=== PATIENT | male | born 1990 | race Caucasian/White ===

== ENCOUNTER 2019-06-26 17:03 | Emergency (ER) | payer OTHER, SELFPAY ==
[2019-06-26 17:07] VITALS: BP 162/98; PULSE 89; RESP 18; TEMP 37.2; O2SAT 99
--- NOTE | 2019-06-26 17:43 | ED.UPPEXIN ---
HPI - Extremity Injury (Upper) General Chief Complaint: Extremity Injury, Upper Stated Complaint: R arm injury Time Seen by Provider: 06/26/19 17:25 Source: patient and RN notes reviewed Mode of arrival: ambulatory Limitations: no limitations History of Present Illness HPI narrative: Pt is a 28 y/o male presenting to the ED c/o RUE pain. Pt reports he was lifting a 5 lb box with his RUE when he heard a pop and suddenly developed RUE pain earlier today. Pt states he has not been able to extend his RUE since and has difficulty moving his fingers. Onset (ago): unknown (Earlier today) Other Extremity Injury: Right: arm Place: work Associated symptoms: heard/felt popping sensation Related Data Home Medications Medication Instructions Recorded Confirmed famotidine 20 mg PO DAILY 04/13/19 04/13/19 sertraline 50 mg PO DAILY 04/13/19 04/13/19 Allergies Allergy/AdvReac Type Severity Reaction Status Date / Time cranberry Allergy Itching Verified 06/26/19 18:03 COCONUT Allergy Unknown Anaphylactic Uncoded 06/26/19 18:03 Shock INK Allergy Unknown swelling Uncoded 06/26/19 18:03 and itching MARKERS Allergy Unknown swelling, Uncoded 06/26/19 18:03 itching PRUNE JUICE Allergy Unknown stomach Uncoded 06/26/19 18:03 pain, diarrhea TUNA Allergy Unknown Anaphylactic Uncoded 06/26/19 18:03 Shock Review of Systems Review of Systems: All systems reviewed & are unremarkable except as noted in HPI and below Musculoskeletal: Musculoskeletal: Reports other (RUE pain after hearing a pop ) PMFSH Past Medical History Medical History (Updated 06/26/19 @ 20:23 by Kunal Lay MD) Asthma Depression GERD (gastroesophageal reflux disease) Hand fracture, right Herniated disc History of bipolar disorder Kidney stone Neck fracture Pseudoseizure PTSD (post-traumatic stress disorder) Schizophrenia Type II diabetes mellitus Surgical History Surgical History No significant past surgical history Social History Social History Smoking status: Unknown if ever smoked Gender identity (if verbalized by the patient): Male Exam Narrative: Exam Narrative: Pt is unable to cooperate with RUE exam Const: General: healthy appearing, no acute distress and well developed Nutritional Appearance: well nourished Orientation/consciousness: patient oriented x3 (alert) and Other orientation findings (Alert) Limitations: no limitations HENMT: Head: normocephalic and atraumatic General nose exam: No nasal discharge present and no epistaxis Face and sinus: face symmetric Mouth: Yes lip normal and Yes tongue normal Throat: other (No exudate, no erythema) Eyes: Conjunctivae: conjunctivae normal Sclera: sclerae normal EOM: EOMs intact bilaterally Neck: Neck: full ROM and supple Thyroid: thyroid normal Resp: Effort & Inspection: normal respiratory effort Auscultation: other (breath sounds equal) Cardio: Heart sounds: no gallops GI: GI Palp: No abdominal tenderness Auscultation: other (bowel sounds present) Back/Spine/Pelvis: Thoracic/Lumbar Spine: thoracic and lumbar spine normal to inspection Skin: General skin exam: normal color and no rashes or lesions noted Neuro: General: patient oriented x3 (alert) and no focal motor deficits Cranial nerves: Yes facial symmetry Speech: normal speech Motor exam (neuro): Motor abnormalities not present Extrem: General: full ROM Other: Pt is resistant to passive ROM of arm, shoulder, and hand. Pt refuses to extend ROM. Psych: Affect: normal affect Course Course Emergency Course: On initial exam he guarded everything, couldn't range the shoulder, extend the elbow, or extend the wrist or fingers versus his active resistance After meds and he was moderately more relaxed the shoulder appeared fine, clearly no deformity and FPROM Biceps tendons appear to be intact and not e
[2019-06-26] MEDS: HALOPERIDOL LACTATE 5 MG/ML VIAL IV PUSH (18:04)
[2019-06-26 18:16] VITALS: BP 149/96; PULSE 94; RESP 14; O2SAT 99
[2019-06-26] MEDS: KETOROLAC 30 MG/ML VIAL (*BKC) IV PUSH (18:48)
[2019-06-26 20:47] VITALS: BP 141/89; PULSE 89; RESP 16; O2SAT 100
== END 2019-06-26 20:48 | disposition home or self-care (01) ==
PROVIDERS: Emergency Provider Emergency Medicine; PCP Internal Medicine
DX: S49.91XA Unspecified injury of right shoulder and upper arm, initial encounter (principal); S59.911A Unspecified injury of right forearm, initial encounter; J45.909 Unspecified asthma, uncomplicated; K21.9 Gastro-esophageal reflux disease without esophagitis; Z87.442 Personal history of urinary calculi; F43.10 Post-traumatic stress disorder, unspecified; F20.9 Schizophrenia, unspecified; E11.9 Type 2 diabetes mellitus without complications; F31.9 Bipolar disorder, unspecified; X50.0XXA Overexertion from strenuous movement or load, initial encounter
CPT/HCPCS: 96374; 96375; 99284; A4565; J1200; J1630; J1885

== ENCOUNTER 2019-07-10 20:45 | Emergency (ER) | payer OTHER, SELFPAY ==
[2019-07-10 21:03] VITALS: BP 149/91; PULSE 86; RESP 16; TEMP 36.6; O2SAT 95
--- NOTE | 2019-07-10 21:11 | PC.NURSE ---
During assessment, RN asked patient about his past medical history and past surgical history. Pts response Thats a list in a half and refused to elaborate.
--- NOTE | 2019-07-10 21:16 | ED.UPPEXIN ---
HPI - Extremity Injury (Upper) General Chief Complaint: Extremity Injury, Upper Stated Complaint: arm pain History of Present Illness HPI narrative: Dav is a 28M with a complex PMH that presented to the ED with pain and swelling in the right wrist pain. he recently had an injury to the cartilage of his right elbow for which he is seeing an orthopedist. He had an injection today in that elbow. While feeding his BK echo he noticed some swelling, pain and discoloration in his right wrist. He was concerned about this or came to the emergency department. He denies any falls or any trauma to the area. He has not done any heavy lifting. Related Data Home Medications Medication Instructions Recorded Confirmed famotidine 20 mg PO DAILY 04/13/19 07/10/19 sertraline 50 mg PO DAILY 04/13/19 07/10/19 Allergies Allergy/AdvReac Type Severity Reaction Status Date / Time cranberry Allergy Itching Verified 06/29/19 09:27 COCONUT Allergy Unknown Anaphylactic Uncoded 06/29/19 09:27 Shock INK Allergy Unknown swelling Uncoded 06/29/19 09:27 and itching MARKERS Allergy Unknown swelling, Uncoded 06/29/19 09:27 itching PRUNE JUICE Allergy Unknown stomach Uncoded 06/29/19 09:27 pain, diarrhea TUNA Allergy Unknown Anaphylactic Uncoded 06/29/19 09:27 Shock Review of Systems Constitutional: Constitutional: Reports no additional constitutional complaints Eyes: Eyes: Reports as per HPI ENT: Reports system reviewed and no additional complaints, except as documented Cardiovascular: Cardiovascular: Reports as per HPI Respiratory: Respiratory: Reports as per HPI Gastrointestinal: Gastrointestinal: Reports as per HPI Genitourinary: Genitourinary: Reports no additional male genitourinary complaints Integumentary/Breasts: Comments: Has continued pain in the right elbow Neurologic: Reports system reviewed and no additional complaints, except as documented Psychiatric: Psychiatric: Reports no additional psychiatric complaints [facility] Past Medical History Medical History Asthma Depression GERD (gastroesophageal reflux disease) Hand fracture, right Herniated disc History of bipolar disorder Kidney stone Neck fracture Pseudoseizure PTSD (post-traumatic stress disorder) Schizophrenia Type II diabetes mellitus Surgical History Surgical History No significant past surgical history Social History Social History Smoking status: Unknown if ever smoked Gender identity (if verbalized by the patient): Male Exam Const: General: cooperative, healthy appearing, comfortable and no acute distress Orientation/consciousness: oriented to person, oriented to place, oriented to time and patient oriented x3 Limitations: no limitations HENMT: Head: normal to inspection Other: normocephalic, atraumatic Eyes: General: appearance normal, both eyes and all related structures Neck: Neck: normal visual inspection Chest: Chest palpation & inspection: normal inspection of the chest Resp: Effort & Inspection: normal respiratory effort, able to speak in complete sentences and abnormal respiratory pattern Cardio: Jugular venous distension: no JVD Rate: regular rate Skin: General skin exam: normal color and no rashes or lesions noted Neuro: General: oriented to person, oriented to place and oriented to time Other: sensation intact in all dermatomes of the right hand Extrem: Other: Right wrist had mild swelling throughout the dorsal side. There was no erythema, discoloration or tenderness palpation. when testing strength he did hesitate because of pain. 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 he had sensation throughout the entire hand and no signs of trauma. Cou
[2019-07-10] MEDS: KETOROLAC (*BKC) 60 MG/2 ML VIAL 30 MG IM (21:20)
[2019-07-10 21:41] VITALS: RESP 15
== END 2019-07-10 21:44 | disposition home or self-care (01) ==
PROVIDERS: Emergency Provider Family Medicine; PCP Internal Medicine
DX: M25.531 Pain in right wrist (principal); M25.431 Effusion, right wrist
CPT/HCPCS: 96372; 99282; 99283; J1885

== ENCOUNTER 2019-07-17 14:39 | Emergency (ER) | payer OTHER, SELFPAY ==
[2019-07-17] VITALS (8 sets, daily range): BP systolic 135–154; BP diastolic 92–108; PULSE 61–74; RESP 14–21; TEMP 36.4; O2SAT 98–100
--- NOTE | ~2019-07-17 | CT_ITS ---
EXAMINATION: CTA brain carotid DATE: 07/17/2019 16:04 INDICATION: Diplopia. TECHNIQUE: Computed tomographic angiography (CTA) of the head was performed without and with 100 mL O mnipaque-350 intravenous contrast. CTA of the neck was performed with intravenous contrast. Automated exposure control and iterative reconstruction technique were employed. The dose-length product was 1 875.57 mGy-cm. Maximum intensity projection and volume rendered 3D-reconstructions were created by valeria roy technologist on a separate workstation. COMPARISON: Head CT 04/13/2019 FINDINGS: HEAD CTA: There is no intracranial hemorrhage, acute infarction, or abnormal intracranial mass lesion . The ventricles are normal in size. The orbits are normal. The paranasal sinuses are clear. The mast oid air cells are normal. Right vertebral artery is dominant. There is no significant stenosis of bas ilar artery or the posterior cerebral arteries. There is no significant stenosis of the intracranial internal carotid arteries or anterior or middle cerebral arteries. Anterior communicating artery is n ormal. The posterior communicating arteries are normal. There is no aneurysm. NECK CTA: There are no pathologically enlarged lymph nodes. There is no significant stenosis of the vertebral arteries. There is mild plaque in proximal right internal carotid artery. There is 0% sten osis of the proximal right internal carotid artery relative to normal distal artery lumen diameter (N ASCET criteria). There is 0% stenosis of the proximal left internal carotid artery relative to normal distal artery lumen diameter. There is mild cervical spondylosis. IMPRESSION: 1. Normal brain. No aneurysm or significant intracranial arterial stenosis. 2. 0% stenosis of the proximal internal carotid arteries relative to normal distal artery lumen diame ters (NASCET criteria). Reviewed, dictated and finalized at location A. IMPRESSION: 1. Normal brain. No aneurysm or significant intracranial arterial stenosis. 2. 0% stenosis of the proximal internal carotid arteries relative to normal dis tiffani artery lumen diameters (NASCET criteria).
--- NOTE | 2019-07-17 14:52 | ECG_ITS ---
Measurements Intervals [place] Rate: 69 P: 40 IN: 198 QRS: -5 QRSD: 99 T: 30 QT: 349 QTc: 374 Interpretive Statements SINUS RHYTHM WITH SINUS ARRHYTHMIA INCOMPLETE RIGHT BUNDLE BRANCH BLOCK VOLTAGE CRITERIA FOR LVH BORDERLINE ECG Electronically Signed On 07-17-2019 15:16:09 CDT by Jose Maria Edmond D.O.
--- NOTE | 2019-07-17 14:57 | ED.SOB ---
HPI - SOB/Dyspnea General Chief Complaint: Shortness of Breath/Dyspnea Stated Complaint: DOUBLE VISION/SOB Time Seen by Provider: 07/17/19 14:55 Source: patient and RN notes reviewed Mode of arrival: EMS Limitations: no limitations History of Present Illness HPI Narrative: A 28 y/o male presents to the ED via EMS from work with SOB beginning roughly 40 minutes ago. He states that he was at work doing normal work stuff when he acutely developed SOB with double vision. He reports associated LLE numbness, ABD pain, eye pain, intermittent ROBLEDO, spinning dizziness, and tingling to the lt side of his body. He also reports normal /chronic rhinorrhea and a normal /chronic cough because he is a former smoker. He notes that his SOB has improved. He denies any N/V/D, sore throat, or fever. MD elicited complaint: shortness of breath Pertinent past history: asthma Onset (ago): minute(s) (40) Timing: improved Known history of: asthma Associated symptoms: cough ( normal /chronic), abdominal pain, dizziness (spinning) and other (double vision, LLE numbness, eye pain, intermittent ROBLEDO, tingling to lt side of body, and normal /chronic rhinorrhea) Treatment prior to arrival: none Related Data Home Medications Medication Instructions Recorded Confirmed sertraline 50 mg PO DAILY 04/13/19 07/10/19 dextroamphetamine-amphetamine PO 07/17/19 [Adderall XR] Allergies Allergy/AdvReac Type Severity Reaction Status Date / Time cranberry Allergy Itching Verified 07/17/19 14:49 COCONUT Allergy Unknown Anaphylactic Uncoded 07/17/19 14:49 Shock INK Allergy Unknown swelling Uncoded 07/17/19 14:49 and itching MARKERS Allergy Unknown swelling, Uncoded 07/17/19 14:49 itching PRUNE JUICE Allergy Unknown stomach Uncoded 07/17/19 14:49 pain, diarrhea TUNA Allergy Unknown Anaphylactic Uncoded 07/17/19 14:49 Shock Review of Systems Review of Systems: All systems reviewed & are unremarkable except as noted in HPI and below Constitutional: Constitutional: Denies fever(s) Eyes: Eyes: Reports diplopia and Reports eye pain ENT: Reports nasal discharge ( normal /chronic) and Denies sore throat Respiratory: Respiratory: Reports cough ( normal /chronic) and Reports dyspnea (improved) Gastrointestinal: Gastrointestinal: Reports abdominal pain, Denies diarrhea, Denies nausea and Denies vomiting Neurologic: Reports dizziness (spinning), Reports headache(s) (intermittent), Reports numbness (LLE) and Reports tingling (lt side of body) PMFSH Past Medical History Medical History Asthma Depression GERD (gastroesophageal reflux disease) Hand fracture, right Herniated disc History of bipolar disorder Hx of seizure disorder Hx of transient ischemic attack (TIA) Kidney stone Neck fracture Pseudoseizure PTSD (post-traumatic stress disorder) Schizophrenia Type II diabetes mellitus Surgical History Surgical History (Updated 07/17/19 @ 15:34 by Raza Arevalo) Hx of cardiac cath Social History Social History (Updated 07/17/19 @ 15:34 by Raza Arevalo) Smoking status: Former smoker Gender identity (if verbalized by the patient): Male Exam Const: General: cooperative, no acute distress and alert Nutritional Appearance: well nourished Orientation/consciousness: patient oriented x3 Limitations: no limitations HENMT: Mouth: Yes lip normal and Yes moist mucous membranes Resp: Effort & Inspection: normal respiratory effort Auscultation: clear to auscultation bilaterally Cardio: Rate: regular rate Rhythm: regular rhythm GI: GI Palp: Yes Soft to palpation, Yes Tenderness to palpation present (GI) (LLQ), No Guarding due to palpation present (GI) and No Rebound tenderness present Auscultation: normal bowel sounds Skin: General skin exam: normal color Neuro: General: patient oriented x3 Cognition (Neuro): normal cognition Speech: normal speech Extrem: General: normal to insp
[2019-07-17 15:07] LABS: Basophils Absolute Auto 0.1 K/mm3 (0.0-0.1); Basophils Percent Auto 0.8 % (0.2-1.2); Eosinophils Absolute Auto 0.1 K/mm3 (0-0.3); Eosinophils Percent Auto 1.4 % (0-4.4); Hematocrit 42.5 % (42.0-52.0); Hemoglobin 14.3 g/dL (14.0-18.0); Immature Granulocyte Absolute 0.03 K/mm3 (0.00-0.031); Immature Granulocyte Percent A 0.5 % (0-0.5); Lymphocytes Absolute Auto 1.19 K/mm3 (0.9-3.2); Lymphocytes Percent Auto 19.1 % (18.3-44.2); Mean Corpuscular HGB Conc 33.6 g/dl (32-36); Mean Corpuscular Hemoglobin 28.5 pg (26-34); Mean Corpuscular Volume 84.8 fl (80-100); Mean Platelet Volume 11.3 fl (7.4-10.4); Monocytes Absolute Auto 0.5 K/mm3 (0.1-0.6); Monocytes Percent Auto 7.2 % (2.6-8.5); Neutrophils Absolute Auto 4.4 K/mm3 (1.3-6.7); Platelet Count Result 232 k/mm3 (150-375); Red Blood Count 5.01 M/mm3 (4.6-6.20); Red Cell Distribution Width 12.4 % (11.5-14.5); White Blood Count 6.2 K/mm3 (4.5-10.0)
[2019-07-17 15:10] LABS: Add Urine Microscopic? NO; Appearance Urine Clear (Clear); Bilirubin Urine Negative (Negative); Blood Urine Negative (Negative); Color Urine Yellow (Yellow); Glucose Urine UA Negative (Negative); Ketones Urine Negative (Negative); Leukocyte Esterase Ur Negative LEU/UL (Negative); Nitrate Urine Negative (Negative); Protein Urine Negative (Negative); Urobilinogen Urine Negative mg/dL (<2.0)
[2019-07-17 15:20] LABS: Alanine Aminotransferase 23 U/L (4-50); Albumin Level 4.4 g/dL (3.5-5.1); Alkaline Phosphatase 114 U/L (38-126); Aspartate Amino Transferase 21 U/L (17-59); Bilirubin,Total 0.3 mg/dL (0.2-1.3); Blood Urea Nitrogen 19 mg/dL (9-20); Carbon Dioxide 25 mmol/L (22-30); Chloride 105 mmol/L (98-107); Estimated CRCL calculation 124 ml/min; Estimated Glomerular Filt Rate > 60; Glucose 91 mg/dL (75-110); Sodium 139 mmol/L (137-145)
--- NOTE | 2019-07-17 15:27 | PC.NURSE ---
Patient to radiology at this time.
[2019-07-17 15:46] LABS: Ethanol < 10 mg/dL (<10)
[2019-07-17 15:48] LABS: INR 0.9; Prothrombin Time 11.8 Seconds (11.1-14.7)
[2019-07-17 15:49] LABS: Partial Thromboplastin Time 29.3 SECONDS (22.3-36.8)
[2019-07-17] MEDS: ONDANSETRON INJ 4 MG/2 ML VIAL IV PUSH (15:56)
[2019-07-17] MEDS: MECLIZINE HCL 25 MG TABLET PO (15:56)
[2019-07-17 15:59] LABS: Troponin I < 0.012 ng/mL (0.000-0.034)
[2019-07-17 16:26] LABS: Amphetamine Screen Urine Negative (Negative); Barbiturate Screen Urine Negative (Negative); Benzodiazepines Screen Urine Negative (Negative); Cannabinoid Screen Urine Negative (Negative); Cocaine Screen Urine Negative (Negative); Methadone Screen Urine Negative (Negative); Opiate Screen Urine Negative (Negative); Phencyclidine Screen Urine Negative (Negative)
--- NOTE | 2019-07-17 17:17 | PC.NURSE ---
asked to ambulate the pt pt unable to walk more than three steps, even with assistance. had to be held up from falling, still c/o of dizzyness
[2019-07-17] MEDS: LACTATED RINGERS 1,000 ML 999 ML IV CONT (18:11)
--- NOTE | 2019-07-17 19:00 | PC.NURSE ---
Per order of Dr. Lilly, attempted to get patient up to ambulate. Patient was assisted to sitting position from semi-fowlers position and he began to complain of feeing severe dizziness. He also began to waiver while sitting and laid back into semi-fowlers position. EDP aware
--- NOTE | 2019-07-17 20:52 | PC.NURSE ---
pt ambulates slowly but steadily out of door of room ED#2 to nurses station aboug 15 feet and back. pt c/o dizziness, knee buckling, during ambulation assessment. This RN did not have to assist pt in any way to ambulate.
== END 2019-07-17 21:07 | disposition home or self-care (01) ==
PROVIDERS: Emergency Medicine; Emergency Provider Emergency Medicine; PCP Internal Medicine
DX: R06.00 Dyspnea, unspecified (principal); R42 Dizziness and giddiness; H61.23 Impacted cerumen, bilateral; E11.9 Type 2 diabetes mellitus without complications; K21.9 Gastro-esophageal reflux disease without esophagitis; J45.909 Unspecified asthma, uncomplicated; F31.9 Bipolar disorder, unspecified; F43.10 Post-traumatic stress disorder, unspecified; F20.9 Schizophrenia, unspecified; G40.909 Epilepsy, unspecified, not intractable, without status epilepticus; Z86.73 Personal history of transient ischemic attack (TIA), and cerebral infarction without residual deficits; Z87.442 Personal history of urinary calculi; Z87.891 Personal history of nicotine dependence; I45.10 Unspecified right bundle-branch block; R94.31 Abnormal electrocardiogram [ECG] [EKG]
CPT/HCPCS: 36415; 69210; 70496; 70498; 80053; 80307; 81003; 84484; 85025; 85610; 85730; 93005; 96374; 96375; 99284; A9270; J2405; J3360; J7120; Q9967

== ENCOUNTER 2019-08-25 09:26 | Observation (INO) | payer OTHER, SELFPAY ==
[2019-08-25] VITALS (8 sets, daily range): BP systolic 133–164; BP diastolic 91–112; PULSE 64–82; RESP 14–20; TEMP 36.1–37; O2SAT 94–100; BMI 36.3
--- NOTE | ~2019-08-25 | MR_ITS ---
EXAMINATION: MR brain/brain stem wo/w con DATE: 08/25/2019 16:06 CDT INDICATION: Right-sided weakness TECHNIQUE: Magnetic resonance imaging (MRI) of the brain and brainstem was performed without and with 20 cc MultiHance intravenous contrast. Sequences included sagittal and axial T1-weighted SE, axial d iffusion-weighted FS SE, axial T2*-weighted GRE, axial T2-weighted FLAIR Propeller, and axial T2-weig hted Propeller. Apparent diffusion coefficient (ADC) maps were created. COMPARISON: CT dated 08/25/2019 FINDINGS: The brain volume and ventricular system are within normal limits. The brain parenchymal si gnal intensity pattern and lozada/white matter is normal and there is no evidence of hemorrhage, space occupying masses or infarctions. The flow signal voids of the major arterial structures about the [place] and within the shonda r dural venous sinuses appear grossly unremarkable and patent. The seventh and eighth cranial nerve complexes are normal. The mid sagittal image demonstrates a normal craniovertebral junction and k[place] us callosum. The paranasal sinuses are grossly unremarkable. No abnormal contrast enhancement was appreciated. IMPRESSION: 1: NORMAL MRI OF THE BRAIN WITH AND WITHOUT CONTRAST. Reviewed, dictated and finalized at location A.
--- NOTE | ~2019-08-25 | XR_ITS ---
XR chest 1V DATE: 08/25/2019 10:46 INDICATION: Chest pain TECHNIQUE: AP chest on 08/25/2019 at 1034 hours COMPARISON: 03/22/2014 2 view chest FINDINGS: No pulmonary infiltrate or consolidation, pleural effusion or pulmonary vascular congestion or pneumothorax is detected. Heart size is within normal range. No hilar or mediastinal enlargement. IMPRESSION: No active cardiopulmonary disease Reviewed, dictated and finalized at location A.
--- NOTE | ~2019-08-25 | MR_ITS ---
EXAMINATION: MR cervical spine wo/w con DATE: 08/25/2019 15:43 INDICATION: Right hemiparesis. TECHNIQUE: Magnetic resonance imaging (MRI) of the cervical spine was performed without and with 20 m L MultiHance intravenous contrast. Sequences included sagittal and axial T2-weighted FSE, sagittal T2 -weighted FS FSE, and sagittal and axial T1-weighted FSE. Postcontrast sequences included sagittal an d axial T1-weighted FS FSE. COMPARISON: CTA neck 08/25/2019 FINDINGS: Motion artifact is noted. Vertebral body heights are normal. Vertebral body heights and int ervertebral disc heights are normal. The spinal cord signal intensity is normal. The following disc l evels are specifically discussed: C2-C3: The disc does not extend beyond the endplate margin. There is mild bilateral uncovertebral alvarado nt osteoarthritis. There is no facet joint osteoarthritis. There is no neural foraminal stenosis. The re is no central canal stenosis. C3-C4: The disc does not extend beyond the endplate margin. There is mild right uncovertebral joint o steoarthritis. There is no facet joint osteoarthritis. There is no neural foraminal stenosis. There i s no central canal stenosis. C4-C5 through C6-C7: The disc does not extend beyond the endplate margin. There is no uncovertebral j oint osteoarthritis. There is no facet joint osteoarthritis. There is no neural foraminal stenosis. T here is no central canal stenosis. C7-T1: The disc does not extend beyond the endplate margin. There is no uncovertebral joint osteoarth ritis. There is mild bilateral facet joint osteoarthritis. There is no neural foraminal stenosis. The re is no central canal stenosis. IMPRESSION: 1. Normal spinal cord. Sensitivity and specificity are mildly decreased by motion artifact. Reviewed, dictated and finalized at location A. IMPRESSION: 1. Normal spinal cord. Sensitivity and specificity are mildly decreased by marissa on artifact.
--- NOTE | ~2019-08-25 | CT_ITS ---
EXAMINATION: CTA BRAIN/CAROTID DATE: 08/25/2019 10:38 INDICATION: Right-sided hemiparesis TECHNIQUE: Computed tomographic angiography (CTA) of the head and neck was performed with 100 mL Omni paque-350 intravenous contrast. Multiplanar reconstructions and maximum intensity projection 3D-recon structions of the carotid arteries and of the intracranial arteries were created by the technologist on a separate workstation. Precontrast CT of the head was also obtained. Automated exposure control and iterative reconstruction technique were employed.The dose-length product was 1814.19 mGy-cm. COMPARISON: None. FINDINGS: Carotid arteries: Visualized aortic arch and great vessels arising from the arch are normal in caliber with no evident atherosclerotic plaque or dissection. There is 0% stenosis of the right carotid bulb relative to norm al distal artery lumen diameter (NASCET criteria). There is 0% stenosis of the left carotid bulb rela tive to normal distal artery lumen diameter. Right vertebral artery is dominant. Cervical soft tissue s are unremarkable. Straightening of the normal cervical lordosis. Minimal disc height loss at C4-C5. Visualized apices of lungs are clear. Head: No acute intracranial hemorrhage, acute infarction or abnormal extra axial fluid collection. Ventricl es are normal and symmetric. No mass/mass effect. The orbits, paranasal sinuses and mastoid air cells are normal. No abnormally enhancing lesions identified. Intracranial arteries: There is no hemodynamically significant stenosis in the vertebral, basilar and internal carotid arter ies. There are no aneurysms identified. Both A1 and P1 segments are patent. Cerebral arterial arbor ization appears symmetric. IMPRESSION: 1. No acute intracranial process. 2. 0% stenosis of the right carotid bulb relative to normal distal artery lumen diameter (NASCET crit eria). 3. 0% stenosis of the left carotid bulb relative to normal distal artery lumen diameter. 4. Normal cerebral angiogram. Reviewed, dictated and finalized at location A. IMPRESSION: 1. No acute intracranial process. 2. 0% stenosis of the right carotid bulb relative to normal distal artery lumen diameter (NASCET criteria). 3. 0% stenosis of the left carotid bulb relative to normal distal artery lumen diameter. 4. Normal cerebral angiogram.
--- NOTE | ~2019-08-25 | XR_ITS ---
XR shoulder RT min 2V DATE: 08/25/2019 10:46 INDICATION: Right shoulder pain following a fall TECHNIQUE: 4 views COMPARISON: None FINDINGS: No fracture, dislocation, periosteal reaction or bone destruction or abnormal soft tissue c alcification at the right shoulder. IMPRESSION: Negative right shoulder Reviewed, dictated and finalized at location A. IMPRESSION: Negative right shoulder
--- NOTE | 2019-08-25 09:45 | ECG_ITS ---
Measurements Intervals [place] Rate: 70 P: 31 IA: 172 QRS: 0 QRSD: 104 T: 32 QT: 360 QTc: 390 Interpretive Statements SINUS RHYTHM WITH SINUS ARRHYTHMIA INCOMPLETE RIGHT BUNDLE BRANCH BLOCK LOW QRS VOLTAGE IN PRECORDIAL LEADS BORDERLINE ECG Electronically Signed On 08-25-2019 12:29:07 CDT by Jose Maria Edmond D.O.
--- NOTE | 2019-08-25 09:50 | ED.GENADULT ---
HPI - General Adult General Chief complaint: Unspecified Stated complaint: limping, elbow injury, pain in neck for a month Time Seen by Provider: 08/25/19 09:37 Source: RN notes reviewed History of Present Illness HPI narrative: Patient presents emergency department from home for right-sided weakness. Patient states that starting approximately 1 month ago he began noticing weakness in his right arm. Patient states that he had had some pain in his elbow at that time and is felt that he had possibly had tennis elbow and has been seen Dr. Henning for this. He states he went to the office today Dr. Henning noticed the patient also had a limp. Patient states he has been feeling mildly weaker in his right leg as well as his right arm over the past month. He denies any known trauma or injury. He denies any vision changes chest pain shortness of breath or abdominal pain. Patient states he has had some numbness and tingling in his right hand. Patient states he has had some pain in the right side of his neck during this time Related Data Home Medications Medication Instructions Recorded Confirmed citalopram 20 mg PO DAILY 08/25/19 levetiracetam 500 mg PO DAILY 08/25/19 quetiapine 100 mg PO HS 08/25/19 Allergies Allergy/AdvReac Type Severity Reaction Status Date / Time cranberry Allergy Itching Verified 08/25/19 09:36 COCONUT Allergy Unknown Anaphylactic Uncoded 08/25/19 09:36 Shock INK Allergy Unknown swelling Uncoded 08/25/19 09:36 and itching MARKERS Allergy Unknown swelling, Uncoded 08/25/19 09:36 itching PRUNE JUICE Allergy Unknown stomach Uncoded 08/25/19 09:36 pain, diarrhea TUNA Allergy Unknown Anaphylactic Uncoded 08/25/19 09:36 Shock Review of Systems Review of Systems: Narrative: Gen.: Denies fevers or chills Eyes: Denies eye pain or visual change ENT: Denies congestion Respiratory: Denies shortness of breath or cough CV: Denies chest pain or palpitations GI: Denies abdominal pain nausea, emesis or diarrhea Musculoskeletal: Denies back pain or muscle pain Neuro: See HPI Skin: Denies rash Except as documented, all other systems reviewed and negative PMFSH Past Medical History Medical History Asthma Depression GERD (gastroesophageal reflux disease) Hand fracture, right Herniated disc History of bipolar disorder Hx of seizure disorder Hx of transient ischemic attack (TIA) Kidney stone Neck fracture Pseudoseizure PTSD (post-traumatic stress disorder) Schizophrenia Type II diabetes mellitus Surgical History Surgical History (Updated 07/17/19 @ 15:34 by Raza Arevalo) Hx of cardiac cath Social History Social History Smoking status: Former smoker Gender identity (if verbalized by the patient): Male Exam Narrative: Exam Narrative: APPEARANCE: No acute distress, nontoxic, resting in bed HEENT: Normocephalic, atraumatic, OMM, TMs clear bilaterally EYES: PERRL, EOMI NECK: Supple, nontender, full range of motion without pain, no meningismus RESPIRATORY: No respiratory distress, clear to auscultation bilaterally with no rhonchi wheezing or rales CARDIOVASCULAR: RRR s murmur ABDOMINAL: Soft, nontender, nondistended MUSCULOSKELETAL: Moves all extremities. No clubbing, cyanosis or edema. Bilateral radial pulse 2+ NEURO: A and O ?3, following commands, speech normal, cranial nerves II through XII grossly intact,muscle strength 5 out of 5 left upper and lower extremities muscle strength 3 out of 5 in the right upper extremity and 4 out of 5 notable right lower extremity SKIN:: Warm, dry. Normal Color PSYCHIATRIC: Normal affect/mood Course Course Emergency Course: Discussed Dr. Figueroa presentation work-up. Recommends MRI cervical spine with and without contrast Discussed with Dr. Jon's office. Dr. Jon is out till mid next week Discussed with Dr. Streeter
[2019-08-25 10:06] LABS: Basophils Absolute Auto 0.1 K/mm3 (0.0-0.1); Eosinophils Absolute Auto 0.2 K/mm3 (0-0.3); Eosinophils Percent Auto 3.3 % (0-4.4); Hematocrit 44.6 % (42.0-52.0); Hemoglobin 15.3 g/dL (14.0-18.0); Immature Granulocyte Absolute 0.02 K/mm3 (0.00-0.031); Immature Granulocyte Percent A 0.3 % (0-0.5); Lymphocytes Absolute Auto 1.19 K/mm3 (0.9-3.2); Lymphocytes Percent Auto 19.5 % (18.3-44.2); Mean Corpuscular HGB Conc 34.3 g/dl (32-36); Mean Corpuscular Hemoglobin 28.8 pg (26-34); Mean Corpuscular Volume 83.8 fl (80-100); Mean Platelet Volume 10.6 fl (7.4-10.4); Monocytes Absolute Auto 0.4 K/mm3 (0.1-0.6); Monocytes Percent Auto 6.1 % (2.6-8.5); Neutrophils Absolute Auto 4.3 K/mm3 (1.3-6.7); Neutrophils Percent Auto 69.8 % (45.5-73.1); Platelet Count Result 234 k/mm3 (150-375); Red Blood Count 5.32 M/mm3 (4.6-6.20); Red Cell Distribution Width 12.5 % (11.5-14.5); White Blood Count 6.1 K/mm3 (4.5-10.0)
[2019-08-25 10:15] LABS: INR 0.9; Prothrombin Time 11.8 Seconds (11.1-14.7)
[2019-08-25 10:16] LABS: Partial Thromboplastin Time 29.7 SECONDS (22.3-36.8)
[2019-08-25 10:20] LABS: Alanine Aminotransferase 26 U/L (4-50); Albumin Level 4.8 g/dL (3.5-5.1); Alkaline Phosphatase 117 U/L (38-126); Aspartate Amino Transferase 22 U/L (17-59); Bilirubin,Total 0.5 mg/dL (0.2-1.3); Blood Urea Nitrogen 17 mg/dL (9-20); Calcium 9.6 mg/dL (8.4-10.2); Carbon Dioxide 29 mmol/L (22-30); Chloride 104 mmol/L (98-107); Estimated CRCL calculation 108 ml/min; Estimated Glomerular Filt Rate > 60; Glucose 94 mg/dL (75-110); Potassium 4.1 mmol/L (3.4-5.0); Sodium 138 mmol/L (137-145)
[2019-08-25 10:22] LABS: Estimated CRCL calculation 108 ml/min; Estimated Glomerular Filt Rate > 60
[2019-08-25 10:31] LABS: Troponin I < 0.012 ng/mL (0.000-0.034)
--- NOTE | 2019-08-25 13:34 | PM.IMHP ---
H&P: HPI History of Present Illness Chief complaint: R sided weakness Narrative: Mario Zamora III is a 28 year old male who had an incident about 1 month ago when he felt and heard a pop in his right elbow. He stated it felt and sound as if ?2 m-80s? exploded in his elbow. He was being treated for ?tennis elbow ?. Physical therapy. Not improving. About 5-6 days ago he began to feel tingling in the right arm and right leg. About 4-5 days ago he began having a generalized occipital to frontal headache. He noted the turning his head seem to elicit some neck pain there radiated to the right shoulder. He noted increasing weakness in his right arm over the past 2 days. Today he he noted that he was walking with a slight limp. He denied right leg pain. During the past 2 days he has also noted spontaneous flexion and abduction of his right arm with clenching of the fist. About several weeks ago he had a spell during which she hyperventilated and fell at work. He does not recall falling although when the ground. Stated someone caught him before he fell all the way. He did not snap is neck back and forth hurt his shoulder or hit his head. He denied any change in bowel movements or urination. Specifically denied numbness in the perineal region, fecal incontinence, urinary incontinence, urinary retention. He denied chest pain, shortness of breath, indigestion, dysuria, hematochezia, hematuria, rash, itching. Review of Systems Review of Systems: All systems reviewed & are unremarkable except as noted in HPI and below PMFSH Past Medical History Medical History Asthma Depression GERD (gastroesophageal reflux disease) Hand fracture, right Herniated disc History of bipolar disorder Hx of seizure disorder Hx of transient ischemic attack (TIA) Kidney stone Neck fracture Pseudoseizure PTSD (post-traumatic stress disorder) Schizophrenia Type II diabetes mellitus Surgical History Surgical History Hx of cardiac cath Family History Family History (Updated 08/25/19 @ 13:38 by Ascencion Streeter MD) Father No problems noted. Social History Social History (Updated 08/25/19 @ 13:39 by Ascencion Streeter MD) Smoking status: Former smoker Alcohol use details: Denied current alcohol abuse Other substance usage details: Denied current substance abuse Gender identity (if verbalized by the patient): Male Meds Home Medications and Allergies Home Medications Medication Instructions Recorded Confirmed Type citalopram 20 mg PO DAILY 08/25/19 History levetiracetam 500 mg PO DAILY 08/25/19 History quetiapine 100 mg PO HS 08/25/19 History Allergies Allergy/AdvReac Type Severity Reaction Status Date / Time cranberry Allergy Itching Verified 08/25/19 09:36 COCONUT Allergy Unknown Anaphylactic Uncoded 08/25/19 09:36 Shock INK Allergy Unknown swelling Uncoded 08/25/19 09:36 and itching MARKERS Allergy Unknown swelling, Uncoded 08/25/19 09:36 itching PRUNE JUICE Allergy Unknown stomach Uncoded 08/25/19 09:36 pain, diarrhea TUNA Allergy Unknown Anaphylactic Uncoded 08/25/19 09:36 Shock Vital Signs Vital Signs - 24 hr 08/25/19 09:31 08/25/19 10:05 08/25/19 11:29 Temperature 97.0 F L Pulse Rate 73 70 72 Respiratory Rate 20 14 Blood Pressure 164/105 H 142/101 H Pulse Oximetry 94 98 08/25/19 12:59 08/25/19 13:18 Temperature Pulse Rate 64 76 Respiratory Rate 18 14 Blood Pressure 157/112 H 144/102 H Pulse Oximetry 100 98 Exam Narrative: Exam Narrative: HEENT: EOMI, PERRL, sclerae nonicteric, pharyngeal mucosa pink and intact NECK: No JVD, adenopathy, or thyromegaly CHEST: Clear to auscultation. Normal effort. HEART: NL S1/S2, regular, no murmur ABDOMEN: BS+, soft, nontender, no mass, no bruits EXTREMITIES: No cyanosis, edema, or clubbing NEUROLOGIC: C
--- NOTE | 2019-08-25 13:51 | ED.GENADULT ---
HPI - General Adult General Source: RN notes reviewed Related Data Home Medications Medication Instructions Recorded Confirmed citalopram 20 mg PO DAILY 08/25/19 levetiracetam 500 mg PO DAILY 08/25/19 quetiapine 100 mg PO HS 08/25/19 Allergies Allergy/AdvReac Type Severity Reaction Status Date / Time cranberry Allergy Itching Verified 08/25/19 09:36 latex Allergy Rash Verified 08/25/19 15:46 COCONUT Allergy Unknown Anaphylactic Uncoded 08/25/19 09:36 Shock INK Allergy Unknown swelling Uncoded 08/25/19 09:36 and itching MARKERS Allergy Unknown swelling, Uncoded 08/25/19 09:36 itching PRUNE JUICE Allergy Unknown stomach Uncoded 08/25/19 09:36 pain, diarrhea TUNA Allergy Unknown Anaphylactic Uncoded 08/25/19 09:36 Shock PMFSH Past Medical History Medical History Asthma Depression GERD (gastroesophageal reflux disease) Hand fracture, right Herniated disc History of bipolar disorder Hx of seizure disorder Hx of transient ischemic attack (TIA) Kidney stone Neck fracture Pseudoseizure PTSD (post-traumatic stress disorder) Schizophrenia Type II diabetes mellitus Surgical History Surgical History Hx of cardiac cath Family History Family History (Updated 08/25/19 @ 15:52 by Laurel Houston RN) Father History of blood clots Diabetes mellitus Hypertension Mother History of blood clots Diabetes mellitus Hypertension Sibling Hypertension Social History Social History (Updated 08/25/19 @ 13:39 by Ascencion Streeter MD) Smoking packs per day: 3 Smoking cigarettes per day: 60.0 Years smoked: 20 Smoking pack-years: 60.00 Smoking status: Current every day smoker Tobacco type: cigarettes Alcohol intake: former Alcohol use details: Denied current alcohol abuse Substance use: never Other substance usage details: Denied current substance abuse Gender identity (if verbalized by the patient): Male Spiritual care concerns: No Agree to blood products: Yes Course Vital Signs Vital signs: Vital Signs Temperature 97.0 F L 08/25/19 09:31 Pulse Rate 73 08/25/19 09:31 Respiratory Rate 20 08/25/19 09:31 Blood Pressure 164/105 H 08/25/19 09:31 Pulse Oximetry 94 08/25/19 09:31 Temperature 98.6 F 08/25/19 15:00 Pulse Rate 78 08/25/19 15:00 Respiratory Rate 16 08/25/19 15:00 Blood Pressure 133/98 H 08/25/19 15:00 Pulse Oximetry 98 08/25/19 15:00 Medical Decision Making Vital Signs Vital Signs: Vital Signs Temperature 97.0 F L 08/25/19 09:31 Pulse Rate 73 08/25/19 09:31 Respiratory Rate 20 08/25/19 09:31 Blood Pressure 164/105 H 08/25/19 09:31 Pulse Oximetry 94 08/25/19 09:31 Temperature 98.6 F 08/25/19 15:00 Pulse Rate 78 08/25/19 15:00 Respiratory Rate 16 08/25/19 15:00 Blood Pressure 133/98 H 08/25/19 15:00 Pulse Oximetry 98 08/25/19 15:00 Lab Data Result diagrams: 08/25/19 09:59 08/25/19 10:21 Labs: Lab Results 08/25/19 08/25/19 08/25/19 Range/Units 09:59 09:59 09:59 WBC 6.1 (4.5-10.0) K/mm3 RBC 5.32 (4.6-6.20) M/mm3 Hgb 15.3 (14.0-18.0) g/dL Hct 44.6 (42.0-52.0) % MCV 83.8 (80-100) fl MCH 28.8 (26-34) pg MCHC 34.3 (32-36) g/dl RDW 12.5 (11.5-14.5) % Plt Count 234 (150-375) k/mm3 MPV 10.6 H (7.4-10.4) fl Immature Gran % (Auto) 0.3 (0-0.5) % Neut % (Auto) 69.8 (45.5-73.1) % Lymph % (Auto) 19.5 (18.3-44.2) % [place] % (Auto) 6.1 (2.6-8.5) % Eos % (Auto) 3.3 (0-4.4) % Baso % (Auto) 1.0 (0.2-1.2) % Lymph # (Auto) 1.19 (0.9-3.2) K/mm3 [place] # (Auto) 0.4 (0.1-0.6) K/mm3 Eos # (Auto) 0.2 (0-0.3) K/mm3 Baso # (Auto) 0.1 (0.0-0.1) K/mm3 Abs Immat Gran (auto) 0.02 (0.00-0.031) K/mm3 Absolute Neuts (auto) 4.3 (1.3-6.7)
--- NOTE | 2019-08-25 14:00 | PC.NURSE ---
This patient, Mario Zamora III, was admitted to 2 Medical Room 241-01. Patient/family oriented to hospital policies and general routines including ID bracelet, bed and alarms, visiting hours, pain management, procedures, bathroom and other care routines, personal items, smoking policy, room service/diet, and visiting hours. Valuables list has been completed. Information on how to activate the Rapid Response Team has been discussed. Patient/Family are encouraged to report perceived risks to care and to ask questions if they do not understand what they are told or what they should do.
[2019-08-25 16:22] LABS: Glucose Point of Care 71 (65-105)
[2019-08-25] MEDS: QUEtiapine FUMARATE 100 MG TABLET PO (20:35)
[2019-08-25 21:15] LABS: Glucose Point of Care 78 (65-105)
[2019-08-25] MEDS: ACETAMINOPHEN 325 MG TABLET 650 MG PO (21:42)
[2019-08-26 06:00] VITALS: BP 147/84; PULSE 87; RESP 16; TEMP 36.2; O2SAT 97
[2019-08-26 07:41] LABS: Glucose Point of Care 91 (65-105)
[2019-08-26] MEDS: levETIRAcetam 500 MG TABLET PO (08:48)
[2019-08-26] MEDS: CITALOPRAM HYDROBROMIDE 20 MG TABLET PO (08:49)
[2019-08-26 11:38] LABS: Glucose Point of Care 88 (65-105)
--- NOTE | 2019-08-26 12:18 | PM.DS ---
DS: Diagnosis Admitting Diagnosis Admitting Diagnosis: Weakness Discharge Diagnosis (1) Right sided weakness: Code(s): R53.1 - Weakness Status: Acute Assessment and Plan: Patient was admitted for progressive numbness and weakness on the right side of the body. Abnormal into the right upper extremity. He was able to be up and around and tolerate activity. On the morning of discharge she had a recurrence of his chronic intermittent vertigo. This was helpful IV Phenergan 12.5 mg. His MRI of the brain and MRI of the C-spine both with contrast were unremarkable. Presumptive diagnosis is conversion reaction related to his longstanding psychiatric condition (2) Peripheral vertigo: Code(s): H81.399 - Other peripheral vertigo, unspecified ear Status: Acute Assessment and Plan: This is chronic and intermittent Utilized p.r.n. meclizine Avoid rapid movements (3) Schizophrenia: Qualifiers: Schizophrenia type: unspecified Qualified Code(s): F20.9 - Schizophrenia, unspecified Code(s): F20.9 - Schizophrenia, unspecified Status: Acute Assessment and Plan: Continue home regimen (4) Type II diabetes mellitus: Qualifiers: Diabetes mellitus chcf insulin use: without terminal computer operator use Diabetes mellitus complication status: without complication Qualified Code(s): E11.9 - Type 2 diabetes mellitus without complications Code(s): E11.9 - Type 2 diabetes mellitus without complications Status: Acute Assessment and Plan: Although the patient has a history of diet-controlled diabetes his glucometer is were all normal during hospitalization (5) Depression: Qualifiers: Depression Type: unspecified Qualified Code(s): F32.9 - Major depressive disorder, single episode, unspecified Code(s): F32.9 - Major depressive disorder, single episode, unspecified Status: Acute Assessment and Plan: Continue home regimen (6) Pseudoseizure: Code(s): 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 Time Spent with Patient Time attestation: Total time spent providing and/or coordinating discharge services:37 min Exam Narrative: Exam Narrative: Alert oriented person place and time. 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 upper extremity 5/5 left upper extremity Now has full range of motion in the right elbow and right shoulder although he winces and resists with pain Positive drop-arm sign As right upper extremity fix but no drift Cranial nerves intact to inspection Deep tender reflexes intact in both upper extremities biceps and triceps and in both knees and ankles with negative Babinski's Dorsiflexion and plantar flexion strength are intact and symmetric bilaterally DS: Data Data Completed and Pending Labs on day of discharge: Labs from last 24 hours 08/26/19 08/26/19 08/25/19 11:23 07:28 20:22 POC Capillary Glucose 88 91 78 08/25/19 16:16 POC Capillary Glucose 71 Discharge Plan Discharge Consulting providers: Jalen Figueroa Discharging Clinician: Ascencion Streeter Patient Disposition: Home, Self-Care Activity: no driving Diet: regular Discharge Instructions: Resume outpatient PT under the direction of Dr. Curiel. Avoid rapid changes in position. Patient Instructions: How to Stop Smoking (GEN), Cigarette Smoking and Your Health (GEN) Stand Al
[2019-08-26] MEDS: PROMETHAZINE HCL 25 MG/ML AMPUL 12.5 MG IV PUSH (12:51)
[2019-08-26 14:00] VITALS: BP 106/50; PULSE 69; RESP 14; TEMP 36.6; O2SAT 99
--- NOTE | 2019-09-26 11:31 | P.CONNEU_ITS ---
Consult date: 09/26/19 Time Seen: 11:35 HPI: Mario Zamora III is a 29 year old male pt not seen [facility] Past Medical History Medical History Asthma Depression GERD (gastroesophageal reflux disease) Hand fracture, right Herniated disc History of bipolar disorder Hx of seizure disorder Hx of transient ischemic attack (TIA) Kidney stone Neck fracture Pseudoseizure PTSD (post-traumatic stress disorder) Schizophrenia Type II diabetes mellitus Surgical History Surgical History Hx of cardiac cath Family History Family History (Updated 08/25/19 @ 15:52 by Laurel Houston RN) Father History of blood clots Diabetes mellitus Hypertension Mother History of blood clots Diabetes mellitus Hypertension Sibling Hypertension Social History Social History (Updated 08/25/19 @ 13:39 by Ascencion Streeter MD) Smoking packs per day: 3 Smoking cigarettes per day: 60.0 Years smoked: 20 Smoking pack-years: 60.00 Smoking status: Current every day smoker Tobacco type: cigarettes Alcohol intake: former Alcohol use details: Denied current alcohol abuse Substance use: never Other substance usage details: Denied current substance abuse Gender identity (if verbalized by the patient): Male Spiritual care concerns: No Agree to blood products: Yes Meds Home Medications and Allergies Home Medications Medication Instructions Recorded Confirmed Type citalopram 20 mg PO DAILY 08/25/19 History levetiracetam 500 mg PO DAILY 08/25/19 History quetiapine 100 mg PO HS 08/25/19 History acetaminophen [Mapap 650 mg PO Q4H PRN #60 tablet 08/26/19 Rx (acetaminophen)] meclizine 25 mg PO Q4H PRN #30 tablet 08/26/19 Rx Allergies Allergy/AdvReac Type Severity Reaction Status Date / Time cranberry Allergy Itching Verified 08/25/19 09:36 latex Allergy Rash Verified 08/25/19 15:46 COCONUT Allergy Unknown Anaphylactic Uncoded 08/25/19 09:36 Shock INK Allergy Unknown swelling Uncoded 08/25/19 09:36 and itching MARKERS Allergy Unknown swelling, Uncoded 08/25/19 09:36 itching PRUNE JUICE Allergy Unknown stomach Uncoded 05/01/20 09:36 pain, diarrhea TUNA Allergy Unknown Anaphylactic Uncoded 08/25/19 09:36 Shock Results Labs CBC & Chem 7: 08/25/19 09:59 08/25/19 10:21 Quality VTE Prophylaxis VTE prophylaxis: mechanical ordered
== END 2019-08-26 17:25 | disposition home or self-care (01) ==
LOC: ANHED 13:29 → ANH2MED 13:36
PROVIDERS: Admitting Provider Internal Medicine; Emergency Provider Emergency Medicine; PCP Internal Medicine; Visit Provider Internal Medicine
DX: R53.1 Weakness (principal); H81.399 Other peripheral vertigo, unspecified ear; F20.9 Schizophrenia, unspecified; E11.9 Type 2 diabetes mellitus without complications; F32.9 Major depressive disorder, single episode, unspecified; F44.5 Conversion disorder with seizures or convulsions; K21.9 Gastro-esophageal reflux disease without esophagitis; Z87.891 Personal history of nicotine dependence; Z86.73 Personal history of transient ischemic attack (TIA), and cerebral infarction without residual deficits
CPT/HCPCS: 36415; 70496; 70498; 70553; 71045; 72156; 73030; 80053; 84484; 85025; 85610; 85730; 93005; 96374; 99285; A9270; A9577; G0378; J2550; Q9967

== ENCOUNTER 2020-03-04 21:11 | Emergency (ER) | payer OTHER, SELFPAY ==
--- NOTE | 2020-03-04 21:15 | ED.DENTAL ---
HPI - Dental/Oral General Chief complaint: Dental/Oral Stated complaint: jaw pain, swelling Time Seen by Provider: 03/04/20 21:16 Source: patient and RN notes reviewed Mode of arrival: ambulatory Limitations: no limitations History of Present Illness HPI Narrative: Patient has never had dental pain before. He has started having pain today about 2 hours prior arrival. Been constant and severe. Complaint: tooth pain Location: Tooth # (32) Onset (ago): hour(s) (2) Duration: constant Severity: severe Relieving factors: nothing Exacerbating factors: chewing Associated symptoms: gum swelling Treatment prior to arrival: none Related Data Home Medications Medication Instructions Recorded Confirmed citalopram 20 mg PO DAILY 08/25/19 levetiracetam 500 mg PO DAILY 08/25/19 quetiapine 100 mg PO HS 08/25/19 Allergies Allergy/AdvReac Type Severity Reaction Status Date / Time cranberry Allergy Itching Verified 08/25/19 09:36 latex Allergy Rash Verified 08/25/19 15:46 COCONUT Allergy Unknown Anaphylactic Uncoded 08/25/19 09:36 Shock INK Allergy Unknown swelling Uncoded 08/25/19 09:36 and itching MARKERS Allergy Unknown swelling, Uncoded 08/25/19 09:36 itching PRUNE JUICE Allergy Unknown stomach Uncoded 08/25/19 09:36 pain, diarrhea TUNA Allergy Unknown Anaphylactic Uncoded 08/25/19 09:36 Shock Review of Systems Review of Systems: All systems reviewed & are unremarkable except as noted in HPI and below Constitutional: Constitutional: Denies chills and Denies fever(s) PMFSH Past Medical History Medical History Asthma Depression GERD (gastroesophageal reflux disease) Hand fracture, right Herniated disc History of bipolar disorder Hx of seizure disorder Hx of transient ischemic attack (TIA) Kidney stone Neck fracture Pseudoseizure PTSD (post-traumatic stress disorder) Schizophrenia Type II diabetes mellitus Surgical History Surgical History Hx of cardiac cath Family History Family History Father History of blood clots Diabetes mellitus Hypertension Mother History of blood clots Diabetes mellitus Hypertension Sibling Hypertension Social History Social History (Updated 03/04/20 @ 22:08 by Kunal Negrete MD) Smoking packs per day: 3 Smoking cigarettes per day: 60.0 Years smoked: 20 Smoking pack-years: 60.00 Smoking status: Former smoker Tobacco type: cigarettes Smoking end date: 06/25/19 Alcohol intake: former Substance use: never Other substance usage details: Denied current substance abuse Gender identity (if verbalized by the patient): Male Spiritual care concerns: No Agree to blood products: Yes Exam Const: General: healthy appearing and no acute distress Nutritional Appearance: well nourished and obese Orientation/consciousness: patient oriented x3 HENMT: Teeth and gingiva: gingiva abnormal edematous Teeth image: 1. Severe tenderness with surrounding edema and erythema. Throat: uvula midline Eyes: Conjunctivae: conjunctivae normal Pupils: Equal, round and reactive pupils present EOM: EOMs intact bilaterally Neck: Neck: normal visual inspection and no lymphadenopathy Resp: Effort & Inspection: normal respiratory effort Auscultation: clear to auscultation bilaterally Cardio: Rate: regular rate Rhythm: regular rhythm GI: Auscultation: normal bowel sounds Back/Spine/Pelvis: Cervical Spine: cervical ROM normal Thoracic/Lumbar Spine: thoraco-lumbar ROM normal Skin: General skin exam: normal color Rashes: no rashes Neuro: General: patient oriented x3, moves all extremities and no focal motor deficits Speech: normal speech Gait exam (Neuro): Normal gait present Extrem: General: normal to inspection and no clubbing, cyanosis or edema Psych:
[2020-03-04 21:29] VITALS: BP 180/115; PULSE 90; RESP 20; TEMP 36.8; O2SAT 98
[2020-03-04] MEDS: AMOXICILLIN 500 MG CAPSULE PO (22:10)
[2020-03-04] MEDS: IBUPROFEN 400 MG TABLET 800 MG PO (22:10)
[2020-03-04 22:23] VITALS: PULSE 95; RESP 20; O2SAT 98
== END 2020-03-04 22:25 | disposition home or self-care (01) ==
PROVIDERS: Emergency Provider Emergency Medicine; PCP Family Medicine
DX: K04.7 Periapical abscess without sinus (principal)
CPT/HCPCS: 99283; A9270

== ENCOUNTER 2020-09-05 18:59 | Emergency (ER) | payer OTHER, SELFPAY ==
[2020-09-05 19:35] VITALS: BP 154/100; PULSE 93; RESP 20; TEMP 36.6; O2SAT 100
[2020-09-05] MEDS: TETRACAINE HCL 0.5% OPHTH SOLN 4 ML BTL 1 DROP EACH EYE (19:50)
[2020-09-05] MEDS: FLUORESCEIN SOD 1 MG/STRIP EACH EYE (19:52)
[2020-09-05] MEDS: DACRIOSE EYE IRRIGATION 118 ML BOTTLE 10 ML LEFT EYE (19:55)
--- NOTE | 2020-09-05 20:00 | ED.EYEPROB ---
HPI - Eye Problem General Chief complaint: Eye Problems Stated complaint: eye swelling, feels like something is in eye Source: patient Mode of arrival: ambulatory Limitations: no limitations History of Present Illness HPI Narrative: this is 29-year-old gentleman that presents with some sensation of a foreign body in his left eye that occurred earlier today while he was mowing lawn causing foreign body sensation pain with tearing and redness in the left eye. chief complaint: eye pain, eye redness and eye injury Onset (ago): hour(s) Onset description: sudden Duration: constant Location: left eye Eye Symptoms: burning, redness, pain and foreign body sensation Place: street/outdoors Related Data Home Medications Medication Instructions Recorded Confirmed citalopram 20 mg PO DAILY 08/25/19 09/05/20 levetiracetam 500 mg PO DAILY 08/25/19 09/05/20 quetiapine 100 mg PO HS 08/25/19 09/05/20 bupropion HCl 150 mg PO DAILY 09/05/20 09/05/20 divalproex 250 mg PO HS 09/05/20 09/05/20 divalproex 500 mg PO DAILY 09/05/20 09/05/20 ergocalciferol (vitamin D2) 1,250 mcg PO WEEKLY 09/05/20 09/05/20 sertraline 100 mg PO DAILY 09/05/20 09/05/20 Allergies Allergy/AdvReac Type Severity Reaction Status Date / Time cranberry Allergy Itching Verified 08/25/19 09:36 latex Allergy Rash Verified 08/25/19 15:46 COCONUT Allergy Unknown Anaphylactic Uncoded 08/25/19 09:36 Shock INK Allergy Unknown swelling Uncoded 08/25/19 09:36 and itching MARKERS Allergy Unknown swelling, Uncoded 08/25/19 09:36 itching PRUNE JUICE Allergy Unknown stomach Uncoded 08/25/19 09:36 pain, diarrhea TUNA Allergy Unknown Anaphylactic Uncoded 08/25/19 09:36 Shock Review of Systems Review of Systems: All systems reviewed & are unremarkable except as noted in HPI and below PMFSH Past Medical History Medical History (Updated 09/05/20 @ 20:06 by Uday Rojas MD) Asthma Depression GERD (gastroesophageal reflux disease) Hand fracture, right Herniated disc History of bipolar disorder Hx of seizure disorder Hx of transient ischemic attack (TIA) Kidney stone Neck fracture Pseudoseizure PTSD (post-traumatic stress disorder) Schizophrenia Type II diabetes mellitus Surgical History Surgical History Hx of cardiac cath Family History Family History Father History of blood clots Diabetes mellitus Hypertension Mother History of blood clots Diabetes mellitus Hypertension Sibling Hypertension Social History Social History Smoking packs per day: 3 Smoking cigarettes per day: 60.0 Years smoked: 20 Smoking pack-years: 60.00 Smoking status: Former smoker Tobacco type: cigarettes Smoking end date: 06/25/19 Alcohol intake: former Substance use: never Other substance usage details: Denied current substance abuse Gender identity (if verbalized by the patient): Male Spiritual care concerns: No Agree to blood products: Yes Exam Const: General: no acute distress and alert Orientation/consciousness: patient oriented x3 HENMT: Head: normal to inspection Eyes: Conjunctivae: conjunctival abnormality Direct Ophthalmoscopy: photophobia Other: Tearing with some conjunctival injection Neck: Neck: no lymphadenopathy and no meningeal signs Chest: Chest palpation & inspection: normal inspection of the chest Resp: Effort & Inspection: normal respiratory effort GI: Auscultation: normal bowel sounds Skin: General skin exam: normal color Rashes: no rashes Neuro: General: patient oriented x3, moves all extremities, no meningeal signs and no focal motor deficits Extrem: General: normal to inspection Psych: Mental Status: mental status grossly normal Course Course Emergency Course: I was irrigated, fluorescein stain and sh
[2020-09-05] MEDS: NEOMYCIN/POLYMYXIN/DEXAMETH OP SUSP 5 ML BTL 1 DROP LEFT EYE (20:09)
[2020-09-05] MEDS: traMADol HCL (*CRX) 50 MG TABLET PO (20:27)
[2020-09-05 20:30] VITALS: BP 140/98; PULSE 100; RESP 20; O2SAT 98
== END 2020-09-05 20:32 | disposition home or self-care (01) ==
PROVIDERS: Emergency Provider Emergency Medicine; PCP Family Medicine
DX: S05.02XA Injury of conjunctiva and corneal abrasion without foreign body, left eye, initial encounter (principal)
CPT/HCPCS: 99283; A9270

== ENCOUNTER 2020-10-13 20:13 | Emergency (ER) | payer OTHER, SELFPAY ==
[2020-10-13 20:20] VITALS: BP 157/113; PULSE 83; RESP 18; TEMP 36.7; O2SAT 97
--- NOTE | 2020-10-13 22:58 | ED.EAR ---
HPI - Ear Problem General Chief complaint: Ear Stated complaint: bilateral ear pain Time Seen by Provider: 10/13/20 22:26 Source: patient Mode of arrival: ambulatory Limitations: no limitations History of Present Illness HPI Narrative: 30-year-old male Complains of ears being plugged up He usually tries to clean with Q-tips A week or 2 ago he went to [place] [facility] and they irrigated them with saline but did not solve the problem Has been using various OTC things without results since then Related Data Home Medications Medication Instructions Recorded Confirmed citalopram 20 mg PO DAILY 08/25/19 09/05/20 levetiracetam 500 mg PO DAILY 08/25/19 09/05/20 quetiapine 100 mg PO HS 08/25/19 09/05/20 bupropion HCl 150 mg PO DAILY 09/05/20 09/05/20 divalproex 250 mg PO HS 09/05/20 09/05/20 divalproex 500 mg PO DAILY 09/05/20 09/05/20 ergocalciferol (vitamin D2) 1,250 mcg PO WEEKLY 09/05/20 09/05/20 sertraline 100 mg PO DAILY 09/05/20 09/05/20 Allergies Allergy/AdvReac Type Severity Reaction Status Date / Time cranberry Allergy Itching Verified 10/13/20 22:48 latex Allergy Rash Verified 10/13/20 22:48 COCONUT Allergy Unknown Anaphylactic Uncoded 10/13/20 22:48 Shock INK Allergy Unknown swelling Uncoded 10/13/20 22:48 and itching MARKERS Allergy Unknown swelling, Uncoded 10/13/20 22:48 itching PRUNE JUICE Allergy Unknown stomach Uncoded 10/13/20 22:48 pain, diarrhea TUNA Allergy Unknown Anaphylactic Uncoded 10/13/20 22:48 Shock Review of Systems ENT: Comments: Decreased hearing acuity PMFSH Past Medical History Medical History (Updated 10/13/20 @ 23:09 by Kunal Lay MD) Asthma Depression GERD (gastroesophageal reflux disease) Hand fracture, right Herniated disc History of bipolar disorder Hx of seizure disorder Hx of transient ischemic attack (TIA) Kidney stone Neck fracture Pseudoseizure PTSD (post-traumatic stress disorder) Schizophrenia Type II diabetes mellitus Surgical History Surgical History Hx of cardiac cath Family History Family History Father History of blood clots Diabetes mellitus Hypertension Mother History of blood clots Diabetes mellitus Hypertension Sibling Hypertension Social History Social History Smoking packs per day: 3 Smoking cigarettes per day: 60.0 Years smoked: 20 Smoking pack-years: 60.00 Smoking status: Former smoker Tobacco type: cigarettes Smoking end date: 06/25/19 Alcohol intake: former Substance use: never Other substance usage details: Denied current substance abuse Gender identity (if verbalized by the patient): Male Spiritual care concerns: No Agree to blood products: Yes Exam Const: General: no acute distress and alert Orientation/consciousness: patient oriented x3 HENMT: Other: Bilateral cerumen impaction and bilateral decreased hearing acuity Resp: Effort & Inspection: normal respiratory effort and not labored Neuro: General: patient oriented x3 Course Vital Signs Vital signs: Vital Signs Temperature 36.7 C 10/13/20 20:20 Pulse Rate 83 10/13/20 20:20 Respiratory Rate 18 10/13/20 20:20 Blood Pressure 157/113 H 10/13/20 20:20 Pulse Oximetry 97 10/13/20 20:20 Temperature 36.7 C 10/13/20 20:20 Pulse Rate 83 10/13/20 20:20 Respiratory Rate 18 10/13/20 20:20 Blood Pressure 157/113 H 10/13/20 20:20 Pulse Oximetry 97 10/13/20 20:20 Procedures Ear Wax Removal Both Ears: Ear Wax Removal Date: 10/13/20 Ear Wax Removal Time: 22:50 Cerumenolytic Used: other Results: Re-examined: cerumen removed completely and some cerumen remains (On left side) TM Examination: TM(s) erythematous (On the right) Ear Canal Exam: bleeding Noted (Small amount
[2020-10-13 23:33] VITALS: BP 148/94; PULSE 84; RESP 16; TEMP 36.9; O2SAT 97
== END 2020-10-13 23:33 | disposition home or self-care (01) ==
PROVIDERS: Emergency Provider Emergency Medicine; PCP Family Medicine
DX: H61.23 Impacted cerumen, bilateral (principal); J45.909 Unspecified asthma, uncomplicated; K21.9 Gastro-esophageal reflux disease without esophagitis; F31.9 Bipolar disorder, unspecified; G40.909 Epilepsy, unspecified, not intractable, without status epilepticus; Z86.73 Personal history of transient ischemic attack (TIA), and cerebral infarction without residual deficits; Z87.442 Personal history of urinary calculi; F43.10 Post-traumatic stress disorder, unspecified; F20.9 Schizophrenia, unspecified; E11.9 Type 2 diabetes mellitus without complications; Z87.891 Personal history of nicotine dependence
CPT/HCPCS: 69209; 99282

== ENCOUNTER 2020-12-01 15:58 | Emergency (ER) | payer OTHER, SELFPAY ==
--- NOTE | ~2020-12-01 | XR_ITS ---
EXAMINATION: XR pelvis 1-2V DATE: 12/01/2020 17:19 INDICATION: Pain at the pubic symphysis. TECHNIQUE: An anteroposterior view of the pelvis was obtained. COMPARISON: Right hip radiographs 01/29/2015 FINDINGS: Bone alignment is normal. No fracture. There is mild left hip osteoarthritis. The pubic sym physis is normal. IMPRESSION: 1. Mild left hip osteoarthritis. Reviewed, dictated and finalized at location A.
[2020-12-01 16:05] VITALS: BP 153/109; PULSE 89; RESP 18; TEMP 37.6; O2SAT 98
--- NOTE | 2020-12-01 17:14 | ED.GENADULT ---
HPI - General Adult General Chief complaint: Unspecified Stated complaint: groin pain Time Seen by Provider: 12/01/20 16:29 History of Present Illness HPI narrative: Patient is a 30-year-old male who presents ER with pain to his penis and suprapubic region. Patient was lifting a semi-tire when he felt a ripping sensation and developed sudden pain. He reports he had blood come out of his penis and stain his pants. No pain to testicles or enlargement of scrotum. No bruising to the testicles that he is reported. Related Data Home Medications Medication Instructions Recorded Confirmed citalopram 20 mg PO DAILY 08/25/19 09/05/20 levetiracetam 500 mg PO DAILY 08/25/19 09/05/20 quetiapine 100 mg PO HS 08/25/19 09/05/20 bupropion HCl 150 mg PO DAILY 09/05/20 09/05/20 divalproex 250 mg PO HS 09/05/20 09/05/20 divalproex 500 mg PO DAILY 09/05/20 09/05/20 ergocalciferol (vitamin D2) 1,250 mcg PO WEEKLY 09/05/20 09/05/20 sertraline 100 mg PO DAILY 09/05/20 09/05/20 Allergies Allergy/AdvReac Type Severity Reaction Status Date / Time cranberry Allergy Itching Verified 12/01/20 16:11 latex Allergy Rash Verified 12/01/20 16:11 COCONUT Allergy Unknown Anaphylactic Uncoded 10/13/20 22:48 Shock INK Allergy Unknown swelling Uncoded 10/13/20 22:48 and itching MARKERS Allergy Unknown swelling, Uncoded 10/13/20 22:48 itching PRUNE JUICE Allergy Unknown stomach Uncoded 10/13/20 22:48 pain, diarrhea TUNA Allergy Unknown Anaphylactic Uncoded 10/13/20 22:48 Shock Review of Systems Review of Systems: All systems reviewed & are unremarkable except as noted in HPI and below Constitutional: Constitutional: Denies chills, Denies fatigue and Denies fever(s) Gastrointestinal: Gastrointestinal: Denies abdominal pain, Denies nausea and Denies vomiting Genitourinary: Genitourinary: Reports dysuria, Denies scrotal swelling and Denies testicular pain Comments: Blood from penis, tenderness along the bottom of the penis along the shaft Musculoskeletal: Musculoskeletal: Denies back pain, Denies arthralgias and Denies joint swelling Neurologic: Denies focal weakness, Denies numbness, Denies tingling and Denies weakness PMFSH Past Medical History Medical History (Updated 12/01/20 @ 18:48 by Viet Auguste MD) Asthma Depression GERD (gastroesophageal reflux disease) Hand fracture, right Herniated disc History of bipolar disorder Hx of seizure disorder Hx of transient ischemic attack (TIA) Kidney stone Neck fracture Pseudoseizure PTSD (post-traumatic stress disorder) Schizophrenia Type II diabetes mellitus Surgical History Surgical History Hx of cardiac cath Family History Family History Father History of blood clots Diabetes mellitus Hypertension Mother History of blood clots Diabetes mellitus Hypertension Sibling Hypertension Social History Social History Smoking packs per day: 3 Smoking cigarettes per day: 60.0 Years smoked: 20 Smoking pack-years: 60.00 Smoking status: Former smoker Tobacco type: cigarettes Smoking end date: 06/25/19 Alcohol intake: former Alcohol use details: Denied current alcohol abuse Substance use: never Other substance usage details: Denied current substance abuse Gender identity (if verbalized by the patient): Male Spiritual care concerns: No Agree to blood products: Yes Exam Narrative: GENERAL: Well-appearing, well-nourished, and in no acute distress. HEAD: Normocephalic, atraumatic. ENT: Mucous membranes moist. CHEST: Clear to auscultation. No respiratory distress. HEART: Regular rate and rhythm. Normal peripheral pulses. ABDOMEN: Soft, nontender, nondistended, tender palpation over symphysis pubis. : Normal-appearing penis without bruising to the base of
[2020-12-01 18:32] LABS: Add Urine Microscopic? YES; Appearance Urine Clear (Clear); Bilirubin Urine Negative (Negative); Blood Urine Negative (Negative); Color Urine Yellow (Yellow); Glucose Urine UA Negative (Negative); Ketones Urine Negative (Negative); Leukocyte Esterase Ur Negative LEU/UL (Negative); Mucus Urine Moderate /lpf; Nitrate Urine Negative (Negative); Protein Urine 1+ mg/dL (Negative); RBC Urine 0-2 /hpf (0-2); Squamous Epithelial Cell Urine Few /hpf (Few); WBC Urine 0-3 /hpf
[2020-12-01 19:23] VITALS: BP 162/94; PULSE 75; RESP 18; O2SAT 97
== END 2020-12-01 19:01 | disposition home or self-care (01) ==
PROVIDERS: Physician Assistant; Emergency Provider Emergency Medicine; PCP Family Medicine
DX: S39.013A Strain of muscle, fascia and tendon of pelvis, initial encounter (principal); X50.0XXA Overexertion from strenuous movement or load, initial encounter; J45.909 Unspecified asthma, uncomplicated; F32.9 Major depressive disorder, single episode, unspecified; K21.9 Gastro-esophageal reflux disease without esophagitis; G40.909 Epilepsy, unspecified, not intractable, without status epilepticus; E11.9 Type 2 diabetes mellitus without complications; Z87.891 Personal history of nicotine dependence
CPT/HCPCS: 72170; 81001; 99283

== ENCOUNTER 2020-12-22 15:10 | Observation (INO) | payer OTHER, SELFPAY ==
[2020-12-22] VITALS (15 sets, daily range): BP systolic 125–189; BP diastolic 85–104; PULSE 63–98; RESP 16–34; TEMP 36.3; O2SAT 95–100; BMI 36.9
--- NOTE | ~2020-12-22 | XR_ITS ---
XR chest 2V DATE: 12/22/2020 15:46 INDICATION: Chest pain, shortness of breath. History of myocardial infarction. TECHNIQUE: Lateral view of the chest at 1529 hours. The patient reportedly had a seizure during the e xamination. A subsequent portable AP chest was performed at 1540 hours. COMPARISON: 08/25/2019 AP chest FINDINGS: No pulmonary infiltrate or consolidation, pleural effusion or pulmonary vascular congestion or pneumothorax is detected. Heart size appears within normal range. Included skeletal structures are unremarkable other than mild dextroscoliosis of the thoracic spine. IMPRESSION: No active cardiopulmonary disease Reviewed, dictated and finalized at location A.
--- NOTE | ~2020-12-22 | CT_ITS ---
EXAMINATION: CTA chest PE protocol DATE: 12/23/2020 11:23 INDICATION: Chest pain TECHNIQUE: Computed tomography angiography (CTA) of the chest was performed with 100 mL Omnipaque-350 intravenous contrast timed to evaluate the pulmonary arteries. Coronal maximum intensity projection 3D-reconstructions were created by the technologist. The dose-length product (DLP) was 770.01 mGy-cm. Automated exposure control and iterative reconstruction technique were employed. COMPARISON: None. FINDINGS: The pulmonary arteries are well-opacified. No pulmonary embolism is identified. There is mi ld dependent atelectasis. No pleural effusion or pneumothorax is identified. No pathologically enlarg ed thoracic lymph nodes are identified. The heart size is normal. There are multiple small lesions of the ribs with thin sclerotic margins. IMPRESSION: 1. No pulmonary embolism or acute cardiopulmonary abnormality. 2. 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 Metastatic disease would be considered less likely in the absence of known malignancy. Reviewed, dictated and finalized at location A. IMPRESSION: 1. No pulmonary embolism or acute cardiopulmonary abnormality. 2. 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 Metastatic disease would be considered less lik long in the absence of known malignancy.
--- NOTE | 2020-12-22 15:07 | ECG_ITS ---
Measurements Intervals [place] Rate: 75 P: 41 DE: 216 QRS: -19 QRSD: 102 T: 23 QT: 376 QTc: 421 Interpretive Statements SINUS RHYTHM WITH FIRST DEGREE AV BLOCK INCOMPLETE RIGHT BUNDLE BRANCH BLOCK NONSPECIFIC ST ELEVATION IN ANT/INF LEADS BASELINE ARTIFACT- I, II, III, AVR, AVF, V1, V3-V6 ABNORMAL ECG Electronically Signed On 12-22-2020 20:07:32 CDT by Jose Maria Edmond D.O.
[2020-12-22 15:28] LABS: Basophils Absolute Auto 0.1 K/mm3 (0.0-0.1); Eosinophils Absolute Auto 0.1 K/mm3 (0-0.3); Eosinophils Percent Auto 1.6 % (0-4.4); Hemoglobin 13.3 g/dL (14.0-18.0); Immature Granulocyte Absolute 0.01 K/mm3 (0.00-0.031); Immature Granulocyte Percent A 0.2 % (0-0.5); Lymphocytes Absolute Auto 0.95 K/mm3 (0.9-3.2); Lymphocytes Percent Auto 18.7 % (18.3-44.2); Mean Corpuscular HGB Conc 34.1 g/dl (32-36); Mean Platelet Volume 10.7 fl (7.4-10.4); Monocytes Absolute Auto 0.4 K/mm3 (0.1-0.6); Monocytes Percent Auto 7.9 % (2.6-8.5); Neutrophils Absolute Auto 3.6 K/mm3 (1.3-6.7); Neutrophils Percent Auto 70.6 % (45.5-73.1); Platelet Count Result 224 k/mm3 (150-375); Red Blood Count 4.59 M/mm3 (4.6-6.20); Red Cell Distribution Width 13.2 % (11.5-14.5); White Blood Count 5.1 K/mm3 (4.5-10.0)
--- NOTE | 2020-12-22 15:28 | ECG_ITS ---
Measurements Intervals [place] Rate: 66 P: 44 DC: 207 QRS: -7 QRSD: 104 T: 21 QT: 385 QTc: 406 Interpretive Statements SINUS RHYTHM INCOMPLETE RIGHT BUNDLE BRANCH BLOCK NONSPECIFIC ST ELEVATION IN ANT/INF LEADS BORDERLINE ECG Electronically Signed On 12-22-2020 20:07:59 CDT by Jose Maria Edmond D.O.
--- NOTE | 2020-12-22 15:36 | ECG_ITS ---
Measurements Intervals [place] Rate: 97 P: 52 SD: 207 QRS: -16 QRSD: 105 T: 22 QT: 346 QTc: 441 Interpretive Statements SINUS RHYTHM INCOMPLETE RIGHT BUNDLE BRANCH BLOCK BORDERLINE ST-T WAVE ABNORMALITY- ANTEROLATERAL LEADS BASELINE ARTIFACT- I, II, III, AVR, AVL, AVF, V1-V6 BORDERLINE ECG Electronically Signed On 12-23-2020 8:00:31 CDT by Jose Maria Edmond D.O.
[2020-12-22 15:38] LABS: Prothrombin Time 12.7 Seconds (11.1-14.7)
[2020-12-22 15:39] LABS: Partial Thromboplastin Time 28.1 SECONDS (22.3-36.8)
[2020-12-22 15:40] LABS: Glucose Point of Care 73 mg/dl (65-105)
[2020-12-22 15:40] LABS: Anion Gap 10 mmol/L (8-16); Blood Urea Nitrogen 16 mg/dL (9-20); Calcium 8.7 mg/dL (8.4-10.2); Carbon Dioxide 21 mmol/L (22-30); Chloride 103 mmol/L (98-107); Estimated CRCL calculation 105 ml/min; Estimated Glomerular Filt Rate > 60; Glucose 118 mg/dL (65-110); Potassium 3.8 mmol/L (3.4-5.0); Sodium 134 mmol/L (137-145)
[2020-12-22 15:49] LABS: Troponin I 0.015 ng/mL (0.000-0.034)
--- NOTE | 2020-12-22 17:01 | ED.CHESTPAIN ---
HPI - Chest Pain General Chief Complaint: Chest Pain Stated Complaint: CP/SOB x 1 hr Time Seen by Provider: 12/22/20 15:12 History of Present Illness HPI narrative: Patient resents with chest pain. Patient reports chest pain started a little bit prior to arrival pain is achy, constant, no clear aggravating or relieving factors. Ports associated with left arm weakness. He reports prior MIs but symptoms today feel different as when he had his IL he passed out. Reports mild shortness of breath, dizziness, fatigue. He also reports nausea but no vomiting denies any diarrhea or fevers Related Data Home Medications Medication Instructions Recorded Confirmed citalopram 20 mg PO DAILY 08/25/19 09/05/20 levetiracetam 500 mg PO DAILY 08/25/19 09/05/20 quetiapine 100 mg PO HS 08/25/19 09/05/20 bupropion HCl 150 mg PO DAILY 09/05/20 09/05/20 divalproex 250 mg PO HS 09/05/20 09/05/20 divalproex 500 mg PO DAILY 09/05/20 09/05/20 ergocalciferol (vitamin D2) 1,250 mcg PO WEEKLY 09/05/20 09/05/20 sertraline 100 mg PO DAILY 09/05/20 09/05/20 Allergies Allergy/AdvReac Type Severity Reaction Status Date / Time cranberry Allergy Itching Verified 12/01/20 16:11 latex Allergy Rash Verified 12/01/20 16:11 COCONUT Allergy Unknown Anaphylactic Uncoded 10/13/20 22:48 Shock INK Allergy Unknown swelling Uncoded 10/13/20 22:48 and itching MARKERS Allergy Unknown swelling, Uncoded 10/13/20 22:48 itching PRUNE JUICE Allergy Unknown stomach Uncoded 10/13/20 22:48 pain, diarrhea TUNA Allergy Unknown Anaphylactic Uncoded 10/13/20 22:48 Shock Review of Systems Review of Systems: CONSTITUTIONAL: Denies fever, chills, or sweats. EYES: Denies visual changes, redness, or discharge. ENT: Denies rhinorrhea, congestion, sore throat, or otalgia. CARDIOVASCULAR: Denies palpitations, or edema. RESPIRATORY: Denies cough GASTROINTESTINAL: Denies abdominal pain, nausea, vomiting, or diarrhea. GENITOURINARY: Denies dysuria or hematuria. SKIN: Denies rash or itching. MUSCULOSKELETAL: Denies back pain, joint pain, or myalgia. NEUROLOGIC: Denies headache, numbness, or weakness. PSYCHIATRIC: Denies anxiety or depression. All systems reviewed & are unremarkable except as noted in HPI and below PMFSH Past Medical History Medical History (Updated 12/22/20 @ 18:17 by Raza Lainez MD) Asthma Depression GERD (gastroesophageal reflux disease) Hand fracture, right Herniated disc History of bipolar disorder Hx of seizure disorder Hx of transient ischemic attack (TIA) Kidney stone Neck fracture Pseudoseizure PTSD (post-traumatic stress disorder) Schizophrenia Type II diabetes mellitus Surgical History Surgical History Hx of cardiac cath Family History Family History Father History of blood clots Diabetes mellitus Hypertension Mother History of blood clots Diabetes mellitus Hypertension Sibling Hypertension Social History Social History Smoking packs per day: 3 Smoking cigarettes per day: 60.0 Years smoked: 20 Smoking pack-years: 60.00 Smoking status: Former smoker Tobacco type: cigarettes Smoking end date: 06/25/19 Alcohol intake: former Alcohol use details: Denied current alcohol abuse Substance use: never Other substance usage details: Denied current substance abuse Gender identity (if verbalized by the patient): Male Spiritual care concerns: No Agree to blood products: Yes Exam Narrative: GENERAL: Well-appearing, well-nourished, and in no acute distress. HEAD: Normocephalic, atraumatic. EYES: PERRLA and EOMI. ENT: Nares clear, no rhinorrhea or epistaxis. Mucous membranes moist. NECK: Supple. No masses. No JVD CHEST: Clear to auscultation. No respiratory distress. No wheezes rales or rhonchi HEART: Regu
--- NOTE | 2020-12-22 17:07 | ECG_ITS ---
Measurements Intervals [place] Rate: 75 P: 41 [place]: 216 QRS: -19 QRSD: 102 T: 23 QT: 376 QTc: 421 Interpretive Statements SINUS RHYTHM WITH FIRST DEGREE AV BLOCK INCOMPLETE RIGHT BUNDLE BRANCH BLOCK NONSPECIFIC ST ELEVATION IN ANT/INF LEADS BASELINE ARTIFACT- I, II, III, AVR, AVF, V1, V3-V6 ABNORMAL ECG Electronically Signed On 12-22-2020 20:07:32 CDT by Jose Maria NOWAK
[2020-12-22] MEDS: SODIUM CHLORIDE 0.9% IV 1,000 ML 999 ML IV CONT (17:25)
[2020-12-22] MEDS: NITROGLYCERIN SL 0.4 MG TABLET SUBLINGUAL (17:25)
--- NOTE | 2020-12-22 17:52 | PC.NURSE ---
2nd nitro sl for continued cgestpain. md mosley
[2020-12-22] MEDS: MORPHINE SULFATE (*CRX) 4 MG/ML INJ IV PUSH (18:07)
[2020-12-22 18:28] LABS: Glucose Point of Care 89 mg/dl (65-105)
[2020-12-22 18:42] LABS: Troponin I < 0.012 ng/mL (0.000-0.034)
[2020-12-22 19:01] LABS: Amphetamine Screen Urine Negative (Negative); Barbiturate Screen Urine Negative (Negative); Benzodiazepines Screen Urine Negative (Negative); Cannabinoid Screen Urine Negative (Negative); Cocaine Screen Urine Negative (Negative); Methadone Screen Urine Negative (Negative); Opiate Screen Urine Negative (Negative); Phencyclidine Screen Urine Negative (Negative)
--- NOTE | 2020-12-22 19:27 | PC.NURSE ---
resting on stretcher using cell phone. no s/s of distress. vitals obtained. rates cp 7/10. a/o x 4.
--- NOTE | 2020-12-22 19:40 | PM.IMHP ---
H&P: HPI History of Present Illness Date/Time: 12/22/20 19:40 this is a 30-year-old male patient who has a past medical history of bipolar disorder, PTSD seizure disorder, pseudoseizures. The patient stated that he has had a myocardial infarction 8 years ago but he cannot recall who the doctor was that took care of him her [facility]. I am not able to obtain any records to verify this. The patient does not recall getting a cardiac catheterization but it is is in his history that he has had cardiac catheterization in the past. The patient stated that he did not get any cardiac stents. The patient denies being on any cardiac medications. 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 The patient stated that he did not take any of his nitro today. The patient stated that he was at work and that he started to have some pain to his left elbow and then his left side of his chest started to hurt. The patient stated that he was diaphoretic and noticed that his hat was covered with sweat. The pain is reproducible in the left upper quadrant as well as the left chest area. The patient has cardiac enzymes negative x2. His EKG was read by Cardiology as sinus rhythm possible right ventricular conduction delay nonspecific T-wave of 1 2. Cardiology has been consulted. Chest x-ray was read as no active cardiopulmonary disease. The patient also reported nausea and was given Zofran. The patient also stated that his father had a myocardial infarction in his 30s. The patient stated when he was in x-ray today he had another seizure. The patient stated that he had been diabetic but was recently taken off of metformin. The patient was given aspirin, Ativan, IV fluids, nitro and morphine. The patient is being admitted to observation status on the date of service of 12/22/2020. Chief Complaint: chest pain Review of Systems Review of Systems: All systems reviewed & are unremarkable except as noted in HPI and below Constitutional: Constitutional: Reports as per HPI and Reports no additional constitutional complaints Eyes: Eyes: Reports as per HPI and Reports no additional eye complaints ENT: Reports system reviewed and no additional complaints, except as documented and Reports Normal hearing present Cardiovascular: Cardiovascular: Reports no additional cardiovascular complaints Respiratory: Respiratory: Reports no additional respiratory complaints and Reports no additional respiratory complaints Gastrointestinal: Gastrointestinal: Reports as per HPI and Reports no additional gastrointestinal complaints Musculoskeletal: Musculoskeletal: Reports no additional musculoskeletal complaints Integumentary/Breasts: Skin/Breast: Reports system reviewed and no additional complaints, except as docu and Reports as per HPI Neurologic: Reports system reviewed and no additional complaints, except as documented, Reports as per HPI and Reports Normal hearing present Psychiatric: Psychiatric: Reports no additional psychiatric complaints and Reports as per HPI Endocrine: Endocrine: Reports no additional endocrine complaints Hematologic/Lymphatic: Hematologic/Lymphatic: Reports no additional hematologic/lymphatic complaints Allergic/Immunologic: Allergic/Immunologic: Reports no additional allergic/immunologic complaints PMFSH Past Medical History Medical History Asthma Depression GERD (gastroesophageal reflux disease) Hand fracture, right Herniated disc History of bipolar disorder Hx of seizure disorder Hx of transient ischemic attack (TIA) Kidney stone Neck fracture Pseudoseizure PTSD (post-traumatic stress disorder) Schizophrenia Type II diabetes mellitus Surgical History Surgical History Hx of cardiac cath Family History Family History (Updated 12/22/20 @ 19:52 by Jennifer
--- NOTE | 2020-12-22 20:18 | ADMGEN ---
This patient, Mario Zamora III, was admitted to IMU Room 206-02 at 2017. Patient/family oriented to hospital policies and general routines including ID bracelet, bed and alarms, visiting hours, pain management, procedures, bathroom and other care routines, personal items, smoking policy, room service/diet, and visiting hours. Information on how to activate the Rapid Response Team has been discussed. Patient/Family are encouraged to report perceived risks to care and to ask questions if they do not understand what they are told or what they should do.
[2020-12-22 21:26] LABS: Troponin I < 0.012 ng/mL (0.000-0.034)
[2020-12-22] MEDS: PANTOPRAZOLE SODIUM IV 40 MG VIAL IV PUSH (22:26)
[2020-12-22] MEDS: DIVALPROEX SODIUM ER 250 MG TAB.24H PO (22:26)
[2020-12-22] MEDS: SODIUM CHLORIDE 0.9% IV 1,000 ML 125 ML IV CONT (22:28)
[2020-12-22] MEDS: QUEtiapine FUMARATE 100 MG TABLET PO (22:52)
[2020-12-23] VITALS (13 sets, daily range): BP systolic 107–151; BP diastolic 55–100; PULSE 45–76; RESP 16–22; TEMP 36.1–36.7; O2SAT 98–100
--- NOTE | 2020-12-23 | ECHO_ITS ---
Patient Info Name: Mario Zamora Age: 30 years : 1990 Gender: Male Ht: 68 in Wt: 247 lbs BSA: 2.37 m2 HR: 52 bpm BP: 107 / 64 mmHg Heart Rhythm: Sinus Rhythm, Bradycardia Technical Quality: Fair Exam Date: 12/23/2020 8:36 AM Exam Location: [facility] Patient Status: Inpatient Admit Date: 12/22/2020 Staff Ordering Physician: Jennifer Zamudio NP Director Of Intercollegiate Athletics: Ashlie Jackson RDCS Attending Provider: Alexander Sutton MD Referring Physician: Robb HAYES; Exam Type: CA echo dop color flow w con Study Info Indications R07.9 - Chest pain, unspecified Complete two-dimensional, color flow and Doppler transthoracic echocardiogram is performed with contrast to opacify the left ventricle and to improve the deliniation of the left ventricle endocardial borders. Contrast/Agitated Saline Contrast/Ag. Saline: Definity Amount: 1.00 ml Administered By: Zoey Fitzgerald RN Existing IV Access: Yes IV Access Condition: patent with no signs of infiltration Summary 1. Technically difficult study with limited views. No regional wall motion abnormality noted with definity echo contrast enhancement. 2. Left ventricular chamber dimension is upper limits of normal. 3. Left ventricular systolic function is normal, estimated at 60-65%. 4. There is no increased left ventricular wall thickness. 5. The left ventricular diastolic function is normal. 6. There is mild mitral valve regurgitation. 7. There is trace tricuspid valve regurgitation. 8. No pulmonary hypertension, estimated pulmonary arterial systolic pressure is 25 mmHg. Left Ventricle Left ventricular chamber dimension is upper limits of normal. Left ventricular systolic function is normal, estimated at 60-65%. There is no increased left ventricular wall thickness. The left ventricular diastolic function is normal. Right Ventricle Right ventricular chamber dimension is normal. Right ventricular systolic function is normal. Left Atria Left atrial chamber dimension is normal. Right Atria Right atrial chamber dimension is normal. Aortic Valve The aortic valve is not well visualized. There is no aortic valve stenosis. There is no aortic valve regurgitation. Pulmonic Valve The pulmonic valve is normal. There is trace pulmonic regurgitation. Mitral Valve The mitral valve has normal leaflets. There is mild mitral valve regurgitation. Tricuspid Valve The tricuspid valve leaflets are normal. There is trace tricuspid valve regurgitation. No pulmonary hypertension, estimated pulmonary arterial systolic pressure is 25 mmHg. Pericardium/Pleural The pericardium appears normal. There is no pericardial effusion. Aorta The aortic root size at the sinus of Valsalva is normal. Left Ventricular Outflow Tract Name Value Normal LVOT 2D LVOT Diameter 1.97 cm LVOT Doppler LVOT Peak Gradient 4 mmHg LVOT Mean Gradient 2 mmHg LVOT VTI 20.22 cm LVOT VTI/AV VTI Ratio 1.06
[2020-12-23 05:45] LABS: Eosinophils Absolute Auto 0.1 K/mm3 (0-0.3); Eosinophils Percent Auto 2.2 % (0-4.4); Hematocrit 37.9 % (42.0-52.0); Hemoglobin 12.4 g/dL (14.0-18.0); Immature Granulocyte Absolute 0.01 K/mm3 (0.00-0.031); Immature Granulocyte Percent A 0.2 % (0-0.5); Lymphocytes Absolute Auto 1.45 K/mm3 (0.9-3.2); Lymphocytes Percent Auto 36.2 % (18.3-44.2); Mean Corpuscular HGB Conc 32.7 g/dl (32-36); Mean Corpuscular Hemoglobin 28.8 pg (26-34); Mean Corpuscular Volume 87.9 fl (80-100); Mean Platelet Volume 11.5 fl (7.4-10.4); Monocytes Absolute Auto 0.3 K/mm3 (0.1-0.6); Monocytes Percent Auto 8.2 % (2.6-8.5); Neutrophils Absolute Auto 2.1 K/mm3 (1.3-6.7); Neutrophils Percent Auto 52.2 % (45.5-73.1); Platelet Count Result 172 k/mm3 (150-375); Red Blood Count 4.31 M/mm3 (4.6-6.20)
[2020-12-23 05:49] LABS: Lactic Acid Reflex 0.7 mmol/L (0.7-2.1)
[2020-12-23 05:50] LABS: Alanine Aminotransferase 21 U/L (4-50); Albumin Level 3.4 g/dL (3.5-5.1); Alkaline Phosphatase 78 U/L (38-126); Anion Gap 6 mmol/L (8-16); Aspartate Amino Transferase 22 U/L (17-59); Bilirubin,Total 0.6 mg/dL (0.2-1.3); Blood Urea Nitrogen 13 mg/dL (9-20); Calcium 8.2 mg/dL (8.4-10.2); Carbon Dioxide 22 mmol/L (22-30); Chloride 112 mmol/L (98-107); Estimated CRCL calculation 104 ml/min; Estimated Glomerular Filt Rate > 60; Glucose 79 mg/dL (65-110); Lactate Dehydrogenase 406 U/L (313-618); Lipase 73 U/L (23-300); Magnesium 2.3 mg/dL (1.6-2.3); Sodium 140 mmol/L (137-145)
[2020-12-23] MEDS: SODIUM CHLORIDE 0.9% IV 1,000 ML 125 ML IV CONT ×2 (07:05→17:18)
[2020-12-23] MEDS: levETIRAcetam 500 MG TABLET PO (08:18)
[2020-12-23] MEDS: PANTOPRAZOLE SODIUM IV 40 MG VIAL IV PUSH ×2 (08:19→20:30)
[2020-12-23] MEDS: CITALOPRAM HYDROBROMIDE 20 MG TABLET PO (08:19)
[2020-12-23] MEDS: buPROPion HCL XL (24 HR) 150 MG TABCR PO (08:19)
[2020-12-23] MEDS: traMADol HCL (*CRX) 50 MG TABLET PO (08:19)
[2020-12-23] MEDS: SERTRALINE HCL 50 MG TABLET 100 MG PO (08:19)
[2020-12-23] MEDS: DIVALPROEX SODIUM ER 500 MG TAB.24H PO (08:19)
[2020-12-23] MEDS: ERGOCALCIFEROL 50,000 UNIT CAPSULE 50000 UNITS PO (08:19)
[2020-12-23] MEDS: PERFLUTREN LIPID MICROSPHERES 1.5 ML VIAL DILUTED TO 10 ML TOTAL VOLUME IV PUSH (09:00)
--- NOTE | 2020-12-23 11:50 | PM.CNCAR ---
Assessment and Plan Assessment and plan (1) Chest pain: Qualifiers: Chest pain type: unspecified Qualified Code(s): R07.9 - Chest pain, unspecified Code(s): R07.9 - Chest pain, unspecified Status: Acute Assessment and Plan: Atypical, initially reproducible to palpation reported, negative serial troponin ruled out for myocardial infarction. Symptoms constant without EKG or laboratory evidence of ischemia/infarction. Highly unusual reported history being on specific details regarding CAD yet with detailed remembrance of symptoms over 8 years ago. Furthermore, patient is not on any directed medical therapy for cardiovascular disease. Patient reports history of recurrent TIAs with negative CT brain, MRI, head neck CT angiogram. EKG is not consistent with ischemia or prior infarction. -Will review 2D echocardiogram unavailable. Recommendation to follow. As patient's symptoms are constant and reported seizure last night while in Radiology will hold off on ischemic evaluation as patient is clearly not experiencing and ischemic cardiovascular event. No significant tachyarrhythmias on telemetry. -DVT prophylaxis. Need to review prior cardiovascular records to confirm patient's history which is rather vague and statistically highly unlikely. Patient reports father having premature atherosclerosis as well. -Check lipid panel. If patient remains hospitalized apnea link overnight recommended to screen for obstructive sleep apnea as patient reports he snores loudly. Will avoid AV althea blocking agents given relative bradycardia. -no evidence of carotid arterial disease which does not exclude CAD with the lack of extensive atherosclerosis is favorable. (2) Hx of seizure disorder: Code(s): Z86.69 - Personal history of other diseases of the nervous system and sense organs Status: Acute Assessment and Plan: Per primary service. Remains on antiepileptic therapy. Notation of seizure versus pseudo seizure history. Patient with multiple emergency department visits over the past couple of years for various complaints. Will defer to primary service with regards to further workup, management, and observation. No evidence of prolonged pauses, high-grade AV blocks on telemetry. Asymptomatic resting bradycardia. (3) Schizophrenia: Qualifiers: Schizophrenia type: unspecified Qualified Code(s): F20.9 - Schizophrenia, unspecified Code(s): F20.9 - Schizophrenia, unspecified Status: Acute Assessment and Plan: Per primary service. (4) History of bipolar disorder: Code(s): Z86.59 - Personal history of other mental and behavioral disorders Status: Acute Assessment and Plan: Per primary service. History of Present Illness History of Present Illness Consult date/time: Date of service: 12/23/20 11:50 Cardiology consultation at the request of Jennifer Zamudio of the [facility] service for our opinion regarding complaints of chest pain. Requesting physician: Jennifer Zamudio NP Consult reason: chest pain Reason For Visit: chest pain Narrative: Patient is a 30-year-old male with a past medical history significant for bipolar disorder, seizure disorder, PTSD, schizophrenia, depression, self-reported history of TIA and heart attack at age 22 who was in his usual state of health at his place of work when he began in note pain in his left elbow than feeling lightheaded extending to the left side of his chest feel weak, lightheaded and notes his hat and head were covered in sweat. Chest pain was rather severe and due to the rest of his symptoms presented to the emergency department for evaluation. Chest pain has been constant since onset yesterday waxing and waning in intensity currently a 6/10. It was reported his chest pain was reproducible palpation. He denies trauma, fevers, chills recent illnesses or sick contacts. He has ruled out for myocardial infarction with neg
--- NOTE | 2020-12-23 13:22 | PM.IMPN ---
Progress Note: A&P Assessment and Plan (1) Chest pain: Qualifiers: Chest pain type: unspecified Qualified Code(s): R07.9 - Chest pain, unspecified Code(s): R07.9 - Chest pain, unspecified Status: Acute Assessment and Plan: Patient's cardiac enzymes are negative x3. The pain is reproducible to the left upper chest and left upper quadrant. PPI started. The patient states that he has had a cardiac event in the past. He does not recall a cardiac catheterization however was listed in his history. The patient denies having a cardiac stent. The patient denies being on any cardiac medicines except for nitroglycerin. The patient stated he was given the nitroglycerin 8 years ago and it is in his locker at work. The patient has not been on an aspirin but was given 1 in the emergency room. Cardiology consulted. patient was also given morphine and nitro in the emergency room. An echo has been ordered as the patient stated that he has had an NC in the past. Since his pain is reproducible most likely it is muscle skeletal. However the patient stated that he had not lifted anything heavy. (2) Depression: Qualifiers: Depression Type: unspecified Qualified Code(s): F32.9 - Major depressive disorder, single episode, unspecified Code(s): F32.9 - Major depressive disorder, single episode, unspecified Status: Acute Assessment and Plan: Continue with home medications. 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 (4) Type II diabetes mellitus: Qualifiers: Diabetes mellitus complication status: without complication Diabetes mellitus senior care insulin use: without senior care use Qualified Code(s): E11.9 - Type 2 diabetes mellitus without complications Code(s): E11.9 - Type 2 diabetes mellitus without complications Status: Acute Assessment and Plan: The patient stated that his A1c was normal and he was taken off a metformin a long time ago. Patient's blood sugars listed here been in the 80s and 90s. (5) Schizophrenia: Qualifiers: Schizophrenia type: unspecified Qualified Code(s): F20.9 - Schizophrenia, unspecified Code(s): F20.9 - Schizophrenia, unspecified Status: Acute Assessment and Plan: Continue with home medications. (6) History of suicide attempt: Code(s): Z91.5 - Personal history of self-harm Status: Acute Assessment and Plan: Patient denies any current or recent suicidal ideation (7) Snoring: Code(s): R06.83 - Snoring Status: Acute Assessment and Plan: Will obtain apnea link to assess for sleep apnea Additional Plan Code status: full code DVT proph: Lovenox Subjective Date/time seen: 12/23/20 13:22 Reports persistent chest pain this morning, 10/03. Hemodynamically stable. Afebrile. Breathing comfortably on room air. IV fluids at 125/hr. Review of Systems Review of Systems: All systems reviewed & are unremarkable except as noted in HPI and below Exam Narrative: Gen: Alert, NAD Abd: Soft, NT, ND Heart: RRR Lungs: CTAB Ext: No lower extremity edema Objective Data Vital Signs Vital Signs: Vital Signs - 24 hr 12/22/20 15:08 12/22/20 15:23 12/22/20 15:36 Temperature Pulse Rate 77 69 98 Respiratory Rate 26 H 34 H Blood Pressure 154/104 H 189/96 H Pulse Oximetry 98 98 12/22/20 15:47 12/22/20 16:16 12/22/20 16:17 Temperature Pulse Rate 86 88 90 Respiratory Rate 24 H 20 21 H Blood Pressure 148/98 H 134/97 H Pulse Oximetry 98 98 100 12/22/20 17:30 12/22/20 18:29 12/22/20 19:12 Temperature Pulse Rate 77 66 73 Respiratory Rate 25 H 18 20 Blood Pressure 148/97 H 158/85 H Pulse Oximetry 97 96 98 12/22/20 19:15 12/22/20 19:31 12/22/20 19:32 Temperature Pulse Rate 72 64 65 Respiratory
[2020-12-23] MEDS: NAPROXEN 375 MG TABLET PO (17:18)
[2020-12-23] MEDS: LIDOCAINE 5% PATCH 1 PATCH TRANSDERM (17:55)
[2020-12-23] MEDS: NICOTINE (*PBKC) 14 MG PATCH 1 PATCH TRANSDERM (17:56)
[2020-12-23] MEDS: QUEtiapine FUMARATE 100 MG TABLET PO (20:30)
[2020-12-23] MEDS: DIVALPROEX SODIUM ER 250 MG TAB.24H PO (20:30)
[2020-12-23] MEDS: hydrALAZINE HCL 20 MG/ML VIAL 10 MG IV PUSH (21:50)
[2020-12-24] VITALS: BP 146/87; PULSE 56; RESP 14; TEMP 36.6; O2SAT 100
[2020-12-24 04:00] VITALS: BP 138/92; PULSE 51; PULSE 75; RESP 17; TEMP 36.1; O2SAT 100
[2020-12-24] MEDS: SODIUM CHLORIDE 0.9% IV 1,000 ML 125 ML IV CONT (06:10)
[2020-12-24 08:00] VITALS: BP 144/90; PULSE 58; PULSE 66; RESP 18; TEMP 36.3; O2SAT 100
[2020-12-24] MEDS: LIDOCAINE 5% PATCH 1 PATCH TRANSDERM (08:24)
[2020-12-24] MEDS: NICOTINE (*PBKC) 14 MG PATCH 1 PATCH TRANSDERM (08:25)
[2020-12-24] MEDS: DIVALPROEX SODIUM ER 500 MG TAB.24H PO (08:25)
[2020-12-24] MEDS: levETIRAcetam 500 MG TABLET PO (08:26)
[2020-12-24] MEDS: buPROPion HCL XL (24 HR) 150 MG TABCR PO (08:26)
[2020-12-24] MEDS: SERTRALINE HCL 50 MG TABLET 100 MG PO (08:26)
[2020-12-24] MEDS: CITALOPRAM HYDROBROMIDE 20 MG TABLET PO (08:26)
[2020-12-24] MEDS: NAPROXEN 375 MG TABLET PO (08:26)
[2020-12-24] MEDS: PANTOPRAZOLE SODIUM IV 40 MG VIAL IV PUSH (08:27)
--- NOTE | 2020-12-24 08:52 | PM.PNCARD ---
Progress Note: A&P Assessment and Plan (1) Chest pain: Qualifiers: Chest pain type: unspecified Qualified Code(s): R07.9 - Chest pain, unspecified <СВЕТЛАНА Mccrary - Last Filed: 12/24/20 09:26> Code(s): R07.9 - Chest pain, unspecified <СВЕТЛАНА Mccrary - Last Filed: 12/24/20 09:26> Status: Acute <СВЕТЛАНА Mccrary - Last Filed: 12/24/20 09:26> Assessment and Plan: Atypical, initially reproducible to palpation reported, negative serial troponin ruled out for myocardial infarction. Symptoms constant without EKG or laboratory evidence of ischemia/infarction. Highly unusual reported history being on specific details regarding CAD yet with detailed remembrance of symptoms over 8 years ago. Furthermore, patient is not on any directed medical therapy for cardiovascular disease. Patient reports history of recurrent TIAs with negative CT brain, MRI, head neck CT angiogram. EKG is not consistent with ischemia or prior infarction. -Echocardiogram reviewed: No regional wall motion abnormalities, normal LV systolic function with EF 60-65%, normal diastolic function, no significant valve pathology. Ischemic evaluation not indicated at this time as EKG did not show any evidence of ischemia or prior infarction. Negative serial troponins. Continues to experience constant chest pain that is 6/10 at rest and reports pain of 8/10 with palpation. <СВЕТЛАНА Mccrary - Last Filed: 12/24/20 09:26> (2) Hx of seizure disorder: Code(s): Z86.69 - Personal history of other diseases of the nervous system and sense organs <СВЕТЛАНА Mccrary - Last Filed: 12/24/20 09:26> Status: Acute <СВЕТЛАНА Mccrary - Last Filed: 12/24/20 09:26> Assessment and Plan: Per primary service. Remains on antiepileptic therapy. Notation of seizure versus pseudo seizure history. Patient with multiple emergency department visits over the past couple of years for various complaints. Will defer to primary service with regards to further workup, management, and observation. No evidence of prolonged pauses, high-grade AV blocks on telemetry. Asymptomatic resting bradycardia. <СВЕТЛАНА Mccrary - Last Filed: 12/24/20 09:26> (3) Schizophrenia: Qualifiers: Schizophrenia type: unspecified Qualified Code(s): F20.9 - Schizophrenia, unspecified <СВЕТЛАНА Mccrary - Last Filed: 12/24/20 09:26> Code(s): F20.9 - Schizophrenia, unspecified <СВЕТЛАНА Mccrary - Last Filed: 12/24/20 09:26> Status: Acute <СВЕТЛАНА Mccrary - Last Filed: 12/24/20 09:26> Assessment and Plan: Per primary service. <СВЕТЛАНА Mccrary - Last Filed: 12/24/20 09:26> (4) History of bipolar disorder: Code(s): Z86.59 - Personal history of other mental and behavioral disorders <СВЕТЛАНА Mccrary - Last Filed: 12/24/20 09:26> Status: Acute <СВЕТЛАНА Mccrary - Last Filed: 12/24/20 09:26> Assessment and Plan: Per primary service. <СВЕТЛАНА Mccrary - Last Filed: 12/24/20 09:26> (5) Nicotine dependence: Code(s): F17.200 - Nicotine dependence, unspecified, uncomplicated <СВЕТЛАНА Mccarry - Last Filed: 12/24/20 09:26> Status: Acute <СВЕТЛАНА Mccrary - Last Filed: 12/24/20 09:26> Assessment and Plan: Pt. states he smokes 3-4 packs/day. Counseled him extensively on smoking cessation. <СВЕТЛАНА Mccrary - Last Filed: 12/24/20 09:26> Additional Plan Attending addendum: I agree with the above documentation and plan of care as outlined. Constant, atypical chest pain. We do not have documentation is prior report of cardiovascular issues and the details remain unclear. Aspirin daily advised. If coronary disease corroborated statin therapy strongly advised. LDL controlled at 69 however. <Jonnie Workman MD - Last Filed: 12/24/20 16:16> Anaya
--- NOTE | 2020-12-24 09:46 | PM.DS ---
DS: Admitting Diagnosis Admitting Diagnosis Chest pain DS: Discharge Diagnosis Discharge Diagnosis (1) Nicotine dependence: Code(s): F17.200 - Nicotine dependence, unspecified, uncomplicated Status: Acute (2) Hx of seizure disorder: Code(s): Z86.69 - Personal history of other diseases of the nervous system and sense organs Status: Acute (3) Chest pain: Qualifiers: Chest pain type: unspecified Qualified Code(s): R07.9 - Chest pain, unspecified Code(s): R07.9 - Chest pain, unspecified Status: Acute (4) Schizophrenia: Qualifiers: Schizophrenia type: unspecified Qualified Code(s): F20.9 - Schizophrenia, unspecified Code(s): F20.9 - Schizophrenia, unspecified Status: Acute (5) Type II diabetes mellitus: Qualifiers: Diabetes mellitus complication status: without complication Diabetes mellitus [facility] insulin use: without [facility] use Qualified Code(s): E11.9 - Type 2 diabetes mellitus without complications Code(s): E11.9 - Type 2 diabetes mellitus without complications Status: Acute (6) 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 This started when he was at work with some radiation to his left elbow and left arm. He felt diaphoretic at that time. On presentation, he was given nitroglycerin and morphine. His pain improved although did not resolve completely. EKG with sinus rhythm and incomplete right bundle branch block, and nonspecific ST changes in inferior and anterior leads. He was seen by Cardiology. His troponins were trended and they were all negative. An echocardiogram was done and showed no significant abnormalities. It was deemed per Cardiology that his chest pain was not ischemic in nature and not cardiac. It was reproducible with palpation of chest wall. He was provided with naproxen and a lidocaine patch. This improved symptoms although he continued to have some mild ache. He was noted to be hemodynamically stable throughout his hospitalization and his home medications were continued. Throughout his stay he was noted to have elevated blood pressure. Amlodipine 5 mg daily was initiated. He did have CTA of his chest that showed no pulmonary embolism or acute cardiopulmonary abnormality but did show multiple small sclerotic lesions of the ribs which most likely reflect small bone infarcts or enchondromas. Metastatic disease would be considered less likely in the absence of known malignancy. It is recommended that he follows with his primary provider closely over the next 1-2 weeks to ensure continued clinical improvement and follow up of CT results, I did discuss this with detail and emphasized it. Given noted snoring during his hospital stay, overnight oximetry was done, this showed some drops in O2 saturation and will need evaluation in outpatient setting for a sleep study, recommend close follow-up with his primary provider. He was counselled on smoking cessation in detail. Time Spent with Patient Time attestation: Total time spent providing and/or coordinating discharge services: 33 min Exam Narrative: Gen: Alert, NAD Abd: Soft, NT, ND Heart: RRR Lungs: CTAB Ext: No lower extremity edema DS: Data Data Completed and Pending Labs on day of discharge: Labs from last 24 hours 12/24/20 09:36 Triglycerides Pending Cholesterol Pending LDL Cholesterol Direct Pending HDL Direct Pending Discharge Plan Discharge Consulting providers: Uday Abernathy Discharging Clinician: Alexander Sutton
[2020-12-24 09:51] LABS: Cholesterol 138 mg/dL (0-200); HDL Direct 49 mg/dL; Triglycerides 64 mg/dL (<150)
[2020-12-24 10:01] LABS: LDL Cholesterol Direct 69 mg/dL
[2020-12-24] MEDS: ASPIRIN 81 MG ENTERIC TABLET PO (10:39)
[2020-12-24] MEDS: amLODIPine BESYLATE 5 MG TABLET PO (10:39)
[2020-12-24 12:00] VITALS: PULSE 64
== END 2020-12-24 14:13 | disposition home or self-care (01) ==
LOC: ANHED 18:17 → ANHIMU 19:21 → ANH2MED 12-23 13:38
PROVIDERS: Internal Medicine Cardiovascular Disease; Nurse Practitioner; Admitting Provider Internal Medicine Nephrology; Emergency Provider Emergency Medicine; PCP Family Medicine; Visit Provider Internal Medicine Nephrology
DX: R07.9 Chest pain, unspecified (principal); F31.9 Bipolar disorder, unspecified; E11.9 Type 2 diabetes mellitus without complications; F44.5 Conversion disorder with seizures or convulsions; F20.9 Schizophrenia, unspecified; F17.210 Nicotine dependence, cigarettes, uncomplicated; R06.83 Snoring
CPT/HCPCS: 36415; 71046; 71275; 80048; 80053; 80061; 80307; 82948; 83605; 83615; 83690; 83735; 84443; 84484; 85025; 85610; 85730; 93005; 94762; 96360; 96361; 96374; 96375; 99285; A9270; C8929; C9113; G0378; G0379; J0360; J1650; J2060; J2270; J7030; Q9957; Q9967

== ENCOUNTER 2021-03-29 19:47 | Observation (INO) | payer OTHER, SELFPAY ==
--- NOTE | ~2021-03-29 | CT_ITS ---
EXAMINATION: CT brain wo con DATE: 03/29/2021 20:29 INDICATION: Seizure. Syncope. TECHNIQUE: Computed tomography (CT) of the head was performed without intravenous contrast. The mA wa s adjusted according to patient size. Iterative reconstruction technique was employed. The dose-lengt h product was 681.00 mGy-cm. COMPARISON: Head CT 08/25/2019 FINDINGS: There is no intracranial hemorrhage, acute infarction, or abnormal intracranial mass lesion . The ventricles are normal in size. The paranasal sinuses are clear. The orbits are normal. The mast oid air cells are normal. IMPRESSION: 1. Normal brain. Reviewed, dictated and finalized at location A. TUTOR IMPRESSION: 1. Normal brain.
--- NOTE | ~2021-03-29 | XR_ITS ---
EXAMINATION: XR chest 1V portable DATE: 03/29/2021 20:29 INDICATION: Shortness of breath. Syncope. TECHNIQUE: A single frontal view of the chest was obtained. COMPARISON: Chest 2 views 12/22/2020, chest CT 12/23/2020 FINDINGS: The chest demonstrates clear lungs without pneumonia, pleural effusion, or pneumothorax. Th e heart size is normal. IMPRESSION: 1. No acute cardiopulmonary disease. Reviewed, dictated and finalized at location A. OFFICE
[2021-03-29 20:00] VITALS: BP 146/101; PULSE 88; RESP 18; TEMP 36.6; O2SAT 97
--- NOTE | 2021-03-29 20:15 | ECG_ITS ---
Measurements Intervals [place] Rate: 86 P: 38 MD: 176 QRS: -4 QRSD: 109 T: 52 QT: 353 QTc: 424 Interpretive Statements SINUS RHYTHM INCOMPLETE RIGHT BUNDLE BRANCH BLOCK LOW QRS VOLTAGE IN PRECORDIAL LEADS BORDERLINE ECG Electronically Signed On 03-30-2021 7:12:29 [employer]KL[employer] MECH[employer]IC by Jose Maria Edmond D.O.
[2021-03-29 21:22] LABS: Basophils Absolute Auto 0.05 K/mm3 (0.00-0.10); Basophils Percent Auto 0.7 % (0.0-1.0); Eosinophils Absolute Auto 0.11 K/mm3 (0.02-0.50); Eosinophils Percent Auto 1.6 % (1.0-6.0); Hematocrit 43.6 % (40.0-54.0); Hemoglobin 14.9 g/dL (14.0-18.0); Immature Granulocyte Absolute 0.03 K/mm3 (0.00-0.00); Immature Granulocyte Percent A 0.4 % (0.0-0.0); Lymphocytes Absolute Auto 1.24 K/mm3 (1.10-4.50); Lymphocytes Percent Auto 18.6 % (18.0-42.0); Mean Corpuscular HGB Conc 34.2 g/dL (32.0-36.0); Mean Corpuscular Hemoglobin 28.9 pg (27.0-31.0); Mean Corpuscular Volume 84.5 fL (78.0-102.0); Mean Platelet Volume 10.7 fl (8.7-11.0); Monocytes Percent Auto 7.5 % (2.0-11.0); Neutrophils Absolute Auto 4.7 K/mm3 (1.7-7.2); Neutrophils Percent Auto 71.2 % (50.0-70.0); Platelet Count Result 236 K/mm3 (150-420); Red Blood Count 5.16 M/mm3 (4.70-6.10); White Blood Count 6.7 K/mm3 (4.8-10.8)
[2021-03-29 21:31] LABS: Partial Thromboplastin Time 28.5 SEC (23.90-30.70); Prothrombin Time 10.7 Seconds (9.50-12.10)
[2021-03-29 21:39] LABS: Alanine Aminotransferase 37 U/L (16-63); Albumin Level 3.8 g/dL (3.4-5.0); Alkaline Phosphatase 133 U/L (46-116); Anion Gap 9 mmol/L (8-16); Aspartate Amino Transferase 10 U/L (15-37); Bilirubin,Total 0.3 mg/dL (0.00-1.00); Blood Urea Nitrogen 21 mg/dL (7-18); Calcium 8.7 mg/dL (8.5-10.1); Carbon Dioxide 28 mmol/L (21-32); Chloride 106 mmol/L (98-108); Estimated CRCL calculation 95 ml/min; Estimated Glomerular Filt Rate > 60; Glucose 132 mg/dL (70-99); Osmolality Calculated 301 mOsm/kg (285-295); Potassium 3.7 mmol/L (3.5-5.1); Sodium 143 mmol/L (136-145); Total Protein 6.8 g/dL (6.4-8.2)
[2021-03-29 21:40] LABS: Creatine Kinase 60 U/L (39-308)
--- NOTE | 2021-03-29 21:51 | ED.SEIZURE ---
HPI - Seizure General Chief Complaint: Seizure Stated Complaint: amb Source: patient Mode of arrival: EMS Limitations: no limitations History of Present Illness HPI Narrative: this is a 30-year-old male with a history seizure disorder apparently had a seizure earlier this evening witnessed by family currently no seizure activity here in the hospital patient sees a neurologist at [facility], patient states that he had some bladder dysfunction with no tongue biting currently his postictal with some mild confusion with no chest pain no shortness of breath no abdominal pain no bowel dysfunction no tongue biting no headache currently. Patient with no fever chills no nausea vomiting. MD complaint: seizure Onset (ago): hour(s) Description of Episode: tonic-clonic movement -: second(s) Witnessed: Yes - by Bystander Trauma: No Seizure History: Yes Place: home Possible Precipitating Event: none Associated symptoms: denies other symptoms Related Data Home Medications Medication Instructions Recorded Confirmed citalopram 20 mg PO DAILY 08/25/19 03/29/21 levetiracetam 1,000 mg PO BID 08/25/19 03/29/21 quetiapine 100 mg PO HS 08/25/19 03/29/21 bupropion HCl 150 mg PO DAILY 09/05/20 03/29/21 divalproex 250 mg PO HS 09/05/20 03/29/21 divalproex 500 mg PO DAILY 09/05/20 03/29/21 ergocalciferol (vitamin D2) 1,250 mcg PO WEEKLY 09/05/20 03/29/21 sertraline 100 mg PO DAILY 09/05/20 03/29/21 sildenafil 50 mg PO DAILY PRN 12/22/20 03/29/21 Allergies Allergy/AdvReac Type Severity Reaction Status Date / Time cranberry Allergy Itching Verified 12/22/20 20:50 latex Allergy Rash Verified 12/22/20 20:50 COCONUT Allergy Unknown Anaphylactic Uncoded 10/13/20 22:48 Shock INK Allergy Unknown swelling Uncoded 10/13/20 22:48 and itching MARKERS Allergy Unknown swelling, Uncoded 10/13/20 22:48 itching PRUNE JUICE Allergy Unknown stomach Uncoded 10/13/20 22:48 pain, diarrhea TUNA Allergy Unknown Anaphylactic Uncoded 10/13/20 22:48 Shock Review of Systems Review of Systems: All systems reviewed & are unremarkable except as noted in HPI and below PMFSH Past Medical History Medical History Asthma Depression GERD (gastroesophageal reflux disease) Hand fracture, right Herniated disc History of bipolar disorder Hx of seizure disorder Hx of transient ischemic attack (TIA) Kidney stone Neck fracture Pseudoseizure PTSD (post-traumatic stress disorder) Schizophrenia Type II diabetes mellitus Surgical History Surgical History Hx of cardiac cath Family History Family History Father History of blood clots Diabetes mellitus Hypertension Acute myocardial infarction Mother History of blood clots Diabetes mellitus Hypertension Sibling Hypertension Social History Social History Social History: The patient stated that he did quit smoking but started back up again and probably smokes about 3 packs of cigarettes a day. The patient is engaged she has been 2 prior times. He has 1 daughter. He stated that his fiancee is his durable power attorney lawyer for healthcare. The patient is a full code. The patient stated that he is a recovering alcoholic and has not had any alcohol in a long time. He denies any marijuana or illicit drugs. 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 Smoking packs per day: 3 Smoking cigarettes per day: 60.0 Years smoked: 21 Smoking pack-years: 63.00 Smoking status: Current every day smoker Tobacco type: cigarettes Smoking end date: 06/25/19 Additional smoking assessment comments: smokes off and on Alcohol intake: former Alcohol use details: Denied current alcohol abuse Substance use: former Substance use type: marijuana, crack/cocaine
--- NOTE | 2021-03-29 21:59 | PC.NURSE ---
ERP spoke to pt about tests and CT results. POC to admit for obs. Pt has been A&O x3 since arrival to ER and no seizure activity while here. Mon. shows NSR, VSS.
[2021-03-29 22:03] VITALS: BP 127/88; PULSE 72; RESP 18; TEMP 36.5; O2SAT 98
--- NOTE | 2021-03-29 22:05 | PC.NURSE ---
Call placed to 2nd floor for bed assignment, pt will go to Rm 204. Pt informed on POC.
[2021-03-29] MEDS: SODIUM CHLORIDE 0.9% IV 1,000 ML 30 ML IV CONT (22:52)
[2021-03-29 22:58] LABS: Add Urine Microscopic? NO; Appearance Urine Clear (Clear); Bilirubin Urine Negative (Negative); Blood Urine Negative (Negative); Color Urine Light Yellow (Yellow); Glucose Urine UA Negative (Negative); Ketones Urine Negative (Negative); Leukocyte Esterase Ur Negative (Negative); Nitrate Urine Negative (Negative); Protein Urine Negative (Negative); Urobilinogen Urine 0.2 mg/dL (0.2-1.0); pH Urine 6.5 (5.0-8.0)
--- NOTE | 2021-03-29 23:25 | PC.NURSE ---
Pt resting and watching TV, call giraldo at side, awaiting call back for report.
[2021-03-29 23:55] VITALS: BP 141/93; PULSE 63; RESP 18; TEMP 36.4; O2SAT 97; BMI 35.6
--- NOTE | 2021-03-30 00:08 | ADMGEN ---
This patient, Mario Zamora III, was admitted to 2nd Floor Room 204-2. Patient oriented to hospital policies and general routines including ID bracelet, bed and alarms, visiting hours, pain management, procedures, bathroom and other care routines, personal items, smoking policy, room service/diet, and visiting hours. Information on how to activate the Rapid Response Team has been discussed. Patient/Family are encouraged to report perceived risks to care and to ask questions if they do not understand what they are told or what they should do.
[2021-03-30] MEDS: DIVALPROEX SODIUM ER 250 MG TAB.24H PO (00:20)
[2021-03-30] MEDS: levETIRAcetam 500 MG TABLET 1000 MG PO ×2 (00:20→09:47)
[2021-03-30] MEDS: QUEtiapine FUMARATE 100 MG TABLET PO (00:21)
--- NOTE | 2021-03-30 00:37 | PC.NURSE ---
bedtime meds given, snack given, watching TV, no sz activity noted
--- NOTE | 2021-03-30 02:30 | PC.NURSE ---
No sz activity, resting quietly, fluids infusing
[2021-03-30 04:00] VITALS: BP 109/71; PULSE 55; RESP 16; TEMP 36.4; O2SAT 95
--- NOTE | 2021-03-30 04:05 | PC.NURSE ---
No sz activity noted,
--- NOTE | 2021-03-30 06:06 | PC.NURSE ---
No sz activity noted, fluids infusing, call light inr each for safety
[2021-03-30 06:23] LABS: Basophils Absolute Auto 0.05 K/mm3 (0.00-0.10); Basophils Percent Auto 0.8 % (0.0-1.0); Eosinophils Percent Auto 1.6 % (1.0-6.0); Hematocrit 42.1 % (40.0-54.0); Hemoglobin 14.1 g/dL (14.0-18.0); Immature Granulocyte Absolute 0.03 K/mm3 (0.00-0.00); Immature Granulocyte Percent A 0.5 % (0.0-0.0); Lymphocytes Absolute Auto 1.61 K/mm3 (1.10-4.50); Lymphocytes Percent Auto 25.1 % (18.0-42.0); Mean Corpuscular HGB Conc 33.5 g/dL (32.0-36.0); Mean Corpuscular Hemoglobin 28.6 pg (27.0-31.0); Mean Corpuscular Volume 85.4 fL (78.0-102.0); Mean Platelet Volume 11.2 fl (8.7-11.0); Monocytes Absolute Auto 0.49 K/mm3 (0.10-0.90); Monocytes Percent Auto 7.6 % (2.0-11.0); Neutrophils Absolute Auto 4.1 K/mm3 (1.7-7.2); Neutrophils Percent Auto 64.4 % (50.0-70.0); Platelet Count Result 224 K/mm3 (150-420); Red Blood Count 4.93 M/mm3 (4.70-6.10); Red Cell Distribution Width 12.1 % (11.6-14.4); White Blood Count 6.4 K/mm3 (4.8-10.8)
[2021-03-30 06:48] LABS: Alanine Aminotransferase 34 U/L (16-63); Albumin Level 3.5 g/dL (3.4-5.0); Anion Gap 10 mmol/L (8-16); Aspartate Amino Transferase 13 U/L (15-37); Bilirubin,Total 0.3 mg/dL (0.00-1.00); Blood Urea Nitrogen 19 mg/dL (7-18); Carbon Dioxide 26 mmol/L (21-32); Chloride 107 mmol/L (98-108); Estimated CRCL calculation 94 ml/min; Estimated Glomerular Filt Rate > 60; Glucose 83 mg/dL (70-99); Osmolality Calculated 297 mOsm/kg (285-295); Potassium 3.7 mmol/L (3.5-5.1); Sodium 143 mmol/L (136-145); Total Protein 6.6 g/dL (6.4-8.2)
[2021-03-30 06:49] LABS: Alkaline Phosphatase 120 U/L (46-116)
[2021-03-30 07:50] VITALS: BP 103/63; PULSE 68; RESP 18; TEMP 36.1; O2SAT 96
--- NOTE | 2021-03-30 09:23 | PM.SD2 ---
Same Day Admit/Disch: HPI History of Present Illness Chief complaint: amb <RENETTA Wells - Last Filed: 03/30/21 15:21> Narrative: Mario Zamora III is a 30 year old male who presented to our emergency department for seizure activity witnessed by family members. Patient has a past medical history of asthma, depression, GERD, herniated disc, bipolar disorder, seizure disorder, TIA, kidney stone, neck fracture, pseudoseizures, PTSD, schizophrenia, and type 2 diabetes. patient notes that the only thing that he remembers from yesterday is waking. Patient is a little groggy but he is alert and orientated x3 he was also able to tell me the name of his neurologist. I did call his neurologist office and spoke with the on-call neurologist who knows the patient is to take Keppra 1000 mg every 12 hours. She also notes the patient on his own we will only takes 500 mg every 12 hours. She also instructed patient not to drive a vehicle and noted that his medication Keppra is to increase next week and 1500 every 12 hours. Patient was informed of instructions provided to me by his neurology. Patient was informed to call neurologist office on Wednesday to get clarification of medication. Patient does not have any injuries he has not had any seizure activity this hospital stay. Vital signs 103/6368, 18, 96.9, 96% on room air, WBC 6.4, hemoglobin 14.1, hematocrit 42.1, platelets 224, sodium 143, potassium 3.7, BUN 14, creatinine 1.20, glucose 83, liver function test within normal limits, CT of the head unremarkable, chest x-ray unremarkable, EKG sinus rhythm with 86. Patient has not displayed any seizure activity he will discharge home today. He agrees with discharge. The patient denies SOB, CP, palpitation, extremity numbness, lightheadedness, dizziness, constipation, diarrhea, chills, or fever. Dr Ku Danilo [phone] called on-call neurologist Observation Time spent 60 minutes <RENETTA Wells - Last Filed: 03/30/21 15:21> [facility] Past Medical History Medical History: Medical History Asthma Depression GERD (gastroesophageal reflux disease) Hand fracture, right Herniated disc History of bipolar disorder Hx of seizure disorder Hx of transient ischemic attack (TIA) Kidney stone Neck fracture Pseudoseizure PTSD (post-traumatic stress disorder) Schizophrenia Type II diabetes mellitus <RENETTA Wells - Last Filed: 03/30/21 15:21> Surgical History Surgical History: Surgical History Hx of cardiac cath <RENETTA Wells - Last Filed: 03/30/21 15:21> Family History Family History: Family History Father History of blood clots Diabetes mellitus Hypertension Acute myocardial infarction Mother History of blood clots Diabetes mellitus Hypertension Sibling Hypertension <RENETTA Wells - Last Filed: 03/30/21 15:21> Social History Social History: Social History Social History: The patient stated that he did quit smoking but started back up again and probably smokes about 3 packs of cigarettes a day. The patient is engaged she has been 2 prior times. He has 1 daughter. He stated that his fiancee is his durable power divorce attorney for healthcare. The patient is a full code. The patient stated that he is a recovering alcoholic and has not had any alcohol in a long time. He denies any marijuana or illicit drugs. 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 Smoking packs per day: 2 Smoking cigarettes per day: 40.0 Years smoked: 20 Smoking pack-years: 40.00 Smoking status: Current every day smoker Tobacco type: cigarettes and e-cigarettes/vaping Smoking end date: 06/25/19 Additional smoking assessment comments: smokes off and on Alcohol intake
[2021-03-30] MEDS: DIVALPROEX SODIUM ER 500 MG TAB.24H PO (09:46)
[2021-03-30] MEDS: CITALOPRAM HYDROBROMIDE 20 MG TABLET PO (09:47)
[2021-03-30] MEDS: buPROPion HCL XL (24 HR) 150 MG TABCR PO (09:47)
[2021-03-30] MEDS: SERTRALINE HCL 50 MG TABLET 100 MG PO (09:47)
[2021-03-30] MEDS: amLODIPine BESYLATE 5 MG TABLET PO (09:47)
--- NOTE | 2021-03-30 16:15 | PC.NURSE ---
All discharge instructions and education reviewed with patient. Patient states understanding. All belongings sent home with patient. IV site removed, tip intact. Dressing applied to site. Patient denies any questions at this time. Accompanied to front door via wheelchair by this nurse, patient left via private vehicle with family.
--- NOTE | 2021-04-01 10:26 | PC.NURSE ---
Unable to contact for discharge call back.
== END 2021-03-30 16:15 | disposition home health service (06) ==
LOC: CHSED 21:55 → CHS2ND 22:14
PROVIDERS: Admitting Provider Emergency Medicine; Emergency Provider Emergency Medicine; PCP Family Medicine; Visit Provider Emergency Medicine
DX: G40.909 Epilepsy, unspecified, not intractable, without status epilepticus (principal); J45.909 Unspecified asthma, uncomplicated; K21.9 Gastro-esophageal reflux disease without esophagitis; E11.9 Type 2 diabetes mellitus without complications; F43.10 Post-traumatic stress disorder, unspecified; F31.9 Bipolar disorder, unspecified; F17.210 Nicotine dependence, cigarettes, uncomplicated; F10.21 Alcohol dependence, in remission; Z86.73 Personal history of transient ischemic attack (TIA), and cerebral infarction without residual deficits
CPT/HCPCS: 36415; 70450; 71045; 80053; 81003; 82550; 85025; 85610; 85730; 93005; 96360; 96361; 99285; A9270; G0378; G0379; J7030

== ENCOUNTER 2021-04-20 19:31 | Emergency (ER) | payer OTHER, SELFPAY ==
[2021-04-20 19:40] VITALS: BP 141/94; PULSE 83; RESP 20; TEMP 36.4; O2SAT 97
--- NOTE | 2021-04-20 20:11 | ED.SEIZURE ---
HPI - Seizure General Chief Complaint: Seizure Stated Complaint: amb Time Seen by Provider: 04/20/21 20:11 Source: patient Mode of arrival: ambulatory Limitations: no limitations History of Present Illness HPI Narrative: 30-year-old man who has had seizures for the last 4 years brought to the emergency department today for a 2 seizures that occurred 1 after another this evening. Patient's father who was there stated that at half past the hour he began having a seizure which lasted 15 minutes. He stopped seizing for about two minutes but did not regain consciousness and began seizing again for another 12-13 minutes. his seizures are sometimes preceded by an aura. He is currently taking 1500 mg of Keppra twice a day. He states he has had no recent illness, head injuries, nausea, vomiting, fever. He states that he drank wine last night. MD complaint: seizure Onset (ago): hour(s) (1) Description of Episode: loss of consciousness, tonic-clonic movement and other ( Foaming at the mouth) Duration of episode: 15 -: minutes(s) Witnessed: Yes - by Bystander Trauma: No Seizure History: Yes Place: home Possible Precipitating Event: none Treatments prior to arrival: none Related Data Home Medications Medication Instructions Recorded Confirmed levetiracetam [Keppra] 1,500 mg PO BID 08/25/19 04/20/21 albuterol sulfate 2 puff INHALATION PRN PRN 04/20/21 04/20/21 Allergies Allergy/AdvReac Type Severity Reaction Status Date / Time cranberry Allergy Itching Verified 12/22/20 20:50 latex Allergy Rash Verified 12/22/20 20:50 COCONUT Allergy Unknown Anaphylactic Uncoded 10/13/20 22:48 Shock INK Allergy Unknown swelling Uncoded 10/13/20 22:48 and itching MARKERS Allergy Unknown swelling, Uncoded 10/13/20 22:48 itching PRUNE JUICE Allergy Unknown stomach Uncoded 10/13/20 22:48 pain, diarrhea TUNA Allergy Unknown Anaphylactic Uncoded 10/13/20 22:48 Shock Review of Systems Review of Systems: All systems reviewed & are unremarkable except as noted in HPI and below Constitutional: Constitutional: Denies chills, Denies fever(s) and Denies weakness Eyes: Eyes: Denies change in vision and Denies photophobia ENT: Denies nasal congestion and Denies sore throat Cardiovascular: Cardiovascular: Denies chest pain and Denies radiating jaw, neck or arm pain Respiratory: Respiratory: Denies cough, Denies dyspnea and Denies wheezing Gastrointestinal: Gastrointestinal: Denies abdominal pain, Denies diarrhea, Denies nausea and Denies vomiting Genitourinary: Genitourinary: Denies dysuria, Denies urinary frequency and Denies urinary incontinence Musculoskeletal: Musculoskeletal: Denies back pain, Denies arthralgias and Denies joint swelling Integumentary/Breasts: Skin/Breast: Denies pruritus, Denies erythema and Denies rash Neurologic: Denies vertigo, Denies dizziness, Denies syncope, Denies headache(s), Denies numbness and Denies weakness Endocrine: Endocrine: Denies polydipsia and Denies polyuria Hematologic/Lymphatic: Hematologic/Lymphatic: Denies easy bleeding and Denies easy bruising Allergic/Immunologic: Allergic/Immunologic: Denies lip swelling and Denies throat swelling PMFSH Past Medical History Medical History Asthma Depression GERD (gastroesophageal reflux disease) Hand fracture, right Herniated disc History of bipolar disorder Hx of seizure disorder Hx of transient ischemic attack (TIA) Kidney stone Neck fracture Pseudoseizure PTSD (post-traumatic stress disorder) Schizophrenia Type II diabetes mellitus Surgical History Surgical History Hx of cardiac cath Family History Family History Father History of blood clots Diabetes mellitus Hypertension Acute myocardial infarction Mother History of blood clots Diabet
[2021-04-20 20:48] LABS: Basophils Absolute Auto 0.06 K/mm3 (0.00-0.10); Basophils Percent Auto 0.8 % (0.0-1.0); Eosinophils Absolute Auto 0.11 K/mm3 (0.02-0.50); Eosinophils Percent Auto 1.5 % (1.0-6.0); Hematocrit 45.2 % (40.0-54.0); Hemoglobin 15.2 g/dL (14.0-18.0); Immature Granulocyte Absolute 0.03 K/mm3 (0.00-0.00); Immature Granulocyte Percent A 0.4 % (0.0-0.0); Lymphocytes Absolute Auto 1.23 K/mm3 (1.10-4.50); Lymphocytes Percent Auto 17.1 % (18.0-42.0); Mean Corpuscular HGB Conc 33.6 g/dL (32.0-36.0); Mean Corpuscular Hemoglobin 28.8 pg (27.0-31.0); Mean Corpuscular Volume 85.8 fL (78.0-102.0); Mean Platelet Volume 10.5 fl (8.7-11.0); Monocytes Absolute Auto 0.57 K/mm3 (0.10-0.90); Monocytes Percent Auto 7.9 % (2.0-11.0); Neutrophils Absolute Auto 5.2 K/mm3 (1.7-7.2); Neutrophils Percent Auto 72.3 % (50.0-70.0); Platelet Count Result 236 K/mm3 (150-420); Red Blood Count 5.27 M/mm3 (4.70-6.10); Red Cell Distribution Width 12.1 % (11.6-14.4); White Blood Count 7.2 K/mm3 (4.8-10.8)
[2021-04-20 21:02] LABS: Alanine Aminotransferase 39 U/L (16-63); Albumin Level 3.9 g/dL (3.4-5.0); Alkaline Phosphatase 129 U/L (46-116); Anion Gap 9 mmol/L (8-16); Aspartate Amino Transferase 14 U/L (15-37); Bilirubin,Total 0.3 mg/dL (0.00-1.00); Blood Urea Nitrogen 19 mg/dL (7-18); Calcium 8.9 mg/dL (8.5-10.1); Carbon Dioxide 27 mmol/L (21-32); Chloride 107 mmol/L (98-108); Creatine Kinase 69 U/L (39-308); Estimated CRCL calculation 94 ml/min; Estimated Glomerular Filt Rate > 60; Glucose 117 mg/dL (70-99); Magnesium 2.3 mg/dL (1.8-2.4); Osmolality Calculated 299 mOsm/kg (285-295); Phosphorus 4.2 mg/dL (2.6-4.7); Potassium 4.1 mmol/L (3.5-5.1); Sodium 143 mmol/L (136-145)
[2021-04-20 21:07] LABS: Add Urine Microscopic? NO; Appearance Urine Clear (Clear); Bilirubin Urine Negative (Negative); Blood Urine Negative (Negative); Color Urine Light Yellow (Yellow); Glucose Urine UA Negative (Negative); Ketones Urine Negative (Negative); Leukocyte Esterase Ur Negative (Negative); Nitrate Urine Negative (Negative); Protein Urine Negative (Negative); Specific Grav Ur 1.025 (1.010-1.020)
[2021-04-20 21:07] LABS: Lactic Acid Reflex 1.5 mmol/L (0.4-2.0)
[2021-04-20 21:14] LABS: Amphetamine Screen Urine Negative (Negative); Barbiturate Screen Urine Negative (Negative); Benzodiazepines Screen Urine Negative (Negative); Cannabinoid Screen Urine Negative (Negative); Cocaine Screen Urine Negative (Negative); Methadone Screen Urine Negative (Negative); Opiate Screen Urine Negative (Negative); Phencyclidine Screen Urine Negative (Negative)
[2021-04-20] MEDS: SODIUM CHLORIDE 0.9% IV 1,000 ML 999 ML IV CONT (21:28)
[2021-04-20 22:00] VITALS: BP 130/89; PULSE 80; RESP 18; O2SAT 97
[2021-04-20 22:30] VITALS: BP 125/86; PULSE 80; RESP 18; O2SAT 96
[2021-04-20] MEDS: levETIRAcetam 500 MG TABLET 2000 MG PO (22:50)
[2021-04-20 23:00] VITALS: BP 150/94; PULSE 76; RESP 18; TEMP 36.2; O2SAT 96
== END 2021-04-20 23:10 | disposition home or self-care (01) ==
PROVIDERS: Emergency Provider Emergency Medicine; PCP Family Medicine
DX: G40.309 Generalized idiopathic epilepsy and epileptic syndromes, not intractable, without status epilepticus (principal)
CPT/HCPCS: 36415; 80053; 80307; 81003; 82550; 83605; 83735; 84100; 85025; 96360; 99283; A9270; J7030

== ENCOUNTER 2021-05-21 08:35 | Outpatient (CLI) | payer OTHER, SELFPAY ==
--- NOTE | ~2021-05-21 | US_ITS ---
EXAMINATION: US scrotum doppler EXAM DATE: 05/21/2021 09:06 INDICATION: Scrotal Swelling TECHNIQUE: Multiple grayscale and Doppler images of the testicles and scrotum were obtained bilateral ly. There is no prior study for comparison. FINDINGS: Right testicle measures 3.6 x 2.1 x 3.0 cm and is morphologically normal. Low resistance Doppler hafsa w confirmed. The epididymis is unremarkable. There is no hydrocele or varicocele. Left testicle measures 3.4 x 2.1 x 3.2 cm and is morphologically normal. Low resistance Doppler flow confirmed. The epididymis is unremarkable. There is no hydrocele or varicocele. IMPRESSION: 1. Unremarkable testicular/scrotal ultrasound exam. Reviewed, dictated and finalized at location A. ER HELPER
== END 2021-05-21 08:36 | disposition home or self-care (01) ==
LOC: CHSIMG 08:36
PROVIDERS: PCP Family Medicine
DX: N50.89 Other specified disorders of the male genital organs (principal)
CPT/HCPCS: 76870; 93976

== ENCOUNTER 2021-08-04 11:20 | Emergency (ER) | payer OTHER, SELFPAY ==
[2021-08-04] VITALS (25 sets, daily range): BP systolic 137–178; BP diastolic 89–126; PULSE 87–141; RESP 14–27; TEMP 37.4; O2SAT 96–99
--- NOTE | ~2021-08-04 | CT_ITS ---
EXAMINATION: CT brain wo con DATE: 08/04/2021 17:37 INDICATION: Seizure. TECHNIQUE: Computed tomography (CT) of the head was performed without intravenous contrast. Automated exposure control and iterative reconstruction technique were employed. The dose-length product was 6 05.33 mGy-cm. COMPARISON: 03/29/2021. FINDINGS: No acute intracranial hemorrhage or extra-axial fluid collection. No hydrocephalus, mass, or herniation. No acute ischemic infarct. Unremarkable dural venous sinus attenuation. No acute osseous abnormality. The aerated spaces are clear. IMPRESSION: No acute intracranial process. Reviewed, dictated and finalized at location K.
--- NOTE | 2021-08-04 11:55 | PC.NURSE ---
web content writer was called into room stating that patient was actively having a seizure. patient was shaking, unable to respond and eyes rolling back. seizure pads in place. Provider aware and new orders for ativan. seizure lasted approx 2 minutes
[2021-08-04] MEDS: LORazepam INJ (*CRX) 2 MG/ML VIAL (11:57)
--- NOTE | 2021-08-04 12:13 | ED.SEIZURE ---
HPI - Seizure General Chief Complaint: Seizure Stated Complaint: SZ Time Seen by Provider: 08/04/21 11:49 Source: family and EMS Mode of arrival: EMS Limitations: altered mental status History of Present Illness HPI Narrative: Pt has history of seizures on Keppra followed by neurology in [place]. 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 Per father has not missed doses of medicine. MD complaint: seizure Description of Episode: loss of consciousness and tonic-clonic movement Duration of episode: 4 -: minutes(s) Witnessed: Yes - by Bystander Trauma: No Seizure History: Yes Place: work Treatments prior to arrival: none Related Data Allergies Allergy/AdvReac Type Severity Reaction Status Date / Time cranberry Allergy Itching Verified 08/04/21 18:46 latex Allergy Rash Verified 08/04/21 18:46 COCONUT Allergy Unknown Anaphylactic Uncoded 08/04/21 18:46 Shock INK Allergy Unknown swelling Uncoded 08/04/21 18:46 and itching MARKERS Allergy Unknown swelling, Uncoded 08/04/21 18:46 itching PRUNE JUICE Allergy Unknown stomach Uncoded 08/04/21 18:46 pain, diarrhea TUNA Allergy Unknown Anaphylactic Uncoded 08/04/21 18:46 Shock Review of Systems Review of Systems: ROS unobtainable: Yes unobtainable due to mental status PMFSH Past Medical History Medical History Asthma Depression GERD (gastroesophageal reflux disease) Hand fracture, right Herniated disc History of bipolar disorder Hx of seizure disorder Hx of transient ischemic attack (TIA) Kidney stone Neck fracture Pseudoseizure PTSD (post-traumatic stress disorder) Schizophrenia Type II diabetes mellitus Surgical History Surgical History Hx of cardiac cath Family History Family History Father History of blood clots Diabetes mellitus Hypertension Acute myocardial infarction Mother History of blood clots Diabetes mellitus Hypertension Sibling Hypertension Social History Social History Social History: The patient stated that he did quit smoking but started back up again and probably smokes about 3 packs of cigarettes a day. The patient is engaged she has been 2 prior times. He has 1 daughter. He stated that his geeta is his durable power route sales associate for healthcare. The patient is a full code. The patient stated that he is a recovering alcoholic and has not had any alcohol in a long time. He denies any marijuana or illicit drugs. 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 Smoking packs per day: 2 Smoking cigarettes per day: 40.0 Years smoked: 20 Smoking pack-years: 40.00 Smoking status: Current every day smoker Tobacco type: cigarettes and e-cigarettes/vaping Smoking end date: 06/25/19 Additional smoking assessment comments: smokes off and on Alcohol intake: never Alcohol use details: Denied current alcohol abuse Substance use: never Substance use type: marijuana, crack/cocaine, heroin and hallucinogens Other substance usage details: Denied current substance abuse Last use: in recovery since 2014 both substance and alcohol Gender identity (if verbalized by the patient): Male Spiritual care concerns: No Agree to blood products: Yes Exam Const: General: no acute distress Other: pt having tonic clonic seizure HENMT: Head: normal to inspection Cardio: Rate: tachycardic GI: GI Palp: Yes Soft to palpation Auscultation: normal bowel sounds Skin: General skin exam: normal color Neuro: Other: seizing not responsive Extrem: General: normal to inspection and no clubbing, cyanosis or edema Course Course Emergency Course: d/w dr zuñiga said no need to admit, continue current meds and start dilantin 300 mg daily and c
[2021-08-04 12:17] LABS: Basophils Absolute Auto 0.1 K/mm3 (0.0-0.1); Basophils Percent Auto 0.8 % (0.2-1.2); Eosinophils Percent Auto 0.5 % (0-4.4); Hematocrit 43.1 % (42.0-52.0); Hemoglobin 14.9 g/dL (14.0-18.0); Immature Granulocyte Absolute 0.02 K/mm3 (0.00-0.031); Immature Granulocyte Percent A 0.3 % (0-0.5); Lymphocytes Absolute Auto 0.43 K/mm3 (0.9-3.2); Lymphocytes Percent Auto 6.8 % (18.3-44.2); Mean Corpuscular HGB Conc 34.6 g/dl (32-36); Mean Corpuscular Hemoglobin 29.1 pg (26-34); Mean Corpuscular Volume 84.2 fl (80-100); Mean Platelet Volume 10.6 fl (7.4-10.4); Monocytes Absolute Auto 0.6 K/mm3 (0.1-0.6); Monocytes Percent Auto 9.9 % (2.6-8.5); Neutrophils Absolute Auto 5.2 K/mm3 (1.3-6.7); Neutrophils Percent Auto 81.7 % (45.5-73.1); Platelet Count Result 226 k/mm3 (150-375); Red Blood Count 5.12 M/mm3 (4.6-6.20); Red Cell Distribution Width 12.4 % (11.5-14.5); White Blood Count 6.3 K/mm3 (4.5-10.0)
--- NOTE | 2021-08-04 12:22 | PC.NURSE ---
patient stating that he has no sensation from mid abdomen down to feet and also unable to move lower extremities. Provider aware
[2021-08-04 12:29] LABS: Alanine Aminotransferase 22 U/L (4-50); Albumin Level 4.7 g/dL (3.5-5.1); Alkaline Phosphatase 123 U/L (38-126); Anion Gap 11 mmol/L (8-16); Aspartate Amino Transferase 24 U/L (17-59); Bilirubin,Total 0.7 mg/dL (0.2-1.3); Blood Urea Nitrogen 14 mg/dL (9-20); Calcium 8.9 mg/dL (8.4-10.2); Carbon Dioxide 20 mmol/L (22-30); Chloride 107 mmol/L (98-107); Estimated CRCL calculation 102 ml/min; Estimated Glomerular Filt Rate > 60; Glucose 96 mg/dL (65-110); Potassium 3.7 mmol/L (3.4-5.0); Sodium 138 mmol/L (137-145)
[2021-08-04] MEDS: levETIRAcetam 500MG/NACL 100ML 500 MG/100 ML BAG 400 MG IVPB ×2 (12:41→13:14)
--- NOTE | 2021-08-04 13:30 | PC.NURSE ---
patient continues to have multiple seizures. 2 noted to have excessive shaking and multiple focal seizures.
--- NOTE | 2021-08-04 14:25 | PC.NURSE ---
no active seizures for approx 30mins. provider aware
--- NOTE | 2021-08-04 15:45 | PC.NURSE ---
Called into room by pt father, pt having active seizure at this time. VORB for [address] Plaza
[2021-08-04] MEDS: LORazepam INJ (*CRX) 2 MG/ML VIAL IV PUSH (15:52)
--- NOTE | 2021-08-04 15:54 | PC.NURSE ---
Pt vomiting at this time, asked for nausea medication by
[2021-08-04] MEDS: ONDANSETRON INJ 4 MG/2 ML VIAL IV PUSH (16:02)
--- NOTE | 2021-08-04 17:32 | PC.NURSE ---
no new seizures since receiving IV dilantin.
--- NOTE | 2021-08-04 18:01 | PC.NURSE ---
[facility]
[2021-08-04 19:25] LABS: SARS-CoV-2 RNA PCR Negative
--- NOTE | 2021-08-04 20:00 | PC.NURSE ---
attempted to return call to father, left message
--- NOTE | 2021-08-04 20:13 | PC.NURSE ---
tried to call report to [facility] RN unavailable at this time
== END 2021-08-04 20:47 | disposition short-term general hospital (02) ==
PROVIDERS: Emergency Provider Emergency Medicine; PCP Family Medicine
DX: G40.909 Epilepsy, unspecified, not intractable, without status epilepticus (principal); E11.9 Type 2 diabetes mellitus without complications; J45.909 Unspecified asthma, uncomplicated; K21.9 Gastro-esophageal reflux disease without esophagitis; Z86.73 Personal history of transient ischemic attack (TIA), and cerebral infarction without residual deficits; Z87.442 Personal history of urinary calculi; F17.210 Nicotine dependence, cigarettes, uncomplicated; F17.290 Nicotine dependence, other tobacco product, uncomplicated
CPT/HCPCS: 36415; 70450; 80053; 85025; 96365; 96366; 96367; 96375; 96376; 99285; C9803; J1165; J1953; J2060; J2405; U0003; U0005

== ENCOUNTER 2021-08-18 12:47 | Inpatient (IN) | payer OTHER, SELFPAY ==
[2021-08-18] VITALS (33 sets, daily range): BP systolic 94–141; BP diastolic 61–108; PULSE 59–101; RESP 13–24; TEMP 36.3–36.6; O2SAT 96–100; BMI 37.0
--- NOTE | ~2021-08-18 | XR_ITS ---
EXAMINATION: XR chest ET placement INDICATION: Endotracheal and nasogastric tube insertion TECHNIQUE: Portable AP chest at 1719 hours COMPARISON: 03/29/2021 FINDINGS: The endotracheal tube ends approximately 4 cm above the harshad. The nasogastric tube is in the stomach. Cardiomegaly is noted. The lungs are free of acute opacities. There is no pleural effusi on or pneumothorax. IMPRESSION: 1. Tubes in adequate position. 2. Cardiomegaly. Reviewed, dictated and finalized at location F.
--- NOTE | ~2021-08-18 | XR_ITS ---
EXAMINATION: XR chest 1V portable DATE: 08/20/2021 06:00 INDICATION: Intubated. TECHNIQUE: A single frontal view of the chest was obtained. COMPARISON: Chest single view 08/19/2021 FINDINGS: There is mild atelectasis in the lower lung zones. No pleural effusion or pneumothorax. The heart size is normal. The endotracheal tube tip is 4.5 cm above the harshad. The nasogastric tube tip is in the stomach. IMPRESSION: 1. Mild atelectasis in the lower lung zones. Reviewed, dictated and finalized at location A.
--- NOTE | ~2021-08-18 | XR_ITS ---
EXAMINATION: XR chest 1V portable DATE: 08/21/2021 05:55 INDICATION: Intubated. TECHNIQUE: A single frontal view of the chest was obtained. COMPARISON: Chest single view 08/20/2021, chest CT 12/23/2020 FINDINGS: The patient is rotated to his left. There is mild atelectasis in the lower lung zones. No p leural effusion or pneumothorax. The heart size is normal. The endotracheal tube tip is 3.2 cm above the harshad. The nasogastric tube tip is beyond the inferior margin of the radiograph, but at least to the stomach. IMPRESSION: 1. Mild atelectasis in the lower lung zones. Reviewed, dictated and finalized at location A.
--- NOTE | ~2021-08-18 | CT_ITS ---
EXAMINATION: CT brain wo con DATE: 08/19/2021 13:54 INDICATION: Seizures TECHNIQUE: Computed tomography (CT) of the head was performed without intravenous contrast. The mA wa s adjusted according to patient size. Iterative reconstruction technique was employed. Exam dose: 68 1.00 mGy-cm total exam DLP. COMPARISON: 08/04/2021 CT brain FINDINGS: No intracranial mass lesion or hemorrhage or cerebrovascular accident is detected. No midli ne shift or mass effect. Normal ventricular size. Normal lozada-white matter differentiation. No subdur al or epidural hematoma. The paranasal sinuses and mastoid air cells are normally developed and aerated. No fracture or bone destruction of the cranial vault. IMPRESSION: No significant abnormality Reviewed, dictated and finalized at Location A. Reviewed, dictated and finalized at location A. IMPRESSION: No significant abnormality
--- NOTE | 2021-08-18 13:00 | ECG_ITS ---
Measurements Intervals Lexa Rate: 83 P: 26 NH: 203 QRS: -9 QRSD: 122 T: 31 QT: 356 QTc: 418 Interpretive Statements SINUS RHYTHM POSSIBLE RIGHT VENTRICULAR CONDUCTION DELAY [RSR (QR) IN V1/V2] COMPARED TO ECG 03/29/2021 20:46:23 NO SIGNIFICANT CHANGES Electronically Signed On 08-18-2021 16:30:28 CDT by Uday Abernathy M.D.
--- NOTE | 2021-08-18 13:00 | ED.SEIZURE ---
HPI - Seizure General Chief Complaint: Seizure Stated Complaint: seizure Time Seen by Provider: 08/18/21 12:51 Source: patient and EMS Mode of arrival: ambulatory Limitations: no limitations History of Present Illness HPI Narrative: Patient is a 30-year-old male brought in by EMS after a seizure at work. Patient has a history of seizures and on multiple medications for it. According to EMS patient was about to have a seizure, alerted his coworkers, and they administered intranasal Versed, and they laid him down on the ground, hence, no injuries. Patient states that his intranasal Versed was prescribed to him by his neurologist. Seizure lasted for approximately 2 minutes accompanied by postictal confusion that lasted for approximately 10 to 15 minutes according to EMS. In route to the hospital patient had another seizure that lasted for approximately 1 minute. Patient states that his last seizure was 2 weeks ago. Patient denies any symptoms prior to the seizure. Seizure History: Yes Related Data Allergies Allergy/AdvReac Type Severity Reaction Status Date / Time cranberry Allergy Itching Verified 08/18/21 13:02 latex Allergy Rash Verified 08/18/21 13:02 COCONUT Allergy Unknown Anaphylactic Uncoded 08/04/21 18:46 Shock INK Allergy Unknown swelling Uncoded 08/04/21 18:46 and itching MARKERS Allergy Unknown swelling, Uncoded 08/04/21 18:46 itching PRUNE JUICE Allergy Unknown stomach Uncoded 08/04/21 18:46 pain, diarrhea TUNA Allergy Unknown Anaphylactic Uncoded 08/04/21 18:46 Shock Review of Systems Review of Systems: All systems reviewed & are unremarkable except as noted in HPI and below Constitutional: Constitutional: Denies body ache(s), Denies chills, Denies excessive sweating, Denies fatigue, Denies fever(s), Denies headache(s), Denies lethargy, Denies malaise, Denies weakness and Denies weight loss Eyes: Eyes: Denies blurry vision, Denies change in vision and Denies loss of vision ENT: Denies dizziness, Denies ear discharge, Denies headache(s), Denies lip swelling, Denies epistaxis, Denies nasal congestion, Denies neck pain, Denies throat swelling and Denies tongue swelling Cardiovascular: Cardiovascular: Denies chest pain, Denies chest pain at rest, Denies chest pain with activity, Denies diaphoresis, Denies rapid heart rate, Denies edema, Denies irregular heart rhythm, Denies lightheadedness, Denies palpitations, Denies dyspnea and Denies dyspnea on exertion Respiratory: Respiratory: Denies chest congestion, Denies cough, Denies hemoptysis, Denies dyspnea and Denies dyspnea on exertion Gastrointestinal: Gastrointestinal: Denies abdominal pain, Denies melena, Denies hematochezia, Denies diarrhea, Denies nausea, Denies vomiting and Denies hematemesis Musculoskeletal: Musculoskeletal: Denies abnormal gait, Denies deformity, Denies joint swelling, Denies limited range of motion, Denies neck pain and Denies numbness Neurologic: Denies Abnormal speech present, Denies abnormal gait, Denies confusion, Denies dizziness, Denies headache(s), Denies focal weakness, Denies loss of vision, Denies numbness, Denies Other visual disturbances, Denies Sensory deficit (Neuro) and Denies weakness Psychiatric: Psychiatric: Denies confusion, Denies depression, Denies auditory hallucinations, Denies homicidal ideation and Denies suicidal ideation Endocrine: Endocrine: Denies cold intolerance, Denies excessive sweating, Denies fatigue, Denies heat intolerance and Denies palpitations Hematologic/Lymphatic: Hematologic/Lymphatic: Denies easy bleeding and Denies easy bruising Allergic/Immunologic: Allergic/Immunologic: Denies lip swelling, Denies throat swelling and Denies tongue swelling PMFSH Past Medical History Medical History Asthma Depression GERD (gastroesophageal reflux disease) Hand fracture, right Herniated disc History of bipolar disorder Hx of [facility]
--- NOTE | 2021-08-18 13:14 | PC.NURSE ---
pt had 30 sec seizure, trying to cough up phlegm. airway protected.
[2021-08-18] MEDS: SODIUM CHLORIDE 0.9% IV 1,000 ML 999 ML IV CONT (13:18)
[2021-08-18] MEDS: LORazepam INJ (*CRX) 2 MG/ML VIAL 4 MG IV PUSH (13:18)
[2021-08-18 13:29] LABS: Basophils Absolute Auto 0.1 K/mm3 (0.0-0.1); Basophils Percent Auto 0.9 % (0.2-1.2); Eosinophils Absolute Auto 0.1 K/mm3 (0-0.3); Eosinophils Percent Auto 1.2 % (0-4.4); Hematocrit 43.6 % (42.0-52.0); Hemoglobin 14.5 g/dL (14.0-18.0); Immature Granulocyte Absolute 0.02 K/mm3 (0.00-0.031); Immature Granulocyte Percent A 0.3 % (0-0.5); Lymphocytes Absolute Auto 1.13 K/mm3 (0.9-3.2); Lymphocytes Percent Auto 16.8 % (18.3-44.2); Mean Corpuscular HGB Conc 33.3 g/dl (32-36); Mean Corpuscular Hemoglobin 28.7 pg (26-34); Mean Corpuscular Volume 86.2 fl (80-100); Mean Platelet Volume 9.9 fl (7.4-10.4); Monocytes Absolute Auto 0.5 K/mm3 (0.1-0.6); Monocytes Percent Auto 7.5 % (2.6-8.5); Neutrophils Absolute Auto 4.9 K/mm3 (1.3-6.7); Neutrophils Percent Auto 73.3 % (45.5-73.1); Platelet Count Result 236 k/mm3 (150-375); Red Blood Count 5.06 M/mm3 (4.6-6.20); Red Cell Distribution Width 12.2 % (11.5-14.5); White Blood Count 6.7 K/mm3 (4.5-10.0)
[2021-08-18 13:44] LABS: Alanine Aminotransferase 33 U/L (4-50); Albumin Level 4.3 g/dL (3.5-5.1); Alkaline Phosphatase 119 U/L (38-126); Anion Gap 7 mmol/L (8-16); Aspartate Amino Transferase 26 U/L (17-59); Bilirubin,Total 0.3 mg/dL (0.2-1.3); Blood Urea Nitrogen 20 mg/dL (9-20); Calcium 8.8 mg/dL (8.4-10.2); Carbon Dioxide 25 mmol/L (22-30); Chloride 107 mmol/L (98-107); Estimated CRCL calculation 105 ml/min; Estimated Glomerular Filt Rate > 60; Glucose 86 mg/dL (65-110); Potassium 3.8 mmol/L (3.4-5.0); Sodium 139 mmol/L (137-145)
[2021-08-18 13:46] LABS: Phenytoin Dilantin 6 ug/mL (10-20)
[2021-08-18 15:14] LABS: Add Urine Microscopic? NO; Appearance Urine Clear (Clear); Bilirubin Urine Negative (Negative); Blood Urine Negative (Negative); Color Urine Yellow (Yellow); Glucose Urine UA Negative (Negative); Ketones Urine Negative (Negative); Leukocyte Esterase Ur Negative LEU/UL (Negative); Nitrate Urine Negative (Negative); Protein Urine Negative (Negative); Specific Grav Ur 1.018 (1.001-1.035); Urobilinogen Urine Negative mg/dL (<2.0)
--- NOTE | 2021-08-18 18:21 | ADMGEN ---
This patient, Mario Zamora III, was admitted to IMU Room 205-02 at 1818. Patient/family oriented to hospital policies and general routines including ID bracelet, bed and alarms, visiting hours, pain management, procedures, bathroom and other care routines, personal items, smoking policy, room service/diet, and visiting hours. Information on how to activate the Rapid Response Team has been discussed. Patient/Family are encouraged to report perceived risks to care and to ask questions if they do not understand what they are told or what they should do.
[2021-08-18] MEDS: LACTATED RINGERS 1,000 ML 125 ML IV CONT (18:53)
--- NOTE | 2021-08-18 19:04 | ADMGEN ---
This patient, Mario Zamora III, was admitted to IMU Room 205-02 at 1813. Patient/family oriented to hospital policies and general routines including ID bracelet, bed and alarms, visiting hours, pain management, procedures, bathroom and other care routines, personal items, smoking policy, room service/diet, and visiting hours. Information on how to activate the Rapid Response Team has been discussed. Patient/Family are encouraged to report perceived risks to care and to ask questions if they do not understand what they are told or what they should do.
--- NOTE | 2021-08-18 21:57 | PM.IMHP ---
H&P: HPI History of Present Illness Date/Time: Patient was placed observation status for expected length of stay less than 23 hours for management, will plan to re-evaluate tomorrow for improvement. 08/18/21 21:57 Chief Complaint: Seizure Narrative: Mr. Zamora is a 30-year-old gentleman who presented to the emergency room via EMS for seizure disorder. Patient states he has a significant history of seizure disorder and is on multiple medications for this. Patient states that he does have intranasal Versed and he was at work today and began having a seizure and his coworkers gave him the intranasal Versed. Patient states that he was recently hospitalized for seizures and medications were adjusted. Patient does see a neurologist at [facility] in [facility]. Patient states that he sees Dr. Lerma routinely. Per emergency room records patient did have a seizure EN route to the emergency room while being transferred by EMS and then had another seizure in the emergency room. Patient was given Ativan for his seizures EN route to the hospital as well as in the emergency room. At this point time patient is alert oriented x3 and new seizure activity is being noted. Patient is does not appear to be postictal at all. Patient states he has been taking all medications without any difficulty. Patient denies any lightheadedness, dizziness, syncopal, or near syncopal episodes. Patient states that he does have a history of PTSD, hypertension, bipolar disorder with history of suicidal and homicidal ideations although he is denying either 1 of those at this point in time. Patient states he has done multiple illicit drugs in the past including acid, heroin, cocaine, as well as marijuana. Review of Systems Review of Systems: A 12 point review of systems was completed patient all pertinent positive and negative per HPI the remainder are unremarkable. [facility] Past Medical History Medical History Asthma Depression GERD (gastroesophageal reflux disease) Hand fracture, right Herniated disc History of bipolar disorder Hx of seizure disorder Hx of transient ischemic attack (TIA) Kidney stone Neck fracture Pseudoseizure PTSD (post-traumatic stress disorder) Schizophrenia Type II diabetes mellitus Surgical History Surgical History Hx of cardiac cath Family History Family History Father History of blood clots Diabetes mellitus Hypertension Acute myocardial infarction Mother History of blood clots Diabetes mellitus Hypertension Sibling Hypertension Social History Social History Social History: The patient stated that he did quit smoking but started back up again and probably smokes about 3 packs of cigarettes a day. The patient is engaged she has been 2 prior times. He has 1 daughter. He stated that his fiancee is his durable power claims attorney for healthcare. The patient is a full code. The patient stated that he is a recovering alcoholic and has not had any alcohol in a long time. He denies any marijuana or illicit drugs. 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 Smoking packs per day: 2 Smoking cigarettes per day: 40.0 Years smoked: 20 Smoking pack-years: 40.00 Smoking status: Current every day smoker Tobacco type: e-cigarettes/vaping Smoking end date: 06/25/19 Additional smoking assessment comments: smokes off and on Alcohol intake: never Alcohol use details: Denied current alcohol abuse Substance use: never Substance use type: does not use Other substance usage details: Denied current substance abuse Last use: in recovery since 2014 both substance and alcohol Gender identity (if verbalized by the patient): Male Spiritual care concerns: No Agree to blood products: Yes
[2021-08-18] MEDS: levETIRAcetam 500 MG TABLET 2000 MG PO (22:59)
[2021-08-18] MEDS: LACOSAMIDE (*CRX) 100 MG TABLET 200 MG PO (22:59)
[2021-08-19] VITALS (20 sets, daily range): BP systolic 119–142; BP diastolic 80–99; PULSE 56–95; RESP 14–20; TEMP 36–36.5; O2SAT 90–100
[2021-08-19] MEDS: LACTATED RINGERS 1,000 ML 125 ML IV CONT ×2 (02:36→09:47)
[2021-08-19 05:12] LABS: Basophils Absolute Auto 0.1 K/mm3 (0.0-0.1); Basophils Percent Auto 1.3 % (0.2-1.2); Eosinophils Absolute Auto 0.1 K/mm3 (0-0.3); Eosinophils Percent Auto 2.1 % (0-4.4); Hematocrit 39.7 % (42.0-52.0); Hemoglobin 13.5 g/dL (14.0-18.0); Immature Granulocyte Absolute 0.01 K/mm3 (0.00-0.031); Immature Granulocyte Percent A 0.2 % (0-0.5); Lymphocytes Absolute Auto 1.12 K/mm3 (0.9-3.2); Lymphocytes Percent Auto 23.5 % (18.3-44.2); Mean Corpuscular Hemoglobin 28.8 pg (26-34); Mean Corpuscular Volume 84.6 fl (80-100); Mean Platelet Volume 10.1 fl (7.4-10.4); Monocytes Absolute Auto 0.4 K/mm3 (0.1-0.6); Neutrophils Absolute Auto 3.1 K/mm3 (1.3-6.7); Neutrophils Percent Auto 64.9 % (45.5-73.1); Platelet Count Result 230 k/mm3 (150-375); Red Blood Count 4.69 M/mm3 (4.6-6.20); Red Cell Distribution Width 12.2 % (11.5-14.5); White Blood Count 4.8 K/mm3 (4.5-10.0)
[2021-08-19 05:41] LABS: Alanine Aminotransferase 27 U/L (4-50); Albumin Level 3.6 g/dL (3.5-5.1); Alkaline Phosphatase 103 U/L (38-126); Anion Gap 5 mmol/L (8-16); Aspartate Amino Transferase 23 U/L (17-59); Bilirubin,Total 0.3 mg/dL (0.2-1.3); Blood Urea Nitrogen 15 mg/dL (9-20); Calcium 8.3 mg/dL (8.4-10.2); Carbon Dioxide 26 mmol/L (22-30); Chloride 107 mmol/L (98-107); Estimated CRCL calculation 114 ml/min; Estimated Glomerular Filt Rate > 60; Glucose 87 mg/dL (65-110); Magnesium 2.1 mg/dL (1.6-2.3); Potassium 4.1 mmol/L (3.4-5.0); Sodium 138 mmol/L (137-145)
[2021-08-19] MEDS: LORazepam INJ (*CRX) 2 MG/ML VIAL IV PUSH (08:20)
[2021-08-19] MEDS: LACOSAMIDE (*CRX) 100 MG TABLET 200 MG PO (09:22)
[2021-08-19] MEDS: PHENYTOIN SODIUM 100 MG EXTENDED RELEASE CAP 300 MG PO (09:23)
[2021-08-19] MEDS: levETIRAcetam 500 MG TABLET 2000 MG PO (09:23)
--- NOTE | 2021-08-19 10:30 | PC.NURSE ---
08:19 - RN at bedside for morning assessment when patient stated his dark monique was worsening. Patient subsequently began having seizure activity. Patient placed on side. Eyelid myoclonia, generalized muscle twitching and emesis noted. PRN Ativan given at 08:20. Seizure activity ceased at 08:21. Patient noted to be post-ictal until 08:30. No concern for airway protection, oxygen saturations remained > 95%. Patient oriented and following commands following post-ictal state. Dr. Huertas made aware. Order placed for continuous pulse ox. 09:31- Patient taking morning medication when he stated, You may need to get assistance . Eyelid myoclonia noted followed by generalized muscle twitching and emesis. Seizure activity ceased at 09:32. Post-ictal state noted until 09:48. No concern for airway protection, oxygen saturations remained > 95%. Patient oriented and following commands following post-ictal state. Dr. Huertas made aware. 10:00 - Spoke with Dr. Figueroa via telephone. Orders given for additional 100 mg Vimpat PO, 500 mg Dilantin IV and EEG. Orders placed. RN will continue to monitor.
[2021-08-19] MEDS: LACOSAMIDE (*CRX) 100 MG TABLET PO (10:52)
[2021-08-19] MEDS: levETIRAcetam 1000MG/NACL100ML 1,000 MG/100 ML BAG 400 MG IVPB ×2 (14:06→21:37)
[2021-08-19] MEDS: PHENYTOIN SODIUM INJ 100 MG/2 ML VIAL (*BKC) IV PUSH ×2 (15:28→21:38)
--- NOTE | 2021-08-19 15:29 | PM.IMPN ---
Progress Note: A&P Assessment and Plan (1) Seizures: Code(s): R56.9 - Unspecified convulsions Status: Acute Assessment and Plan: Will continue with patient's home medications of Vimpat, Dilantin, and Keppra. Neurology has been consult and do appreciate further recommendations. Will attempt to obtain records from [facility] in [place] where patient sees his neurologist. 08/19/2021 interval history: patient 30-year-old male with a history of seizures while at work patient had a seizure and was brought to the emergency department further evaluation patient suppose to be taking Dilantin 300 mg b.i.d., Keppra 2000 mg b.i.d. and Vimpat 200 mg b.i.d. patient resume his oral medication, patient the Dilantin level are 6 suggesting patient is noncompliant with his medication, while in IMU patient continue to have seizure patient was given IV Ativan each time patient had a seizure also patient was vomiting not show a was able to hold his anti seizure medication, discussed with heart specialist, patient was seen by heart specialist and switch all his medications to IV and transferred patient to ICU for close monitoring, I also called [facility] for transfer the patient and spoke with neurologist Dr Mckeon, he has accepted the patient for intractable seizure, will continue to monitor and further recommendation to follow. Subjective Date/time seen: 08/19/21 15:29 Chief Complaint: Seizure Narrative: Mr. Zamora is a 30-year-old gentleman who presented to the emergency room via EMS for seizure disorder. Patient states he has a significant history of seizure disorder and is on multiple medications for this. Patient states that he does have intranasal Versed and he was at work today and began having a seizure and his coworkers gave him the intranasal Versed. Patient states that he was recently hospitalized for seizures and medications were adjusted. Patient does see a neurologist at [facility] in [facility]. Patient states that he sees Dr. Lerma routinely. Per emergency room records patient did have a seizure EN route to the emergency room while being transferred by EMS and then had another seizure in the emergency room. Patient was given Ativan for his seizures EN route to the hospital as well as in the emergency room. At this point time patient is alert oriented x3 and new seizure activity is being noted. Patient is does not appear to be postictal at all. Patient states he has been taking all medications without any difficulty. Patient denies any lightheadedness, dizziness, syncopal, or near syncopal episodes. Patient states that he does have a history of PTSD, hypertension, bipolar disorder with history of suicidal and homicidal ideations although he is denying either 1 of those at this point in time. Patient states he has done multiple illicit drugs in the past including acid, heroin, cocaine, as well as marijuana. 08/19/2021 interval history: patient 30-year-old male with a history of seizures while at work patient had a seizure and was brought to the emergency department further evaluation patient suppose to be taking Dilantin 300 mg b.i.d., Keppra 2000 mg b.i.d. and Vimpat 200 mg b.i.d. patient resume his oral medication, patient the Dilantin level are 6 suggesting patient is noncompliant with his medication, while in IMU patient continue to have seizure patient was given IV Ativan each time patient had a seizure also patient was vomiting not show a was able to hold his anti seizure medication, discussed with heart specialist, patient was seen by heart specialist and switch all his medications to IV and transferred patient to ICU for close monitoring, I also called [facility] for transfer the patient and spoke with neurologist Dr Mckeon, he has accepted the patient for intractable seizure, will continue to monitor and further recommendation to follow. Review of Systems Review of Systems: All systems reviewed & are unremarkable except as noted in HPI
[2021-08-19] MEDS: PROPOFOL IV EMULSION 100 ML 33.15 MG IV CONT ×2 (17:10→19:51)
[2021-08-19] MEDS: MIDAZOLAM 100MG/NS 100ML(*CRX) 100 MG/100 ML BAG 6 MG IV CONT (17:10)
--- NOTE | 2021-08-19 17:34 | WPDPROCEDUR ---
Procedures Intubation Intubation Date: 08/19/21 Intubation Time: 17:05 A pre-procedural Time-Out was completed immediately before starting the procedure and confirmed: Patient Identification, Site, Procedure, Patient Position and the Availability of Requisite Equipment: Yes Sedative: etomidate Mg given: 20 Paralytic: succinylcholine Mg given: 100 Laryngoscope: fiber optic video scope Assist device used: fiber optic device ET tube size: cuffed Tube secured depth (cm): 25 Tube secured location: teeth Tube placement confirmation: visualized tube passing through cords, equal breath sounds bilaterally and confirmation by capnometry Patient tolerated procedure: well Intubation complications: none
[2021-08-19 18:01] LABS: Alveolar/Arterial O2 Gradient 480.1 mmHg; Base Excess ABG -0.4 mEq/l (+/-2.0); Fractional Inspired Oxygen 100 %; HCO3 ABG 26.2 mEq/l (22.0-26.0); Oxygen Content ABG 20.4 %vol (16.0-22.0); Oxygen Saturation ABG 99.2 % (95.0-100.0); Oxyhemoglobin 97.6 % THb (90.0-100.0); PCO2 ABG 50.3 mmHg (35.0-45.0); PO2 ABG 182.6 mmHg (80.0-100.0); PO2 FiO2 Ratio Arterial Blood 1.83 %; Total Hemoglobin 14.6 g/dL (12.0-18.0); pH ABG 7.334 (7.350-7.450)
[2021-08-19 18:02] LABS: Arterial Blood Gas PEEP 5 cmH2O; Arterial Blood Gas Tidal Volume 400 ml; Arterial Blood Gas Vent Mode CMV; Arterial Blood Gas Ventilator rate 18 /MIN; Device VENTILATOR; Modified Allen's Test Pass; Site Drawn LEFT RADIAL
[2021-08-19] MEDS: MINERAL OIL/WHITE PETROLATUM OINTMENT 1 APPLIC EACH EYE (21:38)
[2021-08-19] MEDS: LACOSAMIDE (*CRX) 200 MG TABLET PO (22:00)
[2021-08-20] VITALS (32 sets, daily range): BP systolic 113–140; BP diastolic 74–96; PULSE 73–88; RESP 18–20; TEMP 36.3–37; O2SAT 98–100; BMI 37.3
[2021-08-20] MEDS: PROPOFOL IV EMULSION 100 ML 33.15 MG IV CONT ×7 (01:41→22:45)
[2021-08-20 04:43] LABS: Hematocrit 43.1 % (42.0-52.0); Hemoglobin 14.8 g/dL (14.0-18.0); Mean Corpuscular HGB Conc 34.3 g/dl (32-36); Mean Corpuscular Hemoglobin 29.1 pg (26-34); Mean Corpuscular Volume 84.8 fl (80-100); Mean Platelet Volume 10.3 fl (7.4-10.4); Platelet Count Result 246 k/mm3 (150-375); Red Blood Count 5.08 M/mm3 (4.6-6.20); Red Cell Distribution Width 12.1 % (11.5-14.5); White Blood Count 5.6 K/mm3 (4.5-10.0)
[2021-08-20 04:56] LABS: Magnesium 2.2 mg/dL (1.6-2.3); Phenytoin Dilantin 10 ug/mL (10-20)
[2021-08-20 05:50] LABS: Alveolar/Arterial O2 Gradient 258.5 mmHg; Base Excess ABG 1.5 mEq/l (+/-2.0); Carboxyhemoglobin 0.3 % THb (0-2.0); Fractional Inspired Oxygen 80 %; HCO3 ABG 25.2 mEq/l (22.0-26.0); Methemoglobin ABG 0.3 %THb (0-1.5); Oxygen Content ABG 21.2 %vol (16.0-22.0); Oxygen Saturation ABG 99.7 % (95.0-100.0); Oxyhemoglobin 98.2 % THb (90.0-100.0); PO2 ABG 273.1 mmHg (80.0-100.0); PO2 FiO2 Ratio Arterial Blood 3.41 %; Reduced Hemoglobin 1.2 %THb (0-5.0); Total Hemoglobin 14.9 g/dL (12.0-18.0); pH ABG 7.451 (7.350-7.450)
[2021-08-20 05:51] LABS: Device VENTILATOR; Modified Allen's Test Pass; Site Drawn RIGHT RADIAL
[2021-08-20 05:52] LABS: Arterial Blood Gas PEEP 5 cmH2O; Arterial Blood Gas Tidal Volume 450 ml; Arterial Blood Gas Vent Mode CMV; Arterial Blood Gas Ventilator rate 18 /MIN
[2021-08-20] MEDS: PHENYTOIN SODIUM INJ 100 MG/2 ML VIAL (*BKC) IV PUSH ×3 (06:23→22:26)
[2021-08-20 07:47] LABS: Alanine Aminotransferase 30 U/L (4-50); Albumin Level 4.3 g/dL (3.5-5.1); Alkaline Phosphatase 124 U/L (38-126); Anion Gap 9 mmol/L (8-16); Aspartate Amino Transferase 27 U/L (17-59); Bilirubin,Total 0.2 mg/dL (0.2-1.3); Blood Urea Nitrogen 17 mg/dL (9-20); Carbon Dioxide 23 mmol/L (22-30); Chloride 108 mmol/L (98-107); Estimated CRCL calculation 105 ml/min; Estimated Glomerular Filt Rate > 60; Glucose 94 mg/dL (65-110); Potassium 3.6 mmol/L (3.4-5.0); Sodium 140 mmol/L (137-145)
[2021-08-20] MEDS: MIDAZOLAM 100MG/NS 100ML(*CRX) 100 MG/100 ML BAG 6 MG IV CONT (07:54)
[2021-08-20] MEDS: ENOXAPARIN 40 MG/0.4 ML SYRINGE SUB-Q (09:18)
[2021-08-20] MEDS: PANTOPRAZOLE SODIUM IV 40 MG VIAL IV PUSH (09:18)
[2021-08-20] MEDS: levETIRAcetam 1000MG/NACL100ML 1,000 MG/100 ML BAG 400 MG IVPB ×2 (09:18→20:15)
[2021-08-20] MEDS: LACOSAMIDE (*CRX) 200 MG TABLET PO (09:19)
--- NOTE | 2021-08-20 10:33 | WPDCNINT ---
Assessment and Plan Assessment and plan (1) Acute respiratory failure: Code(s): J96.00 - Acute respiratory failure, unspecified whether with hypoxia or hypercapnia Status: Acute Assessment and Plan: Acute Respiratory failure secondary to status epilepticus Continue full mechanical ventilation support to prevent hypoxemia/hypercarbia and end organ damage. ABG and PCXR reviewed and will repeat in am. Decrease tidal volume to 420 (2) Status epilepticus: Code(s): G40.901 - Epilepsy, unspecified, not intractable, with status epilepticus Status: Acute Assessment and Plan: Continue Keppra phenytoin and Vimpat Currently sedated with propofol and Versed infusion EEG ordered Head CT was negative Patient is awaiting transfer to a [facility] Consult neurology (3) Type II diabetes mellitus: Qualifiers: Diabetes mellitus intermediate accountant insulin use: without intermediate accountant use Diabetes mellitus complication status: without complication Qualified Code(s): E11.9 - Type 2 diabetes mellitus without complications Code(s): E11.9 - Type 2 diabetes mellitus without complications Status: Acute Assessment and Plan: Patient has a mention of type 2 diabetes on his history but he is currently not on any medications as an outpatient. I will start tube feeds, Sliding scale insulin and check A1c Additional Plan DVT prophylaxis -Lovenox Stress ulcer prophylaxis -PPI Nutrition -start Tube Feeds Code Status - Full Code Total Critical Care Time - 30 minutes Due to a high probability of clinically significant, life threatening deterioration, the patient required my highest level of preparedness to intervene emergently and I personally spent this critical care time directly and personally managing the patient. This critical care time included obtaining a history; examining the patient; pulse oximetry; ordering and review of studies; arranging urgent treatment with development of a management plan; evaluation of patient's response to treatment; frequent reassessment; and discussions with other providers. It was exclusive of separately billable procedures and treating other patients and teaching time. Please see Assessment and Plan section and the rest of the note for further information on patient assessment and treatment [employer] Consult Note Consult date: 08/20/21 HPI: Mario Zamora III is a 30 year old male with past medical history of seizure, PTSD, hypertension, bipolar disorder with history of suicidal and homicidal ideations who presented to the emergency room yesterday via EMS for seizure disorder. Patient states he has a significant history of seizure disorder and is on multiple medications for this. Patient states that he does have intranasal Versed and he was at work today and began having a seizure and his coworkers gave him the intranasal Versed. Patient states that he was recently hospitalized for seizures and medications were adjusted. Patient does see a neurologist at [facility] in [facility]. Patient was given Ativan for his seizures EN route to the hospital as well as in the emergency room. Patient was admitted to the floor and then had multiple episodes on the floor. Patient was transferred to ICU and was intubated for airway protection. Patient reported on admission he has done multiple illicit drugs in the past including acid, heroin, cocaine, as well as marijuana. History obtained from chart and sign out. Pt intubated and sedated and unable to provide any other history. Review of Systems Review of Systems: ROS unobtainable: Yes unobtainable due to endotracheal tube, unobtainable due to medical condition and unobtainable due to mental status PMFSH Past Medical History Medical History Asthma Depression GERD (gastroesophageal reflux disease) Hand fracture, right Herniated disc History of bipo
[2021-08-20 11:45] LABS: Glucose Point of Care 91 mg/dl (65-105)
--- NOTE | 2021-08-20 12:33 | WPDNEUROPN ---
Progress Note: A&P Additional Plan patient has been excepted to be transferred to [facility] for the intractable epilepsy, in the meantime medications are being continued as such intravenously while he is sedated and the EEG is pending Time Spent With Patient Time with patient: 25 - 35 minutes Subjective Date/time seen: 08/20/21 12:33 30 years old right-handed male admitted to the hospital through the emergency room where he was brought by the EMS after a seizure at work in addition to ongoing history of intractable epilepsy for which patient has been followed by other physician and has been taking multiple medications. He himself alerted the co-worker that he is going to have seizures the receive the intranasal Versed was laid down this particular medication was prescribed to him by his neurologist his 1st seizure lasted for about 2 minutes followed by the postictal confusion lasting for about 10 to 15 minutes and route to the hospital as per the EMS he has another seizure which lasted for about 1 minutes otherwise the last seizure was 2 weeks ago initial examination in the emergency room also documented that he had history of seizure disorder, TIA, neck fracture posttraumatic stressed and GERD as well he has history of years smoked 20 his smoking pack years of 40 and smoking and date of June 25, 2019 but never drinking alcohol initial examination in the emergency room was documented as no focal deficit with normal vital normal routine lab particularly blood sugar of 96 UA negative toxicology screen negative, CT of the head negative for the bleed hydrocephalus or any space-occupying lesion, chest x-ray negative initially given the IV Keppra as well 1000 mg in addition to the midazolam and when he had the of recurrent seizures on the floor he was transferred to the intensive where he has been maintained on phenytoin intravenously levetiracetam intravenous and lacosamide per G-tube Review of Systems Review of Systems: All systems reviewed & are unremarkable except as noted in HPI and below Exam Narrative: in the intensive care he remains intubated, sedated, neck supple no spontaneous movements of the upper and lower extremities and reflexes are extremely sluggish plantar responses are for neutral Objective Data Vital Signs Vital Signs: Vital Signs - 24 hr 08/19/21 16:00 08/19/21 17:00 08/19/21 17:35 Temperature Pulse Rate 74 81 Respiratory Rate 19 Blood Pressure 137/89 Pulse Oximetry 94 91 96 08/19/21 18:00 08/19/21 18:30 08/19/21 20:00 Temperature 36.2 C L Pulse Rate 74 79 62 Respiratory Rate 18 Blood Pressure 129/84 Pulse Oximetry 90 92 08/19/21 20:03 08/19/21 22:00 08/19/21 22:55 Temperature 36.0 C L Pulse Rate 67 73 72 Respiratory Rate 18 18 Blood Pressure 119/84 Pulse Oximetry 93 92 08/19/21 23:19 08/20/21 00:00 08/20/21 01:39 Temperature 36.3 C L Pulse Rate 75 77 76 Respiratory Rate 18 18 Blood Pressure 122/89 Pulse Oximetry 98 100 08/20/21 01:41 08/20/21 01:54 08/20/21 02:00 Temperature 36.6 C Pulse Rate 76 76 77 Respiratory Rate 18 18 Blood Pressure 119/84 Pulse Oximetry 100 100 08/20/21 02:20 08/20/21 04:00 08/20/21 05:29 Temperature 36.8 C Pulse Rate 78 77 77 Respiratory Rate 18 Blood Pressure 119/84 Pulse Oximetry 100 100 100 08/20/21 06:00 08/20/21 08:00 08/20/21 08:08 Temperature 36.9 C 36.9 C Pulse Rate 78 79 80 Respiratory Rate 18 18 Blood Pressure 140/96 H 128/81 Pulse Oximetry 100 100 99 08/20/21 10:00 08/20/21 10:44 08/20/21 11:02 Temperature 37.0 C Pulse Rate 84 84 76 Respiratory Rate 18 18 Blood Pressure 121/82 Pulse Oximetry 99 98 08/20/21 12:00 Temperature 36.9 C Pulse Rate 79 Respiratory Rate 18 Blood Pressure 122/77 Pulse Oximetry 98 Intake/Output Intake/Output: Intake & Output 08/17/21 08/18/21 08/19/21 08/20/21 23:59 23:59 23:59 23:59 Intake Total 1000 3190 400 Ou
[2021-08-20] MEDS: MINERAL OIL/WHITE PETROLATUM OINTMENT 1 APPLIC EACH EYE ×2 (13:36→20:15)
--- NOTE | 2021-08-20 14:24 | PM.IMPN ---
Progress Note: A&P Assessment and Plan (1) Seizures: Code(s): R56.9 - Unspecified convulsions Status: Acute Assessment and Plan: Will continue with patient's home medications of Vimpat, Dilantin, and Keppra. Neurology has been consult and do appreciate further recommendations. Will attempt to obtain records from [facility] in [place] where patient sees his neurologist. 08/19/2021 interval history: patient 30-year-old male with a history of seizures while at work patient had a seizure and was brought to the emergency department further evaluation patient suppose to be taking Dilantin 300 mg b.i.d., Keppra 2000 mg b.i.d. and Vimpat 200 mg b.i.d. patient resume his oral medication, patient the Dilantin level are 6 suggesting patient is noncompliant with his medication, while in IMU patient continue to have seizure patient was given IV Ativan each time patient had a seizure also patient was vomiting not show a was able to hold his anti seizure medication, discussed with facility supervisor, patient was seen by facility supervisor and switch all his medications to IV and transferred patient to ICU for close monitoring, I also called [facility] for transfer the patient and spoke with neurologist Dr Mckeon, he has accepted the patient for intractable seizure, will continue to monitor and further recommendation to follow. 08/20/2021 interval history: patient 30-year-old male with a history of seizures on 08/19 while at work patient had a seizure and was brought to the emergency department further evaluation patient suppose to be taking Dilantin 300 mg b.i.d., Keppra 2000 mg b.i.d. and Vimpat 200 mg b.i.d. upon arrival patient Dilantin level was 6 suggesting patient is noncompliant with his medication, while in IMU patient continue to have seizure patient was given IV Ativan each time patient had a seizure also patient was vomiting not sure, patient was able to hold his anti seizure medications, discussed with facility supervisor, patient was seen by facility supervisor and switch all his medications to IV and transferred patient to ICU for close monitoring, I also called [facility] for transfer the patient and spoke with neurologist Dr Mckeon, he has accepted the patient for intractable seizure, however while in the ICU patient continue to have seizures patient was intubated by ER physician, currently patient is on ventilator being sedated with propofol and versed, no seizures since last night, discussed with neurologist recommended to continue present management, patient is still waiting for the transfer to [facility] will continue to monitor and further recommendation to follow. Subjective Date/time seen: 08/20/21 14:24 08/20/2021 interval history: patient 30-year-old male with a history of seizures on 08/19 while at work patient had a seizure and was brought to the emergency department further evaluation patient suppose to be taking Dilantin 300 mg b.i.d., Keppra 2000 mg b.i.d. and Vimpat 200 mg b.i.d. upon arrival patient Dilantin level was 6 suggesting patient is noncompliant with his medication, while in IMU patient continue to have seizure patient was given IV Ativan each time patient had a seizure also patient was vomiting not sure, patient was able to hold his anti seizure medications, discussed with facility supervisor, patient was seen by facility supervisor and switch all his medications to IV and transferred patient to ICU for close monitoring, I also called [facility] for transfer the patient and spoke with neurologist Dr Mckeon, he has accepted the patient for intractable seizure, however while in the ICU patient continue to have seizures patient was intubated by ER physician, currently patient is on ventilator being sedated with propofol and versed, no seizures since last night, discussed with neurologist recommended to continue present management, patient is still waiting for the transfer to [facility] will continue to monitor and further recommendation to follow. Review of Systems Review of Systems:
[2021-08-20 16:52] LABS: Glucose Point of Care 109 mg/dl (65-105)
[2021-08-20] MEDS: LACOSAMIDE (*CRX) 200 MG TABLET FEED TUBE (20:15)
[2021-08-21] VITALS (20 sets, daily range): BP systolic 115–152; BP diastolic 67–93; PULSE 82–114; RESP 17–24; TEMP 36.8–37.4; O2SAT 96–100
[2021-08-21] MEDS: PROPOFOL IV EMULSION 100 ML 33.15 MG IV CONT ×6 (02:00→16:37)
[2021-08-21] MEDS: MIDAZOLAM 100MG/NS 100ML(*CRX) 100 MG/100 ML BAG IV CONT (02:01)
[2021-08-21 02:07] LABS: Glucose Point of Care 92 mg/dl (65-105)
[2021-08-21 04:53] LABS: Hematocrit 41.8 % (42.0-52.0); Hemoglobin 14.6 g/dL (14.0-18.0); Mean Corpuscular HGB Conc 34.9 g/dl (32-36); Mean Corpuscular Hemoglobin 29.5 pg (26-34); Mean Corpuscular Volume 84.4 fl (80-100); Mean Platelet Volume 10.3 fl (7.4-10.4); Platelet Count Result 216 k/mm3 (150-375); Red Blood Count 4.95 M/mm3 (4.6-6.20); Red Cell Distribution Width 12.3 % (11.5-14.5); White Blood Count 7.6 K/mm3 (4.5-10.0)
[2021-08-21 04:59] LABS: Magnesium 2.2 mg/dL (1.6-2.3); Triglycerides 177 mg/dL (<150)
[2021-08-21 05:05] LABS: Alveolar/Arterial O2 Gradient 78.2 mmHg; Base Excess ABG 2.3 mEq/l (+/-2.0); Carboxyhemoglobin 0.4 % THb (0-2.0); Device VENTILATOR; Fractional Inspired Oxygen 30 %; HCO3 ABG 27.3 mEq/l (22.0-26.0); Methemoglobin ABG 0.2 %THb (0-1.5); Modified Allen's Test Pass; Oxygen Content ABG 20.2 %vol (16.0-22.0); Oxygen Saturation ABG 96.4 % (95.0-100.0); Oxyhemoglobin 95.2 % THb (90.0-100.0); PCO2 ABG 43.7 mmHg (35.0-45.0); PO2 ABG 84.4 mmHg (80.0-100.0); PO2 FiO2 Ratio Arterial Blood 2.81 %; Reduced Hemoglobin 4.2 %THb (0-5.0); Site Drawn LEFT RADIAL; Total Hemoglobin 15.1 g/dL (12.0-18.0); pH ABG 7.414 (7.350-7.450)
[2021-08-21 05:06] LABS: Arterial Blood Gas PEEP 5 cmH2O; Arterial Blood Gas Tidal Volume 420 ml; Arterial Blood Gas Vent Mode CMV; Arterial Blood Gas Ventilator rate 18 /MIN
[2021-08-21] MEDS: PHENYTOIN SODIUM INJ 100 MG/2 ML VIAL (*BKC) IV PUSH ×2 (06:32→14:12)
[2021-08-21 06:43] LABS: Glucose Point of Care 117 mg/dl (65-105)
[2021-08-21] MEDS: LACTATED RINGERS 1,000 ML 100 ML IV CONT (07:45)
[2021-08-21] MEDS: MINERAL OIL/WHITE PETROLATUM OINTMENT 1 APPLIC EACH EYE (08:09)
[2021-08-21] MEDS: ENOXAPARIN 40 MG/0.4 ML SYRINGE SUB-Q (08:09)
[2021-08-21] MEDS: PANTOPRAZOLE SODIUM IV 40 MG VIAL IV PUSH (08:09)
--- NOTE | 2021-08-21 08:35 | WPDINTPN ---
Progress Note: A&P Assessment and Plan (1) Acute respiratory failure: Code(s): J96.00 - Acute respiratory failure, unspecified whether with hypoxia or hypercapnia Status: Acute Assessment and Plan: Acute Respiratory failure secondary to status epilepticus Continue full mechanical ventilation support to prevent hypoxemia/hypercarbia and end organ damage. ABG and PCXR reviewed and will repeat in am. Decrease tidal volume to 420 Sedation holiday today (2) Status epilepticus: Code(s): G40.901 - Epilepsy, unspecified, not intractable, with status epilepticus Status: Acute Assessment and Plan: Continue Keppra phenytoin and Vimpat Currently sedated with propofol and Versed infusion. Will try to wean down Versed EEG ordered and scheduled for today Head CT was negative Patient is awaiting transfer to a [facility] Neurology following (3) Type II diabetes mellitus: Qualifiers: Diabetes mellitus terminal carman insulin use: without terminal carman use Diabetes mellitus complication status: without complication Qualified Code(s): E11.9 - Type 2 diabetes mellitus without complications Code(s): E11.9 - Type 2 diabetes mellitus without complications Status: Acute Assessment and Plan: Patient has a mention of type 2 diabetes on his history but he is currently not on any medications as an outpatient. His A1c was only 5.0 Continue tube feeds, Sliding scale insulin (4) Oliguria: Code(s): R34 - Anuria and oliguria Status: Acute Assessment and Plan: Start IV fluids Monitor urine output Electrolytes pending for today Additional Plan DVT prophylaxis -Lovenox Stress ulcer prophylaxis -PPI Nutrition -start Tube Feeds Code Status - Full Code Total Critical Care Time - 30 minutes Due to a high probability of clinically significant, life threatening deterioration, the patient required my highest level of preparedness to intervene emergently and I personally spent this critical care time directly and personally managing the patient. This critical care time included obtaining a history; examining the patient; pulse oximetry; ordering and review of studies; arranging urgent treatment with development of a management plan; evaluation of patient's response to treatment; frequent reassessment; and discussions with other providers. It was exclusive of separately billable procedures and treating other patients and teaching time. Please see Assessment and Plan section and the rest of the note for further information on patient assessment and treatment Subjective Date/time seen: 08/21/21 08:35 Overnight events reviewed. Afebrile Continues to be on mechanical ventilation Continues to be sedated with propofol and Versed Vitals acceptable Drop in urine output Review of Systems Review of Systems: ROS unobtainable: Yes unobtainable due to endotracheal tube, unobtainable due to medical condition and unobtainable due to mental status Exam Narrative: General: Pt is sedated, intubated and on mechanical ventilation Lungs/Chest: Trachea central Coarse BS B/L, No crackles or wheezing. Cardiac: RRR. Normal S1 S2. No murmurs Circulation: Pedal pulses are intact and symmetrical. Abdomen: Decreased bowel sounds. Obese. Soft. NT. ND. Extremities: No clubbing, cyanosis or edema. Warm : Arriaga in place Neurologic: Unable to assess due to sedation. Moves all 4 extremities to painful stimuli. PERRL Skin: Several tattoos all around his body Objective Data Vital Signs Vital Signs: Vital Signs - 24 hr 08/20/21 10:00 08/20/21 10:44 08/20/21 11:02 Temperature 37.0 C Pulse Rate 84 84 76 Respiratory Rate 18 18 Blood Pressure 121/82 Pulse Oximetry 99 98 08/20/21 12:00 08/20/21 13:05 08/20/21 14:00 Temperature 36.9 C 36.8 C Pulse Rate 79 78 78 Respiratory Rate 18 18 18 Blood Pressure 122/77 125/89 Pulse Oximetry 98 98 08/20/21 14:06 08/20/21
[2021-08-21] MEDS: levETIRAcetam 1000MG/NACL100ML 1,000 MG/100 ML BAG 400 MG IVPB (08:45)
[2021-08-21] MEDS: LACOSAMIDE (*CRX) 200 MG TABLET FEED TUBE (08:45)
[2021-08-21 08:56] LABS: Alanine Aminotransferase 24 U/L (4-50); Albumin Level 3.7 g/dL (3.5-5.1); Alkaline Phosphatase 128 U/L (38-126); Anion Gap 7 mmol/L (8-16); Aspartate Amino Transferase 22 U/L (17-59); Bilirubin,Total 0.2 mg/dL (0.2-1.3); Blood Urea Nitrogen 17 mg/dL (9-20); Calcium 8.5 mg/dL (8.4-10.2); Carbon Dioxide 25 mmol/L (22-30); Chloride 107 mmol/L (98-107); Estimated CRCL calculation 99 ml/min; Estimated Glomerular Filt Rate > 60; Glucose 100 mg/dL (65-110); Potassium 3.7 mmol/L (3.4-5.0); Sodium 139 mmol/L (137-145)
[2021-08-21 09:42] LABS: Levetiracetam Keppra 45.5 mcg/mL (12.0-46.0)
[2021-08-21 11:22] LABS: Glucose Point of Care 102 mg/dl (65-105)
--- NOTE | 2021-08-21 12:15 | PCFNICU ---
ICU Rounding Note: Pt current nutrition is Vital AF 1.2 at 40 ml/hr. Last recorded weight is 99.8 kg,down from 111.4 kg on admit. Bowel Motility: No BM to report. Labs Reviewed:TG 177 Meds Noted:Propofol 33.15 ml/yj=063 kcals, Versed, Lovenox, Ativan, LR ,Keppra, Vimpat, Dilantin. Skin: WNL Additional Notes: Patient remains on mechanical vent and tube feedings of Vital AF 1.2 at 40 ml/hr,goal rate at 45 ml/hr at this time due to propofol infusion. Free water flush 30 ml q 4 hours. EEG planned for today. Following daily in ICU rounds. Will reassess every Wednesday and Wednesday.
--- NOTE | 2021-08-21 12:31 | WPDNEUROPN ---
Subjective Date/time seen: 08/21/21 12:31 30 years old male with acute respiratory failure and status epilepticus sedate remains essentially unchanged clinically will benefit from the EEG while he is waiting because still has an been transferred to [facility] for intractable epilepsy Objective Data Vital Signs Vital Signs: Vital Signs - 24 hr 08/20/21 13:05 08/20/21 14:00 08/20/21 14:06 Temperature 36.8 C Pulse Rate 78 78 78 Respiratory Rate 18 18 Blood Pressure 125/89 Pulse Oximetry 98 99 08/20/21 14:38 08/20/21 16:00 08/20/21 16:35 Temperature 36.6 C Pulse Rate 77 74 76 Respiratory Rate 18 18 Blood Pressure 129/86 Pulse Oximetry 98 08/20/21 16:38 08/20/21 17:01 08/20/21 18:00 Temperature 36.4 C Pulse Rate 76 87 73 Respiratory Rate 18 18 Blood Pressure 113/75 Pulse Oximetry 98 98 08/20/21 19:42 08/20/21 19:55 08/20/21 20:00 Temperature 36.5 C Pulse Rate 75 76 75 Respiratory Rate 18 18 Blood Pressure 116/74 Pulse Oximetry 98 98 08/20/21 22:00 08/20/21 22:45 08/20/21 23:00 Temperature Pulse Rate 77 76 87 Respiratory Rate 18 20 Blood Pressure 115/75 Pulse Oximetry 98 99 08/21/21 00:00 08/21/21 02:00 08/21/21 02:01 Temperature 36.8 C Pulse Rate 82 89 86 Respiratory Rate 20 24 H 24 H Blood Pressure 115/72 132/86 Pulse Oximetry 98 98 08/21/21 02:18 08/21/21 04:00 08/21/21 05:11 Temperature 36.9 C Pulse Rate 85 91 87 Respiratory Rate 22 H Blood Pressure 119/74 Pulse Oximetry 97 96 98 08/21/21 06:00 08/21/21 08:00 08/21/21 08:08 Temperature 37.4 C Pulse Rate 89 97 104 H Respiratory Rate 22 H 23 H 20 Blood Pressure 124/77 139/91 H Pulse Oximetry 96 98 08/21/21 08:15 08/21/21 10:00 08/21/21 10:45 Temperature Pulse Rate 106 H 114 H 105 H Respiratory Rate 20 22 H Blood Pressure 152/67 H Pulse Oximetry 98 99 Intake/Output Intake/Output: Intake & Output 08/18/21 08/19/21 08/20/21 08/21/21 23:59 23:59 23:59 23:59 Intake Total 1000 3190 1203 899 Output Total 350 525 520 Balance 1000 2840 678 379 Meds/Results Medications: Active Medications Generic Name Dose Route Start Last Admin Trade Name Freq PRN Reason Stop Dose Admin Acetaminophen 650 mg 08/18/21 21:49 Acetaminophen 325 Mg Tablet PO Q6H PRN Mild Pain (1-3) or Fever Dextrose 12.5 gm 08/20/21 10:39 Dextrose 50% 25 Gm/50 Ml Syringe IV PUSH PRN PRN Hypoglycemia Protocol Enoxaparin Sodium 40 mg 08/20/21 09:00 08/21/21 08:09 Enoxaparin 40 Mg/0.4 Ml Syringe SUB-Q 40 mg DAILY ROC Administration Glucagon 1 mg 08/20/21 10:39 Glucagon For Inj 1 Mg Vial IM PRN PRN Hypoglycemia Protocol Glucose 15 gm 08/20/21 10:39 Glucose Oral Gel 15 Gm Of Glucse In 37.5 Gm Tube PO PRN PRN Hypoglycemia Protocol Hydralazine HCl 10 mg 08/19/21 15:34 Hydralazine Hcl 20 Mg/Ml Vial IV PUSH Q8H PRN Blood Pressure - High Levetiracetam 1,000 mg in 100 mls @ 400 mls/hr 08/19/21 21:00 08/21/21 09:00 Keppra Iv IVPB Infused Q12HR ROC Infusion Propofol 100 mls @ 33.15 mls/hr 08/20/21 07:55 08/21/21 10:45 Diprivan IV CONT 50 mcg/kg/min .Q3H1M ROC 33.15 mls/hr Administration Protocol 50 MCG/KG/MIN Midazolam HCl 100 mg in 100 mls @ 2 mls/hr 08/20/21 07:55 08/21/21 07:45 Versed 100 Mg/Ns 100 Ml IV CONT 2 mg/hr .Q50H ROC 2 mls/hr Titration Protocol 2 MG/HR Dextrose 1,000 mls @ 100 mls/hr 08/20/21 10:39 Dextrose 5% 1,000 Ml IVPB PRN PRN Hypoglycemia Protocol Lactated Ringer's 1,000 mls @ 100 mls/hr 08/21/21 07:25 08/21/21 07:45 Lr - Lactated Ringers Iv IV CONT 08/21/21 22:24 100 mls/hr .Q10H ROC Administration Insulin Aspart 2 - 5 units 08/21/21 00:00 08/21/21 11:40 Insulin Aspart (*Bkc) 100 Units/Ml SUB-Q Not Given Q6H ROC Protocol Lacosamide 200 mg 0
--- NOTE | 2021-08-21 12:44 | PM.IMPN ---
Progress Note: A&P Assessment and Plan (1) Seizures: Code(s): R56.9 - Unspecified convulsions Status: Acute Assessment and Plan: Will continue with patient's home medications of Vimpat, Dilantin, and Keppra. Neurology has been consult and do appreciate further recommendations. Will attempt to obtain records from [facility] in [place] where patient sees his neurologist. 08/19/2021 interval history: patient 30-year-old male with a history of seizures while at work patient had a seizure and was brought to the emergency department further evaluation patient suppose to be taking Dilantin 300 mg b.i.d., Keppra 2000 mg b.i.d. and Vimpat 200 mg b.i.d. patient resume his oral medication, patient the Dilantin level are 6 suggesting patient is noncompliant with his medication, while in IMU patient continue to have seizure patient was given IV Ativan each time patient had a seizure also patient was vomiting not show a was able to hold his anti seizure medication, discussed with apparel manager, patient was seen by apparel manager and switch all his medications to IV and transferred patient to ICU for close monitoring, I also called [facility] for transfer the patient and spoke with neurologist Dr Mckeon, he has accepted the patient for intractable seizure, will continue to monitor and further recommendation to follow. 08/20/2021 interval history: patient 30-year-old male with a history of seizures on 08/19 while at work patient had a seizure and was brought to the emergency department further evaluation patient suppose to be taking Dilantin 300 mg b.i.d., Keppra 2000 mg b.i.d. and Vimpat 200 mg b.i.d. upon arrival patient Dilantin level was 6 suggesting patient is noncompliant with his medication, while in IMU patient continue to have seizure patient was given IV Ativan each time patient had a seizure also patient was vomiting not sure, patient was able to hold his anti seizure medications, discussed with apparel manager, patient was seen by apparel manager and switch all his medications to IV and transferred patient to ICU for close monitoring, I also called [facility] for transfer the patient and spoke with neurologist Dr Mckeon, he has accepted the patient for intractable seizure, however while in the ICU patient continue to have seizures patient was intubated by ER physician, currently patient is on ventilator being sedated with propofol and versed, no seizures since last night, discussed with neurologist recommended to continue present management, patient is still waiting for the transfer to [facility] will continue to monitor and further recommendation to follow. 08/21/2021 interval history: patient 30-year-old male with a history of seizures on 08/19 while at work patient had a seizure and was brought to the emergency department further evaluation patient suppose to be taking Dilantin 300 mg b.i.d., Keppra 2000 mg b.i.d. and Vimpat 200 mg b.i.d. upon arrival patient Dilantin level was 6 suggesting patient is noncompliant with his medication, while in IMU patient continue to have seizure patient was given IV Ativan each time patient had a seizure also patient was vomiting not sure, patient was able to hold his anti seizure medications, discussed with apparel manager, patient was seen by apparel manager and switch all his medications to IV and transferred patient to ICU for close monitoring, I also called [facility] for transfer the patient and spoke with neurologist Dr Mckeon, he has accepted the patient for intractable seizure, however while in the ICU patient continue to have seizures patient was intubated by ER physician on 08/19, currently patient is on ventilator being sedated with propofol and versed, no seizures since last night, today patient is being weaned off versed in hope to wean patient off ventilator, on 08/20 discussed with neurologist recommended to continue present management, patient is still waiting for the transfer to [facility] will continue to monitor and further recommendation t
--- NOTE | 2021-08-21 15:04 | PM.TDS ---
Transfer Discharge Sum: Prov Provider Date of admission: 08/20/21 13:49 Primary care physician: Lucio Queen, Admitting clinician: Adriano Lucas MD Consults: 08/18/21 16:44 Consult to Physician Routine Comment: Consulting Provider: Jalen Figueroa Reason for consultation: Seizures Has provider been notified: Yes 08/19/21 Consult to Physician Routine Comment: Consulting Provider: Kalyani Post Reason for consultation: icu admission Has provider been notified: Yes DS: Admitting Diagnosis Discharge Date 08/21/2021 Admitting Diagnosis seizure DS: Discharge Diagnosis Discharge Diagnosis (1) Seizures: Code(s): R56.9 - Unspecified convulsions Status: Acute Assessment and Plan: Will continue with patient's home medications of Vimpat, Dilantin, and Keppra. Neurology has been consult and do appreciate further recommendations. Will attempt to obtain records from [facility] in [place] where patient sees his neurologist. 08/19/2021 interval history: patient 30-year-old male with a history of seizures while at work patient had a seizure and was brought to the emergency department further evaluation patient suppose to be taking Dilantin 300 mg b.i.d., Keppra 2000 mg b.i.d. and Vimpat 200 mg b.i.d. patient resume his oral medication, patient the Dilantin level are 6 suggesting patient is noncompliant with his medication, while in IMU patient continue to have seizure patient was given IV Ativan each time patient had a seizure also patient was vomiting not show a was able to hold his anti seizure medication, discussed with rate reviewer, patient was seen by rate reviewer and switch all his medications to IV and transferred patient to ICU for close monitoring, I also called [facility] for transfer the patient and spoke with neurologist Dr Mckeon, he has accepted the patient for intractable seizure, will continue to monitor and further recommendation to follow. 08/20/2021 interval history: patient 30-year-old male with a history of seizures on 08/19 while at work patient had a seizure and was brought to the emergency department further evaluation patient suppose to be taking Dilantin 300 mg b.i.d., Keppra 2000 mg b.i.d. and Vimpat 200 mg b.i.d. upon arrival patient Dilantin level was 6 suggesting patient is noncompliant with his medication, while in IMU patient continue to have seizure patient was given IV Ativan each time patient had a seizure also patient was vomiting not sure, patient was able to hold his anti seizure medications, discussed with rate reviewer, patient was seen by rate reviewer and switch all his medications to IV and transferred patient to ICU for close monitoring, I also called [facility] for transfer the patient and spoke with neurologist Dr Mckeon, he has accepted the patient for intractable seizure, however while in the ICU patient continue to have seizures patient was intubated by ER physician, currently patient is on ventilator being sedated with propofol and versed, no seizures since last night, discussed with neurologist recommended to continue present management, patient is still waiting for the transfer to [facility] will continue to monitor and further recommendation to follow. 08/21/2021 interval history: patient 30-year-old male with a history of seizures on 08/19 while at work patient had a seizure and was brought to the emergency department further evaluation patient suppose to be taking Dilantin 300 mg b.i.d., Keppra 2000 mg b.i.d. and Vimpat 200 mg b.i.d. upon arrival patient Dilantin level was 6 suggesting patient is noncompliant with his medication, while in IMU patient continue to have seizure patient was given IV Ativan each time patient had a seizure also patient was vomiting not sure, patient was able to hold his anti seizure medications, discussed with rate reviewer, patient was seen by rate reviewer and switch all his medications to IV and transferred patient to ICU for close monitorin
[2021-08-21 17:08] LABS: Glucose Point of Care 118 mg/dl (65-105)
[2021-08-21 17:08] LABS: Glucose Point of Care 57 mg/dl (65-105)
--- NOTE | 2021-08-22 09:53 | WPDNEUROLOGY ---
Neurology EEG Report General Information Date of Study: 08/21/21 TEST eeg DIAGNOSIS seizures CONDITION OF RECORDING sedated EEG NUMBER [id number] CLINICAL HISTORY patient has history of seizures, came in to hospital 2 days ago with multiple seizures. Now in ICU on vent and sedated EEG DESCRIPTION background rhythm consists of low to medium voltage 5 to 7 hertz per 2nd theta admixed with low to medium voltage 3 to 4 hertz per 2nd delta activity. Bihemispheric symmetrical sleep activity seen admixed with intermittent medium voltage delta activity. Hyperventilation obviously not done. Photic stimulation not done. Non paroxysmal. Nonfocal. Nonlateralizing. IMPRESSION Abnormal record due to the presence of bihemispheric theta and delta activity with no evidence of paroxysmal discharge throughout the tracing. Clinical correlation recommended these abnormalities could be suggestive of underlying organic a metabolic encephalopathy or postictal state but there is no active seizure in this tracing
== END 2021-08-21 17:20 | disposition home or self-care (01) | DRG 53 ==
LOC: ANHED 16:48 → ANHIMU 17:44 → ANHICU 08-19 13:52
PROVIDERS: Internal Medicine; Nurse Practitioner Adult Health; Admitting Provider Internal Medicine; Emergency Provider Emergency Medicine; PCP Family Medicine; Visit Provider Family Medicine
DX: G40.901 Epilepsy, unspecified, not intractable, with status epilepticus (principal); R34 Anuria and oliguria; J45.909 Unspecified asthma, uncomplicated; K21.9 Gastro-esophageal reflux disease without esophagitis; F31.9 Bipolar disorder, unspecified; E11.9 Type 2 diabetes mellitus without complications; Z86.73 Personal history of transient ischemic attack (TIA), and cerebral infarction without residual deficits; Z82.49 Family history of ischemic heart disease and other diseases of the circulatory system; Z83.3 Family history of diabetes mellitus; F43.10 Post-traumatic stress disorder, unspecified; F17.210 Nicotine dependence, cigarettes, uncomplicated; Z79.1 Long term (current) use of non-steroidal anti-inflammatories (NSAID); Z79.899 Other long term (current) drug therapy
CPT/HCPCS: 31500; 36415; 36600; 70450; 71045; 80053; 80177; 80185; 81003; 82375; 82805; 82948; 83036; 83050; 83735; 84478; 85025; 85027; 93005; 94002; 94003; 95816; 96361; 96365; 96366; 96367; 96368; 96372; 96374; 96375; 96376; 99285; A9270; C9113; G0378; G0379; J0330; J1165; J1650; J1953; J2060; J2250; J2704; J3010; J7030; J7120

== ENCOUNTER 2021-10-06 23:00 | Emergency (ER) | payer OTHER, SELFPAY ==
[2021-10-06 23:13] VITALS: BP 146/100; PULSE 100; RESP 18; TEMP 36.4; O2SAT 96
--- NOTE | 2021-10-06 23:16 | ED.EXTPRO ---
HPI - Extremity Problem General Chief complaint: Extremity Problem,Nontraumatic Stated complaint: leg pain Time Seen by Provider: 10/06/21 23:18 History of Present Illness HPI Narrative: 31-year-old male patient with known history of seizures and multiple medical problems is brought to the ER by EMS after he experienced sharp pain in the left thigh as he was trying to get up from the chair. There was no injury noted. The patient states that he felt shooting pain in the left thigh and was unable to straighten it. He denies any throbbing in the groin or the left knee area. He denies any injury sustained after feeling the cramp in the leg. Patient has a longstanding history of recurrent seizures and pseudoseizures as well as TIA. 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 He does go for physical therapy routinely and uses a wheelchair and walking aids. Related Data Home Medications Medication Instructions Recorded Confirmed lacosamide 200 mg tablet 200 mg PO BID 08/18/21 10/06/21 tadalafil 20 mg tablet 20 mg PO DAILY PRN Erectile 08/18/21 10/06/21 Dysfunction amlodipine 10 mg tablet 1 tablet PO DAILY 10/06/21 10/06/21 aripiprazole 15 mg tablet 1 tablet PO HS 10/06/21 10/06/21 divalproex 500 mg tablet,delayed See Rx Instructions .Route .COMPLEX 10/06/21 10/06/21 release sertraline 100 mg tablet 1 tablet PO DAILY 10/06/21 10/06/21 trazodone 50 mg tablet 1 tablet PO PRN PRN Insomnia 10/06/21 10/06/21 Allergies Allergy/AdvReac Type Severity Reaction Status Date / Time coconut Allergy Severe Anaphylactic Verified 08/18/21 22:23 Shock tuna oil Allergy Severe Anaphylactic Verified 08/18/21 22:23 Shock cranberry Allergy Unknown Itching Verified 08/18/21 22:22 latex Allergy Rash Verified 08/18/21 13:02 INK Allergy Unknown swelling Uncoded 08/04/21 18:46 and itching MARKERS Allergy Unknown swelling, Uncoded 08/04/21 18:46 itching PRUNE JUICE Allergy Unknown stomach Uncoded 08/04/21 18:46 pain, diarrhea TUNA Allergy Unknown Anaphylactic Uncoded 08/04/21 18:46 Shock Review of Systems Review of Systems: All systems reviewed & are unremarkable except as noted in HPI and below Constitutional: Constitutional: Reports no additional constitutional complaints Eyes: Eyes: Reports no additional eye complaints ENT: Reports system reviewed and no additional complaints, except as documented Cardiovascular: Cardiovascular: Reports no additional cardiovascular complaints Respiratory: Respiratory: Reports no additional respiratory complaints Gastrointestinal: Gastrointestinal: Reports no additional gastrointestinal complaints Genitourinary: Genitourinary: Reports no additional male genitourinary complaints Musculoskeletal: Musculoskeletal: Reports no additional musculoskeletal complaints Integumentary/Breasts: Skin/Breast: Reports system reviewed and no additional complaints, except as docu Neurologic: Reports system reviewed and no additional complaints, except as documented Psychiatric: Psychiatric: Reports no additional psychiatric complaints Endocrine: Endocrine: Reports no additional endocrine complaints Hematologic/Lymphatic: Hematologic/Lymphatic: Reports no additional hematologic/lymphatic complaints Allergic/Immunologic: Allergic/Immunologic: Reports no additional allergic/immunologic complaints PMFSH Past Medical History Medical History Asthma Depression GERD (gastroesophageal reflux disease) Hand fracture, right Herniated disc History of bipolar disorder Hx of seizure disorder Hx of transient ischemic attack (TIA) Kidney stone Neck fracture Pseudoseizure PTSD (post-traumatic stress disorder) Schizophrenia Type II diabetes mellitus Surgical History Surgical History Hx of cardiac cath Family Histo
[2021-10-06 23:37] LABS: Basophils Absolute Auto 0.08 K/mm3 (0.00-0.10); Eosinophils Absolute Auto 0.12 K/mm3 (0.02-0.50); Eosinophils Percent Auto 1.5 % (1.0-6.0); Hematocrit 42.8 % (40.0-54.0); Hemoglobin 14.4 g/dL (14.0-18.0); Immature Granulocyte Absolute 0.04 K/mm3 (0.00-0.00); Immature Granulocyte Percent A 0.5 % (0.0-0.0); Lymphocytes Absolute Auto 1.68 K/mm3 (1.10-4.50); Lymphocytes Percent Auto 21.2 % (18.0-42.0); Mean Corpuscular HGB Conc 33.6 g/dL (32.0-36.0); Mean Corpuscular Volume 86.1 fL (78.0-102.0); Mean Platelet Volume 10.1 fl (8.7-11.0); Monocytes Percent Auto 10.1 % (2.0-11.0); Neutrophils Absolute Auto 5.2 K/mm3 (1.7-7.2); Neutrophils Percent Auto 65.7 % (50.0-70.0); Platelet Count Result 249 K/mm3 (150-420); Red Blood Count 4.97 M/mm3 (4.70-6.10); Red Cell Distribution Width 13.1 % (11.6-14.4); White Blood Count 7.9 K/mm3 (4.8-10.8)
[2021-10-06] MEDS: methocarbamoL 500 MG TABLET PO (23:41)
[2021-10-06 23:52] LABS: Alanine Aminotransferase 31 U/L (16-63); Albumin Level 3.8 g/dL (3.4-5.0); Alkaline Phosphatase 123 U/L (46-116); Anion Gap 8 mmol/L (8-16); Aspartate Amino Transferase 12 U/L (15-37); Bilirubin,Total 0.2 mg/dL (0.00-1.00); Blood Urea Nitrogen 21 mg/dL (7-18); Calcium 8.5 mg/dL (8.5-10.1); Carbon Dioxide 25 mmol/L (21-32); Chloride 106 mmol/L (98-108); Estimated CRCL calculation 118 ml/min; Estimated Glomerular Filt Rate > 60; Glucose 91 mg/dL (70-99); Magnesium 2.3 mg/dL (1.8-2.4); Osmolality Calculated 291 mOsm/kg (285-295); Phenytoin Dilantin 4 ug/mL (10-20); Sodium 139 mmol/L (136-145); Total Protein 6.9 g/dL (6.4-8.2)
[2021-10-07 00:10] VITALS: BP 132/78; PULSE 87; RESP 18; O2SAT 97
== END 2021-10-07 00:15 | disposition home or self-care (01) ==
PROVIDERS: Emergency Provider Emergency Medicine; PCP Family Medicine
DX: S76.812A Strain of other specified muscles, fascia and tendons at thigh level, left thigh, initial encounter (principal)
CPT/HCPCS: 36415; 80053; 80185; 83735; 85025; 99283; A9270

== ENCOUNTER 2021-10-09 07:10 | Observation (INO) | payer OTHER, SELFPAY ==
[2021-10-09] VITALS (35 sets, daily range): BP systolic 100–180; BP diastolic 52–155; PULSE 117–155; RESP 4–36; TEMP 36.6–37.3; O2SAT 93–100
--- NOTE | ~2021-10-09 | CT_ITS ---
EXAMINATION: CT brain wo con DATE: 10/09/2021 08:12 INDICATION: Lethargy. Multiple seizures today. TECHNIQUE: Computed tomography (CT) of the head was performed without intravenous contrast. Sagittal and coronal reconstructions were performed. The mA was adjusted according to patient size. Iterative reconstruction technique was employed. The dose-length product was 605.33 mGy-cm. COMPARISON: head CT dated 08/19/2021 FINDINGS: No acute intracranial hemorrhage, acute infarction or abnormal extra axial fluid collection. Ventricl es are normal and symmetric. No mass/mass effect. The orbits and mastoid air cells are normal. Focal mucosal thickening versus mucous retention cyst in the left sphenoid sinus. IMPRESSION: 1. Normal brain. Reviewed, dictated and finalized at location A. IMPRESSION: 1. Normal brain.
--- NOTE | ~2021-10-09 | XR_ITS ---
EXAMINATION: XR chest 1V portable DATE: 10/09/2021 08:13 INDICATION: Seizures. TECHNIQUE: A single frontal view of the chest was obtained. COMPARISON: Chest single view 08/21/2021 FINDINGS: There is mild atelectasis in the lower lung zones. No pleural effusion or pneumothorax. The heart size is normal. IMPRESSION: 1. Mild atelectasis in the lower lung zones. Reviewed, dictated and finalized at location B.
--- NOTE | 2021-10-09 07:18 | ECG_ITS ---
Measurements Intervals Broad Top Rate: 150 P: OK: 0 QRS: 71 QRSD: 98 T: 60 QT: 324 QTc: 513 Interpretive Statements ATRIAL FLUTTER/TACHYCARDIA WITH RAPID VENTRICULAR RESPONSE INDETERMINATE AXIS LOW QRS VOLTAGE IN PRECORDIAL LEADS [QRS DEFLECTION < 1.0 mV IN CHEST LEADS] INCOMPLETE RIGHT BUNDLE BRANCH BLOCK [90+ ms QRS DURATION, TERMINAL R IN V1/V2, 40+ ms S IN I/aVL/V4/V5/V6] ABNORMAL ECG COMPARED TO ECG 08/18/2021 13:02:09 ATRIAL FLUTTER NOW PRESENT INCOMPLETE RIGHT BUNDLE-BRANCH BLOCK NOW PRESENT Electronically Signed On 10-09-2021 12:49:44 CDT by Julián Kwong M.D.
[2021-10-09] MEDS: LORazepam INJ (*CRX) 2 MG/ML VIAL IV PUSH (07:24)
[2021-10-09] MEDS: SODIUM CHLORIDE 0.9% IV 1,000 ML 999 ML IV CONT ×2 (07:37→09:03)
[2021-10-09] MEDS: ONDANSETRON INJ 4 MG/2 ML VIAL IV PUSH (07:37)
--- NOTE | 2021-10-09 07:40 | PC.NURSE ---
Labs and EKG at bedside
[2021-10-09 07:51] LABS: Glucose Point of Care 155 mg/dl (65-105)
[2021-10-09 08:02] LABS: Appearance Urine Slightly Cloudy (Clear); Bilirubin Urine Negative (Negative); Color Urine Light Yellow (Yellow); Glucose Urine UA Negative (Negative); Ketones Urine Negative (Negative); Leukocyte Esterase Ur Trace (Negative); Nitrate Urine Positive (Negative); Protein Urine Trace (Negative)
[2021-10-09 08:02] LABS: Basophils Absolute Auto 0.02 K/mm3 (0.00-0.10); Basophils Percent Auto 0.4 % (0.0-1.0); Hematocrit 47.2 % (40.0-54.0); Hemoglobin 14.6 g/dL (14.0-18.0); Immature Granulocyte Absolute 0.03 K/mm3 (0.00-0.00); Immature Granulocyte Percent A 0.5 % (0.0-0.0); Lymphocytes Percent Auto 3.6 % (18.0-42.0); Mean Corpuscular HGB Conc 30.9 g/dL (32.0-36.0); Mean Corpuscular Hemoglobin 29.3 pg (27.0-31.0); Mean Corpuscular Volume 94.6 fL (78.0-102.0); Mean Platelet Volume 9.9 fl (8.7-11.0); Monocytes Absolute Auto 0.05 K/mm3 (0.10-0.90); Monocytes Percent Auto 0.9 % (2.0-11.0); Neutrophils Absolute Auto 5.3 K/mm3 (1.7-7.2); Neutrophils Percent Auto 94.6 % (50.0-70.0); Platelet Count Result 147 K/mm3 (150-420); Red Blood Count 4.99 M/mm3 (4.70-6.10); Red Cell Distribution Width 12.9 % (11.6-14.4); White Blood Count 5.6 K/mm3 (4.8-10.8)
[2021-10-09 08:09] LABS: Amphetamine Screen Urine Negative (Negative); Barbiturate Screen Urine Negative (Negative); Benzodiazepines Screen Urine Positive (Negative); Cannabinoid Screen Urine Negative (Negative); Cocaine Screen Urine Negative (Negative); Methadone Screen Urine Negative (Negative); Opiate Screen Urine Negative (Negative); Phencyclidine Screen Urine Negative (Negative)
[2021-10-09 08:11] LABS: Add Urine Microscopic? YES; Blood Urine Trace-Intact (Negative); RBC Urine 0-2 /hpf (0-2)
[2021-10-09 08:12] LABS: Bacteria Urine 3+ /hpf; Squamous Epithelial Cell Urine None seen /hpf (Few); WBC Urine 16-20 /hpf (0-3)
[2021-10-09 08:14] LABS: Partial Thromboplastin Time 27.9 SEC (23.90-30.70); Prothrombin Time 10.9 Seconds (9.50-12.10)
--- NOTE | 2021-10-09 08:18 | ED.SEIZURE ---
HPI - Seizure General Chief Complaint: Seizure Stated Complaint: AMBULANCE Source: patient, family and EMS Mode of arrival: EMS Limitations: altered mental status History of Present Illness HPI Narrative: this is a 31-year-old gentleman presents via EMS with seizure activity lasting approximately 2 to 3 minutes with no loss of bowel or bladder function no injury to his tongue a no head trauma, the patient initially was confused with altered mental status patient received Versed via EMS. Patient responds to questions appropriately she has speech with us no headaches no chest pain no shortness of breath no abdominal pain. Patient has a history of seizures and is currently on phenytoin, with a history of bipolar disorder. Seizures were witnessed by family and EMS. Currently no fevers chills rule, patient did have some nausea with no headache. MD complaint: seizure Onset (ago): hour(s) Description of Episode: loss of consciousness and tonic-clonic movement Duration of episode: 3 Witnessed: Yes - by EMS Trauma: No Seizure History: Yes Place: home Possible Precipitating Event: other Associated symptoms: confusion Treatments prior to arrival: benzodiazepines Related Data Home Medications Medication Instructions Recorded Confirmed lacosamide 200 mg tablet 200 mg PO BID 08/18/21 10/06/21 tadalafil 20 mg tablet 20 mg PO DAILY PRN Erectile 08/18/21 10/06/21 Dysfunction amlodipine 10 mg tablet 1 tablet PO DAILY 10/06/21 10/06/21 aripiprazole 15 mg tablet 1 tablet PO HS 10/06/21 10/06/21 divalproex 500 mg tablet,delayed See Rx Instructions .Route .COMPLEX 10/06/21 10/06/21 release sertraline 100 mg tablet 1 tablet PO DAILY 10/06/21 10/06/21 trazodone 50 mg tablet 1 tablet PO PRN PRN Insomnia 10/06/21 10/06/21 Allergies Allergy/AdvReac Type Severity Reaction Status Date / Time coconut Allergy Severe Anaphylactic Verified 10/09/21 07:36 Shock tuna oil Allergy Severe Anaphylactic Verified 10/09/21 07:36 Shock cranberry Allergy Unknown Itching Verified 10/09/21 07:36 latex Allergy Rash Verified 10/09/21 07:36 INK Allergy Unknown swelling Uncoded 10/09/21 07:36 and itching MARKERS Allergy Unknown swelling, Uncoded 10/09/21 07:36 itching PRUNE JUICE Allergy Unknown stomach Uncoded 10/09/21 07:36 pain, diarrhea TUNA Allergy Unknown Anaphylactic Uncoded 10/09/21 07:36 Shock Review of Systems Review of Systems: All systems reviewed & are unremarkable except as noted in HPI and below PMFSH Past Medical History Medical History Asthma Depression GERD (gastroesophageal reflux disease) Hand fracture, right Herniated disc History of bipolar disorder Hx of seizure disorder Hx of transient ischemic attack (TIA) Kidney stone Neck fracture Pseudoseizure PTSD (post-traumatic stress disorder) Schizophrenia Type II diabetes mellitus Surgical History Surgical History Hx of cardiac cath Family History Family History Father History of blood clots Diabetes mellitus Hypertension Acute myocardial infarction Mother History of blood clots Diabetes mellitus Hypertension Sibling Hypertension Social History Social History Social History: The patient stated that he did quit smoking but started back up again and probably smokes about 3 packs of cigarettes a day. The patient is engaged she has been 2 prior times. He has 1 daughter. He stated that his fiancee is his durable power senior trial attorney for healthcare. The patient is a full code. The patient stated that he is a recovering alcoholic and has not had any alcohol in a long time. He denies any marijuana or illicit drugs. 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 Smoking packs per day: 2 Smoking cigarettes per day: 40.0 Ye
[2021-10-09 08:25] LABS: Acetaminophen < 2 ug/mL (10-30); Alanine Aminotransferase 32 U/L (16-63); Albumin Level 3.7 g/dL (3.4-5.0); Alkaline Phosphatase 115 U/L (46-116); Anion Gap 11 mmol/L (8-16); Aspartate Amino Transferase 21 U/L (15-37); Bilirubin,Total 0.7 mg/dL (0.00-1.00); Blood Urea Nitrogen 19 mg/dL (7-18); Calcium 8.6 mg/dL (8.5-10.1); Carbon Dioxide 20 mmol/L (21-32); Chloride 102 mmol/L (98-108); Creatine Kinase 59 U/L (39-308); Estimated CRCL calculation 102 ml/min; Estimated Glomerular Filt Rate > 60; Ethanol < 3 mg/dL (0-6); Glucose 137 mg/dL (70-99); Osmolality Calculated 280 mOsm/kg (285-295); Phenytoin Dilantin 5 ug/mL (10-20); Potassium 3.9 mmol/L (3.5-5.1); Sodium 133 mmol/L (136-145); Thyroid Stimulating Hormone 0.68 uIU/mL (0.36-3.74); Total Protein 6.8 g/dL (6.4-8.2); Troponin I 6.9 ng/L (0.00-60.4)
--- NOTE | 2021-10-09 08:31 | PC.NURSE ---
Lab at bedside to obtain blood cultures. Pt resting, snoring, positioned on left side propped with blankets. Father remains at bedside. Continues on monitoring coordinator, VSS.
--- NOTE | 2021-10-09 08:39 | PC.NURSE ---
Pharmacy called, will mix Dilantin
[2021-10-09] MEDS: PHENYTOIN SODIUM INJ (*BKC) 1,000 MG in SODIUM CHLORIDE 0.9% IV 100 ML 360 MG IVPB (09:03)
[2021-10-09] MEDS: dilTIAZem HCl INJ 25 MG/5 ML VIAL 10 MG IV PUSH (09:11)
--- NOTE | 2021-10-09 09:25 | PC.NURSE ---
Medications administered. Father remains at bedside, VSS
--- NOTE | 2021-10-09 10:04 | PC.NURSE ---
Pt to be admitted, room 207. finishing manager aware
--- NOTE | 2021-10-09 10:07 | PC.NURSE ---
Father to return home to obtain medication list
--- NOTE | 2021-10-09 10:54 | ADMGEN ---
This patient, Mario Zamora III, was admitted to 2nd Floor Room 207-2. Patient/family oriented to hospital policies and general routines including ID bracelet, bed and alarms, visiting hours, pain management, procedures, bathroom and other care routines, personal items, smoking policy, room service/diet, and visiting hours. Information on how to activate the Rapid Response Team has been discussed. Patient/Family are encouraged to report perceived risks to care and to ask questions if they do not understand what they are told or what they should do.
[2021-10-09 11:22] LABS: Glucose Point of Care 136 mg/dl (65-105)
[2021-10-09] MEDS: SODIUM CHLORIDE 0.9% IV 1,000 ML 100 ML IV CONT ×2 (12:09→22:05)
[2021-10-09] MEDS: PHENYTOIN SODIUM 100 MG EXTENDED RELEASE CAP 300 MG PO (13:05)
[2021-10-09] MEDS: DIVALPROEX SODIUM DR 250 MG TABEC 1000 MG PO ×2 (13:06→16:56)
[2021-10-09 16:44] LABS: Glucose Point of Care 92 mg/dl (65-105)
[2021-10-09] MEDS: ACETAMINOPHEN 325 MG TABLET 650 MG PO (17:27)
--- NOTE | 2021-10-09 17:36 | PC.NURSE ---
At 1727 patient noted to have convulsions for 25 seconds, at 1728 patient noted to have convulsions for 15 seconds. VS T 99.9, P 121, BP 122/70, R 20, SPO2 96% on room air. Patient able to respond to verbal stimuli after event, remains alert to self. No injuries occurred, no distress noted, patient resting comfortably in bed with call light in reach.
--- NOTE | 2021-10-09 18:15 | PC.NURSE ---
Blankets added to side rails as seizure precaution, patient given ensure due to refusal of lunch and supper tray, last accu check 96.
[2021-10-09] MEDS: ARIPiprazole 10 MG TABLET PO (21:14)
[2021-10-09] MEDS: ARIPiprazole 5 MG TABLET PO (21:14)
[2021-10-09 21:20] LABS: Glucose Point of Care 151 mg/dl (65-105)
[2021-10-10] VITALS (11 sets, daily range): BP systolic 122–140; BP diastolic 58–88; PULSE 89–118; RESP 16–20; TEMP 36.3–38.5; O2SAT 96–99
[2021-10-10] MEDS: ACETAMINOPHEN 325 MG TABLET 650 MG PO ×2 (00:15→19:50)
[2021-10-10] MEDS: ONDANSETRON INJ 4 MG/2 ML VIAL IV PUSH ×2 (01:05→17:12)
[2021-10-10] MEDS: LORazepam INJ (*CRX) 2 MG/ML VIAL 1 MG IV PUSH (01:07)
--- NOTE | 2021-10-10 01:20 | PC.NURSE ---
During 0100 patient rounding, patient was found in a seizure that was observed to last at least 20 seconds. Shortly after the first one, patient had a 13 second seizure , after which time patient stated what happened . Patient stated that he felt like my eyes are going to explode and that he was going to puke . Patient was given 1 mg of lorazepam, and 4 mg of ondansetron to help with these symptoms. Patient went back to sleep not long afterward.
--- NOTE | 2021-10-10 05:12 | PC.NURSE ---
[facility] was down from 1225 until 0400. As a result, medication given during that time was paper charted, and then entered into the MAR. Medication could not be scanned.
[2021-10-10 07:30] LABS: Glucose Point of Care 88 mg/dl (65-105)
[2021-10-10] MEDS: SODIUM CHLORIDE 0.9% IV 1,000 ML 100 ML IV CONT ×2 (08:07→16:59)
[2021-10-10] MEDS: SERTRALINE HCL 50 MG TABLET 100 MG PO (08:08)
[2021-10-10] MEDS: amLODIPine BESYLATE 5 MG TABLET 10 MG PO (08:08)
[2021-10-10] MEDS: HYDROcodone/acetaminophen (*CRX) 5-325 MG TABLET 1 TAB PO (08:09)
[2021-10-10] MEDS: ENOXAPARIN 40 MG/0.4 ML SYRINGE SUB-Q (08:09)
[2021-10-10] MEDS: DIVALPROEX SODIUM DR 250 MG TABEC 1000 MG PO ×2 (08:09→16:20)
--- NOTE | 2021-10-10 11:20 | PM.IMHP ---
H&P: HPI History of Present Illness Date/Time: 10/10/21 11:20 Chief Complaint: Seizure activity Narrative: This is a 31-year-old male who presented to our emergency department after having seizure activity. Patient has a past medical history of asthma, depression, seizures, TIA, kidney stone, neck fracture, PTSD, schizophrenia, type 2 diabetes and bipolar disorder. According to patient's father the patient has a alarm on his phone that alerts his father in since off an alarm when he is having seizures. His father notes that he heard the alarm go off and was notified by his phone went into his son's room and found him on the floor with seizure activity. Patient does see a neurologist he is currently seeking a new neurologist. Patient is alert during our assessment patient notes that overnight he had 3 episodes that were unwitnessed. He also notes that he has a headache that feels like pressure. His father does not believe that he injured his head during his fall and there are no noticeable injury sands on his head. Patient's WBCs 5.9, hemoglobin 14.6, hematocrit 47.2, platelets 147, PT 10.9, INR 1.0, sodium 133, potassium 3.9, BUN 19, creatinine 1.15, glucose 137, liver enzymes within normal limit, troponin 6.9, UA with a trace of protein and nitrate leukocyte Estrace,phenytoin low CT of the head and chest unremarkable. Patient received Cardizem for increased heart rate in the emergency department and phenytoin with Rocephin to treat his UTI. Patient will stay for an additional day for IV treatment in monitoring of his seizure activity Review of Systems Review of Systems: A 14 organ system Review of Systems was performed and pertinent positives included in the HPI, otherwise remaining ROS is negative. [facility] Past Medical History Medical History Asthma Depression GERD (gastroesophageal reflux disease) Hand fracture, right Herniated disc History of bipolar disorder Hx of seizure disorder Hx of transient ischemic attack (TIA) Kidney stone Neck fracture Pseudoseizure PTSD (post-traumatic stress disorder) Schizophrenia Type II diabetes mellitus Surgical History Surgical History Hx of cardiac cath Family History Family History Father History of blood clots Diabetes mellitus Hypertension Acute myocardial infarction Mother History of blood clots Diabetes mellitus Hypertension Sibling Hypertension Social History Social History Social History: The patient stated that he did quit smoking but started back up again and probably smokes about 3 packs of cigarettes a day. The patient is engaged she has been 2 prior times. He has 1 daughter. He stated that his fiancee is his durable power conveyor attendant for healthcare. The patient is a full code. The patient stated that he is a recovering alcoholic and has not had any alcohol in a long time. He denies any marijuana or illicit drugs. 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 Smoking packs per day: 2 Smoking cigarettes per day: 40.0 Years smoked: 20 Smoking pack-years: 40.00 Smoking status: Current every day smoker Additional smoking assessment comments: smokes off and on Alcohol intake: unknown Alcohol use details: Denied current alcohol abuse Substance use: unknown Substance use type: does not use Other substance usage details: Denied current substance abuse Last use: in recovery since 2014 both substance and alcohol Gender identity (if verbalized by the patient): Male Spiritual care concerns: No Agree to blood products: Yes Meds Home Medications and Allergies Home Medications Medication Instructions Recorded Confirmed Type phenytoin sodium extended 300 mg 300 mg PO DAILY #20 caps 08/04/21 10/09/21 Rx capsule lacosa
[2021-10-10 11:39] LABS: Glucose Point of Care 94 mg/dl (65-105)
[2021-10-10 16:06] LABS: Glucose Point of Care 94 mg/dl (65-105)
[2021-10-10] MEDS: ARIPiprazole 5 MG TABLET PO (20:58)
[2021-10-10] MEDS: ARIPiprazole 10 MG TABLET PO (20:58)
[2021-10-10 21:07] LABS: Glucose Point of Care 71 mg/dl (65-105)
[2021-10-10 22:12] LABS: Phenytoin Dilantin 7 ug/mL (10-20)
[2021-10-10] MEDS: PHENYTOIN SODIUM INJ (*BKC) 1,000 MG in SODIUM CHLORIDE 0.9% IV 100 ML 360 MG IVPB (22:55)
[2021-10-11 03:23] VITALS: PULSE 96
[2021-10-11] MEDS: SODIUM CHLORIDE 0.9% IV 1,000 ML 100 ML IV CONT (04:22)
[2021-10-11 05:26] LABS: Alanine Aminotransferase 77 U/L (16-63); Alkaline Phosphatase 89 U/L (46-116); Anion Gap 5 mmol/L (8-16); Aspartate Amino Transferase 38 U/L (15-37); Bilirubin,Total 0.4 mg/dL (0.00-1.00); Blood Urea Nitrogen 9 mg/dL (7-18); Calcium 7.9 mg/dL (8.5-10.1); Carbon Dioxide 27 mmol/L (21-32); Chloride 105 mmol/L (98-108); Estimated CRCL calculation 163 ml/min; Estimated Glomerular Filt Rate > 60; Glucose 102 mg/dL (70-99); Osmolality Calculated 282 mOsm/kg (285-295); Potassium 3.6 mmol/L (3.5-5.1); Sodium 137 mmol/L (136-145); Total Protein 5.8 g/dL (6.4-8.2)
[2021-10-11 08:00] VITALS: BP 135/97; PULSE 97; PULSE 98; RESP 18; TEMP 36.3; O2SAT 97
[2021-10-11] MEDS: SERTRALINE HCL 50 MG TABLET 100 MG PO (08:20)
[2021-10-11] MEDS: amLODIPine BESYLATE 5 MG TABLET 10 MG PO (08:20)
[2021-10-11] MEDS: DIVALPROEX SODIUM DR 250 MG TABEC 1000 MG PO (08:20)
[2021-10-11 08:45] LABS: Phenytoin Dilantin 15 ug/mL (10-20)
--- NOTE | 2021-10-11 09:28 | PM.DS ---
DS: Admitting Diagnosis Discharge Date 10/11/2021 Admitting Diagnosis Seizure DS: Discharge Diagnosis Discharge Diagnosis (1) Acute UTI: Code(s): N39.0 - Urinary tract infection, site not specified Status: Acute Assessment and Plan: UA positive for protein leukocytes and nitrate UA culture pending Patient will discharge home with Bactrim (2) Atrial tachycardia: Code(s): I47.1 - Supraventricular tachycardia Status: Acute Assessment and Plan: Resolved Patient received Cardizem in the ED Telemetry (3) Seizures: Code(s): R56.9 - Unspecified convulsions Status: Acute Assessment and Plan: Continue home medication Possibly triggered by UTI phenytoin low received additional phenytoin in ED and discharged level of 15 Follow-up with neurologist (4) Nicotine dependence: Code(s): F17.200 - Nicotine dependence, unspecified, uncomplicated Status: Acute Assessment and Plan: Started nicotine patch Educated on sensation (5) History of bipolar disorder: Code(s): Z86.59 - Personal history of other mental and behavioral disorders Status: Acute Assessment and Plan: Stable Continue home medication (6) Schizophrenia: Qualifiers: Schizophrenia type: unspecified Qualified Code(s): F20.9 - Schizophrenia, unspecified Code(s): F20.9 - Schizophrenia, unspecified Status: Acute Assessment and Plan: Stable Continue home medication (7) Type II diabetes mellitus: Qualifiers: Diabetes mellitus intermediate insulin use: without long term care pharmacist use Diabetes mellitus complication status: without complication Qualified Code(s): E11.9 - Type 2 diabetes mellitus without complications Code(s): E11.9 - Type 2 diabetes mellitus without complications Status: Acute Assessment and Plan: Under 300 Continue Accu-Chek with sliding scale hypoglycemic protocol Will adjust medication as needed Continue diabetic diet DS: Summary Hospital Course Reason for hospitalization: Seizure Hospital Course: This is a 31-year-old male who presented to our emergency department after having seizure activity.? Patient has a past medical history of asthma, depression, seizures, TIA, kidney stone, neck fracture, PTSD, schizophrenia, type 2 diabetes and bipolar disorder.? According to patient's father the patient has a alarm on his phone that alerts his father in since off an alarm when he is having seizures.? His father notes that he heard the alarm go off and was notified by his phone went into his son's room and found him on the floor with seizure activity.? Patient does see a neurologist he is currently seeking a new neurologist. Patient condition has much improved this day of discharge he is alert and orientated talkative and moving around with no troubles. Patient agrees that he is ready for discharge he will follow-up with his neurologist for additional treatment. The patient denies SOB, CP, palpitation, extremity numbness, lightheadedness, dizziness, constipation, diarrhea, chills, or fever. Time Spent with Patient Time attestation: Total time spent providing and/or coordinating discharge services: Exam Narrative: GENERAL: This is a well-nourished, well-developed patient, in no apparent distress. HEAD: normocephalic, atraumatic. EYES: PERRL. Sclera clear/white. Vision is grossly intact. EARS: External ears normal, auditory canals clear and without drainage, TMs normal without perforation. Hearing grossly intact. NOSE: External nose normal with no obvious nasal discharge, nares without redness, no rhinorrhea. THROAT: Mucous membranes moist, posterior pharynx clear. NECK: Neck supple, non-tender without lymphadenopathy, masses or thyromegaly. CARDIOVASCULAR: Regular rate and rhythm without murmurs, gallops, or rubs. RESPIRATORY: Clear to auscultation. Breath sounds equal bilaterally. No wheezes, rales, o
--- NOTE | 2021-10-11 10:16 | PC.NURSE ---
Discharge packet reviewed with patient. All questions answered. Pt transported via wheelchair and assisted to private vehicle.
--- NOTE | 2021-10-15 13:08 | PC.NURSE ---
Pt states he received and understood his discharge instructions. Has no other comments.
== END 2021-10-11 10:10 | disposition home or self-care (01) ==
LOC: CHSED 09:43 → CHS2ND 10:15
PROVIDERS: Nurse Practitioner; Admitting Provider Internal Medicine; Emergency Provider Emergency Medicine; PCP Family Medicine; Visit Provider Internal Medicine
DX: G40.909 Epilepsy, unspecified, not intractable, without status epilepticus (principal); N39.0 Urinary tract infection, site not specified; J45.909 Unspecified asthma, uncomplicated; K21.9 Gastro-esophageal reflux disease without esophagitis; E11.9 Type 2 diabetes mellitus without complications; F20.9 Schizophrenia, unspecified; F43.10 Post-traumatic stress disorder, unspecified; F31.9 Bipolar disorder, unspecified; F17.210 Nicotine dependence, cigarettes, uncomplicated; F17.290 Nicotine dependence, other tobacco product, uncomplicated; F10.21 Alcohol dependence, in remission; Z86.73 Personal history of transient ischemic attack (TIA), and cerebral infarction without residual deficits; B96.20 Unspecified Escherichia coli [E. coli] as the cause of diseases classified elsewhere
CPT/HCPCS: 36415; 70450; 71045; 80053; 80185; 80307; 81001; 82550; 82948; 84443; 84484; 85025; 85055; 85610; 85730; 87040; 87077; 87086; 87088; 87186; 93005; 96361; 96365; 96367; 96372; 96375; 96376; 99285; A9270; G0378; G0379; J0131; J0696; J1165; J1650; J2060; J2405; J7030

== ENCOUNTER 2021-10-22 23:18 | Emergency (ER) | payer OTHER, SELFPAY ==
[2021-10-22 23:20] VITALS: BP 139/103; PULSE 81; RESP 20; TEMP 36.6; O2SAT 99
--- NOTE | 2021-10-22 23:25 | ED.SEIZURE ---
HPI - Seizure General Chief Complaint: Seizure Stated Complaint: Seizure Activity Time Seen by Provider: 10/22/21 23:24 Source: patient, EMS and RN notes reviewed Mode of arrival: ambulatory Limitations: no limitations History of Present Illness HPI Narrative: EMS reports that during 1 of the seizures he was having in route they said we need to take a blood pressure and patient lifted his arm and held it up so they could take his blood pressure. They states that they have picked him up 3 times in the last 2 weeks. He states that his Dilantin level is recently reported in the last 2 days of 0.8. In his chart he had a normal Dilantin level just 10 days ago of 15. He says that he has been diagnosed with seizures through [facility]. Patient rapidly is interactive and alert following his seizure. he did not have any loss of urine or stool. No injuries. MD complaint: seizure Onset (ago): unknown ( Sometime earlier today) Description of Episode: tonic-clonic movement -: second(s) Witnessed: Yes - by Bystander Trauma: No Seizure History: Yes Place: home Possible Precipitating Event: none Associated symptoms: denies other symptoms Treatments prior to arrival: none Related Data Home Medications Medication Instructions Recorded Confirmed lacosamide 200 mg tablet 200 mg PO BID 08/18/21 10/23/21 amlodipine 10 mg tablet 1 tablet PO DAILY 10/06/21 10/23/21 aripiprazole 15 mg tablet 1 tablet PO HS 10/06/21 10/23/21 divalproex 500 mg tablet,delayed 1,000 mg BID 10/06/21 10/23/21 release sertraline 100 mg tablet 1 tablet PO DAILY 10/06/21 10/23/21 trazodone 50 mg tablet 1 tablet PO PRN PRN Insomnia 10/06/21 10/23/21 Allergies Allergy/AdvReac Type Severity Reaction Status Date / Time coconut Allergy Severe Anaphylactic Verified 10/23/21 00:34 Shock tuna oil Allergy Severe Anaphylactic Verified 10/23/21 00:34 Shock cranberry Allergy Unknown Itching Verified 10/23/21 00:34 latex Allergy Rash Verified 10/23/21 00:34 INK Allergy Unknown swelling Uncoded 10/09/21 07:36 and itching MARKERS Allergy Unknown swelling, Uncoded 10/09/21 07:36 itching PRUNE JUICE Allergy Unknown stomach Uncoded 10/09/21 07:36 pain, diarrhea TUNA Allergy Unknown Anaphylactic Uncoded 10/09/21 07:36 Shock Review of Systems Review of Systems: All systems reviewed & are unremarkable except as noted in HPI and below PMFSH Past Medical History Medical History Asthma Depression GERD (gastroesophageal reflux disease) Hand fracture, right Herniated disc History of bipolar disorder Hx of seizure disorder Hx of transient ischemic attack (TIA) Kidney stone Neck fracture Pseudoseizure PTSD (post-traumatic stress disorder) Schizophrenia Type II diabetes mellitus Surgical History Surgical History Hx of cardiac cath Family History Family History Father History of blood clots Diabetes mellitus Hypertension Acute myocardial infarction Mother History of blood clots Diabetes mellitus Hypertension Sibling Hypertension Social History Social History Social History: The patient stated that he did quit smoking but started back up again and probably smokes about 3 packs of cigarettes a day. The patient is engaged she has been 2 prior times. He has 1 daughter. He stated that his fiancee is his durable power civil rights attorney for healthcare. The patient is a full code. The patient stated that he is a recovering alcoholic and has not had any alcohol in a long time. He denies any marijuana or illicit drugs. 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 Smoking packs per day: 2 Smoking cigarettes per day: 40.0 Years smoked: 20 Smoking pack-years: 40.00 Smoking status: Current every day smoker Additional smoking as
[2021-10-22 23:49] VITALS: PULSE 91; O2SAT 98
[2021-10-22 23:50] LABS: Basophils Absolute Auto 0.09 K/mm3 (0.00-0.10); Basophils Percent Auto 1.3 % (0.0-1.0); Eosinophils Absolute Auto 0.07 K/mm3 (0.02-0.50); Hemoglobin 13.7 g/dL (14.0-18.0); Immature Granulocyte Absolute 0.03 K/mm3 (0.00-0.00); Immature Granulocyte Percent A 0.4 % (0.0-0.0); Lymphocytes Absolute Auto 1.48 K/mm3 (1.10-4.50); Lymphocytes Percent Auto 21.4 % (18.0-42.0); Mean Corpuscular HGB Conc 33.4 g/dL (32.0-36.0); Mean Corpuscular Hemoglobin 29.2 pg (27.0-31.0); Mean Corpuscular Volume 87.4 fL (78.0-102.0); Mean Platelet Volume 9.7 fl (8.7-11.0); Monocytes Absolute Auto 0.71 K/mm3 (0.10-0.90); Monocytes Percent Auto 10.3 % (2.0-11.0); Neutrophils Absolute Auto 4.5 K/mm3 (1.7-7.2); Neutrophils Percent Auto 65.6 % (50.0-70.0); Platelet Count Result 282 K/mm3 (150-420); Red Blood Count 4.69 M/mm3 (4.70-6.10); Red Cell Distribution Width 13.2 % (11.6-14.4); White Blood Count 6.9 K/mm3 (4.8-10.8)
[2021-10-23] VITALS (7 sets, daily range): BP systolic 117–136; BP diastolic 79–99; PULSE 67–96; RESP 15–20; TEMP 36.6; O2SAT 97–98
[2021-10-23 00:05] LABS: Alanine Aminotransferase 68 U/L (16-63); Alkaline Phosphatase 129 U/L (46-116); Ammonia 20 umol/L (11-32); Anion Gap 9 mmol/L (8-16); Aspartate Amino Transferase 22 U/L (15-37); Bilirubin,Total 0.2 mg/dL (0.00-1.00); Blood Urea Nitrogen 20 mg/dL (7-18); Calcium 8.8 mg/dL (8.5-10.1); Carbon Dioxide 26 mmol/L (21-32); Chloride 106 mmol/L (98-108); Estimated Glomerular Filt Rate > 60; Ethanol < 3 mg/dL (0-6); Glucose 91 mg/dL (70-99); Osmolality Calculated 294 mOsm/kg (285-295); Potassium 4.2 mmol/L (3.5-5.1); Sodium 141 mmol/L (136-145)
[2021-10-23 00:06] LABS: CRP < 0.2 mg/dL (0.0-0.9)
--- NOTE | 2021-10-23 00:18 | PC.NURSE ---
unsuccessful attempts to start three 22g IV, two in left AC and one in left hand
[2021-10-23 00:20] LABS: Phenytoin Dilantin < 1 ug/mL (10-20)
[2021-10-23 00:42] LABS: Amphetamine Screen Urine Negative (Negative); Barbiturate Screen Urine Negative (Negative); Benzodiazepines Screen Urine Negative (Negative); Cannabinoid Screen Urine Negative (Negative); Cocaine Screen Urine Negative (Negative); Methadone Screen Urine Negative (Negative); Opiate Screen Urine Negative (Negative); Phencyclidine Screen Urine Negative (Negative)
--- NOTE | 2021-10-23 01:10 | PC.NURSE ---
contacted [facility] charge nurse Kenny for pt transfer for neurology.
[2021-10-23] MEDS: FOSPHENYTOIN SODIUM 100 MG PE/2 ML VIAL 150 MG IV PUSH (01:43)
--- NOTE | 2021-10-23 02:05 | PC.NURSE ---
waiting for [facility] neurology to return our call for patient transfer.
[2021-10-23 03:08] LABS: SARS-CoV-2 Ag Negative (Negative)
--- NOTE | 2021-10-23 03:18 | PC.NURSE ---
contacted vat house laborer MARY LOU Fragoso at [facility] concerning pt transfer. she will repeat page to MD Huston.
--- NOTE | 2021-10-23 03:25 | PC.NURSE ---
Md Huston returned page for patient transfer.
--- NOTE | 2021-10-23 03:29 | PC.NURSE ---
pt to be transfer to [facility], accepting doctor MD Huston.
--- NOTE | 2021-10-23 04:09 | PC.NURSE ---
nurse to nurse report completed with MARY LOU Cormier at [facility]. pt to be admitted into room 307 bed 2.
--- NOTE | 2021-10-23 04:23 | PC.NURSE ---
contacted [facility] for pt transfer
--- NOTE | 2021-10-23 04:40 | PC.NURSE ---
second request for [facility] to transport patient.
--- NOTE | 2021-10-23 04:45 | PC.NURSE ---
[facility] unable to transport patient at this time.
--- NOTE | 2021-10-23 04:46 | PC.NURSE ---
requested BLS transfer from [facility]
--- NOTE | 2021-10-23 05:13 | PC.NURSE ---
[facility] agreed to transfer patient. [facility] contracted and cancelled request.
--- NOTE | 2021-10-23 05:32 | PC.NURSE ---
[facility] transporting patient to [facility] room 307 bed 2.
== END 2021-10-23 05:37 | disposition short-term general hospital (02) ==
PROVIDERS: Emergency Provider Emergency Medicine; PCP Family Medicine
DX: G40.909 Epilepsy, unspecified, not intractable, without status epilepticus (principal); Z20.822 Contact with and (suspected) exposure to COVID-19
CPT/HCPCS: 36415; 80053; 80185; 80307; 82140; 85025; 86140; 87426; 96374; 99285; C9803; Q2009

== ENCOUNTER 2021-10-23 06:22 | Observation (INO) | payer OTHER, SELFPAY ==
[2021-10-23 06:30] VITALS: BP 109/67; PULSE 70; RESP 20; TEMP 36.4; O2SAT 98
--- NOTE | 2021-10-23 07:00 | ADMGEN ---
This patient, Mario Zamora III, was admitted to 3 [facility] Surg Room 330-01. Patient/family oriented to hospital policies and general routines including ID bracelet, bed and alarms, visiting hours, pain management, procedures, bathroom and other care routines, personal items, smoking policy, room service/diet, and visiting hours. Information on how to activate the Rapid Response Team has been discussed. Patient/Family are encouraged to report perceived risks to care and to ask questions if they do not understand what they are told or what they should do.
[2021-10-23 08:19] VITALS: BMI 36.2
[2021-10-23 09:38] LABS: Basophils Absolute Auto 0.1 K/mm3 (0.0-0.1); Basophils Percent Auto 0.9 % (0.2-1.2); Eosinophils Absolute Auto 0.1 K/mm3 (0-0.3); Eosinophils Percent Auto 1.1 % (0-4.4); Hematocrit 39.1 % (42.0-52.0); Hemoglobin 12.8 g/dL (14.0-18.0); Immature Granulocyte Absolute 0.02 K/mm3 (0.00-0.031); Immature Granulocyte Percent A 0.4 % (0-0.5); Lymphocytes Absolute Auto 1.06 K/mm3 (0.9-3.2); Lymphocytes Percent Auto 19.6 % (18.3-44.2); Mean Corpuscular HGB Conc 32.7 g/dl (32-36); Mean Corpuscular Hemoglobin 29.1 pg (26-34); Mean Corpuscular Volume 88.9 fl (80-100); Mean Platelet Volume 10.3 fl (7.4-10.4); Monocytes Absolute Auto 0.6 K/mm3 (0.1-0.6); Monocytes Percent Auto 10.2 % (2.6-8.5); Neutrophils Absolute Auto 3.7 K/mm3 (1.3-6.7); Neutrophils Percent Auto 67.8 % (45.5-73.1); Platelet Count Result 244 k/mm3 (150-375); Red Cell Distribution Width 13.4 % (11.5-14.5); White Blood Count 5.4 K/mm3 (4.5-10.0)
[2021-10-23] MEDS: DIVALPROEX SODIUM DR 250 MG TABEC 1000 MG PO ×2 (09:38→18:38)
[2021-10-23] MEDS: amLODIPine BESYLATE 5 MG TABLET 10 MG PO (09:39)
[2021-10-23] MEDS: PHENYTOIN SODIUM 100 MG EXTENDED RELEASE CAP 300 MG PO (09:40)
[2021-10-23] MEDS: SERTRALINE HCL 50 MG TABLET 100 MG PO (09:41)
[2021-10-23] MEDS: LACOSAMIDE (*CRX) 100 MG TABLET 500 MG PO (09:45)
[2021-10-23 10:22] LABS: Alanine Aminotransferase 48 U/L (6-50); Albumin Level 3.9 g/dL (3.5-5.1); Alkaline Phosphatase 99 U/L (38-126); Anion Gap 6 mmol/L (8-16); Aspartate Amino Transferase 27 U/L (17-59); Bilirubin,Total 0.2 mg/dL (0.2-1.3); Blood Urea Nitrogen 19 mg/dL (9-20); Calcium 8.6 mg/dL (8.4-10.2); Carbon Dioxide 25 mmol/L (22-30); Chloride 108 mmol/L (98-107); Estimated CRCL calculation 138 ml/min; Estimated Glomerular Filt Rate > 60; Glucose 86 mg/dL (65-110); Potassium 4.5 mmol/L (3.4-5.0); Sodium 139 mmol/L (137-145)
--- NOTE | 2021-10-23 11:02 | PM.IMHP ---
H&P: HPI History of Present Illness Date/Time: 10/23/21 11:02 Chief Complaint: Breakthrough seizures Narrative: the patient presents from [facility] with multiple episode of seizure last line. He states that he went to watch a movie and came back around 10:00 a.m.. He then does not remember what happened but it is reported that he was having multiple episodes of [id number] seizures about 4-5 for his dad who he lives with. EMS was called and then was taken to the hospital. He also had an episode of seizure in route however reports that during the seizure they tried to take blood pressure and stated he needed to take a blood pressure then patient lifted his arm up for them to be able to take blood pressure. He was recently admitted for seizure multiple times in the past. Dilantin level was recently low. He has been on multiple seizure medication which she reports been taking regularly. He states he normally gets grand mal seizure. He feels groggy after the seizure episode. Denies any spontaneous leakage of urine or stool. He was then transferred here for Neurology evaluation and management. Review of Systems Review of Systems: - CONSTITUTIONAL: Denies weight loss, fever and chills. - HEENT: Denies changes in vision and hearing - RESPIRATORY: Denies SOB and cough. - CV: Denies palpitations and CP. - GI: Denies abdominal pain, nausea, vomiting and diarrhea. - : Denies dysuria and urinary frequency. - MSK: Denies myalgia and joint pain. - SKIN: Denies rash and pruritus. - NEUROLOGICAL: Denies headache and syncope. - PSYCHIATRIC: Denies recent changes in mood. Denies anxiety and depression. FOR[facility]LY [facility] Past Medical History Medical History Asthma Depression GERD (gastroesophageal reflux disease) Hand fracture, right Herniated disc History of bipolar disorder Hx of seizure disorder Hx of transient ischemic attack (TIA) Kidney stone Neck fracture Pseudoseizure PTSD (post-traumatic stress disorder) Schizophrenia Type II diabetes mellitus Surgical History Surgical History Hx of cardiac cath Family History Family History Father History of blood clots Diabetes mellitus Hypertension Acute myocardial infarction Mother History of blood clots Diabetes mellitus Hypertension Sibling Hypertension Social History Social History Social History: The patient stated that he did quit smoking but started back up again and probably smokes about 3 packs of cigarettes a day. The patient is engaged she has been 2 prior times. He has 1 daughter. He stated that his fiancee is his durable power corporate attorney for healthcare. The patient is a full code. The patient stated that he is a recovering alcoholic and has not had any alcohol in a long time. He denies any marijuana or illicit drugs. 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 Smoking packs per day: 2 Smoking cigarettes per day: 40.0 Years smoked: 20 Smoking pack-years: 40.00 Smoking status: Former smoker Tobacco type: cigarettes Second hand tobacco smoke exposure: Yes Additional smoking assessment comments: smokes off and on Alcohol intake: former Alcohol use details: Denied current alcohol abuse Substance use: former Substance use type: does not use Other substance usage details: Denied current substance abuse Last use: 2014 Gender identity (if verbalized by the patient): Male Spiritual care concerns: No Agree to blood products: Yes Meds Home Medications and Allergies Home Medications Medication Instructions Recorded Confirmed Type phenytoin sodium extended 300 mg 300 mg PO DAILY #20 caps 08/04/21 10/23/21 Rx capsule lacosamide 200 mg tablet 500 mg PO BID 08/18/21 10/23/21 History amlodipine 10 mg tabl
[2021-10-23 11:33] LABS: Add Urine Microscopic? NO; Appearance Urine Clear (Clear); Bilirubin Urine Negative (Negative); Blood Urine Negative (Negative); Color Urine Yellow (Yellow); Glucose Urine UA Negative (Negative); Ketones Urine Negative (Negative); Leukocyte Esterase Ur Negative LEU/UL (NEGATIVE); Nitrate Urine Negative (Negative); Protein Urine Negative (Negative); Specific Grav Ur 1.025 (1.001-1.035)
[2021-10-23 11:52] LABS: Amphetamine Screen Urine Negative (Negative); Barbiturate Screen Urine Negative (Negative); Benzodiazepines Screen Urine Negative (Negative); Cannabinoid Screen Urine Negative (Negative); Cocaine Screen Urine Negative (Negative); Methadone Screen Urine Negative (Negative); Opiate Screen Urine Negative (Negative); Phencyclidine Screen Urine Negative (Negative)
[2021-10-23 12:00] VITALS: BP 125/73; PULSE 76; RESP 18; TEMP 36.4; O2SAT 98
--- NOTE | 2021-10-23 12:56 | WPDNEURCNPN ---
Assessment and Plan Assessment and plan (1) Seizures: Code(s): R56.9 - Unspecified convulsions Status: Acute Plan Recurrent seizures question pseudo plan is to obtain the EEG Consult date: 10/23/21 Time Seen: 11:00 Reason for consult: seizures HPI: Mario Zamora III is a 31 year old male admitted to the hospital through the emergency room for the complaints of seizure it was reported in the emergency room that the EMS epic him up 3 times in the last 2 weeks and his recent Dilantin level less than 1 though he had normal Dilantin level of 15 about 10 days ago patient was diagnosed to have seizures through the [facility] Emergency room he was noted early interactive in the ER there were no signs of trauma bystander noted the tonic clonic seizure his initial lab was unremarkable his medications included lacosamide 200 mg twice a day divalproex 500 mg 2 of them twice a day in addition to sertraline 100 mg daily and trazodone 50 mg daily on p.r.n. basis also aripiprazole 15 mg at night, has multiple allergies, but has ongoing history of bipolar disorder, seizure disorder neck fracture, posttraumatic stress disorder, schizophrenia, and type 2 diabetes mellitus there is history of smoking pack-years 40 currently everyday smoker denied current alcohol abuse, initial vital signs stable routine lab negative drug screen negative alcohol level less than [address] scan of the brain negative for the bleed PMFSH Past Medical History Medical History Asthma Depression GERD (gastroesophageal reflux disease) Hand fracture, right Herniated disc History of bipolar disorder Hx of seizure disorder Hx of transient ischemic attack (TIA) Kidney stone Neck fracture Pseudoseizure PTSD (post-traumatic stress disorder) Schizophrenia Type II diabetes mellitus Surgical History Surgical History Hx of cardiac cath Family History Family History Father History of blood clots Diabetes mellitus Hypertension Acute myocardial infarction Mother History of blood clots Diabetes mellitus Hypertension Sibling Hypertension Social History Social History Social History: The patient stated that he did quit smoking but started back up again and probably smokes about 3 packs of cigarettes a day. The patient is engaged she has been 2 prior times. He has 1 daughter. He stated that his fiancee is his durable power erisa attorney for healthcare. The patient is a full code. The patient stated that he is a recovering alcoholic and has not had any alcohol in a long time. He denies any marijuana or illicit drugs. 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 Smoking packs per day: 2 Smoking cigarettes per day: 40.0 Years smoked: 20 Smoking pack-years: 40.00 Smoking status: Former smoker Tobacco type: cigarettes Second hand tobacco smoke exposure: Yes Additional smoking assessment comments: smokes off and on Alcohol intake: former Alcohol use details: Denied current alcohol abuse Substance use: former Substance use type: does not use Other substance usage details: Denied current substance abuse Last use: 2014 Gender identity (if verbalized by the patient): Male Spiritual care concerns: No Agree to blood products: Yes Meds Home Medications and Allergies Home Medications Medication Instructions Recorded Confirmed Type phenytoin sodium extended 300 mg 300 mg PO DAILY #20 caps 08/04/21 10/23/21 Rx capsule lacosamide 200 mg tablet 500 mg PO BID 08/18/21 10/23/21 History amlodipine 10 mg tablet 1 tablet PO DAILY 10/06/21 10/23/21 History aripiprazole 15 mg tablet 1 tablet PO HS 10/06/21 10/23/21 History divalproex 500 mg tablet,delayed 1,000 mg BID 10/06/21 10/23/21 History release sertraline 100 mg tablet 1 ta
[2021-10-23 13:35] LABS: Phenytoin Dilantin < 3 ug/mL (10-20)
[2021-10-23 16:00] VITALS: BP 123/88; PULSE 81; RESP 16; TEMP 36.4; O2SAT 10
[2021-10-23] MEDS: LACOSAMIDE (*CRX) 100 MG TABLET PO (18:41)
[2021-10-23] MEDS: LACOSAMIDE (*CRX) 200 MG TABLET 400 MG PO (18:41)
[2021-10-23 20:00] VITALS: BP 126/88; PULSE 105; RESP 18; TEMP 36.3; O2SAT 93
[2021-10-23] MEDS: ARIPiprazole 5 MG TABLET 15 MG PO (20:10)
[2021-10-23] MEDS: traZODone HCL 50 MG TABLET PO (20:11)
[2021-10-24] VITALS: BP 121/80; PULSE 86; RESP 18; TEMP 36.2; O2SAT 99
[2021-10-24 04:00] VITALS: BP 135/79; PULSE 81; RESP 18; TEMP 36.6; O2SAT 98
[2021-10-24] MEDS: ONDANSETRON INJ 4 MG/2 ML VIAL IV PUSH (06:14)
[2021-10-24 06:37] LABS: Basophils Absolute Auto 0.1 K/mm3 (0.0-0.1); Basophils Percent Auto 1.4 % (0.2-1.2); Eosinophils Absolute Auto 0.1 K/mm3 (0-0.3); Eosinophils Percent Auto 1.4 % (0-4.4); Hematocrit 41.3 % (42.0-52.0); Hemoglobin 13.9 g/dL (14.0-18.0); Immature Granulocyte Absolute 0.02 K/mm3 (0.00-0.031); Immature Granulocyte Percent A 0.4 % (0-0.5); Lymphocytes Absolute Auto 1.21 K/mm3 (0.9-3.2); Lymphocytes Percent Auto 21.4 % (18.3-44.2); Mean Corpuscular HGB Conc 33.7 g/dl (32-36); Mean Corpuscular Hemoglobin 29.4 pg (26-34); Mean Corpuscular Volume 87.3 fl (80-100); Mean Platelet Volume 10.5 fl (7.4-10.4); Monocytes Absolute Auto 0.4 K/mm3 (0.1-0.6); Monocytes Percent Auto 7.1 % (2.6-8.5); Neutrophils Absolute Auto 3.9 K/mm3 (1.3-6.7); Neutrophils Percent Auto 68.3 % (45.5-73.1); Platelet Count Result 260 k/mm3 (150-375); Red Blood Count 4.73 M/mm3 (4.6-6.20); Red Cell Distribution Width 13.2 % (11.5-14.5); White Blood Count 5.7 K/mm3 (4.5-10.0)
[2021-10-24 07:33] LABS: Alanine Aminotransferase 51 U/L (6-50); Albumin Level 4.3 g/dL (3.5-5.1); Alkaline Phosphatase 106 U/L (38-126); Anion Gap 9 mmol/L (8-16); Aspartate Amino Transferase 26 U/L (17-59); Bilirubin,Total 0.4 mg/dL (0.2-1.3); Blood Urea Nitrogen 18 mg/dL (9-20); Calcium 8.9 mg/dL (8.4-10.2); Carbon Dioxide 24 mmol/L (22-30); Chloride 106 mmol/L (98-107); Estimated CRCL calculation 123 ml/min; Estimated Glomerular Filt Rate > 60; Glucose 84 mg/dL (65-110); Magnesium 2.2 mg/dL (1.6-2.3); Potassium 4.2 mmol/L (3.4-5.0); Sodium 139 mmol/L (137-145)
[2021-10-24 08:00] VITALS: BP 126/81; PULSE 85; RESP 18; TEMP 36.1; O2SAT 100
[2021-10-24] MEDS: PHENYTOIN SODIUM 100 MG EXTENDED RELEASE CAP 300 MG PO (08:54)
[2021-10-24] MEDS: LACOSAMIDE (*CRX) 100 MG TABLET PO ×2 (08:54→17:27)
[2021-10-24] MEDS: amLODIPine BESYLATE 5 MG TABLET 10 MG PO (08:54)
[2021-10-24] MEDS: LACOSAMIDE (*CRX) 200 MG TABLET 400 MG PO ×2 (08:54→17:27)
[2021-10-24] MEDS: SERTRALINE HCL 50 MG TABLET 100 MG PO (08:55)
[2021-10-24] MEDS: DIVALPROEX SODIUM DR 250 MG TABEC 1000 MG PO (10:07)
--- NOTE | 2021-10-24 10:39 | WPDNEURCNPN ---
Consult date: 10/24/21 Time Seen: 09:30 HPI: Mario Zamora III is a 31 year old male FORMERLY [facility] Past Medical History Medical History Asthma Depression GERD (gastroesophageal reflux disease) Hand fracture, right Herniated disc History of bipolar disorder Hx of seizure disorder Hx of transient ischemic attack (TIA) Kidney stone Neck fracture Pseudoseizure PTSD (post-traumatic stress disorder) Schizophrenia Type II diabetes mellitus Surgical History Surgical History Hx of cardiac cath Family History Family History Father History of blood clots Diabetes mellitus Hypertension Acute myocardial infarction Mother History of blood clots Diabetes mellitus Hypertension Sibling Hypertension Social History Social History Social History: The patient stated that he did quit smoking but started back up again and probably smokes about 3 packs of cigarettes a day. The patient is engaged she has been 2 prior times. He has 1 daughter. He stated that his fiancee is his durable power estate attorney for healthcare. The patient is a full code. The patient stated that he is a recovering alcoholic and has not had any alcohol in a long time. He denies any marijuana or illicit drugs. 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 Smoking packs per day: 2 Smoking cigarettes per day: 40.0 Years smoked: 20 Smoking pack-years: 40.00 Smoking status: Former smoker Tobacco type: cigarettes Second hand tobacco smoke exposure: Yes Additional smoking assessment comments: smokes off and on Alcohol intake: former Alcohol use details: Denied current alcohol abuse Substance use: former Substance use type: does not use Other substance usage details: Denied current substance abuse Last use: 2014 Gender identity (if verbalized by the patient): Male Spiritual care concerns: No Agree to blood products: Yes Meds Home Medications and Allergies Home Medications Medication Instructions Recorded Confirmed Type phenytoin sodium extended 300 mg 300 mg PO DAILY #20 caps 08/04/21 10/23/21 Rx capsule lacosamide 200 mg tablet 500 mg PO BID 08/18/21 10/23/21 History amlodipine 10 mg tablet 1 tablet PO DAILY 10/06/21 10/23/21 History aripiprazole 15 mg tablet 1 tablet PO HS 10/06/21 10/23/21 History divalproex 500 mg tablet,delayed 1,000 mg BID 10/06/21 10/23/21 History release sertraline 100 mg tablet 1 tablet PO DAILY 10/06/21 10/23/21 History trazodone 50 mg tablet 1 tablet PO PRN PRN Insomnia 10/06/21 10/23/21 History sulfamethoxazole 800 1 tablet PO Q12H #7 tabs 10/11/21 10/23/21 Rx mg-trimethoprim 160 mg tablet (Bactrim DS) Allergies Allergy/AdvReac Type Severity Reaction Status Date / Time coconut Allergy Severe Anaphylactic Verified 10/23/21 09:34 Shock tuna oil Allergy Severe Anaphylactic Verified 10/23/21 09:34 Shock cranberry Allergy Unknown Itching,swe Verified 10/23/21 09:34 lling latex Allergy Rash Verified 10/23/21 09:34 INK Allergy Unknown swelling Uncoded 10/23/21 09:34 and itching MARKERS Allergy Unknown swelling, Uncoded 10/23/21 09:34 itching PRUNE JUICE Allergy Unknown stomach Uncoded 10/23/21 09:34 pain, diarrhea,swelling,itching TUNA Allergy Unknown Anaphylactic Uncoded 10/23/21 09:34 Shock Vital Signs Vital Signs - 24 hr 10/23/21 12:00 10/23/21 16:00 10/23/21 20:00 Temperature 36.4 C 36.4 C 36.3 C L Pulse Rate 76 81 105 H Respiratory Rate 18 16 18 Blood Pressure 125/73 123/88 126/88 Pulse Oximetry 98 10 L 93 Oxygen Delivery 10/23/21 20:00 10/24/21 00:00 10/24/21 04:00 Temperature 36.2 C L 36.6 C Pulse Rate 86 81 Respiratory Rate 18 18 Blood Pressure 121/80 135/79 Pulse Oximetry 99 98 Oxygen Delivery Room Air
--- NOTE | 2021-10-24 11:13 | PC.NURSE ---
PT refusing lovenox shots. RN educated PT on importance of lovenox shots and risks of not having them. Hospitalist notified
[2021-10-24 11:54] VITALS: BP 117/74; PULSE 89; RESP 18; TEMP 37.1; O2SAT 99
--- NOTE | 2021-10-24 12:47 | PM.IMPN ---
Progress Note: A&P Assessment and Plan (1) Breakthrough seizure: Code(s): G40.919 - Epilepsy, unspecified, intractable, without status epilepticus Status: Acute (2) Generalized seizure: Code(s): R56.9 - Unspecified convulsions Status: Acute (3) History of bipolar disorder: Code(s): Z86.59 - Personal history of other mental and behavioral disorders Status: Acute (4) History of suicide attempt: Code(s): Z91.5 - Personal history of self-harm Status: Acute (5) Schizophrenia: Qualifiers: Schizophrenia type: unspecified Qualified Code(s): F20.9 - Schizophrenia, unspecified Code(s): F20.9 - Schizophrenia, unspecified Status: Acute (6) Type II diabetes mellitus: Qualifiers: Diabetes mellitus district associate judge insulin use: without assisted use Diabetes mellitus complication status: without complication Qualified Code(s): E11.9 - Type 2 diabetes mellitus without complications Code(s): E11.9 - Type 2 diabetes mellitus without complications Status: Acute (7) Pseudoseizure: Code(s): 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 EEG. Air resume his home medication. Check Dilantin level. check urine drug screen neurology consultation. CT head was not done in the ER. He was awake alert and oriented with no focal deficits. I do not see why we need to repeated at this point. multiple previous Head CT have been negative. He is getting an EEG today weight further recommendation from neurology # history of bipolar disorder resume home medication # history of seizure disorder # posttraumatic stress disorder # schizophrenia # hypertension resume home medic # type 2 diabetes mellitus # history of sleep apnea not on CPAP # DVT prophylaxis Lovenox # code status full code Subjective Date/time seen: 10/24/21 12:47 Interval history: HPI:the patient presents from [facility] with multiple episode of seizure last line.? He states that he went to watch a movie and came back around 10:00 a.m..? He then does not remember what happened but it is reported that he was having multiple episodes of [id number] seizures about 4-5 for his dad who he lives with.? EMS was called and then was taken to the hospital.? He also had an episode of seizure in route however reports that? during the seizure they tried to take blood pressure and stated he needed to take a blood pressure then patient lifted his arm up for them to be able to take blood pressure.? He was recently admitted for seizure multiple times in the past.? Dilantin level was recently low.? He has been on multiple seizure medication which she reports been taking regularly.? He states he normally gets grand mal seizure.? He feels groggy after the seizure episode.? Denies any spontaneous leakage of urine or stool.? He was then? transferred here for Neurology evaluation and? management. 10/24/2021 no overnight events. No further seizures. A little groggy today. Has underlying history of sleep apnea Review of Systems Review of Systems: All systems reviewed & are unremarkable except as noted in HPI and below (HPI) Exam Narrative: GENERAL: The patient is well developed, not in acute distress HEENT: Nonicteric sclerae, PERRLA, EOMI. Oropharynx clear. Moist mucous membranes. Conjunctivae appear well perfused. CHEST: Chest wall is nontender. HEART: Regular rate and rhythm without murmur, rubs, or gallops LUNGS: Clear to auscultation bilaterally. no respiratory distress ABDOMEN: Soft, positive bowel sounds, non-tender, no organomegaly. SKIN: No rash, no excessive bruising, petechiae, or purpura. NEUROLOGIC: Cranial nerves II-XII intact, alert and oriented x 3, no gross motor deficits EXTREMITIES: no edema, cyanosis or clubbing Objective Data Vital Signs Vital Signs: Radha
--- NOTE | 2021-10-24 13:46 | WPDNEUROLOGY ---
Neurology EEG Report General Information Date of Study: 10/24/21 TEST eeg DIAGNOSIS seizures CONDITION OF RECORDING drowsy and sleep EEG NUMBER [id number] CLINICAL HISTORY patient reports he has had several seizures yesterday morning EEG DESCRIPTION basic resting occipital frequency consists of large amount of well-organized medium voltage 8 to 9 hertz per 2nd alpha. Low voltage activity seen diffusely admixed with waxing and waning posterior alpha rhythm during drowsiness. Bilateral symmetrical sleep activity seen during sleep. Hyperventilation not done. Photic stimulation not done. Non paroxysmal. Nonlateralizing. Nonfocal. IMPRESSION Normal record
--- NOTE | 2021-10-24 15:36 | PCCCNOTE ---
On 10/24/21, the student, [Elizabeth Badillo], provided care and completed [facility] documentation on this patient. I have reviewed the student's documentation and agree with the findings.
[2021-10-24 16:00] VITALS: BP 128/76; PULSE 87; RESP 20; TEMP 36.4; O2SAT 100
[2021-10-24] MEDS: DIVALPROEX SODIUM DR 250 MG TABEC 1500 MG PO (17:27)
[2021-10-24 20:00] VITALS: BP 124/71; PULSE 75; RESP 16; TEMP 36.1; O2SAT 97
[2021-10-24] MEDS: ARIPiprazole 5 MG TABLET 15 MG PO (20:51)
[2021-10-25] VITALS: BP 121/70; PULSE 80; RESP 16; TEMP 36.4; O2SAT 98
[2021-10-25 04:00] VITALS: BP 137/80; PULSE 92; RESP 16; TEMP 36.4; O2SAT 97
[2021-10-25 08:00] VITALS: BP 142/91; PULSE 87; RESP 18; TEMP 36.4; O2SAT 100
[2021-10-25] MEDS: DIVALPROEX SODIUM DR 250 MG TABEC 1500 MG PO (09:10)
[2021-10-25] MEDS: PHENYTOIN SODIUM 100 MG EXTENDED RELEASE CAP 300 MG PO (09:11)
[2021-10-25] MEDS: SERTRALINE HCL 50 MG TABLET 100 MG PO (09:12)
[2021-10-25] MEDS: LACOSAMIDE (*CRX) 200 MG TABLET 400 MG PO (09:13)
[2021-10-25] MEDS: amLODIPine BESYLATE 5 MG TABLET 10 MG PO (09:13)
--- NOTE | 2021-10-25 10:50 | PM.DS ---
DS: Admitting Diagnosis Discharge Date 10/25/2021 Admitting Diagnosis Breakthrough seizures DS: Discharge Diagnosis Discharge Diagnosis (1) Breakthrough seizure: Code(s): G40.919 - Epilepsy, unspecified, intractable, without status epilepticus Status: Acute (2) Generalized seizure: Code(s): R56.9 - Unspecified convulsions Status: Acute (3) History of bipolar disorder: Code(s): Z86.59 - Personal history of other mental and behavioral disorders Status: Acute (4) History of suicide attempt: Code(s): Z91.5 - Personal history of self-harm Status: Acute (5) Schizophrenia: Qualifiers: Schizophrenia type: unspecified Qualified Code(s): F20.9 - Schizophrenia, unspecified Code(s): F20.9 - Schizophrenia, unspecified Status: Acute (6) Type II diabetes mellitus: Qualifiers: Diabetes mellitus predatory 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 EEG was done which back normal resumed his home medication. Dilantin level came back low. Urine drug screen was negative. Neurology was consulted. He does not have an epileptologist that he follows up with as an outpatient basis. He was worked up at [facility] in July 2021 with grand mall seizures was transfer from this hospital at the time. He had status epilepticus needing intubation and mechanical ventilation at that time. He has been on various different anti seizure medications which he claims to be taking it on a regular basis. His phenytoin level did come back low this time again as it has been in several other times in the past. He was admitted for monitoring and further evaluation for his breakthrough seizures. He did not have any further seizures during the hospital stay. With further consultation with Neurology this is Depakote was increased to 1500 mg twice a day. He is suggested to follow up with epileptologist as an outpatient basis is sub with regard to his seizure disorder. He used to see Dr. Jose Raul El who has dropped him now and he is looking for another which is covered under his insurance. # history of bipolar disorder resume home medication # history of seizure disorder # posttraumatic stress disorder # schizophrenia # hypertension resume home medic # type 2 diabetes mellitus # history of sleep apnea not on CPAP # DVT prophylaxis Lovenox # code status full code DS: Summary Hospital Course Hospital Course: See above Time Spent with Patient Time attestation: Total time spent providing and/or coordinating discharge services: 45 minutes Exam Narrative: GENERAL: The patient is well developed, not in acute distress HEENT: Nonicteric sclerae, PERRLA, EOMI. Oropharynx clear. Moist mucous membranes. Conjunctivae appear well perfused. CHEST: Chest wall is nontender. HEART: Regular rate and rhythm without murmur, rubs, or gallops LUNGS: Clear to auscultation bilaterally. no respiratory distress ABDOMEN: Soft, positive bowel sounds, non-tender, no organomegaly. SKIN: No rash, no excessive bruising, petechiae, or purpura. NEUROLOGIC: Cranial nerves II-XII intact, alert and oriented x 3, no gross motor deficits EXTREMITIES: no edema, cyanosis or clubbing Discharge Plan Discharge Attending physician on discharge: Adriano Lucas Consulting providers: Jalen Figueroa Discharging Clinician: Adriano Lucas Anticipated Discharge Date/Time: 10/25/21 10:47 Patient Disposition: Home, Self-Care Activity: as tolerated D
[2021-10-25 11:52] VITALS: BP 116/75; PULSE 99; RESP 20; TEMP 36.8; O2SAT 97
== END 2021-10-25 13:45 | disposition home or self-care (01) ==
PROVIDERS: Admitting Provider Internal Medicine; PCP Family Medicine; Visit Provider Internal Medicine
DX: G40.919 Epilepsy, unspecified, intractable, without status epilepticus (principal); F20.9 Schizophrenia, unspecified; I10 Essential (primary) hypertension; F43.10 Post-traumatic stress disorder, unspecified; F10.21 Alcohol dependence, in remission; Z87.891 Personal history of nicotine dependence; E11.9 Type 2 diabetes mellitus without complications; F12.10 Cannabis abuse, uncomplicated; Z86.59 Personal history of other mental and behavioral disorders; Z91.51 Personal history of suicidal behavior
CPT/HCPCS: 36415; 80053; 80185; 80307; 81003; 83735; 85025; 95816; 96374; A9270; G0378; G0379; J1650; J2405

== ENCOUNTER 2022-02-03 10:18 | Outpatient (CLI) | payer OTHER, SELFPAY ==
--- NOTE | ~2022-02-03 | MR_ITS ---
EXAMINATION: MR brain/brain stem wo con DATE: 02/03/2022 11:00 INDICATION: Dizziness. Blurred vision. Vision loss. TECHNIQUE: Magnetic resonance imaging (MRI) of the brain and brainstem was performed without intraven ous contrast. Sequences included sagittal and axial T1-weighted SE, axial diffusion-weighted FS SE, a xial T2*-weighted GRE, axial 3D SWAN, axial T2-weighted FLAIR, and axial T2-weighted FSE. Apparent di ffusion coefficient (ADC) maps were created. COMPARISON: Head CT dated 10/09/2021 FINDINGS: There are no areas of restricted diffusion to suggest acute infarction. No intracranial hemorrhage or abnormal intracranial mass lesion. There are no intraparenchymal signal abnormalities seen on the ot her pulse sequences. The ventricles are symmetric and normal in size. There are no abnormal extra-axi al fluid collections. Flow voids are seen in the cerebral arteries on the T2-weighted sequences consi stent with their expected patency. Visualized orbits and soft tissues are unremarkable. IMPRESSION: 1. Normal brain MR. Reviewed, dictated and finalized at location B. IMPRESSION: 1. Normal brain MR.
== END 2022-02-03 10:19 | disposition home or self-care (01) ==
LOC: CHSIMG 10:20
PROVIDERS: PCP Family Medicine; Visit Provider Family Medicine
DX: R42 Dizziness and giddiness (principal)
CPT/HCPCS: 70551

== ENCOUNTER 2022-03-30 22:09 | Emergency (ER) | payer OTHER, SELFPAY ==
[2022-03-30] VITALS (13 sets, daily range): BP systolic 132–153; BP diastolic 92–107; PULSE 84–104; RESP 20; TEMP 36.6–36.8; O2SAT 95–100
--- NOTE | 2022-03-30 22:12 | ED.SEIZURE ---
HPI - Seizure General Chief Complaint: Seizure Stated Complaint: ambulance Time Seen by Provider: 03/30/22 22:10 Source: patient, EMS and RN notes reviewed Mode of arrival: EMS Limitations: no limitations History of Present Illness HPI Narrative: patient apparently had a 3 minute seizure witnessed by his father. Father eased him down onto the bed. EMS arrived and he was not postictal. He then had a 2 minute seizure for EMS and again was not postictal at that time. No loss of bowel or bladder function. EMS reports they have been out there for similar symptoms in the past. He states that he was taken off all of his seizure medications in January. He also has a history PTSD, schizophrenia, and bipolar disorder MD complaint: possible seizure Onset (ago): minute(s) (20) Duration of episode: 3 -: minutes(s) Witnessed: Yes - by EMS Trauma: No Seizure History: Yes Place: home Possible Precipitating Event: none Associated symptoms: denies other symptoms Treatments prior to arrival: none Related Data Home Medications Medication Instructions Recorded Confirmed amlodipine 10 mg tablet 1 tablet PO DAILY 10/06/21 03/30/22 lisinopril 10 mg tablet 10 mg PO DAILY 03/30/22 03/30/22 Allergies Allergy/AdvReac Type Severity Reaction Status Date / Time coconut Allergy Severe Anaphylactic Verified 10/23/21 09:34 Shock tuna oil Allergy Severe Anaphylactic Verified 10/23/21 09:34 Shock cranberry Allergy Unknown Itching,swe Verified 10/23/21 09:34 lling latex Allergy Rash Verified 10/23/21 09:34 INK Allergy Unknown swelling Uncoded 10/23/21 09:34 and itching MARKERS Allergy Unknown swelling, Uncoded 10/23/21 09:34 itching PRUNE JUICE Allergy Unknown stomach Uncoded 10/23/21 09:34 pain, diarrhea,swelling,itching TUNA Allergy Unknown Anaphylactic Uncoded 10/23/21 09:34 Shock Review of Systems Review of Systems: All systems reviewed & are unremarkable except as noted in HPI and below PMFSH Past Medical History Medical History Asthma Depression GERD (gastroesophageal reflux disease) Hand fracture, right Herniated disc History of bipolar disorder Hx of seizure disorder Hx of transient ischemic attack (TIA) Kidney stone Neck fracture Pseudoseizure PTSD (post-traumatic stress disorder) Schizophrenia Type II diabetes mellitus Surgical History Surgical History Hx of cardiac cath Family History Family History Father History of blood clots Diabetes mellitus Hypertension Acute myocardial infarction Mother History of blood clots Diabetes mellitus Hypertension Sibling Hypertension Social History Social History Social History: The patient stated that he did quit smoking but started back up again and probably smokes about 3 packs of cigarettes a day. The patient is engaged she has been 2 prior times. He has 1 daughter. He stated that his fiancee is his durable power employment attorney for healthcare. The patient is a full code. The patient stated that he is a recovering alcoholic and has not had any alcohol in a long time. He denies any marijuana or illicit drugs. 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 Smoking packs per day: 2 Smoking cigarettes per day: 40.0 Years smoked: 20 Smoking pack-years: 40.00 Smoking status: Former smoker Tobacco type: cigarettes Second hand tobacco smoke exposure: Yes Additional smoking assessment comments: smokes off and on Alcohol intake: former Alcohol use details: Denied current alcohol abuse Substance use: former Substance use type: does not use Other substance usage details: Denied current substance abuse Last use: 2014 Gender identity (if verbalized by the patient): Male Spiritual care concerns: No Agree to blood
--- NOTE | 2022-03-30 22:30 | ECG_ITS ---
Measurements Intervals Odd Rate: 88 P: 34 WY: 182 QRS: -21 QRSD: 106 T: 45 QT: 348 QTc: 423 Interpretive Statements SINUS RHYTHM BASELINE ARTIFACT LOW QRS VOLTAGE IN PRECORDIAL LEADS [QRS DEFLECTION < 1.0 mV IN CHEST LEADS] POSSIBLE RIGHT VENTRICULAR CONDUCTION DELAY [RSR (QR) IN V1/V2] BORDERLINE ECG COMPARED TO ECG 10/09/2021 07:59:21 SINUS RHYTHM HAS REPLACED ATRIAL FLUTTER Electronically Signed On 04-01-2022 15:28:22 MATERNITY FLOOR SUPERVISOR by Jonnie Workman M.D.
[2022-03-30 22:43] LABS: Basophils Absolute Auto 0.04 K/mm3 (0.00-0.10); Basophils Percent Auto 0.6 % (0.0-1.0); Eosinophils Absolute Auto 0.11 K/mm3 (0.02-0.50); Eosinophils Percent Auto 1.6 % (1.0-6.0); Hematocrit 44.7 % (40.0-54.0); Immature Granulocyte Absolute 0.01 K/mm3 (0.00-0.00); Immature Granulocyte Percent A 0.1 % (0.0-0.0); Lymphocytes Absolute Auto 1.47 K/mm3 (1.10-4.50); Lymphocytes Percent Auto 21.3 % (18.0-42.0); Mean Corpuscular HGB Conc 33.6 g/dL (32.0-36.0); Mean Corpuscular Hemoglobin 27.5 pg (27.0-31.0); Mean Platelet Volume 10.6 fl (8.7-11.0); Monocytes Absolute Auto 0.57 K/mm3 (0.10-0.90); Monocytes Percent Auto 8.3 % (2.0-11.0); Neutrophils Absolute Auto 4.7 K/mm3 (1.7-7.2); Neutrophils Percent Auto 68.1 % (50.0-70.0); Platelet Count Result 269 K/mm3 (150-420); Red Blood Count 5.45 M/mm3 (4.70-6.10); Red Cell Distribution Width 13.1 % (11.6-14.4); White Blood Count 6.9 K/mm3 (4.8-10.8)
[2022-03-30 22:53] LABS: Appearance Urine Clear (Clear); Bilirubin Urine Negative (Negative); Blood Urine Negative (Negative); Glucose Urine UA Negative (Negative); Ketones Urine Negative (Negative); Leukocyte Esterase Ur Negative LEU/UL (Negative); Nitrate Urine Negative (Negative); Protein Urine Negative (Negative); pH Urine 7.5 (5.0-8.0)
[2022-03-30 22:59] LABS: Add Urine Microscopic? YES; Amorphous Sediment Urine Few; Bacteria Urine 2+ /hpf; Color Urine Light Yellow (Yellow); RBC Urine 0-2 /hpf (0-2); Squamous Epithelial Cell Urine None seen /hpf (Few); WBC Urine 0-3 /hpf (0-3)
[2022-03-30 23:00] LABS: Amphetamine Screen Urine Negative (Negative); Barbiturate Screen Urine Negative (Negative); Benzodiazepines Screen Urine Negative (Negative); Cannabinoid Screen Urine Negative (Negative); Cocaine Screen Urine Negative (Negative); Methadone Screen Urine Negative (Negative); Opiate Screen Urine Negative (Negative); Phencyclidine Screen Urine Negative (Negative)
[2022-03-30 23:00] LABS: Alanine Aminotransferase 37 U/L (16-63); Albumin Level 4.1 g/dL (3.4-5.0); Alkaline Phosphatase 129 U/L (46-116); Anion Gap 10 mmol/L (8-16); Aspartate Amino Transferase 15 U/L (15-37); Bilirubin,Total 0.5 mg/dL (0.00-1.00); Blood Urea Nitrogen 23 mg/dL (7-18); Calcium 8.7 mg/dL (8.5-10.1); Carbon Dioxide 26 mmol/L (21-32); Chloride 107 mmol/L (98-108); Estimated CRCL calculation 102 ml/min; Estimated Glomerular Filt Rate > 60; Ethanol 4 mg/dL (0-6); Glucose 119 mg/dL (70-99); Magnesium 2.1 mg/dL (1.8-2.4); Osmolality Calculated 300 mOsm/kg (285-295); Potassium 3.8 mmol/L (3.5-5.1); Sodium 143 mmol/L (136-145); Total Protein 7.4 g/dL (6.4-8.2)
[2022-03-30 23:01] LABS: CRP < 0.5 mg/dL (0.0-0.9)
[2022-03-30] MEDS: levETIRAcetam 1000MG/NACL100ML 1,000 MG/100 ML BAG 400 MG IVPB (23:32)
== END 2022-03-31 00:04 | disposition home or self-care (01) ==
PROVIDERS: Emergency Provider Emergency Medicine
DX: R56.9 Unspecified convulsions (principal)
CPT/HCPCS: 36415; 80053; 80307; 81001; 83735; 85025; 86140; 93005; 96374; 99284; J1953

== ENCOUNTER 2022-04-16 09:44 | Outpatient (CLI) | payer OTHER, SELFPAY ==
--- NOTE | ~2022-04-16 | XR_ITS ---
Clinical Indication: Sternum pain PA and lateral views of the chest: Comparison: 10/09/2021 Findings: The lungs are clear, without evidence of focal consolidation or pleural effusion. Cardiome diastinal silhouette is within normal limits. Bones and soft tissues are unremarkable. Impression: Normal chest. Reviewed, dictated and finalized at [facility]. OPERATOR Impression: Normal chest.
== END 2022-04-16 09:45 | disposition home or self-care (01) ==
LOC: CHSIMG 09:46
PROVIDERS: PCP Family Medicine; Visit Provider Registered Nurse
DX: R07.89 Other chest pain (principal)
CPT/HCPCS: 71046

== ENCOUNTER 2022-04-23 08:58 | Outpatient (RCR) | payer OTHER, SELFPAY ==
--- NOTE | 2022-04-23 10:02 | PTOPEVAL1 ---
Assessment and note entered by JT File, PT Evaluation Information Assessment Status Evaluation Diagnosis sternum pain Onset 02/24/22 Subjective Information patient reports he has pain in his sternum. he reports he has increased pain when laying and sitting up. he reports he will feel a popping and sharp pain. he reports he was hit in the chest with a torque wrench back when he was working. he reports he has had xrays of the chest/sternum. he reports taking deep breaths and coughing will increase her pain. he reports he has not been given any meds. he reports no neck of back pain. no NTB in the arms. Reported Pain Level Pain Score 6: Self Report Assessment PT Clinical Summary mr. mares presents to skilled PT services for evaluation and treatment of sternal pain. he presents this date with signs and symptoms of radicular pain from his middle thoracic spine. he would do well to attend and participate in skilled PT to improve his objective/functional deficits and return to prior level functional activity performance/quality of life. Plan of Care Interventions Electrical Stimulation,Hot Pack/Cold Pack,Manual Therapy,Neuro Re-education,Therapeutic Activities, Therapeutic Exercise PT Services Indicated Yes Treatment Frequency and 2x weekly for 8 visits Duration These treatments will address the objective and functional deficits as defined above. The patient will be advanced safely and appropriately in order for the patient to progress towards his/her prior level of function. Additional exercises will be introduced and as well as a comprehensive home exercise program upon discharge, if needed, ?to ensure carryover of functional gains achieved in the clinic. This treatment plan has been reviewed and agreement upon by the patient.
== END 2022-05-22 23:59 | disposition home or self-care (01) ==
LOC: CHSPT 08:58
PROVIDERS: PCP Family Medicine; Visit Provider Family Medicine
DX: R07.89 Other chest pain (principal)
CPT/HCPCS: 97014; 97110; 97140; 97161; G0283

== ENCOUNTER 2023-01-20 16:24 | Emergency (ER) | payer OTHER, SELFPAY ==
--- NOTE | ~2023-01-20 | CT_ITS ---
EXAMINATION: CT brain wo con INDICATION: Seizure COMPARISON: 10/09/2021 TECHNIQUE: Standard unenhanced head CT. The dose-length product (DLP) was 756.67 mGy-cm. The mA was a djusted according to patient size. Iterative reconstruction technique was employed. FINDINGS: No intracranial hemorrhage, acute infarction, or abnormal mass lesion. The ventricles are n ormal. No abnormal mass effect or midline shift. The lozada-white matter differentiation is normal. The basal cisterns are patent. The orbits are normal. The paranasal sinuses, mastoids and calvarium are normal. IMPRESSION: 1. No acute intracranial abnormality. Reviewed, dictated and finalized at location F.
[2023-01-20 16:24] VITALS: BP 180/100; PULSE 69; RESP 18; TEMP 35.8; O2SAT 96
--- NOTE | 2023-01-20 16:41 | ED.SEIZURE ---
HPI - Seizure General Chief Complaint: Seizure Stated Complaint: seizure Time Seen by Provider: 01/20/23 16:29 Source: patient Mode of arrival: ambulatory Limitations: no limitations History of Present Illness HPI Narrative: 32-year-old male, legally blind, with hypertension, recurrent seizures since age 19 on Keppra, ADHD was brought in by EMS after it was alerted by an alarm company. The patient has a wrist alarm which was alerted by his service dog. His father went in and noted his son to be seizing/ clonic activity on fall 4 extremities lasting about 3 minutes. Postictal phase lasted 3 minutes. The patient had a seizure 3 weeks ago. no tongue bite. No urinary incontinence. The patient complains of -- Dizziness -- noted to be confused by his father. MD complaint: seizure Onset (ago): minute(s) ( Seizure lasted 3 minutes.) Description of Episode: tonic-clonic movement Duration of episode: 3 -: minutes(s) Witnessed: Yes - by Other ( By his father) Trauma: No Seizure History: Yes Place: home Associated symptoms: confusion Treatments prior to arrival: none Are you currently using a commercial credit specialist's license (CDL) as part of your employment, either self-employed or otherwise?: No Related Data Home Medications Medication Instructions Recorded Confirmed amlodipine 10 mg tablet 1 tablet PO DAILY 10/06/21 01/20/23 lisinopril 10 mg tablet 10 mg PO DAILY 03/30/22 01/20/23 Allergies Allergy/AdvReac Type Severity Reaction Status Date / Time coconut Allergy Severe Anaphylactic Verified 01/20/23 17:21 Shock tuna oil Allergy Severe Anaphylactic Verified 01/20/23 17:21 Shock cranberry Allergy Unknown Itching,swe Verified 01/20/23 17:21 lling latex Allergy Rash Verified 01/20/23 17:21 INK Allergy Unknown swelling Uncoded 10/23/21 09:34 and itching MARKERS Allergy Unknown swelling, Uncoded 10/23/21 09:34 itching PRUNE JUICE Allergy Unknown stomach Uncoded 10/23/21 09:34 pain, diarrhea,swelling,itching TUNA Allergy Unknown Anaphylactic Uncoded 10/23/21 09:34 Shock Review of Systems Review of Systems: All systems reviewed & are unremarkable except as noted in HPI and below Constitutional: Constitutional: Reports as per HPI and Reports no additional constitutional complaints Eyes: Eyes: Reports as per HPI Comments: legally blind ENT: Reports system reviewed and no additional complaints, except as documented Cardiovascular: Cardiovascular: Reports as per HPI and Reports no additional cardiovascular complaints Respiratory: Respiratory: Reports as per HPI and Reports no additional respiratory complaints Gastrointestinal: Gastrointestinal: Reports as per HPI and Reports no additional gastrointestinal complaints Genitourinary: Genitourinary: Reports no additional male genitourinary complaints and Reports as per HPI Musculoskeletal: Musculoskeletal: Reports no additional musculoskeletal complaints and Reports as per HPI Integumentary/Breasts: Skin/Breast: Reports system reviewed and no additional complaints, except as docu and Reports as per HPI Neurologic: Reports system reviewed and no additional complaints, except as documented and Reports as per HPI Comments: denies any headache, motor or sensory deficits Psychiatric: Psychiatric: Reports no additional psychiatric complaints and Reports as per HPI Endocrine: Endocrine: Reports no additional endocrine complaints and Reports as per HPI Hematologic/Lymphatic: Hematologic/Lymphatic: Reports no additional hematologic/lymphatic complaints and Reports as per HPI Allergic/Immunologic: Allergic/Immunologic: Reports no additional allergic/immunologic complaints and Reports as per HPI [facility] Past Medical History Medical History Asthma Depression GERD (gastroesophageal reflux disease) Hand fracture, right Herniated disc History of bipolar disorder Hx of seizu
[2023-01-20 16:47] LABS: Basophils Absolute Auto 0.05 K/mm3 (0.00-0.10); Basophils Percent Auto 0.8 % (0.0-1.0); Eosinophils Percent Auto 1.6 % (1.0-6.0); Hematocrit 45.5 % (40.0-54.0); Hemoglobin 15.3 g/dL (14.0-18.0); Immature Granulocyte Absolute 0.02 K/mm3 (0.00-0.00); Immature Granulocyte Percent A 0.3 % (0.0-0.0); Lymphocytes Absolute Auto 1.23 K/mm3 (1.10-4.50); Mean Corpuscular HGB Conc 33.6 g/dL (32.0-36.0); Mean Corpuscular Hemoglobin 27.6 pg (27.0-31.0); Mean Corpuscular Volume 82.1 fL (78.0-102.0); Mean Platelet Volume 10.4 fl (8.7-11.0); Monocytes Absolute Auto 0.47 K/mm3 (0.10-0.90); Monocytes Percent Auto 7.7 % (2.0-11.0); Neutrophils Absolute Auto 4.3 K/mm3 (1.7-7.2); Neutrophils Percent Auto 69.6 % (50.0-70.0); Platelet Count Result 266 K/mm3 (150-420); Red Blood Count 5.54 M/mm3 (4.70-6.10); Red Cell Distribution Width 12.5 % (11.6-14.4); White Blood Count 6.1 K/mm3 (4.8-10.8)
[2023-01-20 16:58] VITALS: BP 147/101; O2SAT 97
[2023-01-20 17:04] LABS: Alanine Aminotransferase 35 U/L (16-63); Alkaline Phosphatase 142 U/L (46-116); Anion Gap 12 mmol/L (8-16); Aspartate Amino Transferase 13 U/L (15-37); Bilirubin,Total 0.4 mg/dL (0.00-1.00); Blood Urea Nitrogen 17 mg/dL (7-18); Calcium 9.3 mg/dL (8.5-10.1); Carbon Dioxide 24 mmol/L (21-32); Chloride 106 mmol/L (98-108); Creatine Kinase 71 U/L (39-308); Estimated CRCL calculation 67 ml/min; Estimated Glomerular Filt Rate 48; Glucose 99 mg/dL (70-99); Magnesium 2.3 mg/dL (1.8-2.4); Osmolality Calculated 295 mOsm/kg (285-295); Potassium 4.1 mmol/L (3.5-5.1); Sodium 142 mmol/L (136-145); Total Protein 7.1 g/dL (6.4-8.2)
[2023-01-20 17:11] LABS: Lactic Acid Reflex 1.2 mmol/L (0.4-2.0)
[2023-01-20 17:18] LABS: Amphetamine Screen Urine Negative (Negative); Barbiturate Screen Urine Negative (Negative); Benzodiazepines Screen Urine Negative (Negative); Cannabinoid Screen Urine Negative (Negative); Cocaine Screen Urine Negative (Negative); Methadone Screen Urine Negative (Negative); Phencyclidine Screen Urine Negative (Negative)
[2023-01-20 17:20] LABS: Opiate Screen Urine Negative (Negative)
[2023-01-20 17:31] VITALS: BP 158/93; PULSE 90; RESP 16; TEMP 36.7; O2SAT 96
[2023-01-20] MEDS: LACTATED RINGERS 1,000 ML 999 ML IV CONT (17:39)
--- NOTE | 2023-01-20 18:12 | PC.NURSE ---
PT IS SITTING UP ON STRETCHER WITH SERVICE DOG AT SIDE. FATHER IN EXAM ROOM AT THIS TIME. NAD NOTED. IVF INFUSING ORDERED WITHOUT DIFFICULTY. PT DENIES ANY NEEDS OR COMPLAINTS. WILL CONTINUE TO MONITOR.
[2023-01-20 18:21] VITALS: BP 138/97; PULSE 65; RESP 18; O2SAT 99
[2023-01-23 08:29] LABS: Levetiracetam Keppra <2.0 mcg/mL (6.0-46.0)
== END 2023-01-20 18:35 | disposition home or self-care (01) ==
PROVIDERS: Emergency Provider Internal Medicine Critical Care Medicine; PCP Family Medicine
DX: G40.409 Other generalized epilepsy and epileptic syndromes, not intractable, without status epilepticus (principal); N28.9 Disorder of kidney and ureter, unspecified; I10 Essential (primary) hypertension; E11.9 Type 2 diabetes mellitus without complications; Z79.899 Other long term (current) drug therapy; Z86.73 Personal history of transient ischemic attack (TIA), and cerebral infarction without residual deficits; Z87.891 Personal history of nicotine dependence
CPT/HCPCS: 36415; 70450; 80053; 80177; 80307; 82550; 83605; 83735; 85025; 96360; 99284; J7120

== ENCOUNTER 2024-08-05 22:51 | Emergency (ER) | payer OTHER, SELFPAY ==
--- NOTE | ~2024-08-05 | XR_ITS ---
XR abdomen obstructive series Ordering provider: Julián Verdugo MD History: . nausea vomiting diarrhea 2 HRS AFTER EATING PIZZA. . Comparison: None. FINDINGS: BOWEL: Nonobstructive bowel gas pattern. ORGANOMEGALY: None. SIGNIFICANT PATHOLOGIC CALCIFICATIONS: Tiny stones seen in the right kidney lower pole. Tiny stone se en in the left kidney lower pole. OTHER: No free air is seen under the diaphragm. IMPRESSION: NO ACUTE ABDOMINAL FINDINGS. Bilateral renal tiny stones. Reviewed, dictated and finalized at location A.
--- OUTSIDE RECORDS SUMMARY | 2024-08-05 22:53 | XMS_ITS | Clinical Summary ---
Author Organization [facility] Address [address] [place] [address] Care Team Providers Care Auto Transmission Mechanic Name Role Phone Kenya Herzog RN Unavailable [phone] Lucio Queen MD Primary Care Provider [phone] Source Comments [facility],non-owned Affiliates and Associated Physician Practices is amultiple site organization consisting of ambulatory clinics and hospital sitesin [place], [place], [place] and [place]. This disclosure is being madepursuant to the Care Everywhere program and may not contain all information available regarding this patient. Last updated 18.[facility] Allergies Active Allergy Reactions Criticality Noted Date Comments Coconut Oil Swelling High 08/27/2014 Cranberry Itching 08/21/2021 Latex Rash Medium 04/25/2020 Prune 12/12/2015 Tuna Flavor Swelling High 08/27/2014 Medications * This document contains information received from the source organization and may not represent a complete record from that organization. * Be aware that medications may not be up to date on this document. Alwaysverify current medications with the patient. aspirin (ASPIRIN) 325 MG tabletIndication s:WA prophylaxis Take 325 mg by mouth once daily. Active albuterol HFA (PROVENTIL;JENY DAISY;PROAIR) 108 (90 BASE) MCG/ACT inhalerIndicatio ns:Chronic Obstructive Pulmonary Disease Inhale 2 Puffs by mouth every 6 hours as needed Active amLODIPine (NORVASC) 5 MG tabletIndication s:Hypertension Take 1 (one) tablet by mouth once daily 30 tablet 2 Active Additional Information Patient not taking.Reported on 03/30/2022 traZODone (Desyrel) 50 MG tablet Take 1 (one) tablet by mouth nightly as needed 2 Active ARIPiprazole (Abilify) 15 MG tablet Take 1 (one) tablet by mouth at bedtime 2 Active amLODIPine (Norvasc) 10 MG tablet Take 1 (one) tablet by mouth once daily 2 Active DULoxetine (Cymbalta) 30 MG capsule Take 1 (one) capsule by mouth once daily 2 Active lisinopril (Prinivil; Zestril) 10 MG tablet 2 Active meclizine (Antivert) 25 MG tablet 2 Active naltrexone (Revia) 50 MG tablet TAKE 1/2 (ONE-HALF) TABLET BY MOUTH ONCE DAILY 2 Active Active Problems Problem Noted Date Diagnosed Date Psychogenic nonepileptic seizure 01/05/2022 Chest pain 12/10/2021 Dyspnea 12/10/2021 Hypertension 12/10/2021 Bipolar affective disorder, mixed, severe, with psychotic behavior 08/27/2021 Hypokalemia 08/22/2021 Acute respiratory failure 08/21/2021 H/O medication noncompliance 08/21/2021 DM (diabetes mellitus) 08/21/2021 Bipolar 1 disorder 08/21/2021 Status epilepticus 08/19/2021 Family history of early CAD 12/26/2020 Dermatitis 08/29/2019 Postural dizziness with presyncope 07/24/2019 Closed anterior dislocation of right elbow 06/28 BMI 31.0-31.9,adult 11/04/2018 Insomnia 05/06/2016 Sleep disorder 11/29/2015 Tobacco dependency 05/16/2015 Major depression 02/15/2015 Arteriosclerotic coronary artery disease 015 PTSD (post-traumatic stress disorder) 01/02/2015 Resolved Problems Problem Noted Date Diagnosed Date Resolved Date Seizure 08/19/2021 01/05/2022 Immunizations Immunization Administration Dates Next Due DTP, HISTORIC VACCINE 09/02/1994, 991,03/24/1990,1989,1989 HEP B VACCINE 01/19/2001,2000,07/19/2000 HEP B VACCINE, PED/ADOL 01/19/2001,2000, HIB VACCINE 01/24/1991,10/06/1990 HIB-HAEMOPHILUS INFLUENZAE B CONJUGATE VACCINE 01/24/1991,10/06/1990 INFLUENZA VACCINE 02/02/2019,02/02/2018,02/04/20 16 INFLUENZA VACCINE, QUADR. (F LUZONE; FLULAVAL; FLUARIX; AFLURIA QUADRIVALENT; 6MO+), 0.5 ML (IIV4) 02/12/2021 INFLUENZA VACCINE, TRIV. (FL UZONE; FLULAVAL; FLUARIX; AFLURIA TRIVALENT; 6MO+), 0.5 ML (IIV3) 02/04/2016 POLIO OPV 09/02/1994, 1,01/19/1990,1989 TDAP, HISTORIC VACCINE 12/30/2014 Social History Tobacco Use Types Packs/Day Years Used Date Smoking Tobacco: Former Cigarettes 2 20 0 08/24/1999 - 08/24/2019 Smokeless Tobacco: Never Tobacco Cessation:Counseling Given: Yes Alcohol Use Standard Drinks/Week Comments Not Currently 0 (1 standard drink = 0.6 oz pur e alcohol) Sober x 5 years AUDIT-C Answer Date Recorded Q1: How often do you have a drink containing alcohol? Never 12/31/2021 Q2: How many drinks containi ng alcohol do you have on a typical day when you are drinking? Patient does not drink Q3: How often do you have si x or more drinks on one occasion? Never 12/31/2021 PHQ-2 Answer Date Recorded PHQ2 TOTAL SCORE 4 05/22/2022 Hunger Vital Sign Answer Date Recorded Within the past 12 months, y ou worried that your food would run out before you got the money to buy more. Never true 08/26/19 22 Within the past 12 months, t he food you bought just didn't last and you didn't have money to get more. Never true 08/25/2021 Sex and Gender Information Value Date Recorded Sex Assigned at Not on file Legal Sex Male 2:00 PM PERSONAL FINANCE INSTRUCTOR Gender Identity Not on file Sexual Orientation Not on file Last Filed Vital Signs Vital Sign Reading Time Taken Comments Blood Pressure 138/92 03/30/2022 12:52 PM PERSONAL FINANCE INSTRUCTOR Pulse 78 03/30/2022 12:52 PM PERSONAL FINANCE INSTRUCTOR Temperature 36.3 C (97.3 F) 03/30/2022 12:52 PM PERSONAL FINANCE INSTRUCTOR Respiratory Rate 18 01/05/2022 12:09 AM CDT Oxygen Saturation 93% 03/30/2022 12:52 PM PERSONAL FINANCE INSTRUCTOR Inhaled Oxygen Concentration 30% 08/22/2021 3 :22 PM CDT Weight 119.7 kg (264 lb) 03/30/2022 12:52 PM PERSONAL FINANCE INSTRUCTOR Height 175.3 cm (5' 9 ) 03/30/2022 12:52 PM PERSONAL FINANCE INSTRUCTOR Body Mass Index 38.99 03/30/2022 12:52 PM PERSONAL FINANCE INSTRUCTOR Plan of Treatment Health Maintenance Due Date Last Done Comments HIV SCREENING 2004 HEPATITIS C SCREENING 09/09/2007 PNEUMOCOCCAL VACCINE (1 of 2 - PCV) 2008 DIABETES RETINOPATHY SCREENING 08/21/2021 DIABETES-FOOT EXAM WITH MONOFILAMENT 08/21/2021 DIABETES-HGB A1C 02/21/2022 08/22/2021, 08/27/2014 DIABETES-SERUM CREATININE 12/31/20222021, 12/11/2021, 12/10/2021, Additional history exists COVID-19 VACCINE ( season) 2023 DIABETES - URINE PROTEIN SCREENING 04/26/2024 INFLUENZA VACCINE (Season Ended) 2024 02/12/2021, 02/02/2019, 02/02/2018, Additional history exists DTAP/TDAP/TD VACCINES (7 - Td or Tdap) 12/30/2024 12/30/2014, 09/02/1994, 01/24/1991, Additional history exists ZOSTER VACCINE (1 of 2) 09/14/2039 HIB VACCINE Completed 01/24/1991, 04/1990, 10/06/1990, Additional history exists HEPATITIS B VACCINE Completed 01/19/2001, 01/19/2001, 2000, Additional history exists HPV VACCINE Aged Out No longer eligi ble based on patient's age to complete this topic MENINGOCOCCAL (Group B) VACCINE SHARED DECISION-MAKING Aged Out No longer eligible based on patient's age to complete this topic MENINGOCOCCAL GROUPS A/C/Y/W VACCINE Aged Out No longer eligible based on patient's age to complete this topic Procedures Procedure Name Priority Date/Time Associated Diagnosis Comments COMPREHENSIVE METABOLIC PANEL Routine 12/31/2021 3:27 PM CDT HEMOGLOBIN A1C Routine 08/22/2021 3:36 AM CDT from Last 3 Months or Most Recently Relevant to Health Maintenance Results * (ABNORMAL) COMPREHENSIVE METABOLIC PANEL (12/31/2021 3:27 PM CDT) BUN 21 7 - 26 mg/dL 12/31/2021 4:06 PM [facility] Creatinine 1.08 0.71 - 1.16 mg/dL 12/31/2021 4:06 PM [facility] Sodium 141 136 - 145 mmol/L 12/31/2021 4:06 PM [facility] Potassium 4.2 3.5 - 4.5 mmol/L 12/31/2021 4:06 PM [facility] Chloride 106 98 - 107 mmol/L 12/31/2021 4:06 PM [facility] CO2 21(L) 22 - 29 mmol/L 12/31/2021 4:06 PM [facility] Glucose 84 70 - 115 mg/dL 12/31/2021 4:06 PM [facility] Calcium 9.3 8.4 - 10.2 mg/dL 12/31/2021 4:06 PM [facility] Protein Total 6.8 6.0 - 8.3 g/dL 12/31/2021 4:06 PM [facility] Albumin 4.2 3.4 - 5.0 g/dL 12/31/2021 4:06 PM [facility] Bilirubin Total 0.4 0.2 - 1.2 mg/dL 12/31/2021 4:06 PM [facility] Alkaline Phosphatase 138 40 - 150 U/L 12/31/2021 4:06 PM [facility] ALT 28 5 - 55 U/L 12/31/2021 4:06 PM [facility] AST 16 5 - 34 U/L 12/31/2021 4:06 PM [facility] Anion Gap 18 8 - 18 12/31/2021 4:06 PM [facility] BUN/Creatinine Ratio 19 7 - 23 12/31/2021 4:06 PM [facility] Osmolality Calculated 294 270 - 300 mOsm/kg 12/31/2021 4:06 PM [facility] Albumin/Globulin Ratio 1.6 1.1 - 2.3 12/31/2021 4:06 PM [facility] eGFR by CKD-EPI >90 >=90 mL/min/1.7 3 m2 12/31/2021 4:06 PM [facility] Blood BLOOD SPECIMEN / Unknown Lab Venipuncture / Unknown 12/31/2021 3:27 PM CDT 12/31/2021 3:38 PM CDT Lynn Valdez SOFTWARE ARCHITECT-SUPERVISOR [facility] - CHEMISTRY ORDERA BLES Final Result Performing Organization Address City/State/[facility] Co de Phone Number [facility] [address] [place] [address], [facility] [phone] * HEMOGLOBIN A1C (08/22/2021 3:36 AM CDT) Hemoglobin A1c 4.9 4.2 - 5.6 % 08/22/2021 4:40 AM CDT [facility] Estimated Average Glucose 94 mg/dL 08/22/2021 4:40 AM CDT [facility] Blood BLOOD SPECIMEN / Unknown Venipuncture / Unknown 08/22/2021 3:36 AM CDT 08/22/2021 3:58 AM CDT Narrative [facility] - 08/22/2021 4:40 AM CDT The following cutoff levels are recommended by [place] [employer]. A1c > 6.5% : considered as diabetes if two separate tests >6.5% or in an appropriate clinical setting. A1c 5.7% - 6.4% : considered as prediabetes (suggest increased risk for diabetes and cardiovascular disease) Control target level: Should be individualized. < 7 for general (non-) , < 8% less stringent goal, < 6.5 more stringent goal. Hemoglobin A1c measurements are used as an aid in the diagnosis of diabetic mellitus, as an aid to identify patients who may be at the risk for developing diabetic mellitus, and for the monitoring long-term blood glucose control in individuals with diabetes mellitus. This test should not replace glucose testing for patients with Type 1 diabetes, pediatric patients, or women. Falsely low HbA1c results may be observed in patients with clinical conditions that shorten erythrocyte life span or decrease mean erythrocyte age such as the presence of unstable hemoglobin variants, elevated hemoglobin F level or other causes of hemolytic anemia . HbA1c may not accurately reflect glycemic control when clinical conditions that affect erythrocyte survival are present. Severe Iron deficiency anemia may yield falsely high results. Hemoglobin A1c assay should not be used to diagnose or monitor diabetes in patients with malignancy, recent blood transfusion, chronic kidney or liver disease. This method may yield falsely low results when hemoglobin (HbF) exceeds 5% in the specimen. Aquiles Sorensen MD LAB - CHEMISTRY ORDERABLES Final Result [facility] [address] [place] [id number] from Last 3 Months or Most Recently Relevant to Health Maintenance Additional Health Concerns Infection Onset Date Last Indicated MRSA Hx Comment:Added from external infection. 12/02/2016 Insurance [employer] [facility] [place] [address] Advance Directives * DNR - IF PULSELESS NO CPR, NO SHOCK (Latest Code Status on File) Date Activated Date Inactivated Comments 12/31/2021 2:40 PM 01/05/2022 12:51 PM Question Answer Comments : DO NOT discontinue a ny active orders without asking attending physician. * Full Code Date Activated Date Inactivated Comments 12/10/2021 4:07 PM 12/11/2021 2:54 PM * Full Code Date Activated Date Inactivated Comments 09/01/2021 4:39 AM 09/01/2021 1:04 PM * Full Code Date Activated Date Inactivated Comments 08/29/2021 8:32 PM 08/31/2021 4:16 PM * Full Code Date Activated Date Inactivated Comments 08/21/2021 6:31 PM 08/29/2021 7:27 PM Care Teams Auto Transmission Mechanic Relationship Specialty Start Date End Date Lucio Queen MD [address] [place] [phone] PCP - General Family Medicine 08/27/21 Kenya Herzog, RN Pharmacy Teacher 08/27/14
[2024-08-05 23:00] VITALS: BP 167/110; PULSE 80; RESP 20; TEMP 36.6; O2SAT 97
--- NOTE | 2024-08-05 23:20 | ED_ITS ---
HPI - General Adult General Chief complaint: Nausea/Vomiting/Diarrhea Stated complaint: sudden vomiting and diarrhea Time Seen by Provider: 08/05/24 23:19 Source: patient Mode of arrival: EMS Limitations: no limitations History of Present Illness HPI narrative: 33-year-old white male brought in by EMS when he said he started having nausea vomiting and diarrhea while in the shower. He had eaten pizza that tasted funny 2 hours before. EMS stated his blood pressure was 175/103 repeat was 157/75 blood glucose was 69 pulse 96 O2 sat on room air was 98 respirations were 16 he is given 4 Zofran IV. He was clammy when they got there. Patient has a history of blindness and hypertension seizures. He was complaining of middle of his stomach pain 10 out 10 and butt pain like he had to have continued diarrhea. But he had hard firm solid stool shortly after being placed in the room. When patient started to have the nausea vomiting diarrhea just before he came to the emergency department he called his Alert button who then called his father who was in the other room. And then he called the ambulance. Denies any cough fever sore throat runny nose shortness of breath blood in his stool problems walking talking or hearing. Patient is legally blind. Denies any problems eating or drinking voiding. He vomited up the pizza that he had eaten earlier. Patient denies any other complaints. Patient history also was taken from his father. Related Data Home Medications ?Medication ?Instructions ?Recorded ?Confirmed ?Last Taken ?Type amlodipine 10 mg tablet 1 tablet PO DAILY 10/06/21 01/20/23 10/22/21 08:00 History lisinopril 10 mg tablet 10 mg PO DAILY 03/30/22 01/20/23 Unknown History fluoxetine 20 mg capsule 40 mg PO DAILY 08/05/24 Unknown History Allergies Allergy/AdvReac Type Severity Reaction Status Date / Time coconut Allergy Severe Anaphylactic Verified 01/20/23 17:21 Shock tuna oil Allergy Severe Anaphylactic Verified 01/20/23 17:21 Shock cranberry Allergy Unknown Itching,swe Verified 01/20/23 17:21 lling latex Allergy Rash Verified 01/20/23 17:21 INK Allergy Unknown swelling Uncoded 10/23/21 09:34 and itching MARKERS Allergy Unknown swelling, Uncoded 10/23/21 09:34 itching PRUNE JUICE Allergy Unknown stomach Uncoded 10/23/21 09:34 pain, diarrhea,swelling,itching TUNA Allergy Unknown Anaphylactic Uncoded 10/23/21 09:34 Shock Review of Systems 2 Review of Systems: All systems reviewed & are unremarkable except as noted in HPI and below PMFSH Past Medical History Medical History Hx of transient ischemic attack (TIA) Hx of seizure disorder Schizophrenia PTSD (post-traumatic stress disorder) History of bipolar disorder Type II diabetes mellitus Herniated disc Hand fracture, right Neck fracture Kidney stone GERD (gastroesophageal reflux disease) Asthma Depression Pseudoseizure Surgical History Surgical History Hx of cardiac cath Family History Family History Father History of blood clots Diabetes mellitus Hypertension Acute myocardial infarction Mother History of blood clots Diabetes mellitus Hypertension Sibling Hypertension Social History Social History Social History: The patient stated that he did quit smoking but started back up again and probably smokes about 3 packs of cigarettes a day. The patient is engaged she has been 2 prior times. He has 1 daughter. He stated that his fiancee is his durable power corporate associate attorney for healthcare. The patient is a full code. The patient stated that he is a recovering alcoholic and has not had any alcohol in a long time. He denies any marijuana or illicit drugs. 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 Smoking packs per day: 2 Smoking cigarettes per day: 40.0 Years smoked: 20 Smoking pack-years: 40.00 Smoking status: Former smoker Tobacco type: cigarettes Second hand tobacco smoke exposure: Yes Additional smoking assessment comments: smokes off and on Alcohol intake: former Alcohol use details: Denied current alcohol abuse Substance use: former Substance use type: does not use Other substance usage details: Denied current substance abuse Last use: 2014 Gender identity (if verbalized by the patient): Male Spiritual care concerns: No Agree to blood products: Yes Exam 2 Narrative: White male patient with Moderate distress until he had formed hard stool and then he felt much better and looked relieved and looked like he was in no apparent distress..? Patient is blind. Head normocephalic, atraumatic.? Eyes conjunctiva pink sclera nonicteric.? Extraocular movements are intact.? Ears externally normal.? Oropharynx is clear with moist mucous membranes without exudates.? Neck is supple nontender no lymphadenopathy.? Back is nontender.? Lungs are clear.? Heart is regular rate and rhythm without murmurs gallops or rubs.? Chest wall nontender. Abdomen is soft and Mild epigastric tenderness with no hepatosplenomegaly or masses no CVA tenderness no abdominal bruits.? Extremities no cyanosis clubbing or edema.? Skin is warm and dry without rashes or lesions.? Neurological patient is alert and oriented x 4. Motor and sensory grossly intact.? Gait is normal. Course Vital Signs Vital signs: Vital Signs Temperature 36.6 C 08/05/24 23:00 Pulse Rate 80 08/05/24 23:00 Respiratory Rate 20 08/05/24 23:00 Blood Pressure 167/110 H 08/05/24 23:00 Pulse Oximetry 97 08/05/24 23:00 Oxygen Delivery Room Air 08/05/24 23:00 Temperature 36.6 C 08/05/24 23:00 Pulse Rate 79 08/05/24 23:52 Respiratory Rate 18 08/05/24 23:52 Blood Pressure 160/98 H 08/05/24 23:52 Pulse Oximetry 95 08/05/24 23:52 Oxygen Delivery Room Air 08/05/24 23:52 Medical Decision Making MDM Narrative Medical decision making narrative: ?Patient placed in room: Room 1 with his father ? History and physical was performed. CBC was unremarkable. lipase and Occult blood of his stool was negative CMP: normal except alk-phos of 135. His last alk-phos was 145 so it is actually better now. X-ray obstructive series: Non obstructive series, no active disease . He does have a moderate amount of stool burden. Independent Historian: father External Source Review: Differential Dx includes but not limited to: bowel obstruction electrolyte imbalance GI bleed anemia Medications were Reviewed: home meds reviewed Medications given: Zofran given by EMS Independently Interpreted by me: labs independently interpreted by me as well as the x-ray obstructive series was interpreted by me. Shared decision Making: Evaluation was discussed all questions were asked and answered patient agreed with plan. Colace 100 mg twice a day [id number] follow up with primary care provider. Social Situation Impacting Patients Care: Patient is blind Patient is a 33-year-old white male who suddenly had nausea vomiting and diarrhea while in the shower just prior to admission he thought maybe it was related to some bad pizza today he had eaten about 6 hours prior. However when he came to the emergency room he had a fairly hard dry stool and that his symptoms all resolved while in the emergency department he has a nonobstructive bowel series his labs are unremarkable. Discharge blood pressure of 158/100 he is going to follow up with his primary care provider for his blood pressure and he will return if he gets worse or develops any new symptoms. DISCHARGE DIAGNOSIS: nausea vomiting diarrhea DISPOSITION : discharge home CONDITION AT DISCHARGE: stable Vital Signs Vital Signs: Vital Signs Temperature 36.6 C 08/05/24 23:00 Pulse Rate 80 08/05/24 23:00 Respiratory Rate 20 08/05/24 23:00 Blood Pressure 167/110 H 08/05/24 23:00 Pulse Oximetry 97 08/05/24 23:00 Oxygen Delivery Room Air 08/05/24 23:00 Temperature 36.6 C 08/05/24 23:00 Pulse Rate 79 08/05/24 23:52 Respiratory Rate 18 08/05/24 23:52 Blood Pressure 160/98 H 08/05/24 23:52 Pulse Oximetry 95 08/05/24 23:52 Oxygen Delivery Room Air 08/05/24 23:52 Lab Data 08/06/24 00:09 08/06/24 00:08 Labs: Lab Results 08/05/24 08/06/24 08/06/24 Range/Units 23:30 00:08 00:09 WBC 7.5 (4.8-10.8) K/mm3 RBC 5.39 (4.70-6.10) M/mm3 Hgb 13.1 L (14.0-18.0) g/dL Hct 41.4 (40.0-54.0) % MCV 76.8 L (78.0-102.0) fL MCH 24.3 L (27.0-31.0) pg MCHC 31.6 L (32-36) g/dL RDW 15.1 H (11.6-14.4) % Plt Count 267 (150-420) K/mm3 MPV 11.0 (8.7-11.0) fl Sodium 142 (136-145) mmol/L Potassium 4.1 (3.5-5.1) mmol/L Chloride 106 (98-108) mmol/L Carbon Dioxide 26 (21-32) mmol/L Anion Gap 10 (4-12) mmol/L BUN 17 (7-18) mg/dL Creatinine 1.25 (0.70-1.30) mg/dL Estim Creat Clear Calc 93 ml/min Estimated GFR > 60 (59 - ) Glucose 91 (70-99) mg/dL Calculated Osmolality 295 (285-295) mOsm/kg Calcium 8.9 (8.5-10.1) mg/dL Total Bilirubin 0.4 (0.00-1.00) mg/dL AST 17 (15-37) U/L ALT 41 (16-63) U/L Alkaline Phosphatase 135 H (46-116) U/L Total Protein 7.4 (6.4-8.2) g/dL Albumin 4.0 (3.4-5.0) g/dL Lipase 53 (16-77) U/L Stool Occult Blood Negative (Negative) Ethyl Alcohol < 3 (0-6) mg/dL Discharge Plan Discharge Clinical Impression: Nausea vomiting and diarrhea Patient Disposition: Home Condition: Stable Instructions: Acute Nausea and Vomiting (ED) Additional Instructions: Colace 100 mg twice a day [id number] the next couple weeks to see if that improved her bowel movements. Follow-up with your primary care provider this week return if you get worse or develops any new symptoms. Patient Language: Croatian Prescriptions: No Action amlodipine 10 mg tablet 1 tablet PO DAILY lisinopril 10 mg Tablet 10 mg PO DAILY fluoxetine 20 mg capsule 40 mg PO DAILY Follow-up/Referrals: Bernice,MD Lucio [Primary Care Provider] - Time of Disposition: 01:02
--- OUTSIDE RECORDS SUMMARY | 2024-08-05 23:27 | XMS_ITS | Encounter Summary ---
Author Organization [facility] Address [address] [place] [address] Care Team Providers Care Industrial Manufacturing Technician Name Role Phone Lanre Cunningham MD Unavailable Zahra Lucio Martin MD Primary Care Provider Telly Vergara PARTS CONSULTANT Unavailable [phone] Encounter Details Date Type Department Care Team (Late st Contact Info) Description 12/26/2020 [facility] [address] [place] [address] Telly Vergara, PARTS CONSULTANT [address] [place] [address] Social History Tobacco Use Types Packs/Day Years Used Date Smoking Tobacco: Every Day Cigarettes 1 20 Started: 08/25/1998; Last attempted to quit: 08/25/2018 Smokeless Tobacco: Never Alcohol Use Standard Drinks/Week Comments No 0 (1 standard drink = 0.6 oz pur e alcohol) Recovering alcholoic AUDIT-C Answer Date Recorded Frequency of Alcohol Consumption Never 08/10/2018 Average Number of Drinks Not on file 019 Frequency of Binge Drinking Not on file 07/25 PHQ-2 Answer Date Recorded PHQ-2 Score 0 06/29/2019 Education Answer Date Recorded What is the highest level of school you have completed or the highest degree you have received? High school graduate 08/10/2018 Sex and Gender Information Value Date Recorded Sex Assigned at Not on file Legal Sex Male 10:20 PM CDT Gender Identity Not on file Sexual Orientation Not on file COVID-19 Exposure Response Date Recorded In the last month, have you been in contact with someone who was confirmed or suspected to have Coronavirus / COVID-19? No / Unsure 12/26/2020 11:31 AM CDT documented as of this encounter Plan of Treatment Not on file documented as of this encounter Visit Diagnoses Not on filedocumented in this encounter Additional Health Concerns Infection Onset Date Last Indicated Resolved Time MRSA 12/02/2016 12/02/2016 Assessment Noted Time PHQ-9 Depression Total Score: 22 019 11:41 AM CDT documented as of this encounter Care Teams Industrial Manufacturing Technician Relationship Specialty Start Date End Date Lucio Queen MD [address] [place] [phone] PCP - General FAMILY PRACTICE 12/26/20 Lanre Cunningham MD [place] Wind Technician CARDIOVASCULAR DISEASE 05/31/17 Telly Vergara APRN [address] [place] [phone] Nurse Practitioner NURSE PRACTITIONER 12/26/20 documented as of this encounter
--- OUTSIDE RECORDS SUMMARY | 2024-08-05 23:27 | XMS_ITS | Clinical Summary ---
Author Organization [facility] Address [address] [place] [address] Care Team Providers Care Pocketed Spring Assembler Name Role Phone Lanre Cunningham MD Unavailable Zahra Lucio Martin MD Primary Care Provider Telly Vergara FINISH CLEANER Unavailable [phone] Allergies Active Allergy Reactions Criticality Noted Date Comments Coconut (Cocos Nucifera) Swelling High 08/27/2014 Latex Swelling 01/02/2015 Prune Unknown 12/12/2015 Tuna Flavoring Agent (Non-Screening) Swelling High 08/27/2014 Medications nitroglycerin (NITROSTAT) 0.4 MG SL tablet Nitrostat (nitroglycerin) tablet, sublingual 0.4 mg; take 1 tab subligual every 5 minutes x3 for chest pain if pain persists call 911; 25; 3; -Oct-2013; Active 4 Active famotidine 20 MG tablet Take 1 tablet (20 mg total) by mouth 2 (two) times daily. 60 tablet 9 Active ALBUTEROL SULFATE HFA 108 (90 Base) MCG/ACT inhalerIndicati ons:Tobacco dependency INHALE 2 PUFFS BY MOUTH FOUR TIMES DAILY NEEDED 25.5 g 9 Active meclizine 25 MG tablet TK 1 TO 2 TS PO TID PRF DIZZINESS 0 Active acetaminophen 325 MG tablet 0 Active nystatin creamIndication s:Dermatitis Apply topically 2 (two) times daily. 30 g 0 Active QUETIAPINE 100 MG tabletIndicatio ns:PTSD (post-traumatic stress disorder) TAKE 1 TABLET(100 MG) BY MOUTH EVERY NIGHT AT BEDTIME 30 tablet 0 Active divalproex EC 250 MG tablet Take 250 mg by mouth daily. Active sertraline 100 MG tablet Take 100 mg by mouth daily. Active Aspirin 81 MG Cap Take 81 mg by mouth daily. Active vitamin D2, ergocalciferol, (VITAMIN D, ERGOCALCIFEROL, ) 47359 UNITS capsule Take 50,000 Units by mouth weekly. Active buPROPion XL 150 MG 24 hr tablet Take 150 mg by mouth daily. Active traMADol 50 MG tablet Take 50 mg by mouth every 6 (six) hours as needed for Pain. Active naproxen 500 MG tablet Take 500 mg by mouth as needed. Active lidocaine 4 % patch Place 1 patch onto the skin daily. Remove & Discard patch within 12 hours or as directed by Active divalproex ER 500 MG 24 hr tablet Take 1 tablet (500 mg total) by mouth nightly. 30 tablet 1 Active amLODIPine 10 MG tablet Take 1 tablet (10 mg total) by mouth daily. 90 tablet 3 1 Active lacosamide 50 MG Tab Take by mouth 2 (two) times daily. Active LORazepam 1 MG tabletIndicatio ns:Seizure (CMS/HCC HHS/HCC) Take 1 tablet (1 mg total) by mouth every 6 (six) hours as needed (Seizure). 6 tablet 2 Active ibuprofen 600 MG tablet Take 1 tablet (600 mg total) by mouth every 8 (eight) hours as needed for Pain. 20 tablet 2 Active levETIRAcetam 1000 MG tablet Take 2,000 mg by mouth 2 (two) times daily. 2 Active ondansetron 4 MG tablet TAKE 1 TABLET BY MOUTH EVERY 8 HOURS NEEDED FOR NAUSEA AND FOR VOMITING 1 Active lidocaine 5 % 1 patch daily. 1 Active ASPIRIN LOW DOSE 81 MG tablet Take 81 mg by mouth every morning. 1 Active sildenafil 50 MG tablet Take 50 mg by mouth daily as needed for Erectile Dysfunction. 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 ([facility]) 06/06/2012 Chest pain Dyspnea Hypertension Resolved Problems Problem Noted Date Diagnosed Date Resolved Date Right ankle injury, sequela 09/28/2018 11/04/2018 Injury of right ankle, initial encounter 08/10/2018 06/29/2019 Rotator cuff tendinitis, left 07/27/2017 09/28/2018 Herniation of intervertebral disc 04/29/2015 09/28/2018 Immunizations Name Administration Dates Next Due Dtp 09/02/1994, 1,03/24/1990,01/19/1990,1989 Hepatitis B 01/19/2001,2000,07/19/2000 Hib 01/24/1991,10/06/1990 Influenza (Generic) 02/02/2018,02/04/2016 Influenza Adult (Generic) 02/02/2019,02/02/2018 MMR 09/02/1994,01/24/1991 Opv 09/02/1994,01/24/1991,01/19/1990 ,1989 Tdap (Adacel) 12/30/2014 Tdap (Generic) 12/30/2014 Family History Medical History Relation Comments Heart Father Hypertension Father Diabetes Mother Hypertension Mother Relation Status Comments Father Alive Mother Alive Social History Tobacco Use Types Packs/Day Years Used Date Smoking Tobacco: Former Cigarettes 1 20 0 08/25/1998 - 08/25/2018 Smokeless Tobacco: Never Tobacco Cessation:Ready to Q uit: No; Counseling Given: Yes Alcohol Use Standard Drinks/Week Comments No 0 [...] Sign Reading Time Taken Comments Blood Pressure 137/91 05/20/2021 6:00 PM CLOTHING AND TEXTILES TEACHER Pulse 76 05/20/2021 4:13 PM CLOTHING AND TEXTILES TEACHER Temperature 36.3 C (97.4 F) 05/20/2021 4:13 PM CLOTHING AND TEXTILES TEACHER Respiratory Rate 18 05/20/2021 4:13 PM CLOTHING AND TEXTILES TEACHER Oxygen Saturation 97% 05/20/2021 6:00 PM CLOTHING AND TEXTILES TEACHER Inhaled Oxygen Concentration - - Weight 108.9 kg (240 lb) 05/20/2021 4:13 PM CLOTHING AND TEXTILES TEACHER Height 172.7 cm (5' 8 ) 05/20/2021 4:13 PM CLOTHING AND TEXTILES TEACHER Body Mass Index 36.49 05/20/2021 4:13 PM CLOTHING AND TEXTILES TEACHER Plan of Treatment Health Maintenance Due Date Last Done Comments ASCVD Statin 1989 Annual Physical 1992 Pneumococcal Vaccine: Pediatrics (0 to 5 Years) and At-Risk Patients (6 to 64 Years) (1 of 2 - PCV) 09/14/1995 Hepatitis C 09/14/2007 ASCVD LDL 12/01/2016 12/02/2015 COVID-19 Vaccine ( - season) 2023 DTaP, Tdap and Td Vaccines (3 - Td or Tdap) 12/30/2024 12/30/2014, 12/30/2014, 09/02/1994, Additional history exists Hepatitis B Vaccines Completed 01/19/2001, 2000, 07/19/2000 HPV Vaccines Aged Out No longer eligi ble based on patient's age to complete this topic Meningococcal B Vaccine Aged Out No l onger eligible based on patient's age to complete this topic Meningococcal Vaccine Aged Out No nghia ron eligible based on patient's age to complete this topic RSV Immunizations Under 20 Months Aged Out No longer eligible based on patient's age to complete this topic Procedures Procedure Name Priority Date/Time Associated Diagnosis Comments LIPID W/CALC LDL Routine 12/02/2015 7:37 AM CDT from Last 3 Months or Most Recently Relevant to Health Maintenance Results * LIPID W/CALC LDL (12/02/2015 7:37 AM CDT) CHOLESTEROL 129 <200 MG/DL [facility] P TO EPIC CONVERSION TRIGLYCERIDES 31 <150 MG/DL [facility] OUP TO EPIC CONVERSION HDL 54 >45 MG/DL [facility] T O EPIC CONVERSION LDL (CALCULATED) 68.8 <130 MG/L [facility] TO EPIC CONVERSION CHOL/HDL RATIO 2.4 [facility] OUP TO EPIC CONVERSION Comment: Result Comment: INTERPRETATION OF RESULTS NHLBI RECOMMENDED RANGES CHOLESTEROL MG/DL LDL MG/DL DESIRABLE <200 <130 BORDERLINE 200-239 130-159 HIGH RISK >240 >160 REFERENCE VALUE FOR HDL CHOLESTEROL RISK LEVEL MALE MG/DL FEMALE MG/DL DECREASED >45 >55 AVERAGE 45 55 INCREASED <45 <55 12/02/2015 7:37 AM CDT 12/02/2015 7:37 AM CDT Narrative [facility] TO EPIC CONVERSION - 12/02/2015 8:32 AM CDT Result Communication: Call patient with results Álvaro Jon MD LABORATORY Final Re sult [facility] TO EPIC CONVERSION from Last 3 Months or Most Recently Relevant to Health Maintenance Additional Health Concerns Infection Onset Date Last Indicated MRSA 12/02/2016 12/02/2016 Insurance [employer] Care Teams Pocketed Spring Assembler Relationship Specialty Start Date End Date Lucio Queen MD [address] [place] [phone] PCP - General FAMILY PRACTICE 12/26/20 Lanre Cunningham MD [place] [facility] Teacher CARDIOVASCULAR DISEASE 05/31/17 Telly Vergara APRN [address] [place] [phone] Nurse Practitioner NURSE PRACTITIONER 12/26/20
--- OUTSIDE RECORDS SUMMARY | 2024-08-05 23:27 | XMS_ITS | Encounter Summary ---
Author Organization [facility] Address [address] [place] [address] Care Team Providers Care Gastroenterology Nurse Practitioner Name Role Phone Álvaro Wheat MD Primary Care Provider U Lanre Seo MD Unavailable Zahra Lucio Martin MD Primary Care Provider Telly Vergara APRN Unavailable [phone] Encounter Details Date Type Department Care Team (Late st Contact Info) Description 09/14/2018 EMBROIDERY WORKER ONLY [facility] Medical Group Priority Care - S. Anish [address] [place] [address] Scanned, Documents Social History Tobacco Use Types Packs/Day Years Used Date Smoking Tobacco: Former Cigarettes 2018 Smokeless Tobacco: Never Alcohol Use Standard Drinks/Week Comments No 0 (1 standard drink = 0.6 oz pur e alcohol) AUDIT-C Answer Date Recorded Frequency of Alcohol Consumption Never 08/10/2018 Average Number of Drinks Not on file 019 Frequency of Binge Drinking Not on file 07/25 Education Answer Date Recorded What is the highest level of school you have completed or the highest degree you have received? High school graduate 08/10/2018 Sex and Gender Information Value Date Recorded Sex Assigned at Not on file Legal Sex Male 10:20 PM CDT Gender Identity Not on file Sexual Orientation Not on file documented as of this encounter Progress Notes * Naomy Documents - 09/14/2018 12:00 AM CDT ZAK MENSAH III MD: ACCT: [id number] ADMIT/SERVICE DATE: 09/21/18 DISCHARGE DATE: : 1990 PT TYPE: REG RCR SEX: M ORD SITE: [facility] CHART DOCUMENT 09/14/2018 DR. ÁLVARO WHEAT RE: ZAK MENSAH III : [address] WHEAT: THIS PATIENT HAS ATTENDED THREE PHYSICAL THERAPY SESSIONS FROM 09/06 THROUGH 09/14/2018. THIS PATIENT DID NOT SHOW FOR HIS SCHEDULED APPOINTMENT ON 09/12/2018. HE PRESENTS TODAY WEARING A WALKING BOOT WITHOUT USE OF CRUTCHES. 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 FOR A SHORT TIME EARLIER THIS WEEK WHICH INCREASED HIS ANKLE DISCOMFORT. HIS BIG BOSS PUT HIM BACK ON SCANNING DUTY WHERE HE DOES NOT HAVE TO LIFT, WHICH HAS SUBSEQUENTLY HELPED REDUCE HIS ANKLE SORENESS. HE PRESENTS TODAY WITH ACTIVE RANGE OF MOTION 35 DEGREES INVERSION, 15 DEGREES EVERSION, 7 DEGREES DORSIFLEXION, AND 20 DEGREES PLANTAR FLEXION. THE PATIENT TOLERATED AMBULATION IN HIS WORK BOOT WITH THE USE OF TWO CRUTCHES X180 FEET TODAY FAIR. I FEEL THAT A LACE UP ANKLE SUPPORT WOULD BE BENEFICIAL, ASO OR COMPARABLE, TO HELP SUPPORT HIS ANKLE IN TRANSITION OUT OF HIS WALKING BOOT. I WOULD ADVISE THIS PATIENT TO CONTINUE TO WEAN OUT OF HIS WALKING BOOT WHEN AT HOME USING CRUTCHES BUT TO CONTINUE WEARING HIS BOOT WHEN OUTSIDE HIS HOME. THE PATIENT IS PROGRESSING WELL. PLEASE CONTACT [facility] DEPARTMENT OF OUTPATIENT PHYSICAL THERAPY WITH QUESTIONS OR CONCERNS REGARDING THE CARE OF THIS PATIENT. ELECTRONICALLY SIGNED BY ALEX SONG P.T. 09/22/2018 11:00 A MOHIT/DEVIKA 09/14/2018 09/15/2018 09:22 A JOB NO: [id number] DOC NO: [id number] CC: documented in this encounter Plan of Treatment Not on file documented as of this encounter Visit Diagnoses Not on filedocumented in this encounter Additional Health Concerns Infection Onset Date Last Indicated Resolved Time MRSA 12/02/2016 12/02/2016 documented as of this encounter Care Teams Gastroenterology Nurse Practitioner Relationship Specialty Start Date End Date Álvaro Wheat MD PCP - General 01/30/16 12/25/20 Lucio Queen MD [address] [place] [phone] PCP - General FAMILY PRACTICE 12/26/20 Lanre Cunningham MD [place] Punch Operator CARDIOVASCULAR DISEASE 05/31/17 Telly Vergara APRN [address] [place] [phone] Nurse Practitioner NURSE PRACTITIONER 12/26/20 documented as of this encounter
--- OUTSIDE RECORDS SUMMARY | 2024-08-05 23:27 | XMS_ITS | Encounter Summary ---
Author Organization [facility] Address [address] [place] [address] Care Team Providers Care Typist Name Role Phone Álvaro Wheat MD Primary Care Provider U Lanre Seo MD Unavailable Zahra Lucio Martin MD Primary Care Provider Telly Vergara APRN Unavailable [phone] Encounter Details Date Type Department Care Team (Late st Contact Info) Description 09/06/2018 INSTRUMENTATION TECHNICIAN ONLY [facility] Medical [facility] Priority Care - S. Anish [address] [place] [address] Scanned, Documents Social History Tobacco [...] as of this encounter Progress Notes * Zscanned, Documents - 09/06/2018 2:31 PM CDT ZAK MENSAH III MD: ACCT: [id number] ADMIT/SERVICE DATE: 09/08/18 DISCHARGE DATE: : 1990 PT TYPE: REG RCR SEX: M ORD SITE: [facility] CHART DOCUMENT PHYSICIAN CERTIFICATION AND PLAN OF CARE PHYSICAL THERAPY MEDICAL DIAGNOSIS: INJURY OF RIGHT ANKLE S99.911A. THERAPY TREATMENT DIAGNOSIS: ANTALGIC GAIT, RIGHT ANKLE PAIN WITH LIMITED RANGE OF MOTION AND STRENGTH. ONSET DATE: 08/09/2018. ASSESSMENT: THIS PATIENT PRESENTS TO PHYSICAL THERAPY AMBULATING IN A CAM STYLE WALKING BOOT WITHOUT USE OF OTHER ASSISTIVE DEVICES. HE REPORTS BEING STRUCK BY A FORKLIFT ON 08/09/2018 THAT RESULTED IN IMMEDIATE PAIN. X-RAYS AT THE TIME WERE UNREMARKABLE. THE PATIENT WAS PLACED IN A WALKING BOOT WITHIN THREE DAYS AFTER INJURY AND WAS INITIALLY UNABLE TO TOLERATE BEARING WEIGHT ON HIS RIGHT LOWER EXTREMITY. OF THIS PAST WEEK, HE HAS DISCONTINUED USE OF HIS CRUTCHES AND TOLERATES BEARING FULL WEIGHT WITHOUT REMARKABLE DISCOMFORT. HIS FOOT DOES SWELL SOMEWHAT BY THE END OF THE DAY IF HE IS ON HIS FEET TOO MUCH. MRI INDICATES SOFT TISSUE SWELLING AND MILD TENOSYNOVITIS. THIS PATIENT CONTINUES TO EXPERIENCE PAIN HIGH 9/10 AND RATES HIS CURRENT PAIN AT 10/10 ALTHOUGH HE IS IN NO APPARENT DISTRESS AT THIS TIME. THE PATIENT PRESENTS WITH A FIGURE EIGHT ANKLE CIRCUMFERENCE MEASURE OF 53 CM ON THE RIGHT AND 52.5 ON THE LEFT INDICATING NEGLIGIBLE EDEMA. THE PATIENT ACHIEVES ACTIVE ANKLE RANGE OF MOTION, 19 DEGREES OF PLANTAR FLEXION, 23 DEGREES INVERSION, 7 DEGREES EVERSION, 13 DEGREES TO NEUTRAL FOR DORSIFLEXION, FIRST MTP DORSIFLEXION 50 DEGREES. PAIN LIMITS ALL ACTIVE RANGE OF MOTION VALUES. MANUAL MUSCLE TESTING RESULTS IN PAIN FOR ALL FOUR ANKLE MOTIONS. THE PATIENT'S INITIAL SESSION FOCUSED ON EDUCATION OF SELF CARE REGARDING HOME EXERCISE PROGRAM WITH FOCUS ON ACTIVE ASSISTIVE RANGE OF MOTION, ACHILLES TENDON AND POSTERIOR CHAIN FLEXIBILITY EXERCISES WELL A RETURN TO PROGRESSIVE RESISTIVE LOAD BEARING TO HIS RIGHT LOWER EXTREMITY. THIS PATIENT WILL BENEFIT FROM CONTINUED PHYSICAL THERAPY WITH PROGRESSION TO STRENGTHENING EXERCISES APPROPRIATE, SOFT TISSUE MOBILIZATION AND JOINT MOBILIZATION TO HELP IMPROVE MOBILITY AND RANGE OF MOTION WELL MODALITIES FOR PAIN CONTROL NEEDED. PROBLEM/GOALS LIST: PROBLEM 1: SELF REPORT OF DISABILITY USING THE LOWER EXTREMITY FUNCTIONAL SCALE AT 13% FUNCTION. GOAL 1: THE PATIENT TO IMPROVE SELF REPORT OF DISABILITY TO AT LEAST 50% WITHIN SIX WEEKS. PROBLEM 2: DEPENDENCE WITH HOME EXERCISE PROGRAM. GOAL 2: THE PATIENT TO DEMONSTRATE INDEPENDENCE WITH AN INTRODUCTORY TO MODERATE LEVEL HOME EXERCISE PROGRAM THAT TRANSITIONS INTO NON-WEIGHT BEARING STRENGTHENING OF HIS FOOT AND ANKLE AND LOWER EXTREMITY TO PREPARE CLOSED CHAIN STRENGTHENING AND LOAD ACCEPTANCE. PROBLEM 3: LIMITED ANKLE RANGE OF MOTION. GOAL 3: THE PATIENT TO DEMONSTRATE AT LEAST 10 DEGREES OF ACTIVE ANKLE DORSIFLEXION, 50 DEGREES OF PLANTAR FLEXION, 30 DEGREES OF INVERSION AND 15 DEGREES OF EVERSION TO OFFER A SAFE RETURN TO AMBULATION AND PRIOR LEVEL OF FUNCTION. PROBLEM 4: GROSS ANKLE WEAKNESS. GOAL 4: THE PATIENT TO DEMONSTRATE 4/5 STRENGTH OR GREATER INTO DORSIFLEXION, PLANTAR FLEXION, INVERSION AND EVERSION WITH MANUAL MUSCLE TESTING TO IMPROVE STRENGTH AND ALLOW FOR THE POTENTIAL FOR NORMALIZED GAIT AND RETURN TO WORK. ALL GOALS TO BE MET WITHIN SIX WEEKS. TREATMENT PLAN TYPE: THERAPEUTIC EXERCISE, PROGRESSIVE RESISTIVE EXERCISE, GAIT TRAINING, BALANCE TRAINING, HOME EXERCISE PROGRAM, MODALITIES INDICATED, SOFT TISSUE MOBILIZATION. FREQUENCY AND DURATION: THREE TIMES PER WEEK FOR THREE TO SIX WEEKS WITH TAPERING PATIENT ACHIEVES GOALS. REHAB POTENTIAL: GOOD. APPRENTICE ELECTRICIAN GOAL: THE PATIENT TO IMPROVE FOOT AND ANKLE RANGE OF MOTION STRENGTH AND FUNCTION INDICATED BY A LOWER EXTREMITY FUNCTIONAL SCALE SCORE OF 75% OR GREATER TO OFFER A SAFE AND PRODUCTIVE RETURN TO AMBULATION AND WORK. TREATMENT PLAN, GOALS, AND PROCEDURES WERE DISCUSSED WITH THIS PATIENT WHO AGREES TO PROCEED AND COOPERATE. PLAN OF CARE PREPARED AND REVIEWED BY ALEX SONG PSharon. ELECTRONICALLY SIGNED BY ÁLVARO WHEAT MD 09/08/2018 11:15 A ALEX SONG P.T. 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
--- OUTSIDE RECORDS SUMMARY | 2024-08-05 23:28 | XMS_ITS | Clinical Summary ---
Author Organization [facility] Address [address] [place] [address] Care Team Providers Care Dsp Engineer Name Role Phone Kenya Herzog RN Unavailable [phone] Lucio Queen MD Primary Care Provider [phone] Source Comments [facility],non-owned Affiliates and Associated Physician Practices is amultiple site organization consisting of ambulatory clinics and hospital sitesin [place], [place]. This disclosure is being madepursuant to the Care Everywhere program and may not contain all information available regarding this patient. Last updated 18.[facility] Allergies Active Allergy Reactions Criticality Noted [...] the patient. aspirin (ASPIRIN) 325 MG tabletIndication s:RI prophylaxis Take 325 mg by mouth once [...] on file Legal Sex Male 2:00 PM RIDDLER OPERATOR Gender Identity Not on file Sexual Orientation Not on file Last Filed Vital Signs Vital Sign Reading Time Taken Comments Blood Pressure 138/92 03/30/2022 12:52 PM RIDDLER OPERATOR Pulse 78 03/30/2022 12:52 PM RIDDLER OPERATOR Temperature 36.3 C (97.3 F) 03/30/2022 12:52 PM RIDDLER OPERATOR Respiratory Rate 18 01/05/2022 12:09 AM CDT Oxygen Saturation 93% 03/30/2022 12:52 PM RIDDLER OPERATOR Inhaled Oxygen Concentration 30% 08/22/2021 3 :22 PM CDT Weight 119.7 kg (264 lb) 03/30/2022 12:52 PM RIDDLER OPERATOR Height 175.3 cm (5' 9 ) 03/30/2022 12:52 PM RIDDLER OPERATOR Body Mass Index 38.99 03/30/2022 12:52 PM RIDDLER OPERATOR Plan of Treatment Health Maintenance Due Date [...] 7 - 26 mg/dL 12/31/2021 4:06 PM [facility] Creatinine 1.08 0.71 - 1.16 mg/dL 12/31/2021 4:06 PM [facility] Sodium 141 136 - 145 mmol/L 12/31/2021 4:06 PM [facility] Potassium 4.2 3.5 - 4.5 mmol/L 12/31/2021 4:06 PM [facility] Chloride 106 98 - 107 mmol/L 12/31/2021 4:06 PM [facility] CO2 21(L) 22 - 29 mmol/L 12/31/2021 4:06 PM [facility] Glucose 84 70 - 115 mg/dL 12/31/2021 4:06 PM [facility] Calcium 9.3 8.4 - 10.2 mg/dL 12/31/2021 4:06 PM [facility] Protein Total 6.8 6.0 - 8.3 g/dL 12/31/2021 4:06 PM [facility] Albumin 4.2 3.4 - 5.0 g/dL 12/31/2021 4:06 PM [facility] Bilirubin Total 0.4 0.2 - 1.2 mg/dL 12/31/2021 4:06 PM [facility] Alkaline Phosphatase 138 40 - 150 U/L 12/31/2021 4:06 PM [facility] ALT 28 5 - 55 U/L 12/31/2021 4:06 PM [facility] AST 16 5 - 34 U/L 12/31/2021 4:06 PM [facility] Anion Gap 18 8 - 18 12/31/2021 4:06 PM [facility] BUN/Creatinine Ratio 19 7 - 23 12/31/2021 4:06 PM [facility] Osmolality Calculated 294 270 - 300 mOsm/kg 12/31/2021 4:06 PM [facility] Albumin/Globulin Ratio 1.6 1.1 - 2.3 12/31/2021 4:06 PM [facility] eGFR by CKD-EPI >90 >=90 mL/min/1.7 3 m2 12/31/2021 4:06 PM [facility] Blood BLOOD SPECIMEN / Unknown Lab Venipuncture / Unknown 12/31/2021 3:27 PM CDT 12/31/2021 3:38 PM CDT Lynn Valdez ASSISTANT SITE MANAGER-ICER MACHINE OPERATOR LAB - CHEMISTRY ORDERA BLES Final Result Performing Organization Address City/State/[facility] Co de Phone Number [facility] [address] [place] [address], [facility] [phone] * HEMOGLOBIN A1C (08/22/2021 3:36 AM CDT) Hemoglobin A1c 4.9 4.2 - 5.6 % 08/22/2021 4:40 AM CDT [facility] Estimated Average Glucose 94 mg/dL 08/22/2021 4:40 AM CDT [facility] Blood BLOOD SPECIMEN / Unknown Venipuncture / Unknown 08/22/2021 3:36 AM CDT 08/22/2021 3:58 AM CDT Narrative [facility] - 08/22/2021 4:40 AM CDT The following cutoff levels are recommended by [place] [employer]. A1c > 6.5% : considered [...] MD LAB - CHEMISTRY ORDERABLES Final Result [facility] [address] [place] [id number] from Last 3 Months or Most Recently Relevant to Health Maintenance Additional Health Concerns Infection Onset Date Last Indicated MRSA Hx Comment:Added from external infection. 12/02/2016 Insurance [employer] [facility] [place] [address] Advance Directives * DNR - IF PULSELESS [...] 6:31 PM 08/29/2021 7:27 PM Care Teams Dsp Engineer Relationship Specialty Start Date End Date Lucio Queen MD [address] [place] [phone] PCP - General Family Medicine 08/27/21 Kenya Herzog, RN Flanging Roll Operator 08/27/14
[2024-08-05 23:42] LABS: Occult Blood Negative (Negative)
[2024-08-05 23:52] VITALS: BP 160/98; PULSE 79; RESP 18; O2SAT 95
[2024-08-06 00:14] LABS: Hematocrit 41.4 % (40.0-54.0); Hemoglobin 13.1 g/dL (14.0-18.0); Mean Corpuscular HGB Conc 31.6 g/dL (32-36); Mean Corpuscular Hemoglobin 24.3 pg (27.0-31.0); Mean Corpuscular Volume 76.8 fL (78.0-102.0); Platelet Count Result 267 K/mm3 (150-420); Red Blood Count 5.39 M/mm3 (4.70-6.10); Red Cell Distribution Width 15.1 % (11.6-14.4); White Blood Count 7.5 K/mm3 (4.8-10.8)
[2024-08-06 00:31] LABS: Alanine Aminotransferase 41 U/L (16-63); Alkaline Phosphatase 135 U/L (46-116); Anion Gap 10 mmol/L (4-12); Aspartate Amino Transferase 17 U/L (15-37); Bilirubin,Total 0.4 mg/dL (0.00-1.00); Blood Urea Nitrogen 17 mg/dL (7-18); Calcium 8.9 mg/dL (8.5-10.1); Carbon Dioxide 26 mmol/L (21-32); Chloride 106 mmol/L (98-108); Estimated CRCL calculation 93 ml/min; Estimated Glomerular Filt Rate > 60; Glucose 91 mg/dL (70-99); Lipase 53 U/L (16-77); Osmolality Calculated 295 mOsm/kg (285-295); Potassium 4.1 mmol/L (3.5-5.1); Sodium 142 mmol/L (136-145); Total Protein 7.4 g/dL (6.4-8.2)
[2024-08-06 00:36] LABS: Ethanol < 3 mg/dL (0-6)
[2024-08-06 01:08] VITALS: BP 158/100; PULSE 78; RESP 20; TEMP 36.6; O2SAT 98
== END 2024-08-06 01:08 | disposition home or self-care (01) ==
PROVIDERS: Emergency Provider Emergency Medicine; PCP Family Medicine
DX: R11.2 Nausea with vomiting, unspecified (principal); R19.7 Diarrhea, unspecified; E11.9 Type 2 diabetes mellitus without complications; Z86.73 Personal history of transient ischemic attack (TIA), and cerebral infarction without residual deficits; Z79.899 Other long term (current) drug therapy; Z87.891 Personal history of nicotine dependence
CPT/HCPCS: 36415; 74019; 80053; 82077; 82272; 83690; 85027; 99283

== ENCOUNTER 2024-10-28 19:24 | Emergency (ER) | payer MEDICARE, MEDICAID, SELFPAY ==
--- NOTE | ~2024-10-28 | XR_ITS ---
EXAMINATION: [id number] Exam Date/Time: 10/28/2024 19:40 CDT HISTORY: FALL THIS AM. LATERAL RIGHT RIB PAIN. Comparison: None available. RESULT: Lines, tubes, and devices: None. Lungs and pleura: Clear. Cardiothymic silhouette: Stable. Other: No acute osseous or upper abdominal finding. IMPRESSION: No acute cardiopulmonary process. No acute osseous finding in the right ribs. Reviewed, dictated and finalized at location K.
[2024-10-28 19:25] VITALS: BP 159/108; PULSE 94; RESP 18; TEMP 36.1; O2SAT 99
--- NOTE | 2024-10-28 19:26 | ED_ITS ---
HPI - Fall General Chief Complaint: Fall Stated Complaint: fall Time Seen by Provider: 10/28/24 19:26 Source: patient and family Mode of arrival: ambulatory Limitations: no limitations History of Present Illness HPI Narrative: 34 year male, blind with a history of hypertension, seizures/pseudoseizures, asthma, bipolar, PTSD, diabetes mellitus fell this morning while taking a shower subsequently when he tried to get up he fell and hit his lower chest against a ledge. No head injury. No loss of consciousness. No neck or back pain. No ENT bleeding. The patient complains of -- right lower chest wall pain which is made worse by deep breathing. No shortness of breath. MD complaint: fall Onset (ago): hour(s) ( 12 hours ago) Fall from: standing Fall witnessed: no Place fall occurred: home Loss of consciousness: none Prolonged down time: no Symptoms prior to fall: none Location of injury: chest Severity: moderate Quality: aching Associated symptoms (after fall): denies Related Data Home Medications ?Medication ?Instructions ?Recorded ?Confirmed ?Last Taken ?Type amlodipine 10 mg tablet 1 tablet PO DAILY 10/06/21 01/20/23 10/22/21 08:00 History lisinopril 10 mg tablet 10 mg PO DAILY 03/30/22 01/20/23 Unknown History fluoxetine 20 mg capsule 40 mg PO DAILY 08/05/24 Unknown History Allergies Allergy/AdvReac Type Severity Reaction Status Date / Time coconut Allergy Severe Anaphylactic Verified 01/20/23 17:21 Shock tuna oil Allergy Severe Anaphylactic Verified 01/20/23 17:21 Shock cranberry Allergy Unknown Itching,swe Verified 01/20/23 17:21 lling latex Allergy Rash Verified 01/20/23 17:21 INK Allergy Unknown swelling Uncoded 10/23/21 09:34 and itching MARKERS Allergy Unknown swelling, Uncoded 10/23/21 09:34 itching PRUNE JUICE Allergy Unknown stomach Uncoded 10/23/21 09:34 pain, diarrhea,swelling,itching TUNA Allergy Unknown Anaphylactic Uncoded 10/23/21 09:34 Shock Review of Systems Review of Systems: All systems reviewed & are unremarkable except as noted in HPI and below Constitutional: Constitutional: Reports as per HPI and Reports no additional constitutional complaints Eyes: Comments: legally blind ENT: Reports system reviewed and no additional complaints, except as documented and Reports as per HPI Cardiovascular: Cardiovascular: Reports as per HPI and Reports no additional cardiovascular complaints Respiratory: Respiratory: Reports as per HPI and Reports no additional respiratory complaints Comments: right lower chest wall pain Gastrointestinal: Gastrointestinal: Reports as per HPI and Reports no additional gastrointestinal complaints Genitourinary: Genitourinary: Reports no additional male genitourinary complaints and Reports as per HPI Musculoskeletal: Musculoskeletal: Reports no additional musculoskeletal complaints and Reports as per HPI Comments: right lower chest wall pain. Pain is made worse by coughing or deep breathing. Integumentary/Breasts: Skin/Breast: Reports system reviewed and no additional complaints, except as docu and Reports as per HPI Comments: No bruising noted over the lower chest wall. Neurologic: Reports system reviewed and no additional complaints, except as documented and Reports as per HPI Psychiatric: Psychiatric: Reports no additional psychiatric complaints and Reports as per HPI Endocrine: Endocrine: Reports no additional endocrine complaints and Reports as per HPI Hematologic/Lymphatic: Hematologic/Lymphatic: Reports no additional hemat ologic/lymphatic complaints and Reports as per HPI Allergic/Immunologic: Allergic/Immunologic: Reports no additional allergic/immunologic complaints and Reports as per HPI [facility] Past Medical History Medical History Hx of transient ischemic attack (TIA) Hx of seizure disorder Schizophrenia PTSD (post-traumatic stress disorder) History of bipolar disorder Type II diabetes mellitus Herniated disc Hand fracture, right Neck fracture Kidney stone GERD (gastroesophageal reflux disease) Asthma Depression Pseudoseizure Surgical History Surgical History Hx of cardiac cath Family History Family History Father History of blood clots Diabetes mellitus Hypertension Acute myocardial infarction Mother History of blood clots Diabetes mellitus Hypertension Sibling Hypertension Social History Social History Social History: The patient stated that he did quit smoking but started back up again and probably smokes about 3 packs of cigarettes a day. The patient is engaged she has been 2 prior times. He has 1 daughter. He stated that his fiancee is his durable power commercial attorney for healthcare. The patient is a full code. The patient stated that he is a recovering alcoholic and has not had any alcohol in a long time. He denies any marijuana or illicit drugs. 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 Smoking packs per day: 2 Smoking cigarettes per day: 40.0 Years smoked: 20 Smoking pack-years: 40.00 Smoking status: Former smoker Tobacco type: cigarettes Second hand tobacco smoke exposure: Yes Additional smoking assessment comments: smokes off and on Alcohol intake: former Alcohol use details: Denied current alcohol abuse Substance use: former Substance use type: does not use Other substance usage details: Denied current substance abuse Last use: 2014 Gender identity (if verbalized by the patient): Male Spiritual care concerns: No Agree to blood products: Yes Exam Narrative: Blood pressure 159/108 Const: General: healthy appearing and no acute distress Nutritional Appearance: well nourished Orientation/consciousness: patient oriented x3 Limitations: no limitations HENMT: Head: normal to inspection Ears: external ears normal and TM's normal bilaterally Face/Nose/Sinus: Normal external nose present Face and sinus: normal facial exam Mouth: Yes Normal oral and palatal mucosa present Throat: posterior oropharynx normal Eyes: Conjunctivae: conjunctivae normal Pupils: Equal, round and reactive pupils present EOM: EOMs intact bilaterally Direct Ophthalmoscopy: no photophobia Neck: Neck: normal visual inspection, no lymphadenopathy and no meningeal signs Chest: Chest palpation & inspection: normal inspection of the chest Other: right lower chest wall Tenderness. Resp: Effort & Inspection: normal respiratory effort Auscultation: clear to auscultation bilaterally Cardio: Rate: regular rate Rhythm: regular rhythm GI: Auscultation: normal bowel sounds Other: No tenderness/ rigidity /rebound. : General: Yes no CVA tenderness Back/Spine/Pelvis: Back: no CVA tenderness Skin: General skin exam: normal color Rashes: no rashes Wounds: no wounds Neuro: General: patient oriented x3, moves all extremities, no meningeal signs, no focal motor deficits and CN's II-XI intact bilaterally Cranial nerves: Yes Nystagmus not present Speech: normal speech Gait exam (Neuro): Normal gait present Extrem: General: normal to inspection and no clubbing, cyanosis or edema Psych: Mental Status: mental status grossly normal Affect: normal affect Attitude: cooperative Course Course Emergency Course: Accidental fall right chest wall-- X-ray did not show any evidence of rib fracture. Blood sugar- 110 Vital Signs Vital signs: Vital Signs Temperature 36.1 C L 10/28/24 19:25 Pulse Rate 94 10/28/24 19:25 Respiratory Rate 18 10/28/24 19:25 Blood Pressure 159/108 H 10/28/24 19:25 Pulse Oximetry 99 10/28/24 19:25 Oxygen Delivery Room Air 10/28/24 19:25 Temperature 36.1 C L 10/28/24 19:25 Pulse Rate 94 10/28/24 19:25 Respiratory Rate 18 10/28/24 19:25 Blood Pressure 159/108 H 10/28/24 19:25 Pulse Oximetry 99 10/28/24 19:25 Oxygen Delivery Room Air 10/28/24 19:25 MDM - Fall MDM Narrative Medical decision making narrative: accidental fall chest wall pain Differential Diagnosis Differential diagnosis: Likely other ( pulmonary contusion) Medical Records Attestation: I reviewed the patient's medical records. Lab Data Labs: Lab Results 10/28/24 10/28/24 Range/Units 19:41 20:06 POC Capillary Glucose 37 L* 110 H (65-105) mg/dl Discharge Plan Discharge Clinical Impression: Chest wall pain Accidental fall Qualifiers: Encounter type: initial encounter Qualified Code(s): W19.XXXA - Unspecified fall, initial encounter Patient Disposition: Home Condition: Stable Instructions: Antibiotic Form, Fall Prevention (ED), Chest Wall Pain (ED) Patient Language: Paraguayan Prescriptions: No Action amlodipine 10 mg tablet 1 tablet PO DAILY lisinopril 10 mg Tablet 10 mg PO DAILY fluoxetine 20 mg capsule 40 mg PO DAILY Follow-up/Referrals: Bernice,MD Lucio [Primary Care Provider] - Time of Disposition: 20:25
--- OUTSIDE RECORDS SUMMARY | 2024-10-28 19:27 | XMS_ITS | Encounter Summary ---
Author Organization [facility] Address [address] [place] [address] Care Team Providers Care Mill Controller Name Role Phone Álvaro Wheat MD Primary Care Provider U Lanre Seo MD Unavailable Zahra Lucio Martin MD Primary Care Provider [phone] Telly Vergara APRN Unavailable [phone] Encounter Details Date Type Department Care Team (Late st Contact Info) Description 09/14/2018 PEDIATRIC CRITICAL CARE NURSE ONLY [facility] Medical Group Priority Care - S. Anish [address] [place] [address] Scanned, Documents Social History Tobacco [...] AM CDT ZAK MENSAH III MD: ACCT: [id number] ADMIT/SERVICE DATE: 09/21/18 DISCHARGE DATE: : 1990 PT TYPE: REG RCR SEX: M ORD SITE: [facility] CHART DOCUMENT 09/14/2018 DR. ÁLVARO WHEAT RE: [...] THE PATIENT IS PROGRESSING WELL. PLEASE CONTACT [facility] DEPARTMENT OF OUTPATIENT PHYSICAL THERAPY WITH QUESTIONS OR CONCERNS REGARDING THE CARE OF THIS PATIENT. ELECTRONICALLY SIGNED BY ALEX SONG P.T. 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
--- OUTSIDE RECORDS SUMMARY | 2024-10-28 19:27 | XMS_ITS | Encounter Summary ---
Author Organization [facility] Address [address] [place] [address] Care Team Providers Care Utility Manager Name Role Phone Lanre Cunningham MD Unavailable Zahra Lucio Martin MD Primary Care Provider Telly Vergara ELEMENTARY SCHOOL REGISTRAR Unavailable [phone] Encounter Details Date Type Department Care Team (Late st Contact Info) Description 12/26/2020 [facility] [address] [place] [address] Telly Vergara, ELEMENTARY SCHOOL REGISTRAR [address] [place] [address] Social History Tobacco Use Types [...] documented as of this encounter Care Teams Utility Manager Relationship Specialty Start Date End Date Lucio Queen MD [address] [place] [phone] PCP - General FAMILY PRACTICE 12/26/20 Lanre Cunningham MD [place] Senior Inspector CARDIOVASCULAR DISEASE 05/31/17 Telly Vergara APRN [address] [place] [phone] Nurse Practitioner NURSE PRACTITIONER 12/26/20 documented as of this encounter
--- OUTSIDE RECORDS SUMMARY | 2024-10-28 19:27 | XMS_ITS | Clinical Summary ---
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 ([facility]) 06/06/2012 Chest pain Dyspnea Hypertension Resolved Problems Problem Noted Date Diagnosed Date Resolved Date Right ankle injury, sequela 09/28/2018 11/04/2018 Injury of right ankle, initial encounter 08/10/2018 06/29/2019 Rotator cuff tendinitis, left 07/27/2017 09/28/2018 Herniation of intervertebral disc 04/29/2015 09/28/2018 Immunizations Immunization Administration Dates Next Due Dtp 09/02/1994, 1,03/24/1990,01/19/1990,1989 [...] Comments Blood Pressure 137/91 05/20/2021 6:00 PM CONCRETE MIXER OPERATOR Pulse 76 05/20/2021 4:13 PM CONCRETE MIXER OPERATOR Temperature 36.3 C (97.4 F) 05/20/2021 4:13 PM CONCRETE MIXER OPERATOR Respiratory Rate 18 05/20/2021 4:13 PM CONCRETE MIXER OPERATOR Oxygen Saturation 97% 05/20/2021 6:00 PM CONCRETE MIXER OPERATOR Inhaled Oxygen Concentration - - Weight 108.9 kg (240 lb) 05/20/2021 4:13 PM CONCRETE MIXER OPERATOR Height 172.7 cm (5' 8) 05/20/2021 4:13 PM CONCRETE MIXER OPERATOR Body Mass Index 36.49 05/20/2021 4:13 PM CONCRETE MIXER OPERATOR Plan of Treatment Health Maintenance Due Date Last Done Comments ASCVD Statin 1989 Annual Physical 1992 Hepatitis C 09/14/2007 Pneumococcal Vaccine: Pediatrics (0 to 5 Years) and At-Risk Patients (6 to 49 Years) (1 of 2 - PCV) 2008 ASCVD LDL 12/01/2016 12/02/2015 COVID-19 Vaccine ( [...] Date Last Indicated MRSA 12/02/2016 12/02/2016 Insurance [place] Care Teams Tooth Clerk Relationship Specialty Start Date End Date Lucio Queen MD [address] [place] [phone] PCP - General FAMILY PRACTICE 12/26/20 Lanre Cunningham MD [place] Emergency Vehicle Operator CARDIOVASCULAR DISEASE 05/31/17 Telly Vergara APRN [address] [place] [phone] Nurse Practitioner NURSE PRACTITIONER 12/26/20
--- OUTSIDE RECORDS SUMMARY | 2024-10-28 19:27 | XMS_ITS | Encounter Summary ---
Author Organization [facility] Address [address] [place] [address] Care Team Providers Care Room Service Manager Name Role Phone Álvaro Wheat MD Primary Care Provider U Lanre Seo MD Unavailable Zahra Lucio Martin MD Primary Care Provider [phone] Telly Vergara APRN Unavailable [phone] Encounter Details Date Type Department Care Team (Late st Contact Info) Description 09/06/2018 HEALTH EDUCATION TEACHER ONLY [facility] Priority Care - S. Anish [address] [place] [address] Scanned, Documents Social History Tobacco [...] PM CDT ZAK MENSAH III MD: ACCT: [id number] ADMIT/SERVICE DATE: 09/08/18 DISCHARGE DATE: : 1990 PT TYPE: REG RCR SEX: M ORD SITE: [facility] CHART DOCUMENT PHYSICIAN CERTIFICATION AND PLAN [...] TAPERING PATIENT ACHIEVES GOALS. REHAB POTENTIAL: GOOD. 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
--- OUTSIDE RECORDS SUMMARY | 2024-10-28 20:09 | XMS_ITS | Encounter Summary ---
Author Organization [facility] Address [address] [place] [address] Care Team Providers Care Chair Pad Maker Name Role Phone Álvaro Wheat MD Primary Care Provider U Lanre Seo MD Unavailable Zahra Lucio Martin MD Primary Care Provider Telly Vergara APRN Unavailable [phone] Encounter Details Date Type Department Care Team (Late st Contact Info) Description 09/06/2018 HAIR SPRING WINDER ONLY [facility] Medical Group Priority Care - S. Anish [address] [place] [address] Scanned, Documents Social History Tobacco [...] PM CDT ZAK MENSAH III MD: ACCT: [id number] ADMIT/SERVICE DATE: 09/08/18 DISCHARGE DATE: : 1990 PT TYPE: REG RCR SEX: M ORD SITE: [facility] CHART DOCUMENT PHYSICIAN CERTIFICATION AND [...] TAPERING PATIENT ACHIEVES GOALS. REHAB POTENTIAL: GOOD. 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
--- OUTSIDE RECORDS SUMMARY | 2024-10-28 20:09 | XMS_ITS | Encounter Summary ---
Author Organization [facility] Address [address] [place] [address] Care Team Providers Care Vocational Teacher Name Role Phone Álvaro Wheat MD Primary Care Provider U Lanre Seo MD Unavailable Zahra Lucio Martin MD Primary Care Provider Telly Vergara APRN Unavailable [phone] Encounter Details Date Type Department Care Team (Late st Contact Info) Description 09/14/2018 SENIOR SQL DATABASE DEVELOPER ONLY [facility] Medical Group Priority Care - S. Anish [address] [place] [address] Scanned, Documents Social History Tobacco [...] AM CDT ZAK MENSAH III MD: ACCT: [id number] ADMIT/SERVICE DATE: 09/21/18 DISCHARGE DATE: : 1990 PT TYPE: REG RCR SEX: M ORD SITE: [facility] CHART DOCUMENT 09/14/2018 DR. ÁLVARO WHEAT [...] THE PATIENT IS PROGRESSING WELL. PLEASE CONTACT [facility] DEPARTMENT OF OUTPATIENT PHYSICAL THERAPY WITH QUESTIONS OR CONCERNS REGARDING THE CARE OF THIS PATIENT. ELECTRONICALLY SIGNED BY ALEX SONG P.T. 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
--- OUTSIDE RECORDS SUMMARY | 2024-10-28 20:09 | XMS_ITS | Clinical Summary ---
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 ([facility]) 06/06/2012 Chest pain Dyspnea Hypertension [...] Comments Blood Pressure 137/91 05/20/2021 6:00 PM DEPOSITION REPORTER Pulse 76 05/20/2021 4:13 PM DEPOSITION REPORTER Temperature 36.3 C (97.4 F) 05/20/2021 4:13 PM DEPOSITION REPORTER Respiratory Rate 18 05/20/2021 4:13 PM DEPOSITION REPORTER Oxygen Saturation 97% 05/20/2021 6:00 PM DEPOSITION REPORTER Inhaled Oxygen Concentration - - Weight 108.9 kg (240 lb) 05/20/2021 4:13 PM DEPOSITION REPORTER Height 172.7 cm (5' 8) 05/20/2021 4:13 PM DEPOSITION REPORTER Body Mass Index 36.49 05/20/2021 4:13 PM DEPOSITION REPORTER Plan of Treatment Health Maintenance Due Date [...] Date Last Indicated MRSA 12/02/2016 12/02/2016 Insurance [place] Care Teams Dust Collector Operator Relationship Specialty Start Date End Date Lucio Queen MD [address] [place] [phone] PCP - General FAMILY PRACTICE 12/26/20 Lanre Cunningham MD [place] Home Economics Extension Worker CARDIOVASCULAR DISEASE 05/31/17 Telly Vergara APRN [address] [place] [phone] Nurse Practitioner NURSE PRACTITIONER 12/26/20
--- OUTSIDE RECORDS SUMMARY | 2024-10-28 20:09 | XMS_ITS | Encounter Summary ---
Author Organization [facility] Address [address] [place] [address] Care Team Providers Care Lumber Carrier Operator Name Role Phone Lanre Cunningham MD Unavailable Zahra Lucio Martin MD Primary Care Provider Telly Vergara HOUSING CASE MANAGER Unavailable [phone] Encounter Details Date Type Department Care Team (Late st Contact Info) Description 12/26/2020 [facility] [address] [place] [address] Telly Vergara, HOUSING CASE MANAGER [address] [place] [address] Social History Tobacco Use Types [...] documented as of this encounter Care Teams Lumber Carrier Operator Relationship Specialty Start Date End Date Lucio Queen MD [address] [place] [phone] PCP - General FAMILY PRACTICE 12/26/20 Lanre Cunningham MD [place] Credentialing Manager CARDIOVASCULAR DISEASE 05/31/17 Telly Vergara APRN [address] [place] [phone] Nurse Practitioner NURSE PRACTITIONER 12/26/20 documented as of this encounter
[2024-10-28 20:53] VITALS: BP 141/96; PULSE 78; RESP 20; O2SAT 99
== END 2024-10-28 20:53 | disposition home or self-care (01) ==
PROVIDERS: Emergency Provider Internal Medicine Critical Care Medicine; PCP Family Medicine
DX: R07.89 Other chest pain (principal); I10 Essential (primary) hypertension; E11.9 Type 2 diabetes mellitus without complications; Z86.73 Personal history of transient ischemic attack (TIA), and cerebral infarction without residual deficits; Z87.891 Personal history of nicotine dependence; W18.2XXA Fall in (into) shower or empty bathtub, initial encounter
CPT/HCPCS: 71101; 82948; 99283

== ENCOUNTER 2024-12-26 07:55 | Emergency (ER) | payer MEDICARE, MEDICAID, SELFPAY ==
--- NOTE | ~2024-12-26 | CT_ITS ---
EXAMINATION: CT abdomen pelvis wo con DATE: 12/26/2024 08:39 INDICATION: Right flank pain TECHNIQUE: Computed tomography (CT) of the abdomen and pelvis was performed without intravenous contrast. Automated exposure control and iterative reconstruction technique were employed. The dose-length product was 1268.52 mGy-cm. COMPARISON: None FINDINGS: Lung bases are clear. Heart size is normal. No pericardial or pleural effusion. Liver, gallbladder, spleen, pancreas, bilateral adrenal glands are normal. Bilateral nephrolithiasis with 3 stones measuring up to 3 mm in the right kidney and a 3 mm stone at a lower pole calyx of the left kidney. There is a 3 mm stone in the proximal right ureter with mild right hydronephrosis. Bowels including the appendix are normal. Bladder is normal. No free intraperitoneal gas or fluid. No pathologically enlarged abdominal or pelvic lymphadenopathy. Mild thoracolumbar levocurvature. T10 hemangioma. IMPRESSION: 1. Bilateral nephrolithiasis with obstructing 3 mm proximal right ureteral stone with mild right hydronephrosis. Reviewed, dictated and finalized at location A. IMPRESSION: 1. Bilateral nephrolithiasis with obstructing 3 mm proximal right ureteral ston e with mild right hydronephrosis.
--- OUTSIDE RECORDS SUMMARY | 2024-12-26 07:59 | XMS_ITS | Encounter Summary ---
Author Organization [facility] Address [address] [place] [address] Care Team Providers Care Soybean Grower Name Role Phone Lanre Cunningham MD Unavailable Zahra Lucio Martin MD Primary Care Provider Telly Vergara VOCAL MUSIC INSTRUCTOR Unavailable [phone] Encounter Details Date Type Department Care Team (Late st Contact Info) Description 12/26/2020 [facility] [address] [place] [address] Telly Vergara, VOCAL MUSIC INSTRUCTOR [address] [place] [address] Social History Tobacco Use Types [...] documented as of this encounter Care Teams Soybean Grower Relationship Specialty Start Date End Date Lucio Queen MD [address] [place] [phone] PCP - General FAMILY PRACTICE 12/26/20 Lanre Cunningham MD [place] Laundry Folder CARDIOVASCULAR DISEASE 05/31/17 Telly Vergara APRN [address] [place] [phone] Nurse Practitioner NURSE PRACTITIONER 12/26/20 documented as of this encounter
--- OUTSIDE RECORDS SUMMARY | 2024-12-26 07:59 | XMS_ITS | Clinical Summary ---
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 ([facility]) 06/06/2012 Chest pain Dyspnea Hypertension Resolved Problems [...] Comments Blood Pressure 137/91 05/20/2021 6:00 PM PROTECTIVE SERVICE SPECIALIST Pulse 76 05/20/2021 4:13 PM PROTECTIVE SERVICE SPECIALIST Temperature 36.3 C (97.4 F) 05/20/2021 4:13 PM PROTECTIVE SERVICE SPECIALIST Respiratory Rate 18 05/20/2021 4:13 PM PROTECTIVE SERVICE SPECIALIST Oxygen Saturation 97% 05/20/2021 6:00 PM PROTECTIVE SERVICE SPECIALIST Inhaled Oxygen Concentration - - Weight 108.9 kg (240 lb) 05/20/2021 4:13 PM PROTECTIVE SERVICE SPECIALIST Height 172.7 cm (5' 8) 05/20/2021 4:13 PM PROTECTIVE SERVICE SPECIALIST Body Mass Index 36.49 05/20/2021 4:13 PM PROTECTIVE SERVICE SPECIALIST Plan of Treatment Health Maintenance Due Date Last Done Comments ASCVD Statin 1989 Annual Physical 1992 Hepatitis C 09/14/2007 Pneumococcal Vaccine: Pediatrics (0 to 5 Years) and At-Risk Patients (6 to 49 Years) (1 of 2 - PCV) 2008 HPV Vaccines (1 - 3-dose SCDM series) 2016 ASCVD LDL 12/01/2016 12/02/2015 COVID-19 Vaccine ( - season) 2023 DTaP, Tdap and Td Vaccines (3 - Td or Tdap) 12/30/2024 12/30/2014, 12/30/2014, 09/02/1994, Additional history exists Hepatitis B Vaccines Completed 01/19/2001, 2000, 07/19/2000 Meningococcal B Vaccine Aged Out No l [...] Date Last Indicated MRSA 12/02/2016 12/02/2016 Insurance [place] Care Teams Automation Tech Relationship Specialty Start Date End Date Lucio Queen MD [address] [place] [phone] PCP - General FAMILY PRACTICE 12/26/20 Lanre Cunningham MD [place] Armhole Raiser Lockstitch CARDIOVASCULAR DISEASE 05/31/17 Telly Vergara APRN [address] [place] [phone] Nurse Practitioner NURSE PRACTITIONER 12/26/20
--- OUTSIDE RECORDS SUMMARY | 2024-12-26 07:59 | XMS_ITS | Encounter Summary ---
Author Organization [facility] Address [address] [place] [address] Care Team Providers Care Dust Box Worker Name Role Phone Álvaro Wheat MD Primary Care Provider U Lanre Seo MD Unavailable Zahra Lucio Martin MD Primary Care Provider Telly Vergara APRN Unavailable [phone] Encounter Details Date Type Department Care Team (Late st Contact Info) Description 09/14/2018 REPAIR MECHANIC ONLY [facility] Medical Group Priority Care - S. Anish [address] [place] [address] Scanned, Documents Social History Tobacco [...] AM CDT ZAK MENSAH III MD: ACCT: [id number] ADMIT/SERVICE DATE: 09/21/18 DISCHARGE DATE: : 1990 PT TYPE: REG RCR SEX: M ORD SITE: [facility] CHART DOCUMENT 09/14/2018 DR. ÁLVARO WHEAT [...] THE PATIENT IS PROGRESSING WELL. PLEASE CONTACT [facility] DEPARTMENT OF OUTPATIENT PHYSICAL THERAPY WITH QUESTIONS OR CONCERNS REGARDING THE CARE OF THIS PATIENT. ELECTRONICALLY SIGNED BY ALEX SONG P.T. 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
--- OUTSIDE RECORDS SUMMARY | 2024-12-26 07:59 | XMS_ITS | Encounter Summary ---
Author Organization [facility] Address [address] [place] [address] Care Team Providers Care [place] Pigeon Loader Name Role Phone Álvaro Wheat MD Primary Care Provider U Lanre Seo MD Unavailable Zahra Lucio Martin MD Primary Care Provider Telly Vergara APRN Unavailable [phone] Encounter Details Date Type Department Care Team (Late st Contact Info) Description 09/06/2018 JIG AND FIXTURE MAKER ONLY [facility] Medical Group Priority Care - S. Anish [address] [place] [address] Scanned, Documents Social History Tobacco [...] PM CDT ZAK MENSAH III MD: ACCT: [id number] ADMIT/SERVICE DATE: 09/08/18 DISCHARGE DATE: : 1990 PT TYPE: REG RCR SEX: M ORD SITE: [facility] CHART DOCUMENT PHYSICIAN CERTIFICATION AND [...] TAPERING PATIENT ACHIEVES GOALS. REHAB POTENTIAL: GOOD. 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
[2024-12-26 08:04] VITALS: BP 159/93; PULSE 79; RESP 20; TEMP 36.6; O2SAT 100
[2024-12-26] MEDS: ONDANSETRON INJ 4 MG/2 ML VIAL IV PUSH (08:20)
[2024-12-26] MEDS: SODIUM CHLORIDE 0.9% IV 1,000 ML 999 ML IV CONT (08:20)
[2024-12-26] MEDS: HYDROmorphone HCL INJ (*CRX) 2 MG/ML VIAL 0.5 MG IV PUSH (08:21)
[2024-12-26 08:26] LABS: Hematocrit 42.9 % (40.0-54.0); Hemoglobin 13.7 g/dL (14.0-18.0); Immature Granulocyte Percent A 0.5 % (0.0-0.0); Lymphocytes Absolute Auto 1.21 K/mm3 (1.10-4.50); Mean Corpuscular HGB Conc 31.9 g/dL (32-36); Mean Corpuscular Hemoglobin 24.6 pg (27.0-31.0); Mean Corpuscular Volume 77.2 fL (78.0-102.0); Nucleated Red Blood Cells Absolute Auto 0.00 K/mm3 (0.00-0.00); Nucleated Red Blood Cells Perc 0.0 % (0-0.0); Platelet Count Result 278 K/mm3 (150-420); Red Blood Count 5.56 M/mm3 (4.70-6.10); White Blood Count 6.2 K/mm3 (4.8-10.8)
[2024-12-26 08:27] LABS: Add Urine Microscopic? YES; Appearance Urine Clear (Clear); Glucose Urine UA Negative (Negative); Leukocyte Esterase Ur Negative LEU/UL (Negative); Nitrate Urine Negative (Negative); Specific Grav Ur 1.025 (1.010-1.020)
[2024-12-26 08:38] LABS: Alanine Aminotransferase 40 U/L (6-50); Albumin Level 4.9 g/dL (3.5-5.1); Alkaline Phosphatase 123 U/L (38-126); Anion Gap 15 mmol/L (4-12); Aspartate Amino Transferase 32 U/L (17-59); Bilirubin,Total 1.0 mg/dL (0.2-1.3); Blood Urea Nitrogen 18 mg/dL (9-20); Calcium 9.9 mg/dL (8.4-10.2); Carbon Dioxide 21 mmol/L (22-30); Chloride 107 mmol/L (98-107); Estimated CRCL calculation 92 ml/min; Estimated Glomerular Filt Rate > 60; Glucose 135 mg/dL (65-110); Osmolality Calculated 299 mOsm/kg (285-295); Potassium 4.2 mmol/L (3.4-5.0); Sodium 143 mmol/L (137-145); Total Protein 7.6 g/dL (6.3-8.2)
[2024-12-26 08:40] VITALS: BP 176/99; PULSE 66; RESP 18; O2SAT 94
--- OUTSIDE RECORDS SUMMARY | 2024-12-26 08:45 | XMS_ITS | Clinical Summary ---
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 ([facility]) 06/06/2012 Chest pain Dyspnea Hypertension [...] Comments Blood Pressure 137/91 05/20/2021 6:00 PM SPECIAL PROCEDURE TECHNOLOGIST Pulse 76 05/20/2021 4:13 PM SPECIAL PROCEDURE TECHNOLOGIST Temperature 36.3 C (97.4 F) 05/20/2021 4:13 PM SPECIAL PROCEDURE TECHNOLOGIST Respiratory Rate 18 05/20/2021 4:13 PM SPECIAL PROCEDURE TECHNOLOGIST Oxygen Saturation 97% 05/20/2021 6:00 PM SPECIAL PROCEDURE TECHNOLOGIST Inhaled Oxygen Concentration - - Weight 108.9 kg (240 lb) 05/20/2021 4:13 PM SPECIAL PROCEDURE TECHNOLOGIST Height 172.7 cm (5' 8) 05/20/2021 4:13 PM SPECIAL PROCEDURE TECHNOLOGIST Body Mass Index 36.49 05/20/2021 4:13 PM SPECIAL PROCEDURE TECHNOLOGIST Plan of Treatment Health Maintenance Due Date [...] Date Last Indicated MRSA 12/02/2016 12/02/2016 Insurance [place] Care Teams Head Of Marketing Analytics Relationship Specialty Start Date End Date uLcio Queen MD [address] [place] [phone] PCP - General FAMILY PRACTICE 12/26/20 Lanre Cunningham MD [place] [employer] CARDIOVASCULAR DISEASE 05/31/17 Telly Vergara APRN [address] [place] [phone] Nurse Practitioner NURSE PRACTITIONER 12/26/20
--- OUTSIDE RECORDS SUMMARY | 2024-12-26 08:45 | XMS_ITS | Encounter Summary ---
Author Organization [facility] Address [address] [place] [address] Care Team Providers Care Community Organizer Name Role Phone Álvaro Wheat MD Primary Care Provider U Lanre Seo MD Unavailable Zahra Lucio Martin MD Primary Care Provider Telly Vergara APRN Unavailable [phone] Encounter Details Date Type Department Care Team (Late st Contact Info) Description 09/06/2018 MANAGER PATIENT ONLY [facility] Medical Group Priority Care - S. Anish [address] [place] [address] Scanned, Documents Social History Tobacco [...] PM CDT ZAK MENSAH III MD: ACCT: [id number] ADMIT/SERVICE DATE: 09/08/18 DISCHARGE DATE: : 1990 PT TYPE: REG RCR SEX: M ORD SITE: [facility] CHART DOCUMENT PHYSICIAN CERTIFICATION AND PLAN OF [...] TAPERING PATIENT ACHIEVES GOALS. REHAB POTENTIAL: GOOD. 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
--- OUTSIDE RECORDS SUMMARY | 2024-12-26 08:45 | XMS_ITS | Encounter Summary ---
Author Organization [facility] Address [address] [place] [address] Care Team Providers Care Noc Engineer Name Role Phone Álvaro Wheat MD Primary Care Provider U Lanre eSo MD Unavailable Zahra Lucio Martin MD Primary Care Provider Telly Vergara APRN Unavailable [phone] Encounter Details Date Type Department Care Team (Late st Contact Info) Description 09/14/2018 PRODUCT CONSULTANT ONLY [facility] Priority Care - S. Anish [address] [place] [address] Scanned, Documents Social History Tobacco [...] AM CDT ZAK MENSAH III MD: ACCT: [id number] ADMIT/SERVICE DATE: 09/21/18 DISCHARGE DATE: : 1989 PT TYPE: REG RCR SEX: M ORD SITE: [facility] CHART DOCUMENT 09/14/2018 DR. ÁLVARO WHEAT [...] THE PATIENT IS PROGRESSING WELL. PLEASE CONTACT [facility] DEPARTMENT OF OUTPATIENT PHYSICAL THERAPY WITH QUESTIONS OR CONCERNS REGARDING THE CARE OF THIS PATIENT. ELECTRONICALLY SIGNED BY ALEX SONG P.T. 09/22/2018 11:00 A MOHIT/DEVIKA 09/14/2018 09/15/2018 09:22 A JOB NO: [id number] DOC NO: [id number] CC: documented in this encounter Plan of Treatment Not on file documented as of this encounter Visit Diagnoses Not on filedocumented in this encounter Additional Health Concerns Infection Onset Date Last Indicated Resolved Time MRSA 12/02/2016 12/02/2016 documented as of this encounter Care Teams Noc Engineer Relationship Specialty Start Date End Date Álvaro Wheat MD PCP - General 01/30/16 12/25/20 Lucio Queen MD [address] [place] [phone] PCP - General FAMILY PRACTICE 12/26/20 Lanre Cunningham MD [place] Excavator Backhoe Operator CARDIOVASCULAR DISEASE 05/31/17 Telly Vergara APRN [address] [place] [phone] Nurse Practitioner NURSE PRACTITIONER 12/26/20 documented as of this encounter
--- OUTSIDE RECORDS SUMMARY | 2024-12-26 08:45 | XMS_ITS | Encounter Summary ---
Author Organization [facility] Address [address] [place] [address] Care Team Providers Care Professor Of Astronomy Name Role Phone Lanre Cunningham MD Unavailable Zahra Lucio Martin MD Primary Care Provider Telly Vergara QUALITY SYSTEM MANAGER Unavailable [phone] Encounter Details Date Type Department Care Team (Late st Contact Info) Description 12/26/2020 [facility] [address] [place] [address] Telly Vergara, QUALITY SYSTEM MANAGER [address] [place] [address] Social History Tobacco Use Types [...] documented as of this encounter Care Teams Professor Of Astronomy Relationship Specialty Start Date End Date Lucio Queen MD [address] [place] [phone] PCP - General FAMILY PRACTICE 12/26/20 Lanre Cunningham MD [place] Tug Boat Engineer CARDIOVASCULAR DISEASE 05/31/17 Telly Vergara APRN [address] [place] [phone] Nurse Practitioner NURSE PRACTITIONER 12/26/20 documented as of this encounter
[2024-12-26 08:54] VITALS: BP 163/94; PULSE 71; RESP 18; O2SAT 96
[2024-12-26 09:10] VITALS: BP 159/80; PULSE 64; RESP 16; O2SAT 98
--- NOTE | 2024-12-26 09:16 | ED.GENADULT ---
HPI - General Adult General Chief complaint: Back Pain/Injury Stated complaint: right flank pain Time Seen by Provider: 12/26/24 08:08 Source: patient and EMS Limitations: no limitations History of Present Illness HPI narrative: 34 years old white mal came to the ED by ambulance from home complaining of sudden onset of severe pain at the right flank area wake him up from sleep radiating to the right lower quadrant and right lower extremity associated with nausea, vomiting and diaphoresis. History of kidney stone. Related Data Home Medications ?Medication ?Instructions ?Recorded ?Confirmed ?Last Taken ?Type amlodipine 10 mg tablet 1 tablet PO DAILY 10/06/21 01/20/23 10/22/21 08:00 History lisinopril 10 mg tablet 10 mg PO DAILY 03/30/22 01/20/23 Unknown History fluoxetine 20 mg capsule 40 mg PO DAILY 08/05/24 Unknown History Allergies Allergy/AdvReac Type Severity Reaction Status Date / Time coconut Allergy Severe Anaphylactic Verified 12/26/24 08:02 Shock tuna oil Allergy Severe Anaphylactic Verified 12/26/24 08:02 Shock cranberry Allergy Unknown Itching,swe Verified 12/26/24 08:02 lling latex Allergy Rash Verified 12/26/24 08:02 INK Allergy Unknown swelling Uncoded 12/26/24 08:02 and itching MARKERS Allergy Unknown swelling, Uncoded 12/26/24 08:02 itching PRUNE JUICE Allergy Unknown stomach Uncoded 12/26/24 08:02 pain, diarrhea,swelling,itching TUNA Allergy Unknown Anaphylactic Uncoded 12/26/24 08:02 Shock Review of Systems Review of Systems: All systems reviewed & are unremarkable except as noted in HPI and below PMFSH Past Medical History Medical History Hx of transient ischemic attack (TIA) Hx of seizure disorder Schizophrenia PTSD (post-traumatic stress disorder) History of bipolar disorder Type II diabetes mellitus Herniated disc Hand fracture, right Neck fracture Kidney stone GERD (gastroesophageal reflux disease) Asthma Depression Pseudoseizure Surgical History Surgical History Hx of cardiac cath Family History Family History Father History of blood clots Diabetes mellitus Hypertension Acute myocardial infarction Mother History of blood clots Diabetes mellitus Hypertension Sibling Hypertension Social History Social History Social History: The patient stated that he did quit smoking but started back up again and probably smokes about 3 packs of cigarettes a day. The patient is engaged she has been 2 prior times. He has 1 daughter. He stated that his fiilane is his durable power deputy prosecuting attorney for healthcare. The patient is a full code. The patient stated that he is a recovering alcoholic and has not had any alcohol in a long time. He denies any marijuana or illicit drugs. 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 Smoking packs per day: 2 Smoking cigarettes per day: 40.0 Years smoked: 20 Smoking pack-years: 40.00 Smoking status: Former smoker Tobacco type: cigarettes Second hand tobacco smoke exposure: Yes Additional smoking assessment comments: smokes off and on Alcohol intake: former Alcohol use details: Denied current alcohol abuse Substance use: former Substance use type: does not use Other substance usage details: Denied current substance abuse Last use: 2014 Gender identity (if verbalized by the patient): Male Spiritual care concerns: No Agree to blood products: Yes Exam Narrative: General appearance: Well-developed, well-nourished, screaming, in pain Skin: Normal color Head: Normocephalic, nontraumatic Eyes: Clear conjunctiva ENT: Oropharynx normal, ears normal, nose normal Neck: Supple, nontender Chest and respiratory: Airway patent, no respiratory distress, no accessory muscle use Heart: Regular rate/rhythm Abdomen: Soft, Severe tenderness right flank, no bruises, no swelling or rash Vascular: Normal peripheral pulses, normal capillary refill. Musculoskeletal: Normal range of motion, nontender back Neurologic: Alert and oriented ?3, ORDER EXPEDITER is normal as tested, no gross motor deficit Course Vital Signs Vital signs: Vital Signs Temperature 36.6 C 12/26/24 08:04 Pulse Rate 79 12/26/24 08:04 Respiratory Rate 20 12/26/24 08:04 Blood Pressure 159/93 H 12/26/24 08:04 Pulse Oximetry 100 12/26/24 08:04 Oxygen Delivery Room Air 12/26/24 08:04 Temperature 36.6 C 12/26/24 08:04 Pulse Rate 82 12/26/24 09:29 Respiratory Rate 16 12/26/24 09:29 Blood Pressure 153/98 H 12/26/24 09:29 Pulse Oximetry 98 12/26/24 09:29 Oxygen Delivery Room Air 12/26/24 09:29 Medical Decision Making [facility] Narrative Medical decision making narrative: patient came with right flank pain Vital signs : Blood pressure 159/93 otherwise within normal limit Physical examination showing restless patient, in pain, screaming, severe right flank tenderness with light palpation Differential diagnosis include kidney stone, urinary tract infection, cholecystitis Blood workup today includes CBC, CMP showed no acute abnormality Urinalysis showing 3+ blood CT abdomen and pelvis without contrast show 3 mm, proximal right ureter In the ED patient received normal saline, Dilaudid 0.5 mg once, Zofran with significant improvement, at the time of discharge patient although patient was pain free, Toradol 30 mg IV given Flomax 0.4 mg p.o. given. Diagnosis kidney stone The pt was discharged to home.the pt,s condition upon discharge was fair,education was provided to the pt in reference to the final impression,discharge study results,treatment,prognosis and need for follow up . Differential Diagnosis Differential Diagnosis: as above Vital Signs Vital Signs: Vital Signs Temperature 36.6 C 12/26/24 08:04 Pulse Rate 79 12/26/24 08:04 Respiratory Rate 20 12/26/24 08:04 Blood Pressure 159/93 H 12/26/24 08:04 Pulse Oximetry 100 12/26/24 08:04 Oxygen Delivery Room Air 12/26/24 08:04 Temperature 36.6 C 12/26/24 08:04 Pulse Rate 82 12/26/24 09:29 Respiratory Rate 16 12/26/24 09:29 Blood Pressure 153/98 H 12/26/24 09:29 Pulse Oximetry 98 12/26/24 09:29 Oxygen Delivery Room Air 12/26/24 09:29 Lab Data 12/26/24 08:21 12/26/24 08:21 Labs: Lab Results 12/26/24 12/26/24 Range/Units 08:00 08:21 WBC 6.2 (4.8-10.8) K/mm3 RBC 5.56 (4.70-6.10) M/mm3 Hgb 13.7 L (14.0-18.0) g/dL Hct 42.9 (40.0-54.0) % MCV 77.2 L (78.0-102.0) fL MCH 24.6 L (27.0-31.0) pg MCHC 31.9 L (32-36) g/dL RDW 14.7 H (11.6-14.4) % Plt Count 278 (150-420) K/mm3 MPV 10.8 (8.7-11.0) fl Immature Gran % (Auto) 0.5 H (0.0-0.0) % Neut % (Auto) 70.2 H (50.0-70.0) % Lymph % (Auto) 19.5 (18.0-42.0) % [place] % (Auto) 6.6 (2.0-11.0) % Eos % (Auto) 2.1 (1.0-6.0) % Baso % (Auto) 1.1 H (0.0-1.0) % Lymph # (Auto) 1.21 (1.10-4.50) K/mm3 [place] # (Auto) 0.41 (0.10-0.90) K/mm3 Eos # (Auto) 0.13 (0.02-0.50) K/mm3 Baso # (Auto) 0.07 (0.00-0.10) K/mm3 Abs Immat Gran (auto) 0.03 H (0.00-0.00) K/mm3 Absolute Neuts (auto) 4.37 (1.70-7.20) K/mm3 Absolute Nucleated RBC 0.00 (0.00-0.00) K/mm3 Nucleated RBC % 0.0 (0-0.0) % Sodium 143 (137-145) mmol/L Potassium 4.2 (3.4-5.0) mmol/L Chloride 107 (98-107) mmol/L Carbon Dioxide 21 L (22-30) mmol/L Anion Gap 15 H (4-12) mmol/L BUN 18 (9-20) mg/dL Creatinine 1.27 (0.7-1.3) mg/dL Estim Creat Clear Calc 92 ml/min Estimated GFR > 60 (59 - ) Glucose 135 H (65-110) mg/dL Calculated Osmolality 299 H (285-295) mOsm/kg Calcium 9.9 (8.4-10.2) mg/dL Total Bilirubin 1.0 (0.2-1.3) mg/dL AST 32 (17-59) U/L ALT 40 (6-50) U/L Alkaline Phosphatase 123 (38-126) U/L Total Protein 7.6 (6.3-8.2) g/dL Albumin 4.9 (3.5-5.1) g/dL Urine Color Yellow (Yellow) Urine Appearance Clear (Clear) Urine pH 6.0 (5.0-8.0) Ur Specific [place] 1.025 H (1.010-1.020) Urine Protein Trace H (Negative) Urine Glucose (UA) Negative (Negative) Urine Ketones Negative (Negative) Ur Blood (Man) 3+ H (Negative) Urine Nitrate Negative (Negative) Urine Bilirubin Negative (Negative) Urine Urobilinogen 0.2 (0.2-1.0) mg/dL Leukocyte Esterase Rfl Negative (Negative) NAINA/UL Urine RBC >75 H (0-2) /hpf Urine WBC None seen (0-3) /hpf Urine Bacteria Trace (None) /hpf Imaging Data Radiologist's impression: Impressions Abdomen/Pelvis CT 12/26/24 09:06 IMPRESSION: 1. Bilateral nephrolithiasis with obstructing 3 mm proximal right ureteral stone with mild right hydronephrosis. Critical Care Time Critical Care Time Critical Care Time: No Discharge Plan Discharge Clinical Impression: Kidney stone on right side Patient Disposition: Home Condition: Improved Instructions: Kidney Stones (ED), How to Strain Your Urine (ED) Additional Instructions: Return if symptoms are worsening , call Dr. aguiar for appointment, continue home medications. Patient Language: Belarusian Prescriptions: New hydrocodone-acetaminophen 5-325 mg tablet 1 tablet PO Q4H Qty: 20 0RF ketorolac 10 mg tablet 10 mg PO Q6H 5 Days Qty: 20 0RF tamsulosin [Flomax] 0.4 mg capsule 0.4 mg PO DAILY Qty: 10 0RF No Action amlodipine 10 mg tablet 1 tablet PO DAILY lisinopril 10 mg Tablet 10 mg PO DAILY fluoxetine 20 mg capsule 40 mg PO DAILY Follow-up/Referrals: Bernice,MD Lucio [Primary Care Provider, Family Practice] Umer Aguiar MD [Physician, Urology] - 12/29/24
[2024-12-26 09:29] VITALS: BP 153/98; PULSE 82; RESP 16; O2SAT 98
[2024-12-26 09:46] VITALS: BP 172/95; PULSE 87; RESP 16; TEMP 36.8; O2SAT 97
[2024-12-26] MEDS: TAMSULOSIN HCL 0.4 MG CAPSULE PO (09:53)
[2024-12-26] MEDS: KETOROLAC 30 MG/ML VIAL (*BKC) IV PUSH (09:53)
== END 2024-12-26 10:06 | disposition home or self-care (01) ==
PROVIDERS: Emergency Provider Emergency Medicine; PCP Family Medicine
DX: N20.0 Calculus of kidney (principal); E11.9 Type 2 diabetes mellitus without complications; Z86.73 Personal history of transient ischemic attack (TIA), and cerebral infarction without residual deficits; Z87.891 Personal history of nicotine dependence
CPT/HCPCS: 36415; 74176; 80053; 81001; 85025; 96361; 96374; 96375; 99284; A9270; J1171; J1885; J2405; J7030

== ENCOUNTER 2024-12-27 17:08 | Emergency (ER) | payer MEDICARE, MEDICAID, SELFPAY ==
[2024-12-27 17:10] VITALS: BP 154/100; PULSE 68; RESP 20; TEMP 36.7; O2SAT 98
--- NOTE | 2024-12-27 17:11 | ED_ITS ---
HPI - Abdominal Pain General Chief Complaint: Urogenital-Male Stated Complaint: kidney stone pain Source: patient Mode of arrival: ambulatory Limitations: no limitations History of Present Illness HPI narrative: 34-year-old male history of schizophrenia, bipolar, PTSD, grand-mal seizures, TIA, hypertension, diabetes mellitus, herniated disc, kidney stones presented to the ED yesterday with flank pain. He had a CT which revealed a 3 mm stone in the right proximal ureter with mild hydronephrosis. He was also noted to have bilateral nephrolithiasis. The patient received Toradol. He was discharged home on Flomax and hydrocodone. He presents to the ED with -- Worsening right flank pain which radiates to his right testicle. Pain is colicky. No dysuria or hematuria -- unable to pass urine -- Nausea with 2 episodes of vomiting today. no fever or chills. MD elicited complaint: flank pain Pertinent past history: kidney stones Onset (ago): day(s) ( 2 days) Pain Consistency: intermittent Location: R flank Severity: severe Quality: aching Radiation: other ( right testicle) Exacerbating factors: nothing Relieving factors: nothing Associated symptoms: nausea and vomiting Treatments prior to arrival: other ( [place], Flomax) Related Data Home Medications ?Medication ?Instructions ?Recorded ?Confirmed ?Last Taken ?Type amlodipine 10 mg tablet 1 tablet PO DAILY 10/06/21 0 01/20/23 10/22/21 08:00 History lisinopril 10 mg tablet 10 mg PO DAILY 03/30/2212/26 Unknown History fluoxetine 20 mg capsule 40 mg PO DAILY 08/05/24 Unk nown History Allergies Allergy/AdvReac Type Severity Reaction Status Date / Time coconut Allergy Severe Anaphylactic Verified 12/27/24 17:15 Shock tuna oil Allergy Severe Anaphylactic Verified 12/27/24 17:15 Shock cranberry Allergy Unknown Itching,swe Verified 12/27/24 17:15 lling latex Allergy Rash Verified 12/27/24 17:15 INK Allergy Unknown swelling Uncoded 12/27/24 17:15 and itching MARKERS Allergy Unknown swelling, Uncoded 12/27/24 17:15 itching PRUNE JUICE Allergy Unknown stomach Uncoded 12/27/24 17:15 pain, diarrhea,swelling,itching TUNA Allergy Unknown Anaphylactic Uncoded 12/27/24 17:15 Shock Review of Systems 2 Review of Systems: All systems reviewed & are unremarkable except as noted in HPI and below Constitutional: Constitutional: Reports as per HPI and Reports no additional constitutional complaints Eyes: Eyes: Reports as per HPI and Reports no additional eye complaints ENT: Reports system reviewed and no additional complaints, except as documented and Reports as per HPI Cardiovascular: Cardiovascular: Reports as per HPI and Reports no additional cardiovascular complaints Respiratory: Respiratory: Reports as per HPI and Reports no additional respiratory complaints Gastrointestinal: Gastrointestinal: Reports as per HPI, Reports no additional gastrointestinal complaints and Reports abdominal pain Comments: right flank pain radiating to his right testicle. Pain is colicky. Musculoskeletal: Musculoskeletal: Reports no additional musculoskeletal complaints and Reports as per HPI Integumentary/Breasts: Skin/Breast: Reports system reviewed and no additional complaints, except as docu and Reports as per HPI Neurologic: Reports system reviewed and no additional complaints, except as documented and Reports as per HPI Psychiatric: Psychiatric: Reports no additional psychiatric complaints and Reports as per HPI Endocrine: Endocrine: Reports no additional endocrine complaints and Reports as per HPI Hematologic/Lymphatic: Hematologic/Lymphatic: Reports no additional hematologic/lymphatic complaints and Reports as per HPI Allergic/Immunologic: Allergic/Immunologic: Reports no additional allergic/immunologic complaints and Reports as per HPI PMFSH Past Medical History Medical History Hx of transient ischemic attack (TIA) Hx of seizure disorder Schizophrenia PTSD (post-traumatic stress disorder) History of bipolar disorder Type II diabetes mellitus Herniated disc Hand fracture, right Neck fracture Kidney stone GERD (gastroesophageal reflux disease) Asthma Depression Pseudoseizure Surgical History Surgical History Hx of cardiac cath Family History Family History Father History of blood clots Diabetes mellitus Hypertension Acute myocardial infarction Mother History of blood clots Diabetes mellitus Hypertension Sibling Hypertension Social History Social History Social History: The patient stated that he did quit smoking but started back up again and probably smokes about 3 packs of cigarettes a day. The patient is engaged she has been 2 prior times. He has 1 daughter. He stated that his fiancee is his durable power patent prosecution attorney for healthcare. The patient is a full code. The patient stated that he is a recovering alcoholic and has not had any alcohol in a long time. He denies any marijuana or illicit drugs. 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 Smoking packs per day: 2 Smoking cigarettes per day: 40.0 Years smoked: 20 Smoking pack-years: 40.00 Smoking status: Former smoker Tobacco type: cigarettes Second hand tobacco smoke exposure: Yes Additional smoking assessment comments: smokes off and on Alcohol intake: former Alcohol use details: Denied current alcohol abuse Substance use: former Substance use type: does not use Other substance usage details: Denied current substance abuse Last use: 2014 Gender identity (if verbalized by the patient): Male Spiritual care concerns: No Agree to blood products: Yes Exam 2 Narrative: Blood pressure is 154/100. Const: General: ill appearing Nutritional Appearance: well nourished O rientation/consciousness: patient oriented x3 Limitations: no limitations HENMT: Head: normal to inspection Ears: external ears normal F kye/Nose/Sinus: Normal external nose present Face and sinus: normal facial exam Mouth: Yes Normal oral and palatal mucosa present Eyes: Conjunctivae: conjunctivae normal Pupils: Equal, round and reactive pupils present EOM: EOMs intact bilaterally Direct Ophthalmoscopy: no photophobia Neck: Neck: normal visual inspection, no lymphadenopathy and no meningeal signs Chest: Chest palpation & inspection: normal inspection of the chest Resp: Effort & Inspection: normal respiratory effort Auscultation: clear to auscultation bilaterally Cardio: Rate: regular rate Rhythm: regular rhythm GI: GI Palp: Yes Soft to palpation Auscultation: normal bowel sounds O ther: Right flank tenderness without any rigidity / rebound : General: Yes CVA tenderness ( right CVA tenderness) on the right Back/Spine/Pelvis: Back: no CVA tenderness Skin: General skin exam: normal color Rashes: no rashes Wounds: no wounds Neuro: General: patient oriented x3, moves all extremities, no meningeal signs, no focal motor deficits and CN's II-XI intact bilaterally Cranial nerves: Yes Nystagmus not present Speech: normal speech Gait exam (Neuro): Normal gait present Extrem: General: normal to inspection and no clubbing, cyanosis or edema Psych: Mental Status: mental status grossly normal Affect: normal affect Course Course Emergency Course: Right ureteric colic-- patient has right flank pain which radiates down. Patient stated he has not been able to pass urine. Blood work is unremarkable. Normal white cell count, normal BUN/creatinine, normal lactate and normal lipase. urine has hematuria. Patient received 2 L of IV fluids and IV Toradol with improvement in pain. Bladder scan revealed 115 mL of urine. Pain has decreased. Will discharge the patient home. Patient states that his right flank pain has moved down. Vital Signs Vital signs: Vital Signs Temperature 36.7 C 12/27/24 17:10 Pulse Rate 68 12/27/24 17:10 Respiratory Rate 20 12/27/24 17:10 Blood Pressure 154/100 H 12/27/24 17:10 Pulse Oximetry 98 12/27/24 17:10 Oxygen Delivery Room Air 12/27/24 17:10 Temperature 36.7 C 12/27/24 17:10 Pulse Rate 68 12/27/24 17:10 Respiratory Rate 20 12/27/24 17:10 Blood Pressure 154/100 H 12/27/24 17:10 Pulse Oximetry 98 12/27/24 17:10 Oxygen Delivery Room Air 12/27/24 17:10 MDM - Abdominal Pain MDM Narrative Medical decision making narrative: Ureteric colic Differential Diagnosis Differential diagnosis: Likely abdominal pain Medical Records Attestation: I reviewed the patient's medical records. Lab Data Attestation: I reviewed the patient's lab results. 12/27/24 17:34 12/27/24 17:34 Labs: Lab Results 12/27/24 12/27/24 Range/Units 17:34 18:21 WBC 6.3 (4.8-10.8) K/mm3 RBC 4.87 (4.70-6.10) M/mm3 Hgb 12.1 L (14.0-18.0) g/dL Hct 38.2 L (40.0-54.0) % MCV 78.4 (78.0-102.0) fL MCH 24.8 L (27.0-31.0) pg MCHC 31.7 L (32-36) g/dL RDW 14.7 H (11.6-14.4) % Plt Count 235 (150-420) K/mm3 MPV 10.8 (8.7-11.0) fl Immature Gran % (Auto) 0.3 H (0.0-0.0) % Neut % (Auto) 67.9 (50.0-70.0) % Lymph % (Auto) 21.4 (18.0-42.0) % [place] % (Auto) 7.2 (2.0-11.0) % Eos % (Auto) 2.2 (1.0-6.0) % Baso % (Auto) 1.0 (0.0-1.0) % Lymph # (Auto) 1.34 (1.10-4.50) K/mm3 [place] # (Auto) 0.45 (0.10-0.90) K/mm3 Eos # (Auto) 0.14 (0.02-0.50) K/mm3 Baso # (Auto) 0.06 (0.00-0.10) K/mm3 Abs Immat Gran (auto) 0.02 H (0.00-0.00) K/mm3 Absolute Neuts (auto) 4.26 (1.70-7.20) K/mm3 Absolute Nucleated RBC 0.00 (0.00-0.00) K/mm3 Nucleated RBC % 0.0 (0-0.0) % Sodium 143 (137-145) mmol/L Potassium 3.6 (3.4-5.0) mmol/L Chloride 109 H (98-107) mmol/L Carbon Dioxide 24 (22-30) mmol/L Anion Gap 10 (4-12) mmol/L BUN 17 (9-20) mg/dL Creatinine 1.20 (0.7-1.3) mg/dL Estim Creat Clear Calc 95 ml/min Estimated GFR > 60 (59 - ) Glucose 120 H (65-110) mg/dL Calculated Osmolality 298 H (285-295) mOsm/kg Lactic Acid 0.9 (0.4-2.0) mmol/L Calcium 9.2 (8.4-10.2) mg/dL Lipase 129 (23-300) U/L Urine Color Yellow (Yellow) Urine Appearance Clear (Clear) Urine pH 6.0 (5.0-8.0) Ur Specific [place] 1.025 H (1.010-1.020) Urine Protein Negative (Negative) Urine Glucose (UA) Negative (Negative) Urine Ketones Trace H (Negative) Ur Blood (Man) 2+ H (Negative) Urine Nitrate Negative (Negative) Urine Bilirubin Negative (Negative) Urine Urobilinogen 1.0 (0.2-1.0) mg/dL Leukocyte Esterase Rfl Trace H (Negative) NAINA/UL Urine RBC 11-20 H (0-2) /hpf Urine WBC 4-6 H (0-3) /hpf Ur Squamous Epith Cells Few (Few) /hpf Urine Bacteria 1+ H (None) /hpf Urine Mucus Moderate H /lpf Discharge Plan Discharge Clinical Impression: Ureteral colic Patient Disposition: Home Condition: Stable Instructions: Antibiotic Form, Kidney Stones (ED) Patient Language: Canadian Prescriptions: No Action amlodipine 10 mg tablet 1 tablet PO DAILY lisinopril 10 mg Tablet 10 mg PO DAILY fluoxetine 20 mg capsule 40 mg PO DAILY hydrocodone-acetaminophen 5-325 mg tablet 1 tablet PO Q4H Qty: 20 0RF ketorolac 10 mg tablet 10 mg PO Q6H 5 Days Qty: 20 0RF tamsulosin [Flomax] 0.4 mg capsule 0.4 mg PO DAILY Qty: 10 0RF Follow-up/Referrals: Bernice,MD Lucio [Primary Care Provider, Family Practice] Time of Disposition: 19:20
--- OUTSIDE RECORDS SUMMARY | 2024-12-27 17:21 | XMS_ITS | Clinical Summary ---
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) 06/06/2012 Chest pain Dyspnea Hypertension Resolved [...] Comments Blood Pressure 137/91 05/20/2021 6:00 PM MONORAIL HOOKER Pulse 76 05/20/2021 4:13 PM MONORAIL HOOKER Temperature 36.3 C (97.4 F) 05/20/2021 4:13 PM MONORAIL HOOKER Respiratory Rate 18 05/20/2021 4:13 PM MONORAIL HOOKER Oxygen Saturation 97% 05/20/2021 6:00 PM MONORAIL HOOKER Inhaled Oxygen Concentration - - Weight 108.9 kg (240 lb) 05/20/2021 4:13 PM MONORAIL HOOKER Height 172.7 cm (5' 8) 05/20/2021 4:13 PM MONORAIL HOOKER Body Mass Index 36.49 05/20/2021 4:13 PM MONORAIL HOOKER Plan of Treatment Health Maintenance Due Date [...] Date Last Indicated MRSA 12/02/2016 12/02/2016 Insurance HAMLET Care Teams Dining Room Manager Relationship Specialty Start Date End Date Lucio Queen MD [address] [place] [phone] PCP - General FAMILY PRACTICE 12/26/20 Lanre Cunningham MD [place] Supervisor Filtration CARDIOVASCULAR DISEASE 05/31/17 Telly Vergara APRN [address] [place] [phone] Nurse Practitioner NURSE PRACTITIONER 12/26/20
--- OUTSIDE RECORDS SUMMARY | 2024-12-27 17:21 | XMS_ITS | Encounter Summary ---
Author Organization [facility] Address [address] [place] [address] Care Team Providers Care Jewel Inserter Name Role Phone Álvaro Wheat MD Primary Care Provider U Lanre Seo MD Unavailable Zahra Lucio Martin MD Primary Care Provider [phone] Telly Vergara APRN Unavailable [phone] Encounter Details Date Type Department Care Team (Late st Contact Info) Description 09/06/2018 SITE SAFETY MANAGER ONLY [facility] Medical Group Priority Care - S. Anish [address] [place] [address] Scanned, Documents Social History Tobacco [...] PM CDT ZAK MENSAH III MD: ACCT: [id number] ADMIT/SERVICE DATE: 09/08/18 DISCHARGE DATE: : 1990 PT TYPE: REG RCR SEX: M ORD SITE: [facility] CHART DOCUMENT PHYSICIAN CERTIFICATION AND PLAN [...] TAPERING PATIENT ACHIEVES GOALS. REHAB POTENTIAL: GOOD. 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
--- OUTSIDE RECORDS SUMMARY | 2024-12-27 17:21 | XMS_ITS | Encounter Summary ---
Author Organization [facility] Address [address] [place] [address] Care Team Providers Care Airborne Mission Systems Superintendent Name Role Phone Álvaro Wheat MD Primary Care Provider U Lanre Seo MD Unavailable Zahra Lucio Martin MD Primary Care Provider [phone] Telly Vergara APRN Unavailable [phone] Encounter Details Date Type Department Care Team (Late st Contact Info) Description 09/14/2018 COUNSELING CASE MANAGER ONLY [facility] Medical Group Priority Care - S. Anish [address] [place] [address] Scanned, Documents Social History Tobacco [...] AM CDT ZAK MENSAH III MD: ACCT: [id number] ADMIT/SERVICE DATE: 09/21/18 DISCHARGE DATE: : 1990 PT TYPE: REG RCR SEX: M ORD SITE: [facility] CHART DOCUMENT 09/14/2018 DR. ÁLVARO WHEAT [...] THE PATIENT IS PROGRESSING WELL. PLEASE CONTACT [facility] DEPARTMENT OF OUTPATIENT PHYSICAL THERAPY WITH QUESTIONS OR CONCERNS REGARDING THE CARE OF THIS PATIENT. ELECTRONICALLY SIGNED BY ALEX SONG P.T. 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
--- OUTSIDE RECORDS SUMMARY | 2024-12-27 17:21 | XMS_ITS | Clinical Summary ---
Author Organization [facility] Address [address] [facility] [place] [address] Care Team Providers Care Silk Finisher Name Role Phone Kenya Herzog RN Unavailable [phone] Lucio Queen MD Primary Care Provider [phone] Source Comments [facility],non-owned Affiliates and Associated Physician Practices is amultiple site organization consisting of ambulatory clinics and hospital sitesin [place], [place], [place] and [place]. This disclosure is being madepursuant to the Care Everywhere program and may not contain all information available regarding this patient. Last updated 18.[facility] Allergies Active Allergy Reactions Criticality Noted Date [...] the patient. aspirin (ASPIRIN) 325 MG tabletIndication s:VT prophylaxis Take 325 mg by mouth once [...] on file Legal Sex Male 2:00 PM EXPLOSIVE EXPERT Gender Identity Not on file Sexual Orientation Not on file Last Filed Vital Signs Vital Sign Reading Time Taken Comments Blood Pressure 138/92 03/30/2022 12:52 PM EXPLOSIVE EXPERT Pulse 78 03/30/2022 12:52 PM EXPLOSIVE EXPERT Temperature 36.3 C (97.3 F) 03/30/2022 12:52 PM EXPLOSIVE EXPERT Respiratory Rate 18 01/05/2022 12:09 AM CDT Oxygen Saturation 93% 03/30/2022 12:52 PM EXPLOSIVE EXPERT Inhaled Oxygen Concentration 30% 08/22/2021 3 :22 PM CDT Weight 119.7 kg (264 lb) 03/30/2022 12:52 PM EXPLOSIVE EXPERT Height 175.3 cm (5' 9) 03/30/2022 12:52 PM EXPLOSIVE EXPERT Body Mass Index 38.99 03/30/2022 12:52 PM EXPLOSIVE EXPERT Plan of Treatment Health Maintenance Due Date Last Done Comments HIV SCREENING 2004 HEPATITIS C SCREENING 09/09/2007 PNEUMOCOCCAL VACCINE (1 of 2 - PCV) 2008 HPV VACCINE (1 - 3-dose SCDM series) 2016 DIABETES RETINOPATHY SCREENING 08/21/2021 DIABETES-FOOT EXAM WITH MONOFILAMENT 08/21/2021 DIABETES-HGB A1C 02/21/2022 08/22/2021, 08/27/2014 DIABETES-SERUM CREATININE 12/31/20222021, 12/11/2021, 12/10/2021, Additional history exists DIABETES - URINE PROTEIN SCREENING 04/26/2024 COVID-19 VACCINE ( - season) 2024 INFLUENZA VACCINE (#1) 2024 , 02/02/2019, 02/02/2018, Additional history exists DTAP/TDAP/TD VACCINES (7 - Td or Tdap) 12/30/2024 12/30/2014, 09/02/1994, 01/24/1991, Additional history exists ZOSTER VACCINE (1 of 2) 09/14/2039 HIB VACCINE Completed 01/24/1991, 04/1990, 10/06/1990, Additional history exists HEPATITIS B VACCINE Completed 01/19/2001, 01/19/2001, 2000, Additional history exists MENINGOCOCCAL (Group B) VACCINE SHARED DECISION-MAKING Aged [...] 7 - 26 mg/dL 12/31/2021 4:06 PM [facility] Creatinine 1.08 0.71 - 1.16 mg/dL 12/31/2021 4:06 PM [facility] Sodium 141 136 - 145 mmol/L 12/31/2021 4:06 PM [facility] Potassium 4.2 3.5 - 4.5 mmol/L 12/31/2021 4:06 PM [facility] Chloride 106 98 - 107 mmol/L 12/31/2021 4:06 PM [facility] CO2 21(L) 22 - 29 mmol/L 12/31/2021 4:06 PM [facility] Glucose 84 70 - 115 mg/dL 12/31/2021 4:06 PM [facility] Calcium 9.3 8.4 - 10.2 mg/dL 12/31/2021 4:06 PM [facility] Protein Total 6.8 6.0 - 8.3 g/dL 12/31/2021 4:06 PM [facility] Albumin 4.2 3.4 - 5.0 g/dL 12/31/2021 4:06 PM [facility] Bilirubin Total 0.4 0.2 - 1.2 mg/dL 12/31/2021 4:06 PM [facility] Alkaline Phosphatase 138 40 - 150 U/L 12/31/2021 4:06 PM [facility] ALT 28 5 - 55 U/L 12/31/2021 4:06 PM [facility] AST 16 5 - 34 U/L 12/31/2021 4:06 PM [facility] Anion Gap 18 8 - 18 12/31/2021 4:06 PM [facility] BUN/Creatinine Ratio 19 7 - 23 12/31/2021 4:06 PM [facility] Osmolality Calculated 294 270 - 300 mOsm/kg 12/31/2021 4:06 PM [facility] Albumin/Globulin Ratio 1.6 1.1 - 2.3 12/31/2021 4:06 PM [facility] eGFR by CKD-EPI >90 >=90 mL/min/1.7 3 m2 12/31/2021 4:06 PM [facility] Blood BLOOD SPECIMEN / Unknown Lab Venipuncture / Unknown 12/31/2021 3:27 PM CDT 12/31/2021 3:38 PM CDT Lynn Valdez MAC OPERATOR-MANAGER GRAPHIC LAB - CHEMISTRY ORDERA BLES Final Result [facility] [address] [place] [address], [facility] [phone] * HEMOGLOBIN A1C (08/22/2021 3:36 AM CDT) Hemoglobin A1c 4.9 4.2 - 5.6 % 08/22/2021 4:40 AM T [facility] Estimated Average Glucose 94 mg/dL 08/22/2021 4:40 AM T [facility] Blood BLOOD SPECIMEN / Unknown Venipuncture / Unknown 08/22/2021 3:36 AM CDT 08/22/2021 3:58 AM CDT Narrative [facility] - 08/22/2021 4:40 AM CDT The following cutoff levels are recommended by [place] [employer]. A1c > 6.5% : considered [...] MD LAB - CHEMISTRY ORDERABLES Final Result [facility] [address] [place] [phone] from Last 3 Months or Most Recently Relevant to Health Maintenance Additional Health Concerns Infection Onset Date Last Indicated MRSA Hx Comment:Added from external infection. 12/02/2016 Insurance [facility] Advance Directives * DNR - IF PULSELESS [...] 6:31 PM 08/29/2021 7:27 PM Care Teams Silk Finisher Relationship Specialty Start Date End Date Lucio Queen MD [address] [place] [phone] PCP - General Family Medicine 08/27/21 Kenya Herzog, RN Board Member 08/27/14
--- OUTSIDE RECORDS SUMMARY | 2024-12-27 17:21 | XMS_ITS | Encounter Summary ---
Author Organization [facility] Address [address] [place] [address] Care Team Providers Care Nut Process Helper Name Role Phone Lanre Cunningham MD Unavailable Zahra Lucio Martin MD Primary Care Provider Telly Vergara UPHOLSTERER APPRENTICE Unavailable [phone] Encounter Details Date Type Department Care Team (Late st Contact Info) Description [facility]/26/2020 [facility] [address] [place] [address] Telly Vergara, UPHOLSTERER APPRENTICE [address] [place] [address] Social History Tobacco Use Types [...] documented as of this encounter Care Teams Nut Process Helper Relationship Specialty Start Date End Date Lucio Queen MD [address] [place] [phone] PCP - General FAMILY PRACTICE 12/26/20 Lanre Cunningham MD Crystal Tenter CARDIOVASCULAR DISEASE 05/31/17 Telly Vergara APRN [address] [place] [phone] Nurse Practitioner NURSE PRACTITIONER 12/26/20 documented as of this encounter
[2024-12-27 17:37] LABS: Hematocrit 38.2 % (40.0-54.0); Hemoglobin 12.1 g/dL (14.0-18.0); Immature Granulocyte Percent A 0.3 % (0.0-0.0); Lymphocytes Absolute Auto 1.34 K/mm3 (1.10-4.50); Mean Corpuscular HGB Conc 31.7 g/dL (32-36); Mean Corpuscular Hemoglobin 24.8 pg (27.0-31.0); Mean Corpuscular Volume 78.4 fL (78.0-102.0); Nucleated Red Blood Cells Absolute Auto 0.00 K/mm3 (0.00-0.00); Nucleated Red Blood Cells Perc 0.0 % (0-0.0); Platelet Count Result 235 K/mm3 (150-420); Red Blood Count 4.87 M/mm3 (4.70-6.10); White Blood Count 6.3 K/mm3 (4.8-10.8)
[2024-12-27] MEDS: KETOROLAC 30 MG/ML VIAL (*BKC) IV PUSH (17:41)
[2024-12-27] MEDS: SODIUM CHLORIDE 0.9% IV 1,000 ML 999 ML IV CONT (17:41)
[2024-12-27 17:48] LABS: Anion Gap 10 mmol/L (4-12); Blood Urea Nitrogen 17 mg/dL (9-20); Calcium 9.2 mg/dL (8.4-10.2); Carbon Dioxide 24 mmol/L (22-30); Chloride 109 mmol/L (98-107); Estimated CRCL calculation 95 ml/min; Estimated Glomerular Filt Rate > 60; Glucose 120 mg/dL (65-110); Lipase 129 U/L (23-300); Osmolality Calculated 298 mOsm/kg (285-295); Potassium 3.6 mmol/L (3.4-5.0); Sodium 143 mmol/L (137-145)
[2024-12-27 18:33] LABS: Add Urine Microscopic? YES; Appearance Urine Clear (Clear); Glucose Urine UA Negative (Negative); Leukocyte Esterase Ur Trace LEU/UL (Negative); Nitrate Urine Negative (Negative); Specific Grav Ur 1.025 (1.010-1.020)
[2024-12-27] MEDS: LACTATED RINGERS 1,000 ML 999 ML IV CONT (18:46)
--- NOTE | 2024-12-27 18:47 | PC.NURSE ---
per bladder scan 115ml
--- NOTE | 2024-12-27 19:00 | PC.NURSE ---
Pt report received from MARY LOU Garrison for continuation of care on manager night. RN monitoring.
[2024-12-27] MEDS: PROCHLORPERAZINE EDISYLATE 10 MG/2 ML VIAL IV PUSH (19:54)
[2024-12-27 19:57] VITALS: BP 144/95; PULSE 88; RESP 16; TEMP 36.1; O2SAT 98
== END 2024-12-27 20:12 | disposition home or self-care (01) ==
PROVIDERS: Emergency Provider Internal Medicine Critical Care Medicine; PCP Family Medicine
DX: N20.1 Calculus of ureter (principal); I10 Essential (primary) hypertension; E11.9 Type 2 diabetes mellitus without complications; Z86.73 Personal history of transient ischemic attack (TIA), and cerebral infarction without residual deficits; Z87.891 Personal history of nicotine dependence
CPT/HCPCS: 36415; 80048; 81001; 83605; 83690; 85025; 96361; 96374; 96375; 99284; J0780; J1885; J7030; J7120

== ENCOUNTER 2024-12-29 02:52 | Emergency (ER) | payer MEDICARE, MEDICAID, SELFPAY ==
[2024-12-29 02:52] VITALS: BP 175/105; PULSE 88; RESP 20; TEMP 36.7; O2SAT 98
--- NOTE | 2024-12-29 03:02 | ED_ITS ---
HPI - Male Genitourinary General Chief complaint: Urogenital-Male Stated complaint: abdominal pain Time Seen by Provider: 12/29/24 02:57 Source: patient and EMS Limitations: no limitations History of Present Illness HPI Narrative: this is a 34-year-old male that was seen for the last 2 days he has and diagnosed with a kidney stone right ureter 3mm mild obstruction was treated with some medication and sent home and advised to schedule his follow-up with Urology. Patient failed to give his urologist call. And a de pain in his right flank area radiating to his right groin rates it a 10/10 with no fever chills has nausea with no vomiting no shortness of breath no chest pain no diarrhea constipation. MD Complaint: testicle pain Onset (ago): hour(s) Duration: constant Severity: severe Severity scale (1-10): >10 Quality: aching Related Data Home Medications ?Medication ?Instructions ?Recorded ?Confirmed ?Last Taken ?Type amlodipine 10 mg tablet 1 tablet PO DAILY 10/06/21 0 01/20/23 10/22/21 08:00 History lisinopril 10 mg tablet 10 mg PO DAILY 03/30/2212/26 Unknown History fluoxetine 20 mg capsule 40 mg PO DAILY 08/05/24 Unk nown History Allergies Allergy/AdvReac Type Severity Reaction Status Date / Time coconut Allergy Severe Anaphylactic Verified 12/29/24 03:06 Shock tuna oil Allergy Severe Anaphylactic Verified 12/29/24 03:06 Shock cranberry Allergy Unknown Itching,swe Verified 12/29/24 03:06 lling latex Allergy Rash Verified 12/29/24 03:06 INK Allergy Unknown swelling Uncoded 12/29/24 03:06 and itching MARKERS Allergy Unknown swelling, Uncoded 12/29/24 03:06 itching PRUNE JUICE Allergy Unknown stomach Uncoded 12/29/24 03:06 pain, diarrhea,swelling,itching TUNA Allergy Unknown Anaphylactic Uncoded 12/29/24 03:06 Shock Review of Systems Review of Systems: All systems reviewed & are unremarkable except as noted in HPI and below PMFSH Past Medical History Medical History Hx of transient ischemic attack (TIA) Hx of seizure disorder Schizophrenia PTSD (post-traumatic stress disorder) History of bipolar disorder Type II diabetes mellitus Herniated disc Hand fracture, right Neck fracture Kidney stone GERD (gastroesophageal reflux disease) Asthma Depression Pseudoseizure Surgical History Surgical History Hx of cardiac cath Family History Family History Father History of blood clots Diabetes mellitus Hypertension Acute myocardial infarction Mother History of blood clots Diabetes mellitus Hypertension Sibling Hypertension Social History Social History Social History: The patient stated that he did quit smoking but started back up again and probably smokes about 3 packs of cigarettes a day. The patient is engaged she has been 2 prior times. He has 1 daughter. He stated that his fiancee is his durable power attorney law clerk for healthcare. The patient is a full code. The patient stated that he is a recovering alcoholic and has not had any alcohol in a long time. He denies any marijuana or illicit drugs. 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 Smoking packs per day: 2 Smoking cigarettes per day: 40.0 Years smoked: 20 Smoking pack-years: 40.00 Smoking status: Former smoker Tobacco type: cigarettes Second hand tobacco smoke exposure: Yes Additional smoking assessment comments: smokes off and on Alcohol intake: former Alcohol use details: Denied current alcohol abuse Substance use: former Substance use type: does not use Other substance usage details: Denied current substance abuse Last use: 2014 Gender identity (if verbalized by the patient): Male Spiritual care concerns: No Agree to blood products: Yes Exam Const: General: healthy appearing Nutritional Appearance: well nourished Limitations: no limitations Neck: Neck: normal visual inspection Chest: Chest palpation & inspection: normal inspection of the chest Resp: Effort & Inspection: normal respiratory effort Auscultation: clear to auscultation bilaterally Cardio: Rate: regular rate Rhythm: regular rhythm GI: GI Palp: Yes Soft to palpation and Yes Tenderness to palpation present (GI) : General: Yes CVA tenderness Urinary Catheter: Urinary Catheter: patent and draining Back/Spine/Pelvis: Back: CVA tenderness Skin: General skin exam: normal color Rashes: no rashes Neuro: General: patient oriented x3 and moves all extremities Extrem: General: normal to inspection Course Course Emergency Course: Patient with a history of kidney stones diagnosed 2 days ago had a CT scan it showed a 3mm mildly obstructing stone in the right ureter patient received pain medication and was supposed to follow with his urologist and failed to do so. Patient received 30mg IV Toradol along with IV fluids and IV Zofran. Critical Care Time Critical Care Time Critical Care Time: No Discharge Plan Discharge Clinical Impression: Urolithiasis Qualifiers: Urinary calculus location: ureter Qualified Code(s): N20.1 - Calculus of ureter Patient Disposition: Home Condition: Stable Instructions: Antibiotic Form, Ureteral Stones (ED) Patient Language: Kyrgyz Prescriptions: No Action amlodipine 10 mg tablet 1 tablet PO DAILY lisinopril 10 mg Tablet 10 mg PO DAILY fluoxetine 20 mg capsule 40 mg PO DAILY hydrocodone-acetaminophen 5-325 mg tablet 1 tablet PO Q4H Qty: 20 0RF ketorolac 10 mg tablet 10 mg PO Q6H 5 Days Qty: 20 0RF tamsulosin [Flomax] 0.4 mg capsule 0.4 mg PO DAILY Qty: 10 0RF Follow-up/Referrals: Bernice,MD Lucio [Primary Care Provider, Family Practice]
[2024-12-29] MEDS: KETOROLAC 30 MG/ML VIAL (*BKC) IV PUSH (03:09)
[2024-12-29] MEDS: ONDANSETRON INJ 4 MG/2 ML VIAL IV PUSH (03:10)
[2024-12-29] MEDS: SODIUM CHLORIDE 0.9% IV 1,000 ML 999 ML IV CONT (03:10)
--- OUTSIDE RECORDS SUMMARY | 2024-12-29 03:19 | XMS_ITS | Encounter Summary ---
Author Organization [facility] Address [address] [place] [address] Care Team Providers Care Snow Technician Name Role Phone Lanre Cunningham MD Unavailable Zahra Lucio Martin MD Primary Care Provider Telly Vergara INTENSIVE CARE UNIT REGISTERED NURSE Unavailable [phone] Encounter Details Date Type Department Care Team (Late st Contact Info) Description 12/26/2020 [facility] [address] [place] [address] Telly Vergara, INTENSIVE CARE UNIT REGISTERED NURSE [address] [place] [address] Social History Tobacco Use Types [...] documented as of this encounter Care Teams Snow Technician Relationship Specialty Start Date End Date Lucio Queen MD [address] [place] [phone] PCP - General FAMILY PRACTICE 12/26/20 Lanre Cunningham MD [place] Adaptive Physical Educator CARDIOVASCULAR DISEASE 05/31/17 Telly Vergara APRN [address] [place] [phone] Nurse Practitioner NURSE PRACTITIONER 12/26/20 documented as of this encounter
--- OUTSIDE RECORDS SUMMARY | 2024-12-29 03:19 | XMS_ITS | Encounter Summary ---
Author Organization [facility] Address [address] [place] [address] Care Team Providers Care Tobacco Feeder Catcher Name Role Phone Álvaro Wheat MD Primary Care Provider U Lanre Seo MD Unavailable Zahra Lucio Martin MD Primary Care Provider Telly Vergara APRN Unavailable [phone] Encounter Details Date Type Department Care Team (Late st Contact Info) Description 09/06/2018 BUILDING SUPERVISOR ONLY [facility] Medical Group Priority Care - S. Anish [address] [place] [address] Scanned, Documents Social History Tobacco [...] PM CDT ZAK MENSAH III MD: ACCT: [id number] ADMIT/SERVICE DATE: 09/08/18 DISCHARGE DATE: : 1989 PT TYPE: REG RCR SEX: M ORD SITE: [facility] CHART DOCUMENT PHYSICIAN CERTIFICATION AND PLAN [...] TAPERING PATIENT ACHIEVES GOALS. REHAB POTENTIAL: GOOD. 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
--- OUTSIDE RECORDS SUMMARY | 2024-12-29 03:19 | XMS_ITS | Clinical Summary ---
Author Organization [facility] Address [address] [place] [address] Care Team Providers Care Community Relations Rep Name Role Phone Kenya Herzog RN Unavailable [phone] Lucio Queen MD Primary Care Provider [phone] Source Comments [facility],non-owned Affiliates and Associated Physician Practices is amultiple site organization consisting of ambulatory clinics and hospital sitesin [place], [place], [place] and [place]. This disclosure is being madepursuant to the Care Everywhere program and may not contain all information available regarding this patient. Last updated 18.[facility] Allergies Active Allergy Reactions Criticality Noted [...] the patient. aspirin (ASPIRIN) 325 MG tabletIndication s:SC prophylaxis Take 325 mg by mouth once [...] on file Legal Sex Male 2:00 PM CHIEF SECURITY OFFICER Gender Identity Not on file Sexual Orientation Not on file Last Filed Vital Signs Vital Sign Reading Time Taken Comments Blood Pressure 138/92 03/30/2022 12:52 PM CHIEF SECURITY OFFICER Pulse 78 03/30/2022 12:52 PM CHIEF SECURITY OFFICER Temperature 36.3 C (97.3 F) 03/30/2022 12:52 PM CHIEF SECURITY OFFICER Respiratory Rate 18 01/05/2022 12:09 AM CDT Oxygen Saturation 93% 03/30/2022 12:52 PM CHIEF SECURITY OFFICER Inhaled Oxygen Concentration 30% 08/22/2021 3 :22 PM CDT Weight 119.7 kg (264 lb) 03/30/2022 12:52 PM CHIEF SECURITY OFFICER Height 175.3 cm (5' 9) 03/30/2022 12:52 PM CHIEF SECURITY OFFICER Body Mass Index 38.99 03/30/2022 12:52 PM CHIEF SECURITY OFFICER Plan of Treatment Health Maintenance Due Date [...] 7 - 26 mg/dL 12/31/2021 4:06 PM [facility] Creatinine 1.08 0.71 - 1.16 mg/dL 12/31/2021 4:06 PM [facility] Sodium 141 136 - 145 mmol/L 12/31/2021 4:06 PM [facility] Potassium 4.2 3.5 - 4.5 mmol/L 12/31/2021 4:06 PM [facility] Chloride 106 98 - 107 mmol/L 12/31/2021 4:06 PM [facility] CO2 21(L) 22 - 29 mmol/L 12/31/2021 4:06 PM [facility] Glucose 84 70 - 115 mg/dL 12/31/2021 4:06 PM [facility] Calcium 9.3 8.4 - 10.2 mg/dL 12/31/2021 4:06 PM [facility] Protein Total 6.8 6.0 - 8.3 g/dL 12/31/2021 4:06 PM [facility] Albumin 4.2 3.4 - 5.0 g/dL 12/31/2021 [...] CDT 12/31/2021 3:38 PM CDT Lynn Valdez POLYETHYLENE COMBINER-ENGINE MECHANIC LAB - CHEMISTRY ORDERA BLES Final Result [facility] [address] [place] [address], [facility] [phone] * HEMOGLOBIN A1C (08/22/2021 3:36 AM CDT) Hemoglobin A1c 4.9 4.2 - 5.6 % 08/22/2021 4:40 AM [facility] Estimated Average Glucose 94 mg/dL 08/22/2021 4:40 AM T [facility] Blood BLOOD SPECIMEN / Unknown Venipuncture / Unknown 08/22/2021 3:36 AM CDT 08/22/2021 3:58 AM CDT Narrative [facility] - 08/22/2021 4:40 AM CDT The following cutoff levels are recommended by [place] [employer]. A1c > 6.5% : considered [...] MD LAB - CHEMISTRY ORDERABLES Final Result [facility] [address] [place] [phone] from Last 3 Months or Most Recently Relevant to Health Maintenance Additional Health Concerns Infection Onset Date Last Indicated MRSA Hx Comment:Added from external infection. 12/02/2016 [facility] Advance Directives * DNR - IF PULSELESS [...] 6:31 PM 08/29/2021 7:27 PM Care Teams Community Relations Rep Relationship Specialty Start Date End Date Lucio Queen MD [address] [place] [address] PCP - General Family Medicine 08/27/21 Kenya Herzog, RN Receptionist Telephone Operator 08/27/14
--- OUTSIDE RECORDS SUMMARY | 2024-12-29 03:19 | XMS_ITS | Encounter Summary ---
Author Organization [facility] Address [address] [place] [address] Care Team Providers Care Meter Tester Name Role Phone Álvaro Wheat MD Primary Care Provider U Lanre Seo MD Unavailable Zahra Lucio Martin MD Primary Care Provider Telly Vergara APRN Unavailable [phone] Encounter Details Date Type Department Care Team (Late st Contact Info) Description 09/14/2018 CLEAN ROOM OPERATOR ONLY [facility] Medical [facility] Priority Care - S. Anish [address] [place] [address] Scanned, Documents Social History Tobacco [...] AM CDT ZAK MENSAH III MD: ACCT: [id number] ADMIT/SERVICE DATE: 09/21/18 DISCHARGE DATE: : 1990 PT TYPE: REG RCR SEX: M ORD SITE: [facility] CHART DOCUMENT 09/14/2018 DR. ÁLVARO WHEAT [...] THE PATIENT IS PROGRESSING WELL. PLEASE CONTACT [facility] DEPARTMENT OF OUTPATIENT PHYSICAL THERAPY WITH QUESTIONS OR CONCERNS REGARDING THE CARE OF THIS PATIENT. ELECTRONICALLY SIGNED BY ALEX SONG P.T. 09/22/2018 11:00 A MOHIT/DEVIKA 09/14/2018 09/15/2018 09:22 A JOB NO: [id number] DOC NO: [id number] CC: documented in this encounter Plan of Treatment Not on file documented as of this encounter Visit Diagnoses Not on filedocumented in this encounter Additional Health Concerns Infection Onset Date Last Indicated Resolved Time MRSA 12/02/2016 12/02/2016 documented as of this encounter Care Teams Meter Tester Relationship Specialty Start Date End Date Álvaro Wheat MD PCP - General 01/30/16 12/25/20 Lucio Queen MD [address] [place] [phone] PCP - General FAMILY PRACTICE 12/26/20 Lanre Cunningham MD [place] Clinical Microbiologist CARDIOVASCULAR DISEASE 05/31/17 Telly Vergara APRN [address] [place] [phone] Nurse Practitioner NURSE PRACTITIONER 12/26/20 documented as of this encounter
[2024-12-29] MEDS: HYDROmorphone HCL INJ (*CRX) 2 MG/ML VIAL 1 MG IV PUSH (03:42)
--- NOTE | 2024-12-29 03:43 | PC.NURSE ---
patient stated that he does not remember when the last time he urinated was, father at bedside could not recall either, will bladder scan patient.
--- NOTE | 2024-12-29 03:51 | PC.NURSE ---
patient stated that he feels the urge to urinate, however he cannot. Bladder scan done at bedside, showed 32ml in bladder.
[2024-12-29 04:17] VITALS: BP 160/98; PULSE 99; RESP 18; O2SAT 98
--- NOTE | 2024-12-29 04:47 | PC.NURSE ---
patient states pain is better, certainly more manageable at this time. Patient and father agreeable to go home and follow up with urology as planned.
[2024-12-29 05:00] VITALS: BP 158/98; PULSE 78; RESP 20; O2SAT 98
== END 2024-12-29 05:00 | disposition home or self-care (01) ==
LOC: CHSED 03:15
PROVIDERS: Emergency Provider Emergency Medicine; PCP Family Medicine
DX: N20.1 Calculus of ureter (principal); E11.9 Type 2 diabetes mellitus without complications; Z86.73 Personal history of transient ischemic attack (TIA), and cerebral infarction without residual deficits; Z87.891 Personal history of nicotine dependence
CPT/HCPCS: 96361; 96374; 96375; 99284; J1171; J1885; J2405; J7030